=== PATIENT | male | born 1935 | race Caucasian/White ===

== ENCOUNTER 2021-10-24 15:19 | Inpatient (IN) | payer MEDICARE, BC ==
[2021-10-25] MEDS ORDERED: VANCOMYCIN IV PER PHARMACY 1 EACH MISC MISCELLANE PRN (00:27)
--- NOTE | 2021-10-25 00:27 | ED ---
Extremity Problem HPI - General Chief complaint: Extremity Problem,Nontraumatic Stated complaint: Infection in Right Foot Time Seen by Provider: 10/25/21 00:19 Source: patient Mode of arrival: ambulatory Limitations: no limitations - History of Present Illness Initial comments: Chief is a pleasant 85-year-old gentleman with a history of a wound to his right heel, he's been following with wound care, he reports that his foot has become filled with fluid and draining purulent fluid. Wound care advised him today that he needs to the hospital for IV antibiotics. - Related Data Home Medications Medication Instructions Recorded Confirmed Cyclobenzaprine [Flexeril] 5 mg PO DAILY PRN 09/19/14 01/30/15 Metoprolol Tartrate [Lopressor] 50 mg PO BID 09/19/14 01/30/15 Piroxicam [Feldene] 20 mg PO DAILY 09/19/14 01/30/15 Warfarin [Coumadin] 5 mg PO SUMOWETHFRSA 09/19/14 01/30/15 Acetaminophen-Codeine 300-30mg 1 tab PO Q4H PRN 01/30/15 01/30/15 [Tylenol #3] Nepafenac [Nevanac] 1 drop LEFT EYE BID 01/30/15 01/30/15 Warfarin Sodium [Coumadin] 7.5 mg PO TU 01/30/15 01/30/15 Allergies Allergy/AdvReac Type Severity Reaction Status Date / Time chocolate flavor AdvReac Diarrhea Verified 10/24/21 15:31 peanut [Peanut Butter] AdvReac Diarrhea Verified 10/24/21 15:31 Review of Systems ROS Statement: Those systems with pertinent positive or pertinent negative responses have been documented in the HPI. ROS Other: All systems not noted in ROS Statement are negative. Past Medical History Past Medical History: Atrial Fibrillation, CVA/TIA, Hypertension Additional Past Medical History / Comment(s): "RETINA ISSUES" History of Any Multi-Drug Resistant Organisms: None Reported Past Surgical History: Orthopedic Surgery Additional Past Surgical History / Comment(s): CATARACT SURGERY, RIGHT KNEE SURGERY, CARODID ARTERY SURGERY Past Psychological History: No Psychological Hx Reported Smoking Status: Never smoker Past Alcohol Use History: Abuse Past Drug Use History: None Reported General Exam - General Exam Comments Initial Comments: Physical Exam GENERAL: Elderly, obese male HENT: Normocephalic, Atraumatic. EYES: PERRL, EOMI PULMONARY: Unlabored respirations. CARDIOVASCULAR: RRR Chronic venous stasis ABDOMEN: Non-distended SKIN: Chronic venous stasis of lower extremities Abscess and maceration of tissue on heel, draining purulent fluid : Deferred NEUROLOGIC: Alert and oriented MUSCULOSKELETAL: No apparent injury PSYCHIATRIC: No SI/HI Limitations: no limitations Course Vital Signs 10/24/21 10/25/21 15:28 02:31 Temperature 98.4 F 97.7 F Pulse Rate 100 66 Respiratory 22 18 Rate Blood Pressure 120/67 111/94 O2 Sat by Pulse 95 Oximetry Medical Decision Making - Medical Decision Making The patient was seen and evaluated, history is obtained from patient and at bedside Physical exam reveals a large open draining wound on the heel patient appears to have chronic venous stasis and chronic cellulitis Labs are obtained patient has leukocytosis, x-rays show no sign of osteomyelitis, inflammatory markers are pending Broad spectrum antibiotics were ordered Patient care was discussed with Dr. Barbour who agrees with plan for admission with a consult to infectious disease - Lab Data Result diagrams: 10/25/21 01:29 10/25/21 01:29 Lab Results 10/25/21 10/25/21 10/25/21 Range/Units 01:29 01:29 01:29 WBC 16.7 H (3.8-10.6) k/uL RBC 5.35 (4.30-5.90) m/uL Hgb 14.8 (13.0-17.5) gm/dL Hct 46.3 (39.0-53.0) % MCV 86.5 (80.0-100.0) fL MCH 27.6 (25.0-35.0) pg MCHC 31.9 (31.0-37.0) g/dL RDW 16.0 H (11.5-15.5) % Plt Count 415 (150-450) k/uL MPV 7.6 Neutrophils % 84 % Lymphocytes % 10 % Monocytes % 4 % Eosinophils % 1 % Basophils % 0 % Neutrophils # 14.1 H (1.3-7.7) k/uL Lymphocytes # 1.6 (1.0-4.8) k/uL Monocytes # 0.6 (0-1.0) k/uL Eosinophils # 0.2 (0-0.7) k/uL Basophils # 0.1 (0-0.2) k/uL Hypochromasia Slight Anisocytosis Slight PT 31.3 H (9.0-12.0) sec INR 3.1 H (<1.2) APTT 35.6 H (22.0-30.0) sec Sodium 130 L (137-145) mmol/L Potassium 3.9 (3.5-5.1) mmol/L Chloride 92 L (98-107) mmol/L Carbon Dioxide 27 (22-30) mmol/L Anion Gap 11 mmol/L BUN 18 (9-20) mg/dL Creatinine 0.75 (0.66-1.25) mg/dL Est GFR (CKD-EPI)AfAm >90 (>60 ml/min/1.73 sqM) Est GFR (CKD-EPI)NonAf 84 (>60 ml/min/1.73 sqM) Glucose 124 H (74-99) mg/dL Plasma Lactic Acid Darinel (0.7-2.0) mmol/L Calcium 8.2 L (8.4-10.2) mg/dL Total Bilirubin 1.5 H (0.2-1.3) mg/dL AST 246 H (17-59) U/L ALT 205 H (4-49) U/L Alkaline Phosphatase 253 H (38-126) U/L C-Reactive Protein 19.9 H (<1.0) mg/dL Total Protein 7.3 (6.3-8.2) g/dL Albumin 3.1 L (3.5-5.0) g/dL 10/25/21 Range/Units 01:29 WBC (3.8-10.6) k/uL RBC (4.30-5.90) m/uL Hgb (13.0-17.5) gm/dL Hct (39.0-53.0) % MCV (80.0-100.0) fL MCH (25.0-35.0) pg MCHC (31.0-37.0) g/dL RDW (11.5-15.5) % Plt Count (150-450) k/uL MPV Neutrophils % % Lymphocytes % % Monocytes % % Eosinophils % % Basophils % % Neutrophils # (1.3-7.7) k/uL Lymphocytes # (1.0-4.8) k/uL Monocytes # (0-1.0) k/uL Eosinophils # (0-0.7) k/uL Basophils # (0-0.2) k/uL Hypochromasia Anisocytosis PT (9.0-12.0) sec INR (<1.2) APTT (22.0-30.0) sec Sodium (137-145) mmol/L Potassium (3.5-5.1) mmol/L Chloride (98-107) mmol/L Carbon Dioxide (22-30) mmol/L Anion Gap mmol/L BUN (9-20) mg/dL Creatinine (0.66-1.25) mg/dL Est GFR (CKD-EPI)AfAm (>60 ml/min/1.73 sqM) Est GFR (CKD-EPI)NonAf (>60 ml/min/1.73 sqM) Glucose (74-99) mg/dL Plasma Lactic Acid Darinel 2.5 H* (0.7-2.0) mmol/L Calcium (8.4-10.2) mg/dL Total Bilirubin (0.2-1.3) mg/dL AST (17-59) U/L ALT (4-49) U/L Alkaline Phosphatase (38-126) U/L C-Reactive Protein (<1.0) mg/dL Total Protein (6.3-8.2) g/dL Albumin (3.5-5.0) g/dL Disposition Clinical Impression: Abscess of foot excluding toes, Leukocytosis, Chronic venous stasis Disposition: ADMITTED IP TO THIS [facility] Condition: Stable Is patient prescribed a controlled substance at d/c from ED?: No Referrals: Sid Barbour DO [Primary Care Provider] - 1-2 days
[2021-10-25] MEDS ORDERED: PIPERACILLIN-TAZOBACTAM 3.375 GM in SODIUM CHLORIDE 0.9% 100 ML IVPB ONE (01:00)
--- NOTE | 2021-10-25 01:12 | XR ---
EXAMINATION TYPE: XR ankle limited RT DATE OF EXAM: 10/25/2021 COMPARISON: NONE HISTORY: Ankle infection TECHNIQUE: 2 views FINDINGS: There is soft tissue swelling around the lower leg. Ankle mortise is anatomic. No fracture nor dislocation. There is moderate spurring at the talonavicular joint and the navicular cuneiform luana int. There is plantar and Achilles calcaneal spurring. IMPRESSION: No fracture. Subcutaneous edema.
[2021-10-25] MEDS ORDERED: VANCOMYCIN 2,000 MG in SODIUM CHLORIDE 0.9% 500 ML 500 ML IVPB ONE (01:30)
[2021-10-25 02:14] LABS: Anisocytosis Slight; Basophils # (A) 0.1 k/uL (0-0.2); Basophils % (A) 0 %; Eosinophils # (A) 0.2 k/uL (0-0.7); Eosinophils % (A) 1 %; HCT 46.3 % (39.0-53.0); HGB 14.8 gm/dL (13.0-17.5); Hypochromasia Slight; Lymphocytes # (A) 1.6 k/uL (1.0-4.8); Lymphocytes % (A) 10 %; MCH 27.6 pg (25.0-35.0); MCHC 31.9 g/dL (31.0-37.0); MCV 86.5 fL (80.0-100.0); Mean Platelet Volume 7.6; Monocytes # (A) 0.6 k/uL (0-1.0); Monocytes % (A) 4 %; Neutrophils # (A) 14.1 k/uL (1.3-7.7); Neutrophils % (A) 84 %; Platelet Count 415 k/uL (150-450); RBC 5.35 m/uL (4.30-5.90); WBC 16.7 k/uL (3.8-10.6)
[2021-10-25 02:24] LABS: INR 3.1 (<1.2); Partial Thromboplastin Time 35.6 sec (22.0-30.0); Prothrombin Time 31.3 sec (9.0-12.0)
[2021-10-25 02:40] LABS: ALT 205 U/L (4-49); AST 246 U/L (17-59); African American GFR (CKD) >90 (>60 ml/min/1.73 sqM); Albumin 3.1 g/dL (3.5-5.0); Alkaline Phosphatase 253 U/L (38-126); Anion Gap 11 mmol/L; Blood Urea Nitrogen 18 mg/dL (9-20); Calcium 8.2 mg/dL (8.4-10.2); Carbon Dioxide 27 mmol/L (22-30); Chloride 92 mmol/L (98-107); Glucose 124 mg/dL (74-99); Non-African American GFR(CKD) 84 (>60 ml/min/1.73 sqM); Sodium 130 mmol/L (137-145); Total Bilirubin 1.5 mg/dL (0.2-1.3); Total Protein 7.3 g/dL (6.3-8.2)
[2021-10-25 02:51] LABS: Potassium 3.9 mmol/L (3.5-5.1)
[2021-10-25 02:56] LABS: C Reactive Protein 19.9 mg/dL (<1.0)
[2021-10-25] MEDS ORDERED: NALOXONE 0.4 MG/ML 1 ML VIAL IV PRN (03:39)
[2021-10-25] MEDS ORDERED: Acetaminophen-Codeine 300-30mg TAB PO STA (04:24)
[2021-10-25] MEDS ORDERED: LIDOCAINE 1% INJ 10MG/ML (5 ML VIAL-PF) SQ ONE (15:45)
--- NOTE | 2021-10-25 17:42 | CONS ---
CONSULTATION This is an 85-year-old gentleman, well known to me from the past. Patient has been coming for carotid artery evaluation in the office on a regular basis. He had a carotid endarterectomy in the past. The patient has been coming to the wound clinic for venostasis ulcers bilaterally. Patient came yesterday to the wound clinic and he was sent to the emergency room for evaluation. Right foot heel is draining fluid and there is an abscess and maceration of the skin of the right heel. Patient also has venous hypertension of both lower extremities. MEDICAL HISTORY: History of atrial fibrillation, hypertension. The patient is on Coumadin. He also has obesity. SURGICAL HISTORY: Patient had a carotid endarterectomy done in the past. PHYSICAL EXAMINATION: Patient was seen in his room. NECK: Supple. No bruit appreciated. CHEST: Clear. Good air entry in both lungs. ABDOMEN: Protuberant. VASCULAR: Femorals are 1+ bilaterally. Patient has induration of both lower extremities due to venous hypertension. Right heel has an abscess and some maceration is noted of the skin. PLAN: I and D of the abscess and deep culture. MMODL / IJN: [id number] /
[2021-10-25] MEDS: VANCOMYCIN 2,000 MG in SODIUM CHLORIDE 0.9% 500 ML 500 ML IVPB SCH (18:09)
--- NOTE | 2021-10-25 19:07 | OP ---
OPERATIVE REPORT PREOPERATIVE DIAGNOSIS: Abscess, right heel. POSTOPERATIVE DIAGNOSIS: Abscess, right heel. OPERATION: Incision and drainage of the abscess and deep culture. PROCEDURE DESCRIPTION: This patient was seen. Right foot was prepped and draped in usual sterile manner. Lidocaine 1% plain was infiltrated. Using a sharp knife, we made a cruciate incision at the right heel. There was drainage of the fluid and the pus, and some devitalized tissue was excised with a sharp knife. The tissue was sent for deep culture. Wound was irrigated with saline. Then we used Aquacel Silver rope which was placed inside the wound and dressing was applied. Patient tolerated the procedure well. Plan is to continue with IV antibiotic. We will change the dressing tomorrow using Aquacel Silver. MMODL / IJN: [id number] /
[2021-10-25] MEDS: Acetaminophen-Codeine 300-30mg TAB PO PRN (22:47)
[2021-10-25] MEDS: ASPIRIN 81 MG PO SCH (22:55)
[2021-10-25] MEDS: KETOROLAC 0.5% OPHTH DROPS 5 ML BTL LEFT EYE SCH (22:56)
[2021-10-25] MEDS: FUROSEMIDE 40 MG TAB PO SCH (22:56)
[2021-10-25] MEDS: MELOXICAM 7.5 MG TAB PO SCH (22:56)
[2021-10-25] MEDS: TIMOLOL 0.5% OPHTH DROPS 5 ML BTL BOTH EYES SCH (22:56)
[2021-10-25] MEDS: METOPROLOL TARTRATE 50 MG TAB PO SCH (22:56)
[2021-10-25] MEDS: ESCITALOPRAM 20 MG TAB PO SCH (22:56)
[2021-10-25] MEDS: WARFARIN 5 MG TAB PO SCH (22:57)
--- NOTE | 2021-10-26 00:48 | P.CONS ---
History of Present Illness - Reason for Consult Consult date: 10/25/21 - History of Present Illness Patient is a 85-year-old male who apparently do follow at [facility] care [place] patient presented to the [facility] ER for evaluation of increasing swelling redness to the right leg also with some drainage from the right heel area, patient denies having history of any trauma patient did have a pain especially when the right heel is touched is having to more of a dull ach ing 3-4 out of 10 no radiation the patient did have some drainage patient denies high-grade fever or any chills and no fever was recorded on presentation to the hospital patient did have white count of 16.7 with a left shift creatinine was normal he did have elevated liver enzymes patient did have local cultures obtained was started on vancomycin infectious disease was consulted for further management of antibiotic therapy patient did have x-ray of the ankle which shows no fracture subcutaneous edema Past Medical History Past Medical History: Atrial Fibrillation, CVA/TIA, Hypertension Additional Past Medical History / Comment(s): "RETINA ISSUES" History of Any Multi-Drug Resistant Organisms: None Reported Past Surgical History: Orthopedic Surgery Additional Past Surgical History / Comment(s): CATARACT SURGERY, RIGHT KNEE SURGERY, CARODID ARTERY SURGERY Past Anesthesia/Blood Transfusion Reactions: No Reported Reaction Past Psychological History: No Psychological Hx Reported Smoking Status: Never smoker Past Alcohol Use History: Abuse Past Drug Use History: None Reported Medications and Allergies Home Medications Medication Instructions Recorded Confirmed Type Metoprolol Tartrate [Lopressor] 50 mg PO BID 09/19/14 10/25/21 History Piroxicam [Feldene] 20 mg PO DAILY 09/19/14 10/25/21 History Warfarin [Coumadin] 5 mg PO DIRECTED 09/19/14 10/25/21 History Acetaminophen-Codeine 300-30mg 1 tab PO Q8H PRN 01/30/15 10/25/21 History [Tylenol #3] Warfarin Sodium [Coumadin] 7.5 mg PO DIRECTED 01/30/15 10/25/21 History Aspirin EC [Ecotrin Low Dose] 81 mg PO DAILY 10/25/21 10/25/21 History Escitalopram [Lexapro] 20 mg PO DAILY 10/25/21 10/25/21 History Furosemide [Lasix] 40 mg PO BID 10/25/21 10/25/21 History Ketorolac 0.5% Ophth Soln [Acular 1 drops LEFT EYE BID 10/25/21 10/25/21 History 0.5%] Timolol 0.5% Ophth Soln [Timoptic 1 drop BOTH EYES BID 10/25/21 10/25/21 History 0.5% Ophth Soln] Allergies Allergy/AdvReac Type Severity Reaction Status Date / Time chocolate flavor AdvReac Diarrhea Verified 10/25/21 07:21 peanut [Peanut Butter] AdvReac Diarrhea Verified 10/25/21 07:21 Physical Exam Vitals: Vital Signs Temp Pulse Pulse Resp BP BP BP 10/25/21 07:00 97.6 F 116 H 12 120/74 10/25/21 05:51 98.5 F 59 L 20 112/74 10/25/21 05:11 97.4 F L 94 18 125/78 10/25/21 02:31 97.7 F 66 18 111/94 10/24/21 15:28 98.4 F 100 22 120/67 Pulse Ox 10/25/21 07:00 96 10/25/21 05:51 96 10/25/21 05:11 10/25/21 02:31 10/24/21 15:28 95 Intake and Output 10/24/21 10/25/21 10/25/21 22:59 06:59 14:59 Intake Total 118 Output Total 325 Balance -207 Intake: Oral 118 Output: Urine 325 Other: Weight 136.078 kg 136.078 kg Results CBC & Chem 7: 10/25/21 01:29 10/25/21 01:29 Labs: Abnormal Lab Results - Last 24 Hours (Table) 10/25/21 10/25/21 10/25/21 Range/Units 01:29 01:29 01:29 WBC 16.7 H (3.8-10.6) k/uL RDW 16.0 H (11.5-15.5) % Neutrophils # 14.1 H (1.3-7.7) k/uL ESR (0-15) mm/hr PT 31.3 H (9.0-12.0) sec INR 3.1 H (<1.2) APTT 35.6 H (22.0-30.0) sec Sodium 130 L (137-145) mmol/L Chloride 92 L (98-107) mmol/L Glucose 124 H (74-99) mg/dL Plasma Lactic Acid Darinel (0.7-2.0) mmol/L Calcium 8.2 L (8.4-10.2) mg/dL Total Bilirubin 1.5 H (0.2-1.3) mg/dL AST 246 H (17-59) U/L ALT 205 H (4-49) U/L Alkaline Phosphatase 253 H (38-126) U/L C-Reactive Protein 19.9 H (<1.0) mg/dL Albumin 3.1 L (3.5-5.0) g/dL 10/25/21 10/25/21 Range/Units 01:29 03:24 WBC (3.8-10.6) k/uL RDW (11.5-15.5) % Neutrophils # (1.3-7.7) k/uL ESR 86 H (0-15) mm/hr PT (9.0-12.0) sec INR (<1.2) APTT (22.0-30.0) sec Sodium (137-145) mmol/L Chloride (98-107) mmol/L Glucose (74-99) mg/dL Plasma Lactic Acid Darinel 2.5 H* (0.7-2.0) mmol/L Calcium (8.4-10.2) mg/dL Total Bilirubin (0.2-1.3) mg/dL AST (17-59) U/L ALT (4-49) U/L Alkaline Phosphatase (38-126) U/L C-Reactive Protein (<1.0) mg/dL Albumin (3.5-5.0) g/dL Assessment and Plan Plan: 1patient [facility] with right lower extremity cellulitis in this patient who did have a wound to the right heel area with underlying diabetes and concern for possible infected blister/callus, will need to call for the gram- positive skin alfonso to be the likely pathogen. 2elevated liver enzymes but no significant abdominal pain no tenderness right upper quadrant area. 3we will wait for the surgical evaluation drainage and deep culture. 4vancomycin pharmacy to dose target trough of 15 while watching kidney f unction and vancomycin trough closely 5check ultrasound of the liver and gallbladder area. We will follow on clinical condition and cultures to further adjust medication if needed Thank you for this consultation will follow this patient along with you Time with Patient: Greater than 30
[2021-10-26] MEDS: VANCOMYCIN 2,000 MG in SODIUM CHLORIDE 0.9% 500 ML 500 ML IVPB SCH ×2 (05:51→17:08)
--- NOTE | 2021-10-26 08:22 | US ---
EXAMINATION TYPE: US abdomen complete DATE OF EXAM: 10/26/2021 COMPARISON: NONE CLINICAL HISTORY: elevated LFT. Large body habitus at 300lb,Ht 5'8; colitis per patient. EXAM MEASUREMENTS: Liver Length: 16.9 cm Gallbladder Wall: 0.3 cm CBD: 0.4 cm Spleen: 11.4 cm Right Kidney: 10.8 x 6.7 x 5.5 cm Left Kidney: 10.6 x 5.6 x 5.2 cm Pancreas: hyperechoic and partially heterogeneous Liver: small left lobe; hyperechoic and heterogeneous; periportal wall brightness Gallbladder: large shadowing stone = 2.1 x 1.0 x 1.6cm and noted mid lumen; irregular echoes (small amount) seen in neck suggests sludge; elongated gallbladder greater than 10.0cm, but height is wnl. Evidence for sonographic Gore's sign: no CBD: wnl Spleen: wnl Right Kidney: mid lateral cortical cyst imaged = 0.9 x 1.1 x 1.0cm Left Kidney: No hydronephrosis or masses seen Upper IVC: wnl Abd Aorta: size is wnl, wall calcifications are seen distally. Suboptimal study due to large body habitus. Heterogeneous pancreas difficult to distinctly visualize margins. No ductal dilatation. Visualized liver is heterogeneously hyperechoic. No abnormal dilatatio n. Gallbladder has large intraluminal gallstone without surrounding fluid or wall thickening. No hydr onephrosis bilaterally. Incidental near 1.0 cm round lesion upper to midpole level right kidney favor ing benign thin-walled cyst. No greater than 3.0 cm AAA. Spleen is normal in size. IMPRESSION: Suboptimal study. Heterogeneous hyperechoic appearance of liver suggestive of diffuse fa tty infiltration and/or underlying hepatocellular disease.
[2021-10-26 08:47] LABS: INR 1.9 (<1.2); Prothrombin Time 19.1 sec (9.0-12.0)
[2021-10-26] MEDS: ASPIRIN 81 MG PO SCH (08:48)
[2021-10-26] MEDS: FUROSEMIDE 40 MG TAB PO SCH ×2 (08:49→21:06)
[2021-10-26] MEDS: METOPROLOL TARTRATE 50 MG TAB PO SCH ×2 (08:49→21:07)
[2021-10-26] MEDS: ESCITALOPRAM 20 MG TAB PO SCH (08:50)
[2021-10-26] MEDS: MELOXICAM 7.5 MG TAB PO SCH (08:50)
[2021-10-26] MEDS: KETOROLAC 0.5% OPHTH DROPS 5 ML BTL LEFT EYE SCH ×2 (08:51→21:07)
[2021-10-26] MEDS: TIMOLOL 0.5% OPHTH DROPS 5 ML BTL BOTH EYES SCH ×2 (08:51→21:08)
[2021-10-26] MEDS: Acetaminophen-Codeine 300-30mg TAB PO PRN ×2 (13:30→21:09)
--- NOTE | 2021-10-26 15:36 | P.PN ---
Subjective Progress Note Date: 10/26/21 This is an 85-year-old gentleman referred to the ER by Dr. Purdy from the wound care clinic related to chronic right heel abscess/maceration with purulent drainage. Ankle x-ray reported no fracture, soft tissue swelling around the lower leg, moderate spurring. Underwent I&D yesterday with deep cultures obtained, tolerated procedure well. Denies any leg or foot pain-patient has neuropathy. Currently NPO for abdominal ultrasound in regards to elevated LFTs. Denies chest pain, palpitations or shortness of breath. Denies lightheadedness or dizziness or focal deficits. Maintained on IV antibiotics of Zosyn and vancomycin as per ID. Labs pending. Objective - Vital Signs Vital signs: Vital Signs Temp 98.4 F 10/26/21 13:29 Pulse 103 H 10/26/21 13:29 Resp 20 10/26/21 13:29 BP 110/74 10/26/21 13:29 Pulse Ox 97 10/26/21 13:29 Intake & Output 10/25/21 10/26/21 10/26/21 18:59 06:59 18:59 Intake Total 476 240 Output Total 1000 625 300 Balance -524 -625 -60 Intake: Oral 476 240 Output: Urine 1000 625 300 Other: Voiding Method Urinal # Voids 1 3 # Bowel Movements 0 - Exam PHYSICAL EXAM: VITAL SIGNS: [As above] GENERAL: Sitting up in bed, no acute distress HEENT: Conjunctivae normal. eyes normal. MMM. NECK: No JVD. No thyroid enlargement. No LNs CARDIOVASCULAR: S1, S2 regular. No murmur RESPIRATION: Breath sounds diminished in the bases. No rhonchi or crackles. No bronchial breathing. ABDOMEN: Soft, nontender . No guarding. no masses palpable. No ascites, No hepatosplenomegaly.Bowel sounds heard. LEGS: Bilateral lower extremity chronic venous stasis with right heel dressing with serosanguineous drainage PSYCHIATRY: Alert and oriented X3, mood and affect normal. NERVOUS SYSTEM: Cranial N 2-12 grossly normal. Moves all 4 limbs. Diffuse weakness No focal deficits. Strength and sensation grossly intact. Skin: no rash - Labs CBC & Chem 7: 10/25/21 01:29 10/25/21 01:29 Labs: Abnormal Lab Results - Last 24 Hours (Table) 10/25/21 10/26/21 Range/Units 01:29 08:04 PT 19.1 H (9.0-12.0) sec INR 1.9 H (<1.2) Procalcitonin 0.45 H (0.02-0.09) ng/mL Microbiology - Last 24 Hours (Table) 10/25/21 01:29 Gram Stain - Preliminary Ankle - Right Wound Culture - Preliminary Presumptive MRSA 10/25/21 16:10 Gram Stain - Preliminary Foot - Right Wound Culture - Preliminary 10/25/21 01:30 Blood Culture - Preliminary Blood No Growth after 24 hours 10/25/21 01:45 Blood Culture - Preliminary Blood No Growth after 24 hours 10/25/21 16:10 Anaerobic Culture - Preliminary Foot - Right Assessment and Plan Assessment: Right lower extremity cellulitis, chronic right heel abscess in a patient with diabetes, status post I&D with deep cultures obtained. 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 Labs pending. Maintain NPO status, abdominal ultrasound pending. Coumadin dosing per pharmacy with daily PT/INR. Antibiotics/Wound Care as per infectious disease and vascular surgery Dr. Purdy,whom patient follows with in outpatient wound care center. NovoLog insulin sliding scale added to med regimen, hemoglobin A1c ordered. Close monitoring of Accu-Cheks. Close monitoring of renal function, electrolytes with repeat labs ordered for a.m. Prognosis guarded given multiple complex medical issues. The impression and plan of care has been dictated as directed. DrJarrett: I performed a history and examination of this patient, discussed the same with the dictator. I agree with the dictator's note ,documented as a scribe. Any additional findings or plans will be noted.
[2021-10-26] MEDS ORDERED: PANTOPRAZOLE 40 MG/10 ML VIAL IVP SCH (15:45)
[2021-10-26 16:14] LABS: Anisocytosis Slight; Carbon Dioxide 28 mmol/L (22-30); Chloride 98 mmol/L (98-107); Glucose 120 mg/dL (74-99); HCT 39.4 % (39.0-53.0); HGB 12.1 gm/dL (13.0-17.5); Hypochromasia Moderate; MCH 27.2 pg (25.0-35.0); MCHC 30.8 g/dL (31.0-37.0); MCV 88.3 fL (80.0-100.0); Mean Platelet Volume 7.2; Platelet Count 381 k/uL (150-450); Potassium 4.3 mmol/L (3.5-5.1); RBC 4.46 m/uL (4.30-5.90); RDW 16.3 % (11.5-15.5); Sodium 130 mmol/L (137-145); WBC 6.7 k/uL (3.8-10.6)
[2021-10-26 16:15] LABS: ALT 120 U/L (4-49); AST 94 U/L (17-59); African American GFR (CKD) >90 (>60 ml/min/1.73 sqM); Albumin 2.4 g/dL (3.5-5.0); Albumin/Globulin Ratio 0.7; Alkaline Phosphatase 120 U/L (38-126); Anion Gap 4 mmol/L; Blood Urea Nitrogen 16 mg/dL (9-20); Calcium 7.4 mg/dL (8.4-10.2); Globulin 3.5 g/dL; Non-African American GFR(CKD) 80 (>60 ml/min/1.73 sqM); Total Bilirubin 0.9 mg/dL (0.2-1.3); Total Protein 5.9 g/dL (6.3-8.2)
[2021-10-26 16:55] LABS: Glucose,Whole Blood 142 mg/dL (75-99)
--- NOTE | 2021-10-26 17:16 | PN ---
PROGRESS NOTE This is an 85-year-old gentleman with history of diabetes, chronic venous hypertension with abscess formation noted on right heel. We did I and D yesterday with debridement and deep culture. The patient is on IV antibiotic. We will change the dressing tomorrow with Aquacel Silver rope. Culture is pending. MMODL / IJN: [id number] /
[2021-10-26] MEDS: INSULIN ASPART (NovoLOG) 100 UNIT/ML VIAL SQ SCH ×2 (17:31→21:08)
[2021-10-26 20:02] LABS: Glucose,Whole Blood 132 mg/dL (75-99)
[2021-10-26] MEDS: WARFARIN 5 MG TAB PO SCH (21:06)
--- NOTE | 2021-10-26 22:33 | P.PN ---
Subjective Progress Note Date: 10/26/21 Principal diagnosis: Right heel diabetic foot infection with right leg cellulitis Patient is 85-year-old male presenting to the hospital with worsening of the right heel and did have right lower extremity cellulitis in this patient who is status post surgical debridement of the right heel completed on 10/25/2021 with a culture showing presumptive MRSA. On today's evaluation that is 10/26/2021, the patient denies having any fever or any chills, the patient is feeling comfortably, denies any chest pain shortness of cough no common pain and pain to the right heel is currently controlled Objective - Vital Signs Vital signs: Vital Signs Temp 98.4 F 10/26/21 13:29 Pulse 103 H 10/26/21 13:29 Resp 20 10/26/21 13:29 BP 110/74 10/26/21 13:29 Pulse Ox 97 10/26/21 13:29 Intake & Output 10/25/21 10/26/21 10/26/21 18:59 06:59 18:59 Intake Total 476 240 Output Total 1000 625 300 Balance -524 -625 -60 Intake: Oral 476 240 Output: Urine 1000 625 300 Other: Voiding Method Urinal # Voids 1 3 # Bowel Movements 0 - Exam GENERAL DESCRIPTION: An elderly male lying in bed in no distress RESPIRATORY SYSTEM: Unlabored breathing , decreased breath sounds at bases HEART: S1 S2 regular rate and rhythm , ABDOMEN: Soft , no tenderness EXTREMITIES: Right lower extremity swelling redness right heel wound is currently dressed - Labs CBC & Chem 7: 10/26/21 15:51 10/26/21 15:51 Labs: Abnormal Lab Results - Last 24 Hours (Table) 10/25/21 10/26/21 Range/Units 01:29 08:04 PT 19.1 H (9.0-12.0) sec INR 1.9 H (<1.2) Procalcitonin 0.45 H (0.02-0.09) ng/mL Microbiology - Last 24 Hours (Table) 10/25/21 01:29 Gram Stain - Preliminary Ankle - Right Wound Culture - Preliminary Presumptive MRSA 10/25/21 16:10 Gram Stain - Preliminary Foot - Right Wound Culture - Preliminary 10/25/21 01:30 Blood Culture - Preliminary Blood No Growth after 24 hours 10/25/21 01:45 Blood Culture - Preliminary Blood No Growth after 24 hours 10/25/21 16:10 Anaerobic Culture - Preliminary Foot - Right Assessment and Plan (1) Abscess of foot excluding toes Current Visit: Yes Status: Acute Code(s): L02.619 - CUTANEOUS ABSCESS OF UNSPECIFIED FOOT SNOMED Code(s): 34195591 Plan: 1patient presented hospital with right lower extremity cellulitis in this patient who did have a wound to the right heel area with underlying diabetes and concern for possible infected blister/callus, will need to call for the gram- positive skin alfonso to be the likely pathogen. 2elevated liver enzymes but no significant abdominal pain no tenderness right upper quadrant area. 3patient is status post surgical evaluation drainage and deep culture. Which are currently growing presumptive MRSA 4vancomycin pharmacy to dose target trough of 15 while watching kidney function and vancomycin trough closely 5patient with a PICC line and outpatient IV antibiotic therapy Time with Patient: Less than 30
--- NOTE | 2021-10-26 23:42 | P.HPIM ---
History of Present Illness H&P Date: 10/25/21 Patient is a 85-year-old male who apparently do follow at [facility] wound care center patient presented to the [facility] ER for evaluation of increasing swelling redness to the right leg also with some drainage from the right heel area, patient denies having history of any trauma patient did have a pain especially when the right heel is touched is having to more of a dull aching 3-4 out of 10 no radiation the patient did have some drainage patient denies high-grade fever or any chills and no fever was recorded on presentation to the hospital patient did have white count of 16.7 with a left shift creatinine was normal he did have elevated liver enzymes patient did have local cultures obtained was started on vancomycin infectious disease was consulted for further management of antibiotic therapy patient did have x-ray of the ankle which shows no fracture subcutaneous edema Review of Systems Eyes: denies blurred vision, denies pain Ears, nose, mouth and throat: Denies headache, Denies sore throat Cardiovascular: Denies chest pain, Denies shortness of breath Respiratory: Denies cough Gastrointestinal: Denies abdominal pain, Denies diarrhea, Denies nausea, Denies vomiting Musculoskeletal: Reports hot joints, Reports leg numbness/tingling, Reports redness of joints Musculoskeletal: right: ankle pain, ankle swelling Integumentary: Reports wounds Neurological: Reports numbness, Denies weakness Psychiatric: Denies anxiety, Denies depression Endocrine: Denies fatigue, Denies weight change Past Medical History Past Medical History: Atrial Fibrillation, CVA/TIA, Hypertension Additional Past Medical History / Comment(s): "RETINA ISSUES" History of Any Multi-Drug Resistant Organisms: MRSA Date of last positivie culture/infection: 10/24/21 MDRO Source:: MRSA FOOT Past Surgical History: Orthopedic Surgery Additional Past Surgical History / Comment(s): CATARACT SURGERY, RIGHT KNEE SURGERY, CARODID ARTERY SURGERY Past Anesthesia/Blood Transfusion Reactions: No Reported Reaction Past Psychological History: No Psychological Hx Reported Smoking Status: Never smoker Past Alcohol Use History: Abuse Past Drug Use History: None Reported Medications and Allergies Home Medications Medication Instructions Recorded Confirmed Type Metoprolol Tartrate [Lopressor] 50 mg PO BID 09/19/14 10/25/21 History Piroxicam [Feldene] 20 mg PO DAILY 09/19/14 10/25/21 History Warfarin [Coumadin] 5 mg PO DIRECTED 09/19/14 10/25/21 History Acetaminophen-Codeine 300-30mg 1 tab PO Q8H PRN 01/30/15 10/25/21 History [Tylenol #3] Warfarin Sodium [Coumadin] 7.5 mg PO DIRECTED 01/30/15 10/25/21 History Aspirin EC [Ecotrin Low Dose] 81 mg PO DAILY 10/25/21 10/25/21 History Escitalopram [Lexapro] 20 mg PO DAILY 10/25/21 10/25/21 History Furosemide [Lasix] 40 mg PO BID 10/25/21 10/25/21 History Ketorolac 0.5% Ophth Soln [Acular 1 drops LEFT EYE BID 10/25/21 10/25/21 History 0.5%] Timolol 0.5% Ophth Soln [Timoptic 1 drop BOTH EYES BID 10/25/21 10/25/21 History 0.5% Ophth Soln] Allergies Allergy/AdvReac Type Severity Reaction Status Date / Time chocolate flavor AdvReac Diarrhea Verified 10/25/21 07:21 peanut [Peanut Butter] AdvReac Diarrhea Verified 10/25/21 07:21 Physical Exam Osteopathic Statement: *. No significant issues noted on an osteopathic structural exam other than those noted in the History and Physical/Consult. Vitals: Vital Signs Temp Pulse Resp BP BP Pulse Ox 10/26/21 19:35 97.2 F L 87 19 121/79 98 10/26/21 13:29 98.4 F 103 H 20 110/74 97 10/26/21 07:00 98.2 F 106 H 16 121/68 93 L 10/26/21 00:59 98.1 F 101 H 20 108/73 97 Intake and Output 10/26/21 10/26/21 10/27/21 14:59 22:59 06:59 Intake Total 240 180 Output Total 300 Balance -60 180 Intake: Oral 240 180 Output: Urine 300 Other: # Voids 3 # Bowel Movements 0 PHYSICAL EXAM: VITAL SIGNS: [As above] GENERAL: Sitting up in bed, no acute distress HEENT: Conjunctivae normal. eyes normal. MMM. NECK: No JVD. No thyroid enlargement. No LNs CARDIOVASCULAR: S1, S2 regular. No murmur RESPIRATION: Breath sounds diminished in the bases. No rhonchi or crackles. No bronchial breathing. ABDOMEN: Soft, nontender . No guarding. no masses palpable. No ascites, No hepatosplenomegaly.Bowel sounds heard. LEGS: Bilateral lower extremity chronic venous stasis with right heel dressing with serosanguineous drainage PSYCHIATRY: Alert and oriented X3, mood and affect normal. NERVOUS SYSTEM: Cranial N 2-12 grossly normal. Moves all 4 limbs. Diffuse weakness No focal deficits. Strength and sensation grossly intact. Skin: no rash Results CBC & Chem 7: 10/26/21 15:51 10/26/21 15:51 Labs: Abnormal Lab Results - Last 24 Hours (Table) 10/26/21 10/26/21 10/26/21 Range/Units 08:04 15:51 15:51 Hgb 12.1 L (13.0-17.5) gm/dL MCHC 30.8 L (31.0-37.0) g/dL RDW 16.3 H (11.5-15.5) % PT 19.1 H (9.0-12.0) sec INR 1.9 H (<1.2) Sodium 130 L (137-145) mmol/L Glucose 120 H (74-99) mg/dL POC Glucose (mg/dL) (75-99) mg/dL Hemoglobin A1c (0.0-6.0) % Calcium 7.4 L (8.4-10.2) mg/dL AST 94 H (17-59) U/L ALT 120 H (4-49) U/L Total Protein 5.9 L (6.3-8.2) g/dL Albumin 2.4 L (3.5-5.0) g/dL 10/26/21 10/26/21 10/26/21 Range/Units 15:51 16:54 20:00 Hgb (13.0-17.5) gm/dL MCHC (31.0-37.0) g/dL RDW (11.5-15.5) % PT (9.0-12.0) sec INR (<1.2) Sodium (137-145) mmol/L Glucose (74-99) mg/dL POC Glucose (mg/dL) 142 H 132 H (75-99) mg/dL Hemoglobin A1c 6.8 H (0.0-6.0) % Calcium (8.4-10.2) mg/dL AST (17-59) U/L ALT (4-49) U/L Total Protein (6.3-8.2) g/dL Albumin (3.5-5.0) g/dL Microbiology - Last 24 Hours (Table) 10/25/21 01:29 Gram Stain - Preliminary Ankle - Right Wound Culture - Preliminary Presumptive MRSA 10/25/21 16:10 Gram Stain - Preliminary Foot - Right Wound Culture - Preliminary 10/25/21 01:30 Blood Culture - Preliminary Blood No Growth after 24 hours 10/25/21 01:45 Blood Culture - Preliminary Blood No Growth after 24 hours 10/25/21 16:10 Anaerobic Culture - Preliminary Foot - Right Thrombosis Risk Factor Assmnt - Choose All That Apply Any of the Below Risk Factors Present?: Yes Each Factor Represents 1 point: Obesity (BMI >25), Swollen legs (current) Other Risk Factors: Yes Each Risk Factor Represents 3 Points: Age 75 years or older Other congenital or acquired thrombophilia - If yes, enter type in comment: No Thrombosis Risk Factor Assessment Total Risk Factor Score: 5 Thrombosis Risk Factor Assessment Level: High Risk Assessment and Plan (1) Abscess of foot excluding toes Current Visit: Yes Status: Acute Code(s): L02.619 - CUTANEOUS ABSCESS OF UNSPECIFIED FOOT SNOMED Code(s): 05410881 (2) Chronic venous stasis Current Visit: Yes Status: Acute Code(s): I87.8 - OTHER SPECIFIED DISORDERS OF VEINS SNOMED Code(s): 89600184 (3) Leukocytosis Current Visit: Yes Status: Acute Code(s): D72.829 - ELEVATED WHITE BLOOD CELL COUNT, UNSPECIFIED SNOMED Code(s): 031899402 Plan: Start IV antibiotics, ID consult and wound care services ordered.
[2021-10-27] MEDS: Acetaminophen-Codeine 300-30mg TAB PO PRN ×2 (05:14→17:38)
[2021-10-27] MEDS: VANCOMYCIN 2,000 MG in SODIUM CHLORIDE 0.9% 500 ML 500 ML IVPB SCH (05:15)
[2021-10-27 05:17] LABS: Anisocytosis Slight; Basophils % (A) 1 %; Eosinophils # (A) 0.2 k/uL (0-0.7); Eosinophils % (A) 3 %; HCT 40.4 % (39.0-53.0); HGB 12.1 gm/dL (13.0-17.5); Hypochromasia Moderate; Lymphocytes # (A) 1.4 k/uL (1.0-4.8); Lymphocytes % (A) 19 %; MCH 26.7 pg (25.0-35.0); MCHC 29.9 g/dL (31.0-37.0); MCV 89.4 fL (80.0-100.0); Mean Platelet Volume 7.3; Monocytes # (A) 0.3 k/uL (0-1.0); Monocytes % (A) 4 %; Neutrophils # (A) 5.1 k/uL (1.3-7.7); Neutrophils % (A) 72 %; Platelet Count 383 k/uL (150-450); RBC 4.52 m/uL (4.30-5.90); RDW 16.1 % (11.5-15.5); WBC 7.1 k/uL (3.8-10.6)
[2021-10-27 05:26] LABS: African American GFR (CKD) 84 (>60 ml/min/1.73 sqM); Anion Gap 3 mmol/L; Blood Urea Nitrogen 19 mg/dL (9-20); Calcium 7.6 mg/dL (8.4-10.2); Carbon Dioxide 33 mmol/L (22-30); Chloride 95 mmol/L (98-107); Glucose 147 mg/dL (74-99); Non-African American GFR(CKD) 72 (>60 ml/min/1.73 sqM); Potassium 4.4 mmol/L (3.5-5.1); Sodium 131 mmol/L (137-145)
[2021-10-27 05:33] LABS: INR 1.8 (<1.2); Prothrombin Time 18.6 sec (9.0-12.0)
[2021-10-27 07:21] LABS: Glucose,Whole Blood 100 mg/dL (75-99)
[2021-10-27] MEDS: INSULIN ASPART (NovoLOG) 100 UNIT/ML VIAL SQ SCH ×4 (07:28→21:09)
[2021-10-27] MEDS: FUROSEMIDE 40 MG TAB PO SCH ×2 (08:43→20:18)
[2021-10-27] MEDS: TIMOLOL 0.5% OPHTH DROPS 5 ML BTL BOTH EYES SCH ×2 (08:43→20:18)
[2021-10-27] MEDS: METOPROLOL TARTRATE 50 MG TAB PO SCH ×2 (08:43→20:18)
[2021-10-27] MEDS: PANTOPRAZOLE 40 MG TABLET PO SCH (08:43)
[2021-10-27] MEDS: MELOXICAM 7.5 MG TAB PO SCH (08:44)
[2021-10-27] MEDS: ESCITALOPRAM 20 MG TAB PO SCH (08:44)
[2021-10-27] MEDS: KETOROLAC 0.5% OPHTH DROPS 5 ML BTL LEFT EYE SCH ×2 (08:44→20:18)
[2021-10-27] MEDS: ASPIRIN 81 MG PO SCH (08:47)
--- NOTE | 2021-10-27 12:03 | P.DS ---
Providers Date of admission: 10/27/21 07:53 Expected date of discharge: 10/27/21 Attending physician: Sid Barbour Consults: 10/25/21 03:39 Consult Physician Urgent Consulting Provider: Marietta Cohn Consult Reason/Comments: foot wound Do you want consulting provider notified?: Yes, Notify in am 10/25/21 12:01 Consult Physician Routine Consulting Provider: Sanjay Purdy Consult Reason/Comments: wound care Do you want consulting provider notified?: Yes 10/25/21 12:03 Consult Physician Routine Consulting Provider: Marietta Cohn Consult Reason/Comments: antibx, poss. osteo. calcaneous Do you want consulting provider notified?: Yes Primary care physician: Sid Barbour Hospital Course: Final Diagnoses: Right lower extremity cellulitis, chronic right heel abscess in a patient with diabetes, status post I&D with deep cultures . Wound care culture 10/24/21 reporting MRSA, preliminary wound cultures/Gram stains reporting presumptive MRSA. Lactic acidosis secondary to the above Leukocytosis with elevated CRP and pro calcitonin Elevated LFTs, in a patient with history of alcohol use, abdominal ultrasound reported suboptimal study, fatty liver, possible underlying hepatocellular disease Hypercoagulopathy in a patient on Coumadin Chronic venous stasis Diabetes mellitus, hemoglobin A1c 6.8 Chronic atrial fibrillation, on Coumadin History of CVA, TIA Hypertension History of MRSA in foot wound History of nicotine dependence Hospital course:This is an 85-year-old gentleman referred to the ER by Dr. Purdy from the wound care clinic related to chronic right heel abscess/maceration with purulent drainage. Ankle x-ray reported no fracture, soft tissue swelling around the lower leg, moderate spurring. Underwent I&D yesterday with deep cultures obtained, tolerated procedure well. Denies any leg or foot pain-patient has neuropathy. Currently NPO for abdominal ultrasound in regards to elevated LFTs. Denies chest pain, palpitations or shortness of breath. Denies lightheadedness or dizziness or focal deficits. Maintained on IV antibiotics of Zosyn and vancomycin as per ID. Labs pending. Maintained on vancomycin as per ID, renal function stable. INR 1.8. Blood sugars controlled. Hemoglobin A1c 6.8 . Significant clinical improvement. Patient will be discharged home today in a stable condition with guarded prognosis pending PICC line placement, final DC recommendations/antibiotics/Wound Care as per both ID and vascular surgery. Microbiology 10/25/21 01:29 Ankle - Right Gram Stain - Preliminary 10/25/21 01:29 Ankle - Right Wound Culture - Preliminary Methicillin resist S. aureus 10/25/21 01:30 Blood Blood Culture - Preliminary No Growth after 48 hours 10/25/21 01:45 Blood Blood Culture - Preliminary No Growth after 48 hours 10/25/21 16:10 Foot - Right Gram Stain - Preliminary 10/25/21 16:10 Foot - Right Wound Culture - Preliminary Presumptive MRSA 10/25/21 16:10 Foot - Right Anaerobic Culture - Preliminary Microbiology 10/25/21 01:29 Ankle - Right Gram Stain - Preliminary 10/25/21 01:29 Ankle - Right Wound Culture - Preliminary Methicillin resist S. aureus 10/25/21 01:30 Blood Blood Culture - Preliminary No Growth after 48 hours 10/25/21 01:45 Blood Blood Culture - Preliminary No Growth after 48 hours 10/25/21 16:10 Foot - Right Gram Stain - Preliminary 10/25/21 16:10 Foot - Right Wound Culture - Preliminary Presumptive MRSA 10/25/21 16:10 Foot - Right Anaerobic Culture - Preliminary The impression and plan of care has been dictated as directed. : I performed a history and examination of this patient, discussed the same with the dictator. I agree with the dictator's note ,documented as a scribe. Any additional findings or plans will be noted. Patient Condition at Discharge: Stable Plan - Discharge Summary Discharge Rx Participant: No New Discharge Prescriptions: New Pantoprazole [Protonix] 40 mg PO DAILY #30 tab Continue Piroxicam [Feldene] 20 mg PO DAILY Metoprolol Tartrate [Lopressor] 50 mg PO BID Acetaminophen-Codeine 300-30mg [Tylenol w/codeine #3] 1 tab PO Q8H PRN PRN Reason: Pain Aspirin EC [Ecotrin Low Dose] 81 mg PO DAILY Furosemide [Lasix] 40 mg PO BID Escitalopram [Lexapro] 20 mg PO DAILY Timolol 0.5% Ophth Soln [Timoptic 0.5% Ophth Soln] 1 drop BOTH EYES BID Ketorolac 0.5% Ophth Soln [Acular 0.5%] 1 drops LEFT EYE BID Changed Warfarin [Coumadin] 5 mg PO DAILY #0 Discontinued Warfarin Sodium [Coumadin] 7.5 mg PO DIRECTED Discharge Medication List Metoprolol Tartrate [Lopressor] 50 mg PO BID 09/19/14 [History] Piroxicam [Feldene] 20 mg PO DAILY 09/19/14 [History] Acetaminophen-Codeine 300-30mg [Tylenol w/codeine #3] 1 tab PO Q8H PRN 01/30/15 [History] Aspirin EC [Ecotrin Low Dose] 81 mg PO DAILY 10/25/21 [History] Escitalopram [Lexapro] 20 mg PO DAILY 10/25/21 [History] Furosemide [Lasix] 40 mg PO BID 10/25/21 [History] Ketorolac 0.5% Ophth Soln [Acular 0.5%] 1 drops LEFT EYE BID 10/25/21 [History] Timolol 0.5% Ophth Soln [Timoptic 0.5% Ophth Soln] 1 drop BOTH EYES BID 10/25/21 [History] Pantoprazole [Protonix] 40 mg PO DAILY #30 tab 10/27/21 [Rx] Warfarin [Coumadin] 5 mg PO DAILY #0 10/27/21 [Rx] Follow up Appointment(s)/Referral(s): [facility], [NON-STAFF] - 10/28/21 Sid Barbour DO [Primary Care Provider] - 1-2 days MID,Infusion [NON-STAFF] - 10/28/21 Ambulatory/Diagnostic Orders: Prothrombin Time INR [LAB.AMB] Time Frame: 10/30/21, Location: None Selected Activity/Diet/Wound Care/Special Instructions: Hemoglobin A1c 6.8, further diabetic education/recommendations in clinic with PCP.
[2021-10-27 12:18] LABS: Glucose,Whole Blood 135 mg/dL (75-99)
[2021-10-27] MEDS ORDERED: LIDOCAINE 1% INJ 10MG/ML (5 ML VIAL-PF) SQ ONE (12:56)
--- NOTE | 2021-10-27 13:47 | IR ---
EXAMINATION TYPE: IR cvc insert >=5 years DATE OF EXAM: 10/27/2021 COMPARISON: NONE CLINICAL HISTORY: Infection Needs long-term intravenous access for antibiotics. PROCEDURE: Hand hygiene obtained with soap and water and alcohol-based hand rub. After informed consent, the skin overlying the left basilic vein was localized with ultrasound and no yarelis to be compressible and patent. An ultrasound image was obtained and submitted on the patient's c medina. The overlying skin was prepped and draped and Lidocaine was used for local anesthesia. A skin john was made with a scalpel. Access was gained to the vein under ultrasound guidance with a 21 gau ge needle and a 0.018 inch wire was advanced. Access site was dilated with Peel-Away sheath and cath eter tailored to the appropriate length and advanced such that the distal tip is at the cavoatrial ju nction. Spot image was obtained verifying placement. Catheter was fixed to the skin and a sterile d ressing was placed following hemostasis. Catheter was aspirated and flushed with saline. Patient wa s discharged in stable condition without complication. Maximal barrier technique is utilized. Ultras ound image is documented on the chart. Ultrasound used with sterile technique. Fluoro time and fluoroscopic images submitted to document procedure: 159 intraoperative C-arm images, 0.4 minutes fluoroscopy time IMPRESSION: STATUS POST ULTRASOUND AND FLUOROSCOPIC GUIDED PICC LINE PLACEMENT, READY FOR USE. THIS PROCEDURE WAS PERFORMED BY THE UNDERSIGNED.
--- NOTE | 2021-10-27 14:43 | PN ---
PROGRESS NOTE This 85-year-old gentleman has bilateral venous hypertension with lower extremity. Patient developed drainage and abscess formation in the right heel. We did debridement and drained the abscess. Culture came back as MRSA. Today I have checked the wound. Patient still has drainage and some skin was devitalized, which was excised. We placed Aquacel Silver to the wound. We will change the dressing on Saturday. Continue with IV antibiotic. MMODL / IJN: [id number] /
[2021-10-27 17:04] LABS: Glucose,Whole Blood 112 mg/dL (75-99)
--- NOTE | 2021-10-27 17:14 | CDI ---
Documentation Clarification Form Date: 10/27/2021 04:50:31 PM From: Elena Smiley RN CCDS Admit Date: 10/27/2021 07:53:00 AM Patient Name: Winston Dunham Visit Number: [id number] Discharge Date: ATTENTION: The Clinical Documentation Specialists (CDI) and [facility] Coding Staff appreciate your assistance in clarifying documentation. Please respond to the clarification below the line at the bottom and electronically sign. The CDI & [facility] Coding staff will review the response and follow-up if needed. Please note: Queries are made part of the Legal Health Record. If you have any questions, please contact the author of this message via ITS. Dr. Sanjay Vasquez debridement is documented 10/26, Vascular Surgery/wound care progress note. Additional clarification regarding the procedure is requested. History/Risk Factors: 85-year-old male presented to the ED for evaluation of increasing redness to the right leg and drainage from the heel area. Medical History: follows at [facility] wound care for right leg wound, DM2 and HTN. 10/25, H&P. Clinical Indicators: Op Note 10/25: Using a sharp knife we made a cruciate incision of the right heel. There was drainage of fluid and the pus, and some devitalized tissue was excised with a sharp knife. The tissue was sent for deep culture. Vascular Surgery/wound care progress note 10/26: We did I and D yesterday with debridement and deep culture. Treatment: 10/25 Aquacel Silver rope; 10/25 Zoysn 3.375gm IVPB x 1; 10/25 Vancomycin 2,000mg IVPB x 1; 10/25 - 10/27 Vancomycin 1,750mg Q12HR. Please clarify the type of procedure performed: [ ] Excisional debridement please document depth of tissue (the removal of necrotic, devitalized tissue or slough by means of cutting away of tissue) [ ] Other; please specify [ ] Unable to determine Five elements required for accurate and compliant documentation of a debridement: Excisional debridement ( removal of necrotic, devitalized tissue or slough by means of cutting away of tissue) Non-excisional debridement (the removal of necrotic, devitalized tissue or slough by means of flushing, brushing, or washing. (Irrigation) Technique used (e.g., excisional, excised, cutting, brushing, jet lavage etc.) Instrument(s) used (e.g., scalpel, curette, etc.) Nature of the tissue removed (e.g., necrotic, devitalized tissues, non-viable tissue, etc.) Appearance and size of the wound (e.g., down to fresh bleeding tissue, 7cm x 10cm, etc.) Depth of the debridement* (e.g., skin, subcutaneous tissue, fascia, muscle, bone, etc.) (Template Last Revised: August 2020) WINTER
--- NOTE | 2021-10-27 17:15 | P.PN ---
Subjective Progress Note Date: 10/27/21 Principal diagnosis: Right heel diabetic foot infection with right leg cellulitis Patient is 85-year-old male presenting to the hospital with worsening of the right heel and did have right lower extremity cellulitis in this patient who is status post surgical debridement of the right heel completed on 10/25/2021 with a culture showing presumptive MRSA. On today's evaluation that is 10/27/2021, the patient remains to be afebrile, the patient is breathing comfortably, the patient denies any chest pain or cough, no abdominal pain and pain to the right heel is currently controlled Objective - Vital Signs Vital signs: Vital Signs Temp 97.4 F L 10/27/21 07:00 Pulse 99 10/27/21 07:00 Resp 16 10/27/21 07:00 BP 107/66 10/27/21 07:00 Pulse Ox 93 L 10/27/21 07:00 Intake & Output 10/26/21 10/27/21 10/27/21 18:59 06:59 18:59 Intake Total 420 180 Output Total 300 1500 Balance 120 -1500 180 Intake: Oral 420 180 Output: Urine 300 1500 Other: # Voids 3 # Bowel Movements 0 - Exam GENERAL DESCRIPTION: An elderly male lying in bed in no distress RESPIRATORY SYSTEM: Unlabored breathing , decreased breath sounds at bases HEART: S1 S2 regular rate and rhythm , ABDOMEN: Soft , no tenderness EXTREMITIES: Right lower extremity swelling redness right heel wound is currently dressed - Labs CBC & Chem 7: 10/27/21 04:31 10/27/21 04:31 Labs: Abnormal Lab Results - Last 24 Hours (Table) 10/26/21 10/26/21 10/26/21 Range/Units 15:51 15:51 15:51 Hgb 12.1 L (13.0-17.5) gm/dL MCHC 30.8 L (31.0-37.0) g/dL RDW 16.3 H (11.5-15.5) % PT (9.0-12.0) sec INR (<1.2) Sodium 130 L (137-145) mmol/L Chloride (98-107) mmol/L Carbon Dioxide (22-30) mmol/L Glucose 120 H (74-99) mg/dL POC Glucose (mg/dL) (75-99) mg/dL Hemoglobin A1c 6.8 H (0.0-6.0) % Calcium 7.4 L (8.4-10.2) mg/dL AST 94 H (17-59) U/L ALT 120 H (4-49) U/L Total Protein 5.9 L (6.3-8.2) g/dL Albumin 2.4 L (3.5-5.0) g/dL 10/26/21 10/26/21 10/27/21 Range/Units 16:54 20:00 04:31 Hgb 12.1 L (13.0-17.5) gm/dL MCHC 29.9 L (31.0-37.0) g/dL RDW 16.1 H (11.5-15.5) % PT (9.0-12.0) sec INR (<1.2) Sodium (137-145) mmol/L Chloride (98-107) mmol/L Carbon Dioxide (22-30) mmol/L Glucose (74-99) mg/dL POC Glucose (mg/dL) 142 H 132 H (75-99) mg/dL Hemoglobin A1c (0.0-6.0) % Calcium (8.4-10.2) mg/dL AST (17-59) U/L ALT (4-49) U/L Total Protein (6.3-8.2) g/dL Albumin (3.5-5.0) g/dL 10/27/21 10/27/21 10/27/21 Range/Units 04:31 04:31 07:19 Hgb (13.0-17.5) gm/dL MCHC (31.0-37.0) g/dL RDW (11.5-15.5) % PT 18.6 H (9.0-12.0) sec INR 1.8 H (<1.2) Sodium 131 L (137-145) mmol/L Chloride 95 L (98-107) mmol/L Carbon Dioxide 33 H (22-30) mmol/L Glucose 147 H (74-99) mg/dL POC Glucose (mg/dL) 100 H (75-99) mg/dL Hemoglobin A1c (0.0-6.0) % Calcium 7.6 L (8.4-10.2) mg/dL AST (17-59) U/L ALT (4-49) U/L Total Protein (6.3-8.2) g/dL Albumin (3.5-5.0) g/dL 10/27/21 Range/Units 12:16 Hgb (13.0-17.5) gm/dL MCHC (31.0-37.0) g/dL RDW (11.5-15.5) % PT (9.0-12.0) sec INR (<1.2) Sodium (137-145) mmol/L Chloride (98-107) mmol/L Carbon Dioxide (22-30) mmol/L Glucose (74-99) mg/dL POC Glucose (mg/dL) 135 H (75-99) mg/dL Hemoglobin A1c (0.0-6.0) % Calcium (8.4-10.2) mg/dL AST (17-59) U/L ALT (4-49) U/L Total Protein (6.3-8.2) g/dL Albumin (3.5-5.0) g/dL Microbiology - Last 24 Hours (Table) 10/25/21 01:29 Gram Stain - Preliminary Ankle - Right Wound Culture - Preliminary Methicillin resist S. aureus 10/25/21 01:30 Blood Culture - Preliminary Blood No Growth after 48 hours 10/25/21 01:45 Blood Culture - Preliminary Blood No Growth after 48 hours 10/25/21 16:10 Gram Stain - Preliminary Foot - Right Wound Culture - Preliminary Presumptive MRSA Assessment and Plan (1) Abscess of foot excluding toes Current Visit: Yes Status: Acute Code(s): L02.619 - CUTANEOUS ABSCESS OF UNSPECIFIED FOOT SNOMED Code(s): 64822737 Plan: 1patient presented hospital with right lower extremity cellulitis in this patient who did have a wound to the right heel area with underlying diabetes and concern for possible infected blister/callus, will need to call for the gram- positive skin alfonso to be the likely pathogen. 2elevated liver enzymes but no significant abdominal pain no tenderness right upper quadrant area. 3patient is status post surgical evaluation drainage and deep culture. Which are currently growing presumptive MRSA, patient did have a concern for some devitalize tissue by vascular surgery and may need further debridement 4vancomycin pharmacy to dose target trough of 15 while watching kidney funct ion and vancomycin trough closely Time with Patient: Less than 30
[2021-10-27] MEDS: VANCOMYCIN 1,750 MG in SODIUM CHLORIDE 0.9% 500 ML 500 ML IVPB SCH (17:19)
[2021-10-27] MEDS ORDERED: WARFARIN 3 MG TAB PO ONE (18:00)
[2021-10-27 20:54] LABS: Glucose,Whole Blood 143 mg/dL (75-99)
[2021-10-28] MEDS: VANCOMYCIN 1,750 MG in SODIUM CHLORIDE 0.9% 500 ML 500 ML IVPB SCH ×2 (06:02→17:40)
[2021-10-28] MEDS: Acetaminophen-Codeine 300-30mg TAB PO PRN ×2 (06:04→17:43)
[2021-10-28 06:22] LABS: INR 1.9 (<1.2); Prothrombin Time 18.7 sec (9.0-12.0)
[2021-10-28 06:35] LABS: African American GFR (CKD) >90 (>60 ml/min/1.73 sqM); Non-African American GFR(CKD) 80 (>60 ml/min/1.73 sqM)
[2021-10-28 07:10] LABS: Glucose,Whole Blood 125 mg/dL (75-99)
[2021-10-28] MEDS: INSULIN ASPART (NovoLOG) 100 UNIT/ML VIAL SQ SCH ×4 (08:47→21:44)
[2021-10-28] MEDS: MELOXICAM 7.5 MG TAB PO SCH (08:48)
[2021-10-28] MEDS: FUROSEMIDE 40 MG TAB PO SCH ×2 (08:49→21:22)
[2021-10-28] MEDS: ESCITALOPRAM 20 MG TAB PO SCH (08:49)
[2021-10-28] MEDS: ASPIRIN 81 MG PO SCH (08:49)
[2021-10-28] MEDS: PANTOPRAZOLE 40 MG TABLET PO SCH (08:49)
[2021-10-28] MEDS: METOPROLOL TARTRATE 50 MG TAB PO SCH ×2 (08:49→21:22)
[2021-10-28] MEDS: TIMOLOL 0.5% OPHTH DROPS 5 ML BTL BOTH EYES SCH ×2 (08:50→21:21)
[2021-10-28] MEDS: KETOROLAC 0.5% OPHTH DROPS 5 ML BTL LEFT EYE SCH ×2 (08:50→21:21)
[2021-10-28 12:23] LABS: Glucose,Whole Blood 111 mg/dL (75-99)
[2021-10-28 17:07] LABS: Glucose,Whole Blood 88 mg/dL (75-99)
[2021-10-28] MEDS ORDERED: WARFARIN 3 MG TAB PO ONE (18:00)
--- NOTE | 2021-10-28 19:16 | P.PN ---
Subjective This is a pleasant 85 years old male with multiple medical problems presents with right ankle infection and cellulitis and wound culture is growing MRSA and currently covered with IV vancomycin. PICC line is placed on the left side. He denies chest pain or dyspnea or abdominal pain today. Hemodynamically stable and afebrile. Also he is on Coumadin and INR today is 1.9 and has not received 6 mg tonight. Continue with IV vancomycin, warfarin, Lasix by mouth twice daily, and aspirin 81 mg Monitor liver enzymes tomorrow as his mildly elevated although trending down. Also patient has evidence of elevated ESR and procalcitonin Patient will benefit from ECF upon discharge for subacute rehab, manager social consulted Objective - Vital Signs Vital signs: Vital Signs Temp 97.6 F 10/28/21 07:00 Pulse 109 H 10/28/21 07:00 Resp 18 10/28/21 07:00 BP 157/100 10/28/21 07:00 Pulse Ox 96 10/28/21 07:00 Intake & Output 10/27/21 10/28/21 10/28/21 18:59 06:59 18:59 Intake Total 420 660 Output Total 150 100 Balance 420 -150 560 Intake: Oral 420 660 Output: Urine 150 100 Other: Voiding Method Urinal Urinal # Voids 1 8 - Exam -GENERAL: The patient is alert and oriented x3, not in any acute distress. Obese HEENT: Pupils are round and equally reacting to light. EOMI. No scleral icterus. No conjunctival pallor. Normocephalic, atraumatic. No pharyngeal erythema. No thyromegaly. CARDIOVASCULAR: S1 and S2 present. No murmurs, rubs, or gallops. PULMONARY: Chest is clear to auscultation, no wheezing or crackles. ABDOMEN: Soft, nontender, nondistended, normoactive bowel sounds. No palpable organomegaly. MUSCULOSKELETAL: No joint swelling or deformity. -EXTREMITIES: No cyanosis, clubbing, or pedal edema. Right ankle wound with burn discharge, dressing in place NEUROLOGICAL: Gross neurological examination did not reveal any focal deficits. SKIN: No rashes. no petechiae. - Labs CBC & Chem 7: 10/27/21 04:31 10/28/21 05:58 Labs: Abnormal Lab Results - Last 24 Hours (Table) 10/27/21 10/27/21 10/28/21 Range/Units 16:49 20:52 05:58 PT 18.7 H (9.0-12.0) sec INR 1.9 H (<1.2) POC Glucose (mg/dL) 112 H 143 H (75-99) mg/dL 10/28/21 10/28/21 Range/Units 07:04 12:21 PT (9.0-12.0) sec INR (<1.2) POC Glucose (mg/dL) 125 H 111 H (75-99) mg/dL Microbiology - Last 24 Hours (Table) 10/25/21 01:29 Gram Stain - Preliminary Ankle - Right Wound Culture - Preliminary Methicillin resist S. aureus Group D Enterococcus 10/25/21 01:30 Blood Culture - Preliminary Blood No Growth after 72 hours 10/25/21 01:45 Blood Culture - Preliminary Blood No Growth after 72 hours 10/25/21 16:10 Anaerobic Culture - Preliminary Foot - Right 10/25/21 16:10 Gram Stain - Final Foot - Right Wound Culture - Final Methicillin resist S. 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 Continue same treatment. Continue with symptomatic treatment. Resume home medication. Monitor lytes and vitals. DVT and GI prophylaxis. Further recommendationsas per clinical course of the patient DVT prophylaxis: Warfarin GI Prophylaxis: Ppi PT/OT: Recommended subacute rehab, manager social consulted Prognosis is guarded
[2021-10-28 21:09] LABS: Glucose,Whole Blood 105 mg/dL (75-99)
[2021-10-29] MEDS: Acetaminophen-Codeine 300-30mg TAB PO PRN ×2 (02:19→17:22)
[2021-10-29] MEDS ORDERED: VANCOMYCIN TROUGH DUE 1 EACH MISC MISCELLANE ONE (05:00)
[2021-10-29] MEDS: VANCOMYCIN 1,750 MG in SODIUM CHLORIDE 0.9% 500 ML 500 ML IVPB SCH (06:04)
[2021-10-29 06:47] LABS: INR 1.8 (<1.2); Prothrombin Time 18.4 sec (9.0-12.0)
[2021-10-29 07:23] LABS: Glucose,Whole Blood 105 mg/dL (75-99)
[2021-10-29] MEDS: INSULIN ASPART (NovoLOG) 100 UNIT/ML VIAL SQ SCH ×4 (07:36→20:35)
[2021-10-29] MEDS: PANTOPRAZOLE 40 MG TABLET PO SCH (08:51)
[2021-10-29] MEDS: METOPROLOL TARTRATE 50 MG TAB PO SCH ×2 (08:51→20:21)
[2021-10-29] MEDS: ESCITALOPRAM 20 MG TAB PO SCH (08:51)
[2021-10-29] MEDS: MELOXICAM 7.5 MG TAB PO SCH (08:51)
[2021-10-29] MEDS: ASPIRIN 81 MG PO SCH (08:51)
[2021-10-29] MEDS: FUROSEMIDE 40 MG TAB PO SCH ×2 (08:51→20:21)
[2021-10-29] MEDS: KETOROLAC 0.5% OPHTH DROPS 5 ML BTL LEFT EYE SCH ×2 (08:52→20:20)
[2021-10-29] MEDS: TIMOLOL 0.5% OPHTH DROPS 5 ML BTL BOTH EYES SCH ×2 (08:52→20:21)
--- NOTE | 2021-10-29 09:25 | P.PN ---
Progress Note - Text 85-year-old gentleman patient has a wound on right heel we did the I&D and debridement patient is under care of infectious disease for IV antibiotic we will changing the dressing with Aquacel silver rope today have examined the wound the base of the wound is less redness and minimal discharge noted we'll continue with Aquacel silver patient can go home tomorrow and follow up in the wound clinic. Change her dressing every 48 hours with excess silver patient is under care of infectious disease
[2021-10-29 12:02] LABS: Glucose,Whole Blood 117 mg/dL (75-99)
--- NOTE | 2021-10-29 13:19 | P.PN ---
Subjective This is a pleasant 85 years old male with multiple medical problems presents with right ankle infection and cellulitis and wound culture is growing MRSA and currently covered with IV vancomycin. PICC line is placed on the left side. He denies chest pain or dyspnea or abdominal pain today. Hemodynamically stable and afebrile. Also he is on Coumadin and INR today is 1.9 and has not received 6 mg tonight. Continue with IV vancomycin, warfarin, Lasix by mouth twice daily, and aspirin 81 mg Monitor liver enzymes tomorrow as his mildly elevated although trending down. Also patient has evidence of elevated ESR and procalcitonin Patient will benefit from ECF upon discharge for subacute rehab, criminal justice social worker consulted 10/29/2021 Patient with known new complaints, no distress. He is still being treated for his right heel wound infection secondary to MRSA with IV vancomycin. Dressing in place. Vascular surgery team on the case. Currently patient wants To heal by secondary intention Creatinine 1.0. His INR today is 1.8, pharmacy increase his dose of warfarin 7.5 mg today Check liver enzymes and creatinine tomorrow. Also check CBC Objective - Vital Signs Vital signs: Vital Signs Temp 97.4 F L 10/29/21 07:30 Pulse 81 10/29/21 07:30 Resp 20 10/29/21 07:30 BP 144/90 10/29/21 07:30 Pulse Ox 98 10/29/21 07:30 Intake & Output 10/28/21 10/29/21 10/29/21 18:59 06:59 18:59 Intake Total 840 240 Output Total 100 150 Balance 740 -150 240 Intake: Oral 840 240 Output: Urine 100 150 Other: Voiding Method Urinal Urinal # Voids 5 - Exam -GENERAL: The patient is alert and oriented x3, not in any acute distress. Obese HEENT: Pupils are round and equally reacting to light. EOMI. No scleral icterus. No conjunctival pallor. Normocephalic, atraumatic. No pharyngeal erythema. No thyromegaly. CARDIOVASCULAR: S1 and S2 present. No murmurs, rubs, or gallops. PULMONARY: Chest is clear to auscultation, no wheezing or crackles. ABDOMEN: Soft, nontender, nondistended, normoactive bowel sounds. No palpable organomegaly. MUSCULOSKELETAL: No joint swelling or deformity. -EXTREMITIES: No cyanosis, clubbing, or pedal edema. Right ankle wound with burn discharge, dressing in place NEUROLOGICAL: Gross neurological examination did not reveal any focal deficits. SKIN: No rashes. no petechiae. - Labs CBC & Chem 7: 10/27/21 04:31 10/29/21 05:35 Labs: Abnormal Lab Results - Last 24 Hours (Table) 10/28/21 10/28/21 10/29/21 Range/Units 12:21 21:06 05:35 PT 18.4 H (9.0-12.0) sec INR 1.8 H (<1.2) POC Glucose (mg/dL) 111 H 105 H (75-99) mg/dL 10/29/21 Range/Units 07:12 PT (9.0-12.0) sec INR (<1.2) POC Glucose (mg/dL) 105 H (75-99) mg/dL Microbiology - Last 24 Hours (Table) 10/25/21 01:30 Blood Culture - Preliminary Blood No Growth after 96 hours 10/25/21 01:45 Blood Culture - Preliminary Blood No Growth after 96 hours 10/25/21 01:29 Gram Stain - Preliminary Ankle - Right Wound Culture - Preliminary Methicillin resist S. 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 Continue same treatment. Continue with symptomatic treatment. Resume home medication. Monitor lytes and vitals. DVT and GI prophylaxis. Further recommendationsas per clinical course of the patient DVT prophylaxis: Warfarin GI Prophylaxis: Ppi PT/OT: Recommended subacute rehab, criminal justice social worker consulted Prognosis is guarded Dr. Barbour team will resume the care of the patient tomorrow
[2021-10-29 16:49] LABS: Glucose,Whole Blood 104 mg/dL (75-99)
[2021-10-29] MEDS ORDERED: WARFARIN 7.5 MG TAB PO ONE (18:00)
[2021-10-29 20:37] LABS: Glucose,Whole Blood 160 mg/dL (75-99)
--- NOTE | 2021-10-30 00:22 | P.PN ---
Subjective Progress Note Date: 10/28/21 Principal diagnosis: Right heel diabetic foot infection with right leg cellulitis Patient is 85-year-old male presenting to the hospital with worsening of the right heel and did have right lower extremity cellulitis in this patient who is status post surgical debridement of the right heel completed on 10/25/2021 with a culture showing presumptive MRSA. On today's evaluation that is 10/28/2021, the patient continues to be afebrile, the patient is breathing comfortably, the patient denies any chest pain or cough, the patient denies abdominal pain and pain to the right heel is currently controlled Objective - Vital Signs Vital signs: Vital Signs Temp 97.8 F 10/28/21 14:00 Pulse 86 10/28/21 14:00 Resp 16 10/28/21 14:00 BP 131/80 10/28/21 14:00 Pulse Ox 93 L 10/28/21 14:00 Intake & Output 10/27/21 10/28/21 10/28/21 18:59 06:59 18:59 Intake Total 420 840 Output Total 150 100 Balance 420 -150 740 Intake: Oral 420 840 Output: Urine 150 100 Other: Voiding Method Urinal Urinal # Voids 1 8 - Exam GENERAL DESCRIPTION: An elderly male lying in bed in no distress RESPIRATORY SYSTEM: Unlabored breathing , decreased breath sounds at bases HEART: S1 S2 regular rate and rhythm , ABDOMEN: Soft , no tenderness EXTREMITIES: Right lower extremity swelling redness right heel wound is currently dressed - Labs CBC & Chem 7: 10/27/21 04:31 10/29/21 05:35 Labs: Abnormal Lab Results - Last 24 Hours (Table) 10/27/21 10/27/21 10/28/21 Range/Units 16:49 20:52 05:58 PT 18.7 H (9.0-12.0) sec INR 1.9 H (<1.2) POC Glucose (mg/dL) 112 H 143 H (75-99) mg/dL 10/28/21 10/28/21 Range/Units 07:04 12:21 PT (9.0-12.0) sec INR (<1.2) POC Glucose (mg/dL) 125 H 111 H (75-99) mg/dL Microbiology - Last 24 Hours (Table) 10/25/21 01:29 Gram Stain - Preliminary Ankle - Right Wound Culture - Preliminary Methicillin resist S. aureus Group D Enterococcus 10/25/21 01:30 Blood Culture - Preliminary Blood No Growth after 72 hours 10/25/21 01:45 Blood Culture - Preliminary Blood No Growth after 72 hours 10/25/21 16:10 Anaerobic Culture - Preliminary Foot - Right 10/25/21 16:10 Gram Stain - Final Foot - Right Wound Culture - Final Methicillin resist S. aureus Assessment and Plan (1) Abscess of foot excluding toes Current Visit: Yes Status: Acute Code(s): L02.619 - CUTANEOUS ABSCESS OF UNSPECIFIED FOOT SNOMED Code(s): 64748276 Plan: 1patient presented hospital with right lower extremity cellulitis in this patient who did have a wound to the right heel area with underlying diabetes and concern for possible infected blister/callus, will need to call for the gram- positive skin alfonso to be the likely pathogen. 2elevated liver enzymes but no significant abdominal pain no tenderness right upper quadrant area. 3patient is status post surgical evaluation drainage and deep culture. Which has been finalized with MRSA infection culture positive for enterococcus, waiting for possible further debridement per vascular surgery 4vancomycin pharmacy to dose target trough of 15 while watching kidney function and vancomycin trough closely Time with Patient: Less than 30
--- NOTE | 2021-10-30 00:24 | P.PN ---
Subjective Progress Note Date: 10/29/21 Principal diagnosis: Right heel diabetic foot infection with right leg cellulitis Patient is 85-year-old male presenting to the hospital with worsening of the right heel and did have right lower extremity cellulitis in this patient who is status post surgical debridement of the right heel completed on 10/25/2021 with a culture showing presumptive MRSA. On today's evaluation that is 10/29/2021, the patient denies any fever or chills, the patient is breathing comfortably, the patient denies any chest pain or cough, the patient denies abdominal pain and the patient denies pain to the right heel Objective - Vital Signs Vital signs: Vital Signs Temp 97.8 F 10/29/21 14:00 Pulse 94 10/29/21 14:00 Resp 18 10/29/21 14:00 BP 143/82 10/29/21 14:00 Pulse Ox 97 10/29/21 14:00 Intake & Output 10/28/21 10/29/21 10/29/21 18:59 06:59 18:59 Intake Total 840 240 Output Total 100 150 Balance 740 -150 240 Intake: Oral 840 240 Output: Urine 100 150 Other: Voiding Method Urinal Urinal # Voids 5 - Exam GENERAL DESCRIPTION: An elderly male lying in bed in no distress RESPIRATORY SYSTEM: Unlabored breathing , decreased breath sounds at bases HEART: S1 S2 regular rate and rhythm , ABDOMEN: Soft , no tenderness EXTREMITIES: Right lower extremity swelling redness right heel wound is currently dressed - Labs CBC & Chem 7: 10/27/21 04:31 10/29/21 05:35 Labs: Abnormal Lab Results - Last 24 Hours (Table) 10/28/21 10/29/21 10/29/21 Range/Units 21:06 05:35 07:12 PT 18.4 H (9.0-12.0) sec INR 1.8 H (<1.2) POC Glucose (mg/dL) 105 H 105 H (75-99) mg/dL 10/29/21 Range/Units 12:00 PT (9.0-12.0) sec INR (<1.2) POC Glucose (mg/dL) 117 H (75-99) mg/dL Microbiology - Last 24 Hours (Table) 10/25/21 01:30 Blood Culture - Preliminary Blood No Growth after 96 hours 10/25/21 01:45 Blood Culture - Preliminary Blood No Growth after 96 hours 10/25/21 01:29 Gram Stain - Preliminary Ankle - Right Wound Culture - Preliminary Methicillin resist S. aureus Group D Enterococcus Assessment and Plan (1) Abscess of foot excluding toes Current Visit: Yes Status: Acute Code(s): L02.619 - CUTANEOUS ABSCESS OF UNSPECIFIED FOOT SNOMED Code(s): 63206986 Plan: 1patient presented hospital with right lower extremity cellulitis in this patient who did have a wound to the right heel area with underlying diabetes and concern for possible infected blister/callus, will need to call for the gram- positive skin alfonso to be the likely pathogen. 2elevated liver enzymes but no significant abdominal pain no tenderness right upper quadrant area. 3patient is status post surgical evaluation drainage and deep culture. Which has been finalized with MRSA infection culture positive for enterococcus, vascular surgery has evaluated the patient today and has cleared him for discharge 4patient continue with vancomycin pharmacy to dose target trough of 15 4 week with concern for possible deep infection with weekly monitoring of CBC BMP a sed rate and CRP and close outpatient follow-up Time with Patient: Less than 30
[2021-10-30] MEDS: Acetaminophen-Codeine 300-30mg TAB PO PRN ×2 (01:30→09:35)
[2021-10-30 04:37] LABS: INR 2.1 (<1.2); Prothrombin Time 20.7 sec (9.0-12.0)
[2021-10-30 04:55] LABS: African American GFR (CKD) 83 (>60 ml/min/1.73 sqM); Anion Gap 3 mmol/L; Blood Urea Nitrogen 20 mg/dL (9-20); Calcium 7.8 mg/dL (8.4-10.2); Carbon Dioxide 28 mmol/L (22-30); Chloride 101 mmol/L (98-107); Glucose 115 mg/dL (74-99); Non-African American GFR(CKD) 72 (>60 ml/min/1.73 sqM); Sodium 132 mmol/L (137-145)
[2021-10-30] MEDS ORDERED: VANCOMYCIN 1,750 MG in SODIUM CHLORIDE 0.9% 500 ML 500 ML IVPB SCH (07:00)
[2021-10-30 07:19] LABS: Glucose,Whole Blood 124 mg/dL (75-99)
[2021-10-30] MEDS: INSULIN ASPART (NovoLOG) 100 UNIT/ML VIAL SQ SCH ×2 (07:38→12:09)
[2021-10-30] MEDS: ESCITALOPRAM 20 MG TAB PO SCH (07:56)
[2021-10-30] MEDS: FUROSEMIDE 40 MG TAB PO SCH (07:56)
[2021-10-30] MEDS: ASPIRIN 81 MG PO SCH ×2 (07:56→07:57)
[2021-10-30] MEDS: METOPROLOL TARTRATE 50 MG TAB PO SCH (07:57)
[2021-10-30] MEDS: MELOXICAM 7.5 MG TAB PO SCH (07:57)
[2021-10-30] MEDS: PANTOPRAZOLE 40 MG TABLET PO SCH (07:58)
[2021-10-30] MEDS: KETOROLAC 0.5% OPHTH DROPS 5 ML BTL LEFT EYE SCH (07:58)
[2021-10-30] MEDS: TIMOLOL 0.5% OPHTH DROPS 5 ML BTL BOTH EYES SCH (07:58)
--- NOTE | 2021-10-30 09:07 | CDI ---
Documentation Clarification Form Date: 10/27/2021 04:50:31 PM From: Elena Smiley RN CCDS Admit Date: 10/27/2021 07:53:00 AM Patient Name: Winston Dunham Visit Number: [id number] Discharge Date: ATTENTION: The Clinical Documentation Specialists (CDI) and [facility] Coding Staff appreciate your assistance in clarifying documentation. Please respond to the clarification below the line at the bottom and electronically sign. The CDI & [facility] Coding staff will review the response and follow-up if needed. Please note: Queries are made part of the Legal Health Record. If you have any questions, please contact the author of this message via ITS. Dr. Sanjay Vasquez debridement is documented 10/26, Vascular Surgery/wound care progress note. Additional clarification regarding the procedure is requested. History/Risk Factors: 85-year-old male presented to the ED for evaluation of increasing redness to the right leg and drainage from the heel area. Medical History: follows at [facility] wound care for right leg wound, DM2 and HTN. 10/25, H&P. Clinical Indicators: Op Note 10/25: Using a sharp knife we made a cruciate incision of the right heel. There was drainage of fluid and the pus, and some devitalized tissue was excised with a sharp knife. The tissue was sent for deep culture. Vascular Surgery/wound care progress note 10/26: We did I and D yesterday with debridement and deep culture. Treatment: 10/25 Aquacel Silver rope; 10/25 Zoysn 3.375gm IVPB x 1; 10/25 Vancomycin 2,000mg IVPB x 1; 10/25 - 10/27 Vancomycin 1,750mg Q12HR. Please clarify the type of procedure performed: [ ] Excisional debridement please document depth of tissue (the removal of necrotic, devitalized tissue or slough by means of cutting away of tissue) [ ] Other; please specify [ ] Unable to determine Five elements required for accurate and compliant documentation of a debridement: Excisional debridement ( removal of necrotic, devitalized tissue or slough by means of cutting away of tissue) Non-excisional debridement (the removal of necrotic, devitalized tissue or slough by means of flushing, brushing, or washing. (Irrigation) Technique used (e.g., excisional, excised, cutting, brushing, jet lavage etc.) Instrument(s) used (e.g., scalpel, curette, etc.) Nature of the tissue removed (e.g., necrotic, devitalized tissues, non-viable tissue, etc.) Appearance and size of the wound (e.g., down to fresh bleeding tissue, 7cm x 10cm, etc.) Depth of the debridement* (e.g., skin, subcutaneous tissue, fascia, muscle, bone, etc.) (Template Last Revised: August 2020) WINTER
[2021-10-30 09:14] LABS: Basophils # (A) 0.03 X 10*3/uL (0.00-0.10); Basophils % (A) 0.4 %; Eosinophils # (A) 0.17 X 10*3/uL (0.04-0.35); Eosinophils % (A) 2.4 %; HCT 37.5 % (39.6-50.0); HGB 11.1 g/dL (13.0-17.0); Immature Grans, Automated 0.8 %; Lymphocytes # (A) 1.62 X 10*3/uL (0.90-5.00); Lymphocytes % (A) 22.9 %; MCH 26.2 pg (27.0-32.0); MCHC 29.6 g/dL (32.0-37.0); MCV 88.4 fL (80.0-97.0); Mean Platelet Volume 9.9 fL (9.5-12.2); Monocytes # (A) 0.55 X 10*3/uL (0.20-1.00); Monocytes % (A) 7.8 %; NRBC Per 100 WBC 0 /100 WBCS (0.0-0.0); Neutrophils # (A) 4.64 X 10*3/uL (1.80-7.70); Neutrophils % (A) 65.7 %; Platelet Count 336 X 10*3/uL (140-440); RBC 4.24 X 10*6/uL (4.40-5.60); RDW 17.6 % (11.5-14.5); WBC 7.07 X 10*3/uL (4.50-10.00)
[2021-10-30 09:28] LABS: Magnesium 2.4 mg/dL (1.5-2.4)
[2021-10-30 11:54] LABS: Glucose,Whole Blood 92 mg/dL (75-99)
--- NOTE | 2021-10-30 12:07 | P.DS ---
Providers Date of admission: 10/27/21 07:53 Expected date of discharge: 10/30/21 Attending physician: Sid Barbour Consults: 10/25/21 03:39 Consult Physician Urgent Consulting Provider: Marietta Cohn Consult Reason/Comments: foot wound Do you want consulting provider notified?: Yes, Notify in am 10/25/21 12:01 Consult Physician Routine Consulting Provider: Sanjay Purdy Consult Reason/Comments: wound care Do you want consulting provider notified?: Yes 10/25/21 12:03 Consult Physician Routine Consulting Provider: Marietta Cohn Consult Reason/Comments: antibx, poss. osteo. calcaneous Do you want consulting provider notified?: Yes Primary care physician: Sid Barbour Hospital Course: Final diagnoses Right lower extremity cellulitis, chronic right heel abscess in a patient with diabetes, status post I&D with deep cultures . Wound culture 10/24 reporting MRSA as well as current wound care cultures reporting MRSA positive for enterococcus Lactic acidosis secondary to the above Leukocytosis with elevated CRP and pro calcitonin Elevated LFTs, in a patient with history of alcohol use, abdominal ultrasound reported suboptimal study, fatty liver, possible underlying hepatocellular disease Hypercoagulopathy in a patient on Coumadin Chronic venous stasis Diabetes mellitus, hemoglobin A1c 6.8 Chronic atrial fibrillation, on Coumadin History of CVA, TIA Hypertension History of MRSA in foot wound History of nicotine dependence Hospital course:Hospital course:This is an 85-year-old gentleman referred to the ER by Dr. Purdy from the wound care clinic related to chronic right heel abscess/maceration with purulent drainage. Ankle x-ray reported no fracture, soft tissue swelling around the lower leg, moderate spurring. Underwent I&D yesterday with deep cultures obtained, tolerated procedure well. Denies any leg or foot pain-patient has neuropathy. Currently NPO for abdominal ultrasound in regards to elevated LFTs. Denies chest pain, palpitations or shortness of breath. Denies lightheadedness or dizziness or focal deficits. Maintained on IV antibiotics of Zosyn and vancomycin as per ID. Labs pending. Status post I&D with deep cultures obtained, tolerated procedure well.ESR and pro calcitonin elevated ,wound culture growing MRSA, covered with IV vancomycin. PICC line placed. Renal function continues to improve with creatinine down to 0.97. INR 2.1. Significant clinical improvement. Denies chest pain, palpitations or shortness of breath. Cleared by vascular surgery and infectious disease. Infectious disease recommending vancomycin pharmacy to dose target trough of 15 4 week with concern for possible deep infection with weekly monitoring of CBC BMP a sed rate and CRP and close outpatient follow-up. Patient will be discharged to [facility] subacute rehab today in a stable condition with guarded prognosis. Microbiology 10/25/21 01:30 Blood Blood Culture - Preliminary No Growth after 120 hours 10/25/21 01:45 Blood Blood Culture - Preliminary No Growth after 120 hours 10/25/21 16:10 Foot - Right Anaerobic Culture - Final 10/25/21 01:29 Ankle - Right Gram Stain - Final 10/25/21 01:29 Ankle - Right Wound Culture - Final Methicillin resist S. aureus Enterococcus faecalis 10/25/21 16:10 Foot - Right Gram Stain - Final 10/25/21 16:10 Foot - Right Wound Culture - Final Methicillin resist S. aureus The impression and plan of care has been dictated as directed. : I performed a history and examination of this patient, discussed the same with the dictator. I agree with the dictator's note ,documented as a scribe. Any ad ditional findings or plans will be noted. Patient Condition at Discharge: Stable Plan - Discharge Summary Discharge Rx Participant: No New Discharge Prescriptions: New Pantoprazole [Protonix] 40 mg PO DAILY #30 tab Continue Piroxicam [Feldene] 20 mg PO DAILY Metoprolol Tartrate [Lopressor] 50 mg PO BID Aspirin EC [Ecotrin Low Dose] 81 mg PO DAILY Furosemide [Lasix] 40 mg PO BID Escitalopram [Lexapro] 20 mg PO DAILY Acetaminophen-Codeine 300-30mg [Tylenol w/codeine #3] 1 tab PO Q8H PRN #9 tab PRN Reason: Pain Timolol 0.5% Ophth Soln [Timoptic 0.5% Ophth Soln] 1 drop BOTH EYES BID Ketorolac 0.5% Ophth Soln [Acular 0.5%] 1 drops LEFT EYE BID Changed Warfarin [Coumadin] 5 mg PO DAILY #0 Discontinued Warfarin Sodium [Coumadin] 7.5 mg PO DIRECTED Discharge Medication List Metoprolol Tartrate [Lopressor] 50 mg PO BID 09/19/14 [History] Piroxicam [Feldene] 20 mg PO DAILY 09/19/14 [History] Aspirin EC [Ecotrin Low Dose] 81 mg PO DAILY 10/25/21 [History] Escitalopram [Lexapro] 20 mg PO DAILY 10/25/21 [History] Furosemide [Lasix] 40 mg PO BID 10/25/21 [History] Ketorolac 0.5% Ophth Soln [Acular 0.5%] 1 drops LEFT EYE BID 10/25/21 [History] Timolol 0.5% Ophth Soln [Timoptic 0.5% Ophth Soln] 1 drop BOTH EYES BID 10/25/21 [History] Pantoprazole [Protonix] 40 mg PO DAILY #30 tab 10/27/21 [Rx] Warfarin [Coumadin] 5 mg PO DAILY #0 10/27/21 [Rx] Acetaminophen-Codeine 300-30mg [Tylenol w/codeine #3] 1 tab PO Q8H PRN #9 tab 10/30/21 [Rx] Follow up Appointment(s)/Referral(s): [facility], [NON-STAFF] - Sid Barbour DO [Primary Care Provider] - 3 Days [facility] [NON-STAFF] - [facility] [NON-STAFF] - 1-2 Days Marietta Cohn MD [STAFF PHYSICIAN] - 1 Week Ambulatory/Diagnostic Orders: Prothrombin Time INR [LAB.AMB] Time Frame: 10/30/21, Location: None Selected Activity/Diet/Wound Care/Special Instructions: [facility] Hemoglobin A1c 6.8, further diabetic education/recommendations in clinic with PCP. Wound care as per vascular surgery:Right Lateral Heel- aquacel isabel liu kerlix. change q 48hours left upper arm PICC line- inserted 10/27/2021 PT/INR on Saturday. Per ID:vancomycin pharmacy to dose target trough of 15 4 week with concern for possible deep infection with weekly monitoring of CBC BMP a sed rate and CRP and close outpatient follow-up. Discharge Disposition: TRANSFER TO SNF/ECF
[2021-10-30 14:05] VITALS: BP 139/57; PULSE 85; RESP 18; TEMP 97.7
[2021-10-30] MEDS ORDERED: WARFARIN 3 MG TAB PO ONE (18:00)
--- NOTE | 2021-10-31 08:07 | CDI ---
Documentation Clarification Form Date: 10/27/2021 04:50:31 PM From: Elena Smiley RN CCDS Admit Date: 10/27/2021 07:53:00 AM Patient Name: Winston Dunham Visit Number: [id number] Discharge Date: ATTENTION: The Clinical Documentation Specialists (CDI) and [facility] Coding Staff appreciate your assistance in clarifying documentation. Please respond to the clarification below the line at the bottom and electronically sign. The CDI & [facility] Coding staff will review the response and follow-up if needed. Please note: Queries are made part of the Legal Health Record. If you have any questions, please contact the author of this message via ITS. Dr. Sanjay Vasquez debridement is documented 10/26, Vascular Surgery/wound care progress note. Additional clarification regarding the procedure is requested. History/Risk Factors: 85-year-old male presented to the ED for evaluation of increasing redness to the right leg and drainage from the heel area. Medical History: follows at [facility] wound care for right leg wound, DM2 and HTN. 10/25, H&P. Clinical Indicators: Op Note 10/25: Using a sharp knife we made a cruciate incision of the right heel. There was drainage of fluid and the pus, and some devitalized tissue was excised with a sharp knife. The tissue was sent for deep culture. Vascular Surgery/wound care progress note 10/26: We did I and D yesterday with debridement and deep culture. Treatment: 10/25 Aquacel Silver rope; 10/25 Zoysn 3.375gm IVPB x 1; 10/25 Vancomycin 2,000mg IVPB x 1; 10/25 - 10/27 Vancomycin 1,750mg Q12HR. Please clarify the type of procedure performed: [ ] Excisional debridement please document depth of tissue (the removal of necrotic, devitalized tissue or slough by means of cutting away of tissue) [ ] Other; please specify [ ] Unable to determine Five elements required for accurate and compliant documentation of a debridement: Excisional debridement ( removal of necrotic, devitalized tissue or slough by means of cutting away of tissue) Non-excisional debridement (the removal of necrotic, devitalized tissue or slough by means of flushing, brushing, or washing. (Irrigation) Technique used (e.g., excisional, excised, cutting, brushing, jet lavage etc.) Instrument(s) used (e.g., scalpel, curette, etc.) Nature of the tissue removed (e.g., necrotic, devitalized tissues, non-viable tissue, etc.) Appearance and size of the wound (e.g., down to fresh bleeding tissue, 7cm x 10cm, etc.) Depth of the debridement* (e.g., skin, subcutaneous tissue, fascia, muscle, bone, etc.) (Template Last Revised: August 2020) WINTER
--- NOTE | 2021-11-06 21:18 | P.PN ---
Subjective Progress Note Date: 10/30/21 Principal diagnosis: Right heel diabetic foot infection with right leg cellulitis Patient is 85-year-old male presenting to the hospital with worsening of the right heel and did have right lower extremity cellulitis in this patient who is status post surgical debridement of the right heel completed on 10/25/2021 with a culture has been finalized as MRSA. On today's evaluation that is 10/30/2021 , the patient denies having any fever or any chills, the patient is feeling comfortably, the patient denies any chest pain shortness of cough no common pain and pain to the right heel is currently controlled Objective - Vital Signs Vital signs: Vital Signs Temp 98 F 10/30/21 07:10 Pulse 81 10/30/21 08:00 Resp 20 10/30/21 08:00 BP 153/90 10/30/21 07:10 Pulse Ox 90 L 10/30/21 07:10 Intake & Output 10/29/21 10/30/21 10/30/21 18:59 06:59 18:59 Intake Total 600 120 Output Total 400 Balance 600 -280 Intake: Oral 600 120 Output: Urine 400 Other: Voiding Method Urinal Urinal # Voids 7 6 # Bowel Movements 1 0 - Exam GENERAL DESCRIPTION: An elderly male lying in bed in no distress RESPIRATORY SYSTEM: Unlabored breathing , decreased breath sounds at bases HEART: S1 S2 regular rate and rhythm , ABDOMEN: Soft , no tenderness EXTREMITIES: Right lower extremity swelling redness right heel wound is currently dressed - Labs CBC & Chem 7: 10/30/21 04:10 10/30/21 04:10 Labs: Abnormal Lab Results - Last 24 Hours (Table) 10/29/21 10/29/21 10/30/21 Range/Units 16:48 20:35 04:10 RBC (4.40-5.60) X 10*6/uL Hgb (13.0-17.0) g/dL Hct (39.6-50.0) % MCH (27.0-32.0) pg MCHC (32.0-37.0) g/dL RDW (11.5-14.5) % Immature Gran # (0.00-0.04) X 10*3/uL PT (9.0-12.0) sec INR (<1.2) Sodium 132 L (137-145) mmol/L Glucose 115 H (74-99) mg/dL POC Glucose (mg/dL) 104 H 160 H (75-99) mg/dL Calcium 7.8 L (8.4-10.2) mg/dL 10/30/21 10/30/21 10/30/21 Range/Units 04:10 04:10 07:08 RBC 4.24 L (4.40-5.60) X 10*6/uL Hgb 11.1 L (13.0-17.0) g/dL Hct 37.5 L (39.6-50.0) % MCH 26.2 L (27.0-32.0) pg MCHC 29.6 L (32.0-37.0) g/dL RDW 17.6 H (11.5-14.5) % Immature Gran # 0.06 H (0.00-0.04) X 10*3/uL PT 20.7 H (9.0-12.0) sec INR 2.1 H (<1.2) Sodium (137-145) mmol/L Glucose (74-99) mg/dL POC Glucose (mg/dL) 124 H (75-99) mg/dL Calcium (8.4-10.2) mg/dL Microbiology - Last 24 Hours (Table) 10/25/21 01:30 Blood Culture - Preliminary Blood No Growth after 120 hours 10/25/21 01:45 Blood Culture - Preliminary Blood No Growth after 120 hours 10/25/21 16:10 Anaerobic Culture - Final Foot - Right 10/25/21 01:29 Gram Stain - Final Ankle - Right Wound Culture - Final Methicillin resist S. aureus Enterococcus faecalis Assessment and Plan (1) Abscess of foot excluding toes Status: Acute Code(s): L02.619 - CUTANEOUS ABSCESS OF UNSPECIFIED FOOT SNOMED Code(s): 25147806 Plan: 1patient presented hospital with right lower extremity cellulitis in this patient who did have a wound to the right heel area with underlying diabetes and concern for possible infected blister/callus, will need to cover for the gram- positive skin alfonso to be the likely pathogen. 2 patient is status post surgical evaluation drainage and deep culture. Which has been finalized as enterococcus and MRSA 4patient to continue with vancomycin pharmacy to dose target trough of 15 while watching kidney function at least 4-6 weeks with clinical concern high for un derlying osteomyelitis Time with Patient: Less than 30
== END 2021-10-30 15:57 | DRG 623 ==
LOC: EC 15:19 → 6NMEDSUR 10-25 03:39 → OBSVTOIN 10-27 07:53
PROVIDERS: ADMIT Family Medicine; ATTEND Family Medicine
PROC: 0JBQ0ZZ Excision of Right Foot Subcutaneous Tissue and Fascia, Open Approach (ICD-10-PCS; principal; 2021-10-25)
PROC: 0Y9M0ZZ Drainage of Right Foot, Open Approach (ICD-10-PCS; 2021-10-25)
PROC: 02HV33Z Insertion of Infusion Device into Superior Vena Cava, Percutaneous Approach (ICD-10-PCS; 2021-10-27)
PROC: B5181ZA Fluoroscopy of Superior Vena Cava using Low Osmolar Contrast, Guidance (ICD-10-PCS; 2021-10-27)
PROC: B548ZZA Ultrasonography of Superior Vena Cava, Guidance (ICD-10-PCS; 2021-10-27)
DX: E11.628 Type 2 diabetes mellitus with other skin complications (principal); L03.115 Cellulitis of right lower limb; L02.611 Cutaneous abscess of right foot; E87.2 Acidosis; I48.20 Chronic atrial fibrillation, unspecified; Z68.42 Body mass index [BMI] 45.0-49.9, adult; R52 Pain, unspecified; R79.82 Elevated C-reactive protein (CRP); I87.8 Other specified disorders of veins; I10 Essential (primary) hypertension; I87.309 Chronic venous hypertension (idiopathic) without complications of unspecified lower extremity; K76.9 Liver disease, unspecified; E66.01 Morbid (severe) obesity due to excess calories; B95.62 Methicillin resistant Staphylococcus aureus infection as the cause of diseases classified elsewhere; B95.2 Enterococcus as the cause of diseases classified elsewhere; I83.018 Varicose veins of right lower extremity with ulcer other part of lower leg; I83.028 Varicose veins of left lower extremity with ulcer other part of lower leg; K76.0 Fatty (change of) liver, not elsewhere classified; Z86.73 Personal history of transient ischemic attack (TIA), and cerebral infarction without residual deficits; Z87.891 Personal history of nicotine dependence; Z79.01 Long term (current) use of anticoagulants; Z79.82 Long term (current) use of aspirin; Z79.899 Other long term (current) drug therapy; Z86.14 Personal history of Methicillin resistant Staphylococcus aureus infection; Z98.49 Cataract extraction status, unspecified eye; Z91.018 Allergy to other foods
CPT/HCPCS: 36415; 36573; 76700; 80048; 80053; 80202; 82565; 83036; 83605; 83735; 84145; 85025; 85027; 85610; 85652; 85730; 86140; 87040; 87070; 87075; 87077; 87186; 87205; 96365; 96366; 96367; 99212; 99284

== ENCOUNTER 2021-11-17 13:04 | Inpatient (IN) | payer MEDICARE, BC ==
--- NOTE | 2021-11-17 13:45 | XR ---
EXAMINATION TYPE: XR chest 2V DATE OF EXAM: 11/17/2021 HISTORY: Shortness of breath. COMPARISON: None. TECHNIQUE: Single view of the chest is submitted. FINDINGS: Demonstrated are scattered senescent parenchymal change. Coarse infiltrates throughout both lung cevallos much greater on the right. Correlate for underlying pn eumonia. The heart is stable. Hilar and mediastinal structures are within normal limits. Degenerative changes are seen of the dorsal spine. IMPRESSION: 1. Coarse infiltrates throughout both lung cevallos much greater on the right. Correlate for underlyin g pneumonia.
[2021-11-17 13:46] LABS: Anisocytosis Slight; Basophils # (A) 0.1 k/uL (0-0.2); Basophils % (A) 1 %; Eosinophils # (A) 0.2 k/uL (0-0.7); Eosinophils % (A) 2 %; HCT 37.5 % (39.0-53.0); HGB 11.4 gm/dL (13.0-17.5); Hypochromasia Slight; Lymphocytes # (A) 1.2 k/uL (1.0-4.8); Lymphocytes % (A) 11 %; MCH 25.8 pg (25.0-35.0); MCHC 30.5 g/dL (31.0-37.0); MCV 84.8 fL (80.0-100.0); Mean Platelet Volume 7.5; Monocytes # (A) 0.4 k/uL (0-1.0); Monocytes % (A) 4 %; Neutrophils # (A) 8.3 k/uL (1.3-7.7); Neutrophils % (A) 81 %; Platelet Count 405 k/uL (150-450); RBC 4.42 m/uL (4.30-5.90); RDW 17.8 % (11.5-15.5); WBC 10.3 k/uL (3.8-10.6)
[2021-11-17 14:00] LABS: INR 1.5 (<1.2); Partial Thromboplastin Time 28.3 sec (22.0-30.0); Prothrombin Time 15.1 sec (9.0-12.0)
[2021-11-17 14:02] LABS: Albumin 3.1 g/dL (3.5-5.0); Calcium 8.2 mg/dL (8.4-10.2); Magnesium 2.5 mg/dL (1.6-2.3); Potassium 4.9 mmol/L (3.5-5.1); Total Bilirubin 1.7 mg/dL (0.2-1.3); Total Protein 6.8 g/dL (6.3-8.2)
[2021-11-17 14:07] LABS: Vancomycin,Random 29.6 ug/mL
[2021-11-17] MEDS ORDERED: AZITHROMYCIN 500 MG in SODIUM CHLORIDE 0.9% 250 ML IVPB STA (15:15)
[2021-11-17] MEDS ORDERED: PNEUMONIA PROTOCOL UTILIZED 1 EACH MISC PO PRN (15:15)
[2021-11-17] MEDS ORDERED: NALOXONE 0.4 MG/ML 1 ML VIAL IV PRN (15:28)
[2021-11-17] MEDS ORDERED: ACETAMINOPHEN TAB 325 MG TAB PO PRN (15:28)
--- NOTE | 2021-11-17 15:28 | ED ---
General Adult HPI - General Chief complaint: Syncope Stated complaint: Fall-Weakness Source: patient, EMS Mode of arrival: EMS Limitations: no limitations - History of Present Illness Initial comments: 86-year-old male with past medical history of A. fib on Coumadin, CVA, lower e xtremity cellulitis with abscess who presents to the emergency department from [facility] facility. He is currently therefore antibiotic treatment which he receives through a left upper extremity PICC line. He is on Vanco for MRSA abscess of his right lower extremity. He was noted to have a Coumadin level of 6 and a high Vanco level therefore Coumadin and Vanco have been held. This morning the patient awoke and had a syncopal episode in bed. Denies hitting his head or suffering any trauma. The facility noted over the course of the day that the patient was having increased oxygen needs and weakness and he agreed to come to the hospital for evaluation. He admits to a nonproductive cough. No fevers. Other alleviating, precipitating or modifying factors - Related Data Home Medications Medication Instructions Recorded Confirmed Metoprolol Tartrate [Lopressor] 50 mg PO Q12H 09/19/14 11/17/21 Piroxicam [Feldene] 20 mg PO DAILY 09/19/14 11/17/21 Aspirin EC [Ecotrin Low Dose] 81 mg PO DAILY 10/25/21 11/17/21 Escitalopram [Lexapro] 20 mg PO HS 10/25/21 11/17/21 Furosemide [Lasix] 40 mg PO BID@0600,1400 10/25/21 11/17/21 Ketorolac 0.5% Ophth Soln [Acular 1 drop LEFT EYE Q12H 10/25/21 11/17/21 0.5%] Timolol 0.5% Ophth Soln [Timoptic 1 drop BOTH EYES Q12H 10/25/21 11/17/21 0.5% Ophth Soln] Acetaminophen-Codeine 300-30mg 1 tab PO Q4H PRN 11/17/21 11/17/21 [Tylenol w/codeine #3] Collagenase [Santyl Ointment] 1 applic TOPICAL HS 11/17/21 11/17/21 Pantoprazole [Protonix] 40 mg PO DAILY@0600 11/17/21 11/17/21 Phytonadione [Vitamin K] 2.5 mg PO ONCE 11/17/21 11/17/21 SILVER sulfADIAZINE CREAM 1 applic TOPICAL HS 11/17/21 11/17/21 [Silvadene Cream] Vancomycin HCl 1,250 mg IV HS@2100 11/17/21 11/17/21 Warfarin [Coumadin] 5 mg PO HS 11/17/21 11/17/21 busPIRone HCl [Buspar] 5 mg PO BID 11/17/21 11/17/21 Allergies Allergy/AdvReac Type Severity Reaction Status Date / Time chocolate flavor Allergy Per [facility] Verified 11/17/21 14:38 peanut Allergy Per [facility] Verified 11/17/21 14:38 Review of Systems ROS Statement: Those systems with pertinent positive or pertinent negative responses have been documented in the HPI. ROS Other: All systems not noted in ROS Statement are negative. Past Medical History Past Medical History: Atrial Fibrillation, CVA/TIA, Hypertension Additional Past Medical History / Comment(s): "RETINA ISSUES" History of Any Multi-Drug Resistant Organisms: MRSA Date of last positivie culture/infection: 10/25/21 MDRO Source:: MRSA FOOT AND ANKLE Past Surgical History: Orthopedic Surgery Additional Past Surgical History / Comment(s): CATARACT SURGERY, RIGHT KNEE SURGERY, CARODID ARTERY SURGERY Past Anesthesia/Blood Transfusion Reactions: No Reported Reaction Past Psychological History: No Psychological Hx Reported Smoking Status: Never smoker Past Alcohol Use History: None Reported Past Drug Use History: None Reported General Exam Limitations: no limitations General appearance: alert, in no apparent distress Head exam: Present: atraumatic, normocephalic, normal inspection Eye exam: Present: normal appearance, PERRL, EOMI. Absent: scleral icterus, conjunctival injection, periorbital swelling ENT exam: Present: normal exam, mucous membranes moist Neck exam: Present: normal inspection. Absent: tenderness, meningismus, lymphadenopathy Respiratory exam: Present: wheezes, rales. Absent: respiratory distress, rhonchi, stridor Cardiovascular Exam: Present: regular rate, normal rhythm, normal heart sounds. Absent: systolic murmur, diastolic murmur, rubs, gallop, clicks GI/Abdominal exam: Present: soft, normal bowel sounds. Absent: distended, tenderness, guarding, rebound, rigid Extremities exam: Present: normal inspection, full ROM, normal capillary refill, pedal edema. Absent: tenderness, joint swelling, calf tenderness Back exam: Present: normal inspection Neurological exam: Present: alert, oriented X3, CN II-XII intact Psychiatric exam: Present: normal affect, normal mood Skin exam: Present: warm, dry, intact, normal color. Absent: rash Course Vital Signs 11/17/21 11/17/21 11/17/21 13:17 16:00 18:00 Temperature 97.5 F L 97.4 F L Pulse Rate 79 93 96 Respiratory 18 20 20 Rate Blood Pressure 133/87 138/88 121/88 O2 Sat by Pulse 92 L 94 L 94 L Oximetry 11/17/21 20:50 Temperature 97.6 F Pulse Rate 89 Respiratory 18 Rate Blood Pressure 120/87 O2 Sat by Pulse 93 L Oximetry EKG Findings - EKG Comments: EKG Findings:: EKG demonstrates A. fib with rate of 87. QRS 93. QTC of 406. No acute ST segment elevations or depressions Medical Decision Making - Medical Decision Making Upon arrival patient is placed in room 11. A thorough history and physical exam was performed. Laboratory studies are conducted. Chest x-rays performed. Laboratory studies reveal a sub-therapeutic INR 1.5. Creatinine is 2.2 patient has normal baseline kidney function. Sodium of 126. BNP 13,400. Chest x-ray demonstrates diffuse pneumonia. Rocephin and azithromycin ordered. Recommend admission and spoke Dr. Young who agreed to admit the patient. - Lab Data Result diagrams: 11/25/21 08:31 11/25/21 08:31 Lab Results 11/17/21 11/17/21 11/17/21 Range/Units 13:37 13:37 13:37 WBC 10.3 (3.8-10.6) k/uL RBC 4.42 (4.30-5.90) m/uL Hgb 11.4 L (13.0-17.5) gm/dL Hct 37.5 L (39.0-53.0) % MCV 84.8 (80.0-100.0) fL MCH 25.8 (25.0-35.0) pg MCHC 30.5 L (31.0-37.0) g/dL RDW 17.8 H (11.5-15.5) % Plt Count 405 (150-450) k/uL MPV 7.5 Neutrophils % 81 % Lymphocytes % 11 % Monocytes % 4 % Eosinophils % 2 % Basophils % 1 % Neutrophils # 8.3 H (1.3-7.7) k/uL Lymphocytes # 1.2 (1.0-4.8) k/uL Monocytes # 0.4 (0-1.0) k/uL Eosinophils # 0.2 (0-0.7) k/uL Basophils # 0.1 (0-0.2) k/uL Hypochromasia Slight Anisocytosis Slight PT 15.1 H (9.0-12.0) sec INR 1.5 H (<1.2) APTT 28.3 (22.0-30.0) sec Sodium 126 L (137-145) mmol/L Potassium 4.9 (3.5-5.1) mmol/L Chloride 97 L (98-107) mmol/L Carbon Dioxide 19 L (22-30) mmol/L Anion Gap 10 mmol/L BUN 59 H (9-20) mg/dL Creatinine 2.24 H (0.66-1.25) mg/dL Est GFR (CKD-EPI)AfAm 30 (>60 ml/min/1.73 sqM) Est GFR (CKD-EPI)NonAf 26 (>60 ml/min/1.73 sqM) Glucose 128 H (74-99) mg/dL Plasma Lactic Acid Darinel (0.7-2.0) mmol/L Calcium 8.2 L (8.4-10.2) mg/dL Magnesium 2.5 H (1.6-2.3) mg/dL Total Bilirubin 1.7 H (0.2-1.3) mg/dL AST 121 H (17-59) U/L ALT 100 H (4-49) U/L Alkaline Phosphatase 201 H (38-126) U/L Troponin I (0.000-0.034) ng/mL NT-Pro-B Natriuret Pep pg/mL Total Protein 6.8 (6.3-8.2) g/dL Albumin 3.1 L (3.5-5.0) g/dL Urine Color Urine Appearance (Clear) Urine pH (5.0-8.0) Ur Specific [place] (1.001-1.035) Urine Protein (Negative) Urine Glucose (UA) (Negative) Urine Ketones (Negative) Urine Blood (Negative) Urine Nitrite (Negative) Urine Bilirubin (Negative) Urine Urobilinogen (<2.0) mg/dL Ur Leukocyte Esterase (Negative) Urine RBC (0-5) /hpf Urine WBC (0-5) /hpf Hyaline Casts (0-2) /lpf Granular Casts (0) /lpf Urine Mucus (None) /hpf Random Vancomycin 29.6 ug/mL Coronavirus (PCR) (Not Detectd) 11/17/21 11/17/21 11/17/21 Range/Units 13:37 13:37 13:37 WBC (3.8-10.6) k/uL RBC (4.30-5.90) m/uL Hgb (13.0-17.5) gm/dL Hct (39.0-53.0) % MCV (80.0-100.0) fL MCH (25.0-35.0) pg MCHC (31.0-37.0) g/dL RDW (11.5-15.5) % Plt Count (150-450) k/uL MPV Neutrophils % % Lymphocytes % % Monocytes % % Eosinophils % % Basophils % % Neutrophils # (1.3-7.7) k/uL Lymphocytes # (1.0-4.8) k/uL Monocytes # (0-1.0) k/uL Eosinophils # (0-0.7) k/uL Basophils # (0-0.2) k/uL Hypochromasia Anisocytosis PT (9.0-12.0) sec INR (<1.2) APTT (22.0-30.0) sec Sodium (137-145) mmol/L Potassium (3.5-5.1) mmol/L Chloride (98-107) mmol/L Carbon Dioxide (22-30) mmol/L Anion Gap mmol/L BUN (9-20) mg/dL Creatinine (0.66-1.25) mg/dL Est GFR (CKD-EPI)AfAm (>60 ml/min/1.73 sqM) Est GFR (CKD-EPI)NonAf (>60 ml/min/1.73 sqM) Glucose (74-99) mg/dL Plasma Lactic Acid Darinel 1.7 (0.7-2.0) mmol/L Calcium (8.4-10.2) mg/dL Magnesium (1.6-2.3) mg/dL Total Bilirubin (0.2-1.3) mg/dL AST (17-59) U/L ALT (4-49) U/L Alkaline Phosphatase (38-126) U/L Troponin I 0.034 (0.000-0.034) ng/mL NT-Pro-B Natriuret Pep 14742 pg/mL Total Protein (6.3-8.2) g/dL Albumin (3.5-5.0) g/dL Urine Color Urine Appearance (Clear) Urine pH (5.0-8.0) Ur Specific [place] (1.001-1.035) Urine Protein (Negative) Urine Glucose (UA) (Negative) Urine Ketones (Negative) Urine Blood (Negative) Urine Nitrite (Negative) Urine Bilirubin (Negative) Urine Urobilinogen (<2.0) mg/dL Ur Leukocyte Esterase (Negative) Urine RBC (0-5) /hpf Urine WBC (0-5) /hpf Hyaline Casts (0-2) /lpf Granular Casts (0) /lpf Urine Mucus (None) /hpf Random Vancomycin ug/mL Coronavirus (PCR) (Not Detectd) 11/17/21 11/17/21 Range/Units 14:57 14:57 WBC (3.8-10.6) k/uL RBC (4.30-5.90) m/uL Hgb (13.0-17.5) gm/dL Hct (39.0-53.0) % MCV (80.0-100.0) fL MCH (25.0-35.0) pg MCHC (31.0-37.0) g/dL RDW (11.5-15.5) % Plt Count (150-450) k/uL MPV Neutrophils % % Lymphocytes % % Monocytes % % Eosinophils % % Basophils % % Neutrophils # (1.3-7.7) k/uL Lymphocytes # (1.0-4.8) k/uL Monocytes # (0-1.0) k/uL Eosinophils # (0-0.7) k/uL Basophils # (0-0.2) k/uL Hypochromasia Anisocytosis PT (9.0-12.0) sec INR (<1.2) APTT (22.0-30.0) sec Sodium (137-145) mmol/L Potassium (3.5-5.1) mmol/L Chloride (98-107) mmol/L Carbon Dioxide (22-30) mmol/L Anion Gap mmol/L BUN (9-20) mg/dL Creatinine (0.66-1.25) mg/dL Est GFR (CKD-EPI)AfAm (>60 ml/min/1.73 sqM) Est GFR (CKD-EPI)NonAf (>60 ml/min/1.73 sqM) Glucose (74-99) mg/dL Plasma Lactic Acid Darinel (0.7-2.0) mmol/L Calcium (8.4-10.2) mg/dL Magnesium (1.6-2.3) mg/dL Total Bilirubin (0.2-1.3) mg/dL AST (17-59) U/L ALT (4-49) U/L Alkaline Phosphatase (38-126) U/L Troponin I (0.000-0.034) ng/mL NT-Pro-B Natriuret Pep pg/mL Total Protein (6.3-8.2) g/dL Albumin (3.5-5.0) g/dL Urine Color Yellow Urine Appearance Cloudy (Clear) Urine pH 5.0 (5.0-8.0) Ur Specific [place] 1.014 (1.001-1.035) Urine Protein 1+ H (Negative) Urine Glucose (UA) Negative (Negative) Urine Ketones Negative (Negative) Urine Blood Large H (Negative) Urine Nitrite Negative (Negative) Urine Bilirubin Negative (Negative) Urine Urobilinogen <2.0 (<2.0) mg/dL Ur Leukocyte Esterase Negative (Negative) Urine RBC >182 H (0-5) /hpf Urine WBC 4 (0-5) /hpf Hyaline Casts 29 H (0-2) /lpf Granular Casts 6 (0) /lpf Urine Mucus Rare H (None) /hpf Random Vancomycin ug/mL Coronavirus (PCR) Not Detected (Not Detectd) Disposition Clinical Impression: Syncope, Hypoxia, HCAP (healthcare-associated pneumonia), ELEANOR (acute kidney injury), Chronic venous stasis, Abscess of foot excluding toes Disposition: ADMITTED IP TO THIS HOSP Condition: Serious Is patient prescribed a controlled substance at d/c from ED?: No Time of Disposition: 15:28 Decision to Admit Reason: Admit from EC Decision Date: 11/17/21 Decision Time: 15:28
[2021-11-17 17:09] LABS: Appearance,Urine Cloudy (Clear); Bilirubin,Urine Negative (Negative); Blood,Urine Large (Negative); Color,Urine Yellow; Glucose,Urine (UA) Negative (Negative); Granular Casts,Urine 6 /lpf (0); Hyaline Casts,Urine 29 /lpf (0-2); Ketones,Urine Negative (Negative); Leukocyte Esterase,Urine Negative (Negative); Mucus,Urine Rare /hpf; Nitrite,Urine Negative (Negative); Protein,Urine 1+ (Negative); RBC,Urine >182 /hpf (0-5); Specific Gravity,Urine 1.014 (1.001-1.035); Urobilinogen,Urine <2.0 mg/dL (<2.0); WBC,Urine 4 /hpf (0-5)
[2021-11-17] MEDS ORDERED: SODIUM CHLORIDE 0.9% 1,000 ML IV SCH (17:45)
--- NOTE | 2021-11-17 17:49 | P.CNPUL ---
History of Present Illness Consult date: 11/17/21 Requesting physician: Bailey Arnold Reason for consult: dyspnea, cough, hypoxemia Chief complaint: Syncopal episode, shortness of breath and cough History of present illness: 86-year-old white male patient with recent medical history of lower extremity cellulitis with abscess related to MRSA infection for which the patient was hospitalized recently and discharged to [facility] with the left upper extremity PICC line in place and vancomycin for evidence of MRSA in his right lower extremity. His past medical history is significant for chronic A. fib on Coumadin, previous history of CVA, hypertension, morbid obesity. Patient was discharged to the [facility] on 10/30/2021. On 11/17/2021 patient had a syncopal episode at the [facility] while getting up out of bed, patient denied hitting his head or suffering any trauma. The facility noted that over the course of the day patient was having increased shortness of breath, weakness, increased oxygen needs. Patient reports a dry cough, no fevers, he has chronic swelling in his lower extremities not any worse. He states he is more comfortable sleeping sitting upright than lying down he is not normally oxygen dependent. He is on 2 L of oxygen with a pulse ox of 92-94%, he is afebrile. Chest x-ray in emergency department showing coarse infiltrates throughout both lungs much greater on the right the possibility of underlying pneumonia. Lab evaluation showed a white count of 10.3, hemoglobin of 11.4, INR 1.5, sodium is 126, potassium is 4.9, chloride is 97, CO2 is 19, BUN is 59, creatinine is 2.24, bilirubin is 1.7, AST was 121, ALT was 100, alk phos was 201, troponin was 0.034, proBNP was 13,004 100, urinalysis showed large amount of blood, normal white blood cells, no clear evidence of urinary tract infection, Vanco trough from 11/15/2021 was 26, random vancomycin level is 29.6. COVID-19 PCR was negative. Patient was started on antibiotics with azithromycin and Rocephin, breathing treatments, patient was on Lasix 40 mg twice daily at the [facility], clinically he appears to be dehydrated with dry oral mucous membranes. Denies any nausea vomiting or diarrhea. Cultures have been sent, ID service, nephrology, and pulmonary consultations have been requested. Review of Systems All systems: negative Constitutional: Denies chills, Denies fever Eyes: denies blurred vision, denies pain Ears, nose, mouth and throat: Denies headache, Denies sore throat Cardiovascular: Reports decreased exercise tolerance, Reports dyspnea on exertion, Reports edema, Reports syncope, Denies chest pain, Denies shortness of breath Respiratory: Reports dyspnea, Denies cough Gastrointestinal: Denies abdominal pain, Denies diarrhea, Denies nausea, Denies vomiting Musculoskeletal: Denies myalgias Integumentary: Reports wounds, Denies pruritus, Denies rash Neurological: Denies numbness, Denies weakness Psychiatric: Denies anxiety, Denies depression Endocrine: Denies fatigue, Denies weight change Past Medical History Past Medical History: Atrial Fibrillation, CVA/TIA, Hypertension Additional Past Medical History / Comment(s): "RETINA ISSUES" History of Any Multi-Drug Resistant Organisms: MRSA Date of last positivie culture/infection: 10/25/21 MDRO Source:: MRSA FOOT AND ANKLE Past Surgical History: Orthopedic Surgery Additional Past Surgical History / Comment(s): CATARACT SURGERY, RIGHT KNEE SURGERY, CARODID ARTERY SURGERY Past Anesthesia/Blood Transfusion Reactions: No Reported Reaction Past Psychological History: No Psychological Hx Reported Smoking Status: Never smoker Past Alcohol Use History: None Reported Past Drug Use History: None Reported Medications and Allergies Home Medications Medication Instructions Recorded Confirmed Type Metoprolol Tartrate [Lopressor] 50 mg PO Q12H 09/19/14 11/17/21 History Piroxicam [Feldene] 20 mg PO DAILY 09/19/14 11/17/21 History Aspirin EC [Ecotrin Low Dose] 81 mg PO DAILY 10/25/21 11/17/21 History Escitalopram [Lexapro] 20 mg PO HS 10/25/21 11/17/21 History Furosemide [Lasix] 40 mg PO BID@0600,1400 10/25/21 11/17/21 History Ketorolac 0.5% Ophth Soln [Acular 1 drop LEFT EYE Q12H 10/25/21 11/17/21 History 0.5%] Timolol 0.5% Ophth Soln [Timoptic 1 drop BOTH EYES Q12H 10/25/21 11/17/21 History 0.5% Ophth Soln] Acetaminophen-Codeine 300-30mg 1 tab PO Q4H PRN 11/17/21 11/17/21 History [Tylenol w/codeine #3] Collagenase [Santyl Ointment] 1 applic TOPICAL HS 11/17/21 11/17/21 History Pantoprazole [Protonix] 40 mg PO DAILY@0600 11/17/21 11/17/21 History Phytonadione [Vitamin K] 2.5 mg PO ONCE 11/17/21 11/17/21 History SILVER sulfADIAZINE CREAM 1 applic TOPICAL HS 11/17/21 11/17/21 History [Silvadene Cream] Vancomycin HCl 1,250 mg IV HS@2100 11/17/21 11/17/21 History Warfarin [Coumadin] 5 mg PO HS 11/17/21 11/17/21 History busPIRone HCl [Buspar] 5 mg PO BID 11/17/21 11/17/21 History Allergies Allergy/AdvReac Type Severity Reaction Status Date / Time chocolate flavor Allergy Per [facility] Verified 11/17/21 14:38 peanut Allergy Per [facility] Verified 11/17/21 14:38 Physical Exam Vitals: Vital Signs Temp Pulse Resp BP Pulse Ox 11/17/21 16:00 93 20 138/88 94 L 11/17/21 13:17 97.5 F L 79 18 133/87 92 L Intake and Output 11/17/21 11/17/21 11/17/21 06:59 14:59 22:59 Other: Weight 136.078 kg GENERAL EXAM: Alert, very pleasant, 86-year-old white male, resting on the gurney in the emergency department, on 2 L of oxygen pulse ox of 94% comfortable in no apparent distress. HEAD: Normocephalic/atraumatic. EYES: Normal reaction of pupils, equal size. Conjunctiva pink, sclera white. NOSE: Clear with pink turbinates. MOUTH: Dry oral membranes THROAT: No erythema or exudates. NECK: No masses, no JVD, no thyroid enlargement, no adenopathy. CHEST: No chest wall deformity. Symmetrical expansion. LUNGS: Equal air entry with no crackles, wheeze, rhonchi or dullness. CVS: Irregular rate and rhythm, normal S1 and S2, no gallops, no murmurs, no rubs ABDOMEN: Soft, nontender. No hepatosplenomegaly, normal bowel sounds, no guarding or rigidity. EXTREMITIES: No clubbing, chronic swelling in bilateral lower extremities, no cyanosis, 2+ pulses and upper and lower extremities. MUSCULOSKELETAL: Muscle strength and tone normal. SPINE: No scoliosis or deformity SKIN: No rashes, right lower extremity cellulitis, right heel wound covered with a dressing, not examined CENTRAL NERVOUS SYSTEM: Alert and oriented -3. No focal deficits, tone is normal in all 4 extremities. PSYCHIATRIC: Alert and oriented -3. Appropriate affect. Intact judgment and insight. Results - Laboratory Findings CBC and BMP: 11/17/21 13:37 11/17/21 13:37 PT/INR, D-dimer PT 15.1 sec (9.0-12.0) H 11/17/21 13:37 INR 1.5 (<1.2) H 11/17/21 13:37 Abnormal lab findings: Abnormal Labs 11/17/21 11/17/21 11/17/21 13:37 13:37 13:37 Hgb 11.4 L Hct 37.5 L MCHC 30.5 L RDW 17.8 H Neutrophils # 8.3 H PT 15.1 H INR 1.5 H Sodium 126 L Chloride 97 L Carbon Dioxide 19 L BUN 59 H Creatinine 2.24 H Glucose 128 H Calcium 8.2 L Magnesium 2.5 H Total Bilirubin 1.7 H AST 121 H ALT 100 H Alkaline Phosphatase 201 H Albumin 3.1 L Urine Protein Urine Blood Urine RBC Hyaline Casts Urine Mucus 11/17/21 14:57 Hgb Hct MCHC RDW Neutrophils # PT INR Sodium Chloride Carbon Dioxide BUN Creatinine Glucose Calcium Magnesium Total Bilirubin AST ALT Alkaline Phosphatase Albumin Urine Protein 1+ H Urine Blood Large H Urine RBC >182 H Hyaline Casts 29 H Urine Mucus Rare H - Diagnostic Findings Chest x-ray: report reviewed, image reviewed Assessment and Plan Plan: Assessment: #1. Acute hypoxic respiratory failure related to acute bilateral pneumonia, rule out possibility of aspiration versus healthcare related pneumonia. COVID- 19 PCR was negative, chest x-ray showing coarse infiltrates throughout both lung cevallos much greater on the right #2. Syncopal episode #3. Acute kidney injury related to ATN, diuretic therapy and vancomycin #4. Probable dehydration #5. Recent hospitalization for cellulitis in right heel secondary to MRSA. Patient was discharged to [facility] on vancomycin infusions #6. Chronic A. fib on Coumadin #7. Previous history of CVA #8. Hypertension #9. Nonsmoker #10. Morbid obesity #11. Elevated LFTs, related to chronic liver disease possibly due to past history of EtOH #12. Diabetes mellitus type 2 Plan: Continue current antibiotics Diuretics are on hold We'll give gentle IV hydration Blood and sputum cultures have been sent ID service and nephrology recommendations Follow-up chest x-ray and labs tomorrow We'll follow patient's clinical course I have personally seen and examined the patient, performed the documentation and the assessment and plan as written. Number of minutes spent on the visit: [15] Time with Patient: Greater than 30
[2021-11-17 21:37] LABS: Calcium 8.4 mg/dL (8.4-10.2); Potassium 4.8 mmol/L (3.5-5.1)
[2021-11-17] MEDS: COLLAGENASE 250 UNIT/GM OINTMENT 30 GM TUBE TOPICAL SCH (22:07)
[2021-11-17] MEDS ORDERED: WARFARIN 5 MG TAB PO SCH (22:15)
[2021-11-17 22:23] LABS: Glucose,Whole Blood 108 mg/dL (75-99)
[2021-11-17] MEDS ORDERED: WARFARIN 5 MG TAB PO ONE (22:30)
[2021-11-17] MEDS ORDERED: FUROSEMIDE 10 MG/ML 10 ML VIAL IV STA (22:30)
[2021-11-17] MEDS ORDERED: FUROSEMIDE 10 MG/ML 4 ML VIAL ONE (22:31)
[2021-11-17] MEDS: busPIRone HCl 5 MG TAB PO SCH (22:46)
[2021-11-17] MEDS: KETOROLAC 0.5% OPHTH DROPS 5 ML BTL LEFT EYE SCH (22:46)
[2021-11-17] MEDS: TIMOLOL 0.5% OPHTH DROPS 5 ML BTL BOTH EYES SCH (22:46)
[2021-11-17] MEDS: ESCITALOPRAM 20 MG TAB PO SCH (22:46)
--- NOTE | 2021-11-17 23:10 | XR ---
EXAMINATION TYPE: XR chest 1V portable DATE OF EXAM: 11/17/2021 COMPARISON: Yesterday HISTORY: Fall. Short of breath. TECHNIQUE: Single view FINDINGS: The heart is enlarged. There is some pulmonary interstitial and airspace edema. There is so me blunting of the right costophrenic angle. IMPRESSION: Pulmonary edema which is consistent with heart failure. Acute pneumonia not excluded. No significant change compared to yesterday.
--- NOTE | 2021-11-17 23:19 | CT ---
EXAMINATION TYPE: CT brain tejinder wo con DATE OF EXAM: 11/17/2021 COMPARISON: CT brain 01/30/2015 HISTORY: fall CT DLP: 1880.9 mGycm Automated exposure control for dose reduction was used. Images of the brain and cervical spine obtained without contrast. There is diffuse cerebral cortical atrophy. There is hypodensity in the periventricular white matter. There is no mass effect or midline shift. No sign of intracranial hemorrhage. Skull base is intact. There is normal aeration of the mastoid sinuses. There is cervical kyphotic deformity. There is degenerative moderate disc space narrowing at C5-6 and C6-7 with sclerosis and spurring. No compression fracture. There is a mild C3-4 subluxation of 4 mm. No acute fracture seen. IMPRESSION: Cerebral atrophy and chronic small vessel ischemia. No acute intracranial abnormality. There is progr ession of white matter disease compared to one exam. Moderate multilevel spondylotic changes in the cervical spine. No fracture.
--- NOTE | 2021-11-17 23:51 | P.CONS ---
History of Present Illness - Reason for Consult Consult date: 11/17/21 - History of Present Illness Patient is 86-year-old male who was recently admitted at this facility in this patient did have a right heel wound with secondary cellulitis of the right lower extremity patient did have debridement of the wound done and culture positive for MRSA, with high clinical suspicious for deep infection and patient did get a PICC line and was getting vancomycin at the local care home, patient been brought to the hospital today with concern for elevated Coumadin level and apparently the patient have a syncopal episode in the bed no history of any head trauma patient also complaining of increasing shortness of breath and need for increasing oxygen eval however the patient denies having any chest pain denies any cough or sputum production no nausea no vomiting no abdominal pain no diarrhea patient on presentation to the hospital was afebrile and no fever had been recorded subsequently patient did have a normal white count did have elevated liver enzymes elevated BUN and creatinine urine was mostly hematuria random vancomycin level was 49.6 chronic PCR was negative patient did have a chest x-ray coarse infiltrate throughout both lungs much greater on the right side concern for underlying pneumonia patient has been started on Rocephin and Zithromax concerning for possible pneumonia infectious disease was consulted for further management of antibiotic and also concerning f or his right heel wound, patient currently do not have any pain to the right heel wound area no vomiting or any diarrhea Past Medical History Past Medical History: Atrial Fibrillation, CVA/TIA, Hypertension Additional Past Medical History / Comment(s): "RETINA ISSUES" History of Any Multi-Drug Resistant Organisms: MRSA Year Discovered:: 10/25/21 MDRO Source:: MRSA FOOT AND ANKLE Past Surgical History: Orthopedic Surgery Additional Past Surgical History / Comment(s): CATARACT SURGERY, RIGHT KNEE SURGERY, CARODID ARTERY SURGERY Past Anesthesia/Blood Transfusion Reactions: No Reported Reaction Past Psychological History: No Psychological Hx Reported Smoking Status: Never smoker Past Alcohol Use History: None Reported Past Drug Use History: None Reported Medications and Allergies Home Medications Medication Instructions Recorded Confirmed Type Metoprolol Tartrate [Lopressor] 50 mg PO Q12H 09/19/14 11/17/21 History Piroxicam [Feldene] 20 mg PO DAILY 09/19/14 11/17/21 History Aspirin EC [Ecotrin Low Dose] 81 mg PO DAILY 10/25/21 11/17/21 History Escitalopram [Lexapro] 20 mg PO HS 10/25/21 11/17/21 History Furosemide [Lasix] 40 mg PO BID@0600,1400 10/25/21 11/17/21 History Ketorolac 0.5% Ophth Soln [Acular 1 drop LEFT EYE Q12H 10/25/21 11/17/21 History 0.5%] Timolol 0.5% Ophth Soln [Timoptic 1 drop BOTH EYES Q12H 10/25/21 11/17/21 History 0.5% Ophth Soln] Acetaminophen-Codeine 300-30mg 1 tab PO Q4H PRN 11/17/21 11/17/21 History [Tylenol w/codeine #3] Collagenase [Santyl Ointment] 1 applic TOPICAL HS 11/17/21 11/17/21 History Pantoprazole [Protonix] 40 mg PO DAILY@0600 11/17/21 11/17/21 History Phytonadione [Vitamin K] 2.5 mg PO ONCE 11/17/21 11/17/21 History SILVER sulfADIAZINE CREAM 1 applic TOPICAL HS 11/17/21 11/17/21 History [Silvadene Cream] Vancomycin HCl 1,250 mg IV HS@2100 11/17/21 11/17/21 History Warfarin [Coumadin] 5 mg PO HS 11/17/21 11/17/21 History busPIRone HCl [Buspar] 5 mg PO BID 11/17/21 11/17/21 History Allergies Allergy/AdvReac Type Severity Reaction Status Date / Time chocolate flavor Allergy Per [facility] Verified 11/17/21 14:38 peanut Allergy Per [facility] Verified 11/17/21 14:38 Physical Exam Vitals: Vital Signs Temp Pulse Resp BP Pulse Ox 11/17/21 13:17 97.5 F L 79 18 133/87 92 L Intake and Output 11/17/21 11/17/21 11/17/21 06:59 14:59 22:59 Other: Weight 136.078 kg Results CBC & Chem 7: 11/17/21 13:37 11/17/21 21:08 Labs: Abnormal Lab Results - Last 24 Hours (Table) 11/17/21 11/17/21 11/17/21 Range/Units 13:37 13:37 13:37 Hgb 11.4 L (13.0-17.5) gm/dL Hct 37.5 L (39.0-53.0) % MCHC 30.5 L (31.0-37.0) g/dL RDW 17.8 H (11.5-15.5) % Neutrophils # 8.3 H (1.3-7.7) k/uL PT 15.1 H (9.0-12.0) sec INR 1.5 H (<1.2) Sodium 126 L (137-145) mmol/L Chloride 97 L (98-107) mmol/L Carbon Dioxide 19 L (22-30) mmol/L BUN 59 H (9-20) mg/dL Creatinine 2.24 H (0.66-1.25) mg/dL Glucose 128 H (74-99) mg/dL Calcium 8.2 L (8.4-10.2) mg/dL Magnesium 2.5 H (1.6-2.3) mg/dL Total Bilirubin 1.7 H (0.2-1.3) mg/dL AST 121 H (17-59) U/L ALT 100 H (4-49) U/L Alkaline Phosphatase 201 H (38-126) U/L Albumin 3.1 L (3.5-5.0) g/dL Assessment and Plan Plan: 1patient presented to hospital with increasing shortness of breath which is likely multifactorial and more likely from the fluid overload from his kidney failure clinically not behaving as pneumonia as patient did not have any fever or elevated white count or any cough. 2we will obtain a CRP and a procalcitonin level. 3with elevated liver enzymes check an ultrasound of his liver and gallbladder area and continue with empiric Rocephin at this point. 4local wound care to the right heel wound with the Santyl followed by moist dressing underlying cellulitis to the right heel and leg adequately treated no need for further vancomycin at this point. We will follow on clinical condition and cultures to further adjust medication if needed Thank you for this consultation will follow this patient along with you Time with Patient: Greater than 30
[2021-11-18] MEDS ORDERED: FUROSEMIDE 10 MG/ML 2 ML VIAL IV STA (00:17)
--- NOTE | 2021-11-18 00:27 | P.HPIM ---
History of Present Illness H&P Date: 11/17/21 Chief Complaint: Syncope Patient is a 86-year-old male with a known history of atrial fibrillation on anticoagulation with Coumadin, history of CVA/TIA, hypertension, morbid obesity with recent history of right heel MRSA wound infection and is currently on ceftriaxone at Care facility was brought to the hospital due to worsening shortness of breath and syncopal episode. Patient was at the extended care facility and was being transferred to the [facility]. Patient briefly lost his consciousness for about 2 to 3 minutes. No history of fall or trauma. Patient is also having worsening shortness of breath and hypoxia and was sent to ER. No fever no chills. Cough without any sputum production. No complaints of chest pain. No nausea vomiting abdominal pain or diarrhea. Patient was supratherapeutic INR level at [facility] and Coumadin is on hold. On admission patient is requiring oxygen at 2 L via nasal cannula. Chest x-ray showed coarse infiltrates throughout both lung cevallos much greater on the right. Correlate for underlying pneumonia. EKG showed atrial fibrillation laboratory data showed WBC 10.3 hemoglobin 11.4 and platelets 405 INR 1.5 Sodium 126 potassium 4.9 chloride 97 bicarb is 19 BUN 59 and creatinine 2.24 Calcium 8.2 magnesium 2.5 total bilirubin level is 1.7 AST 121 ALT 100 alk phos 206 and proBNP [id number] Patient was recently discharged to [facility] on 10/30/2021. Review of Systems Constitutional: Patient denies any fever or chills . No generalized weakness or weight loss. Abdomen: Patient denied nausea vomiting and diarrhea and abdominal pain. Cardiovascular: Patient denies any chest pain or short of breath no palpitations. Respiratory: Patient does have cough and congestion. No sputum production.. Shortness of breath Neurologic: Patient denied any numbness or tingling headache. Musculoskeletal: Patient denies any complaints of joint swelling or deformity. Skin: Negative Psychiatric: Negative Endocrine: No heat or cold intolerance. No recent weight gain. Genitourinary: No dysuria or hematuria. All other 14 point ROS negative except the above Past Medical History Past Medical History: Atrial Fibrillation, CVA/TIA, Hypertension Additional Past Medical History / Comment(s): "RETINA ISSUES" History of Any Multi-Drug Resistant Organisms: MRSA Date of last positivie culture/infection: 10/25/21 MDRO Source:: MRSA FOOT AND ANKLE Past Surgical History: Orthopedic Surgery Additional Past Surgical History / Comment(s): CATARACT SURGERY, RIGHT KNEE SURGERY, CARODID ARTERY SURGERY Past Anesthesia/Blood Transfusion Reactions: No Reported Reaction Past Psychological History: No Psychological Hx Reported Smoking Status: Never smoker Past Alcohol Use History: None Reported Past Drug Use History: None Reported Medications and Allergies Home Medications Medication Instructions Recorded Confirmed Type RX: Metoprolol Tartrate [Lopressor] 50 mg PO Q12H 09/19/14 11/17/21 History RX: Piroxicam [Feldene] 20 mg PO DAILY 09/19/14 11/17/21 History RX: Aspirin EC [Ecotrin Low Dose] 81 mg PO DAILY 10/25/21 11/17/21 History RX: Escitalopram [Lexapro] 20 mg PO HS 10/25/21 11/17/21 History RX: Furosemide [Lasix] 40 mg PO BID@0600,1400 10/25/21 11/17/21 History RX: Ketorolac 0.5% Ophth Soln 1 drop LEFT EYE Q12H 10/25/21 11/17/21 History [Acular 0.5%] RX: Timolol 0.5% Ophth Soln 1 drop BOTH EYES Q12H 10/25/21 11/17/21 History [Timoptic 0.5% Ophth Soln] Collagenase [Santyl Ointment] 1 applic TOPICAL HS 11/17/21 11/17/21 History Phytonadione [Vitamin K] 2.5 mg PO ONCE 11/17/21 11/17/21 History RX: Acetaminophen-Codeine 300-30mg 1 tab PO Q4H PRN 11/17/21 11/17/21 History [Tylenol w/codeine #3] RX: Pantoprazole [Protonix] 40 mg PO DAILY@0600 11/17/21 11/17/21 History RX: Vancomycin HCl 1,250 mg IV HS@2100 11/17/21 11/17/21 History RX: Warfarin [Coumadin] 5 mg PO HS 11/17/21 11/17/21 History SILVER sulfADIAZINE CREAM 1 applic TOPICAL HS 11/17/21 11/17/21 History [Silvadene Cream] busPIRone HCl [Buspar] 5 mg PO BID 11/17/21 11/17/21 History Allergies Allergy/AdvReac Type Severity Reaction Status Date / Time chocolate flavor Allergy Per [facility] Verified 11/17/21 14:38 peanut Allergy Per [facility] Verified 11/17/21 14:38 Physical Exam Vitals: Vital Signs Temp Pulse Resp BP Pulse Ox 11/17/21 20:50 97.6 F 89 18 120/87 93 L 11/17/21 18:00 97.4 F L 96 20 121/88 94 L 11/17/21 16:00 93 20 138/88 94 L 11/17/21 13:17 97.5 F L 79 18 133/87 92 L Intake and Output 11/17/21 11/17/21 11/18/21 14:59 22:59 06:59 Other: Weight 136.078 kg PHYSICAL EXAMINATION: Patient is lying in the bed comfortably, no acute distress, awake alert and oriented.. Morbidly obese. HEENT: Normocephalic. Neck is supple. Pupils reactive. Nostrils clear. Oral cavity is moist. Neck reveals no JVD, carotid bruits, or thyromegaly. CHEST EXAMINATION: Trachea is central. Symmetrical expansion. Bilateral coarse breath sounds. No wheezing.. CARDIAC: Normal S1, S2 with no gallops. No murmurs ABDOMEN: Soft. Bowel sounds normal. No organomegaly. No abdominal bruits. Extremities: Bilateral 2+ edema. No clubbing or cyanosis Right heel ulcer is bandaged. Neurologically awake, alert, oriented x3 with well-coordinated movements. No fo simon deficits noted Skin: No rash or skin lesions. Psychiatric: Cooperative. Nonsuicidal Musculoskeletal: No joint swelling or deformity. Normal range of motion Results CBC & Chem 7: 11/17/21 13:37 11/17/21 21:08 Labs: Abnormal Lab Results - Last 24 Hours (Table) 11/17/21 11/17/21 11/17/21 Range/Units 13:37 13:37 13:37 Hgb 11.4 L (13.0-17.5) gm/dL Hct 37.5 L (39.0-53.0) % MCHC 30.5 L (31.0-37.0) g/dL RDW 17.8 H (11.5-15.5) % Neutrophils # 8.3 H (1.3-7.7) k/uL PT 15.1 H (9.0-12.0) sec INR 1.5 H (<1.2) Sodium 126 L (137-145) mmol/L Chloride 97 L (98-107) mmol/L Carbon Dioxide 19 L (22-30) mmol/L BUN 59 H (9-20) mg/dL Creatinine 2.24 H (0.66-1.25) mg/dL Glucose 128 H (74-99) mg/dL POC Glucose (mg/dL) (75-99) mg/dL Calcium 8.2 L (8.4-10.2) mg/dL Magnesium 2.5 H (1.6-2.3) mg/dL Total Bilirubin 1.7 H (0.2-1.3) mg/dL AST 121 H (17-59) U/L ALT 100 H (4-49) U/L Alkaline Phosphatase 201 H (38-126) U/L Albumin 3.1 L (3.5-5.0) g/dL Urine Protein (Negative) Urine Blood (Negative) Urine RBC (0-5) /hpf Hyaline Casts (0-2) /lpf Urine Mucus (None) /hpf 11/17/21 11/17/21 11/17/21 Range/Units 14:57 21:08 22:22 Hgb (13.0-17.5) gm/dL Hct (39.0-53.0) % MCHC (31.0-37.0) g/dL RDW (11.5-15.5) % Neutrophils # (1.3-7.7) k/uL PT (9.0-12.0) sec INR (<1.2) Sodium 129 L (137-145) mmol/L Chloride 95 L (98-107) mmol/L Carbon Dioxide (22-30) mmol/L BUN 61 H (9-20) mg/dL Creatinine 2.19 H (0.66-1.25) mg/dL Glucose 121 H (74-99) mg/dL POC Glucose (mg/dL) 108 H (75-99) mg/dL Calcium (8.4-10.2) mg/dL Magnesium (1.6-2.3) mg/dL Total Bilirubin (0.2-1.3) mg/dL AST (17-59) U/L ALT (4-49) U/L Alkaline Phosphatase (38-126) U/L Albumin (3.5-5.0) g/dL Urine Protein 1+ H (Negative) Urine Blood Large H (Negative) Urine RBC >182 H (0-5) /hpf Hyaline Casts 29 H (0-2) /lpf Urine Mucus Rare H (None) /hpf Thrombosis Risk Factor Assmnt - DVT/VTE Prophylaxis DVT/VTE Prophylaxis: Pharmacologic Prophylaxis ordered Assessment and Plan Assessment: Acute hypoxic respiratory failure likely due to bilateral pneumonia versus fluid load. COVID-19 negative. Acute syncopal episode at ECF. Acute kidney injury possible ATN and AIN with patient being on vancomycin and diuretics. Hyponatremia possible hypervolemic Acute CHF EF not known Right heel wound infection/cellulitis with MRSA recently on vancomycin currently. Chronic atrial fibrillation on anticoagulation with Coumadin Subtherapeutic INR level Previous history of CVA Hypertension Morbid obesity BMI 45.6 Diabetes type 2 DVT prophylaxis patient is already on Coumadin Plan: Patient has been currently on antibiotics in the form of ceftriaxone and azithromycin. Diuretics on hold. Continue with gentle IV hydration and oral intake. Follow-up culture reports and renal function. Diuretics on hold and continue with home medications and Coumadin dosing. Pulmonary, ID and nephrology was consulted. Continue to follow closely. Prognosis is guarded with multi medical problems and comorbid conditions. Time with Patient: Greater than 30
[2021-11-18] MEDS: METOPROLOL TARTRATE 50 MG TAB PO SCH ×3 (00:49→20:04)
--- NOTE | 2021-11-18 02:33 | P.EN ---
A- team: Indication: Syncope, fall, head trauma Arrived on Scene to find: Patient laying on bathroom floor, mildly cyanotic and dyspneic. Vital signs reviewed: BP 132/74, and SpO2 81% on room air, pulse 104 Patient seen and examined at bedside. The patient was reportedly going on his own to use the restroom, when he was found laying face down on the floor by the nurse 5 minutes later. He was immediately placed in a cervical collar and subsequently moved on to a board and then moved up into his bed. The patient did not recall the episode but reported feeling short of breath. He denied any pain at the time. Denied palpitations, nausea, vomiting. General: Dyspneic male, [appears at stated age] Derm: [warm], [dry] Head: Left forehead laceration 4 cm, [normocephalic], [symmetric] Eyes: [EOMI], [no lid lag], [anicteric sclera] Mouth: [no lip lesion], [mucus membranes moist] Cardiovascular: [S1S2 reg], [no murmur], [positive posterior tibial pulse bilateral], Lungs: Bilateral diffuse rales, [no rhonchi] , [no accessory muscle use] Abdominal: [soft], [ nontender to palpation], [no guarding], [no appreciable organomegaly] Ext: [no gross muscle atrophy], bilateral lower extremity plus edema, [no contractures] Neuro: [ CN II-XI grossly intact], [no focal neuro deficits], strength 5 out of 5 in all 4 extremities Psych: [Alert], [oriented], [appropriate affect] Assessment: Syncope, with ongoing acute CHF exacerbation Plan: Lasix IV push [address] head and cervical spine ordered and reviewed Lasix switched to 40 mg every 12 hourly IV Fall precautions with bed alarm Cardiac monitoring Echocardiogram Notified: Primary team notified A Total of 45 minutes of critical care time was spent on the complex care of this patient.
[2021-11-18] MEDS: PANTOPRAZOLE 40 MG TABLET PO SCH (04:20)
--- NOTE | 2021-11-18 07:19 | XR ---
EXAMINATION TYPE: XR chest 1V portable DATE OF EXAM: 11/18/2021 CLINICAL HISTORY: Difficulty breathing progress study. TECHNIQUE: Single AP portable upright view of the chest is obtained. COMPARISON: Chest x-ray from one day earlier FINDINGS: Stable left-sided PICC line. Persistent low lung volumes with diffuse right lung and multifocal mid to lower lung opacities. Cardi ac silhouette size stable and enlarged with atherosclerotic and ectatic thoracic aorta. Multilevel sp urring in the spine is redemonstrated IMPRESSION: Cardiomegaly and low lung volumes with diffuse right lung edema and/or infiltrates and mu ltifocal left mid to lower lung edema and/or infiltrates all redemonstrated. No significant change fr om one day earlier.
[2021-11-18 08:18] LABS: Anisocytosis Slight; Basophils % (A) 0 %; Eosinophils # (A) 0.1 k/uL (0-0.7); Eosinophils % (A) 2 %; HCT 36.3 % (39.0-53.0); Hypochromasia Moderate; Lymphocytes % (A) 11 %; MCH 26.2 pg (25.0-35.0); MCHC 30.4 g/dL (31.0-37.0); MCV 86.2 fL (80.0-100.0); Mean Platelet Volume 7.4; Monocytes # (A) 0.6 k/uL (0-1.0); Monocytes % (A) 6 %; Neutrophils # (A) 6.9 k/uL (1.3-7.7); Neutrophils % (A) 79 %; Platelet Count 363 k/uL (150-450); RBC 4.21 m/uL (4.30-5.90); RDW 17.7 % (11.5-15.5); WBC 8.7 k/uL (3.8-10.6)
[2021-11-18 08:24] LABS: INR 1.4 (<1.2); Prothrombin Time 14.5 sec (9.0-12.0)
[2021-11-18 08:31] LABS: Albumin 2.7 g/dL (3.5-5.0); Potassium 4.4 mmol/L (3.5-5.1); Total Bilirubin 1.5 mg/dL (0.2-1.3); Total Protein 6.2 g/dL (6.3-8.2)
[2021-11-18] MEDS: AZITHROMYCIN 500 MG TAB PO SCH (08:32)
[2021-11-18] MEDS: busPIRone HCl 5 MG TAB PO SCH ×2 (08:32→20:04)
[2021-11-18] MEDS: ASPIRIN 81 MG PO SCH (08:32)
[2021-11-18] MEDS: FUROSEMIDE 10 MG/ML 4 ML VIAL IV SCH ×2 (08:33→20:02)
[2021-11-18] MEDS: KETOROLAC 0.5% OPHTH DROPS 5 ML BTL LEFT EYE SCH ×2 (08:38→20:02)
[2021-11-18] MEDS ORDERED: FUROSEMIDE 40 MG TAB PO SCH (09:00)
--- NOTE | 2021-11-18 11:05 | US ---
EXAMINATION TYPE: US abdomen limited DATE OF EXAM: 11/18/2021 COMPARISON: Ultrasound abdomen complete October 26, 2021 CLINICAL HISTORY: Elevated LFT. EXAM MEASUREMENTS: Liver Length: 20.4 cm Gallbladder Wall: 0.3 cm CBD: 0.4 cm Right Kidney: 8.9 x 4.3 x 5.0 cm Morbidly obese patient done portably, unable to hold his breath or move for examiner.Technically diff icult, severely limited study. Pancreas: Obscured by bowel gas Liver: Increased attenuation, enlarged, very limited visualization Gallbladder: large stone Evidence for sonographic Gore's sign: no CBD: very limited visualization Right Kidney: very limited visualization, measures small Exam suboptimal due to patient's large body habitus as well as inability to hold breath. Visualized l iver remains heterogeneously hyperechoic. Right kidney is slightly small in size without hydronephros is. There is shadowing large gallstone redemonstrated. No biliary dilatation. No surrounding fluid or wall thickening. IMPRESSION: Suboptimal study. No new biliary dilatation. Probable diffuse fatty infiltration and/or u nderlying hepatocellular disease redemonstrated.
--- NOTE | 2021-11-18 11:38 | P.PN ---
Subjective Progress Note Date: 11/18/21 Principal diagnosis: acute hypoxic respiratory failure secondary to healthcare acquired pneumonia, possible underlying acute diastolic congestive heart failure 86-year-old white male patient with recent medical history of lower extremity cellulitis with abscess related to MRSA infection for which the patient was hospitalized recently and discharged to [facility] with the left upper extremity PICC line in place and vancomycin for evidence of MRSA in his right lower extremity. His past medical history is significant for chronic A. fib on Coumadin, previous history of CVA, hypertension, morbid obesity. Patient was discharged to the [facility] on 10/30/2021. On 11/17/2021 patient had a syncopal episode at the [facility] while getting up out of bed, patient denied hitting his head or suffering any trauma. The facility noted that over the course of the day patient was having increased shortness of breath, weakness, increased oxygen needs. Patient reports a dry cough, no fevers, he has chronic swelling in his lower extremities not any worse. He states he is more comfortable sleeping sitting upright than lying down he is not normally oxygen dependent. He is on 2 L of oxygen with a pulse ox of 92-94%, he is afebrile. Chest x-ray in emergency department showing coarse infiltrates throughout both lungs much greater on the right the possibility of underlying pneumonia. Lab evaluation showed a white count of 10.3, hemoglobin of 11.4, INR 1.5, sodium is 126, potassium is 4.9, chloride is 97, CO2 is 19, BUN is 59, creatinine is 2.24, bilirubin is 1.7, AST was 121, ALT was 100, alk phos was 201, troponin was 0.034, proBNP was 13,004 100, urinalysis showed large amount of blood, normal white blood cells, no clear evidence of urinary tract infection, Vanco trough from 11/15/2021 was 26, random vancomycin level is 29.6. COVID-19 PCR was negative. Patient was started on antibiotics with azithromycin and Rocephin, breathing treatments, patient was on Lasix 40 mg twice daily at the [facility], clinically he appears to be dehydrated with dry oral mucous membranes. Denies any nausea vomiting or diarrhea. Cultures have been sent, ID service, nephrology, and pulmonary consultations have been requested. reevaluated today on 11/18/21,patient is resting in bed, he is on 4 L nasal can nula, and his O2 saturation is 96%, blood pressure is 125/72, patient is relatively asymptomatic, denies shortness of breath denies any cough denies any wheezing, he tells me that he feels fine. No fever overnight. Patient is on antibiotics empirically for his cellulitis, chest x-ray showed interstitial edema, underlying infiltrate is not entirely ruled out. Apparently the patient had previous history of MRSA infection was fully treated by infectious disease on the case, and now he is on Rocephin and Zithromax. Objective - Vital Signs Vital signs: Vital Signs Temp 97.6 F 11/18/21 08:28 Pulse 78 11/18/21 10:06 Resp 20 11/18/21 08:28 BP 125/72 11/18/21 08:28 Pulse Ox 96 11/18/21 08:28 Intake & Output 11/17/21 11/18/21 11/18/21 18:59 06:59 18:59 Output Total 1200 550 Balance -1200 -550 Weight 136.078 kg 114 kg Output: Urine 1200 550 Other: Voiding Method Indwelling Catheter Indwelling Catheter - Exam GENERAL EXAM: revealed 86-year-old white male, on 4 L nasal cannula, in no distress. HEAD: Normocephalic/atraumatic. HEENT: PERRLA, EOMI, anicteric, no neck masses, no JVD, no stridor. CHEST: No chest wall deformity. Symmetrical expansion. LUNGS: fine crackles at the bases. No rhonchi and no wheezes CVS: Irregular rate and rhythm, normal S1 and S2, no gallops, no murmurs, no rubs ABDOMEN: obese,Soft, nontender. No hepatosplenomegaly, no rebound, no guarding. EXTREMITIES: No clubbing, chronic swelling in bilateral lower extremities, no cyanosis, 2+ pulses and upper and lower extremities.both lower extremities are wrapped with sterile dressings. SKIN: No rashes, right lower extremity cellulitis, right heel wound covered with a dressing, CENTRAL NERVOUS SYSTEM: alert and oriented 3 no gross focal deficits. PSYCHIATRIC: nnormal mood, affect and normal mental status examination. - Labs CBC & Chem 7: 11/18/21 08:02 11/18/21 08:02 Labs: Abnormal Lab Results - Last 24 Hours (Table) 11/17/21 11/17/21 11/17/21 Range/Units 13:37 13:37 13:37 RBC (4.30-5.90) m/uL Hgb 11.4 L (13.0-17.5) gm/dL Hct 37.5 L (39.0-53.0) % MCHC 30.5 L (31.0-37.0) g/dL RDW 17.8 H (11.5-15.5) % Neutrophils # 8.3 H (1.3-7.7) k/uL PT 15.1 H (9.0-12.0) sec INR 1.5 H (<1.2) Sodium 126 L (137-145) mmol/L Chloride 97 L (98-107) mmol/L Carbon Dioxide 19 L (22-30) mmol/L BUN 59 H (9-20) mg/dL Creatinine 2.24 H (0.66-1.25) mg/dL Glucose 128 H (74-99) mg/dL POC Glucose (mg/dL) (75-99) mg/dL Calcium 8.2 L (8.4-10.2) mg/dL Magnesium 2.5 H (1.6-2.3) mg/dL Total Bilirubin 1.7 H (0.2-1.3) mg/dL AST 121 H (17-59) U/L ALT 100 H (4-49) U/L Alkaline Phosphatase 201 H (38-126) U/L Total Protein (6.3-8.2) g/dL Albumin 3.1 L (3.5-5.0) g/dL Procalcitonin (0.02-0.09) ng/mL Urine Protein (Negative) Urine Blood (Negative) Urine RBC (0-5) /hpf Hyaline Casts (0-2) /lpf Urine Mucus (None) /hpf 11/17/21 11/17/21 11/17/21 Range/Units 14:57 21:08 21:08 RBC (4.30-5.90) m/uL Hgb (13.0-17.5) gm/dL Hct (39.0-53.0) % MCHC (31.0-37.0) g/dL RDW (11.5-15.5) % Neutrophils # (1.3-7.7) k/uL PT (9.0-12.0) sec INR (<1.2) Sodium 129 L (137-145) mmol/L Chloride 95 L (98-107) mmol/L Carbon Dioxide (22-30) mmol/L BUN 61 H (9-20) mg/dL Creatinine 2.19 H (0.66-1.25) mg/dL Glucose 121 H (74-99) mg/dL POC Glucose (mg/dL) (75-99) mg/dL Calcium (8.4-10.2) mg/dL Magnesium (1.6-2.3) mg/dL Total Bilirubin (0.2-1.3) mg/dL AST (17-59) U/L ALT (4-49) U/L Alkaline Phosphatase (38-126) U/L Total Protein (6.3-8.2) g/dL Albumin (3.5-5.0) g/dL Procalcitonin 0.51 H (0.02-0.09) ng/mL Urine Protein 1+ H (Negative) Urine Blood Large H (Negative) Urine RBC >182 H (0-5) /hpf Hyaline Casts 29 H (0-2) /lpf Urine Mucus Rare H (None) /hpf 11/17/21 11/18/21 11/18/21 Range/Units 22:22 08:02 08:02 RBC 4.21 L (4.30-5.90) m/uL Hgb 11.0 L (13.0-17.5) gm/dL Hct 36.3 L (39.0-53.0) % MCHC 30.4 L (31.0-37.0) g/dL RDW 17.7 H (11.5-15.5) % Neutrophils # (1.3-7.7) k/uL PT (9.0-12.0) sec INR (<1.2) Sodium 131 L (137-145) mmol/L Chloride 97 L (98-107) mmol/L Carbon Dioxide (22-30) mmol/L BUN 58 H (9-20) mg/dL Creatinine 2.21 H (0.66-1.25) mg/dL Glucose 120 H (74-99) mg/dL POC Glucose (mg/dL) 108 H (75-99) mg/dL Calcium 8.0 L (8.4-10.2) mg/dL Magnesium (1.6-2.3) mg/dL Total Bilirubin 1.5 H (0.2-1.3) mg/dL AST 60 H (17-59) U/L ALT 77 H (4-49) U/L Alkaline Phosphatase 184 H (38-126) U/L Total Protein 6.2 L (6.3-8.2) g/dL Albumin 2.7 L (3.5-5.0) g/dL Procalcitonin (0.02-0.09) ng/mL Urine Protein (Negative) Urine Blood (Negative) Urine RBC (0-5) /hpf Hyaline Casts (0-2) /lpf Urine Mucus (None) /hpf 11/18/21 Range/Units 08:02 RBC (4.30-5.90) m/uL Hgb (13.0-17.5) gm/dL Hct (39.0-53.0) % MCHC (31.0-37.0) g/dL RDW (11.5-15.5) % Neutrophils # (1.3-7.7) k/uL PT 14.5 H (9.0-12.0) sec INR 1.4 H (<1.2) Sodium (137-145) mmol/L Chloride (98-107) mmol/L Carbon Dioxide (22-30) mmol/L BUN (9-20) mg/dL Creatinine (0.66-1.25) mg/dL Glucose (74-99) mg/dL POC Glucose (mg/dL) (75-99) mg/dL Calcium (8.4-10.2) mg/dL Magnesium (1.6-2.3) mg/dL Total Bilirubin (0.2-1.3) mg/dL AST (17-59) U/L ALT (4-49) U/L Alkaline Phosphatase (38-126) U/L Total Protein (6.3-8.2) g/dL Albumin (3.5-5.0) g/dL Procalcitonin (0.02-0.09) ng/mL Urine Protein (Negative) Urine Blood (Negative) Urine RBC (0-5) /hpf Hyaline Casts (0-2) /lpf Urine Mucus (None) /hpf Assessment and Plan Assessment: impression: Acute hypoxic respiratory failure secondary to bilateral pneumonia, I'm suspecting this could be healthcare related pneumonia, doubt aspiration since the patient is not getting a clear-cut history of aspiration. No clinical history to suggest aspiration. I also suspect some component of acute diastolic congestive heart failure based on the chest x-ray findings. Hence I'm recommending that he stays on diuretics at present not to mention his BNP level is significantly elevated. acute diastolic congestive heart failure. Syncopal episode, likely cardiac in nature unless for otherwise. Acute kidney injury. Chronic atrial fibrillation, on Coumadin. Chronic cellulitis of lower extremities. History of MRSA infection/cellulitis. Nonsmoker. Chronic liver disease possibly secondary to alcohol. Type 2 diabetes. recommendation: Continue oxygen and titrate accordingly. Continue antibiotics as per infectious disease on the case. Patient is now on Rocephin and Zithromax. Sputum cultures are pending. resume diuretics and monitor renal profile. we will continue to follow. All his medications were reviewed. Overall long-term prognosis is relatively guarded. Time with Patient: Less than 30
--- NOTE | 2021-11-18 14:33 | CA ---
Transthoracic Echo Report Name: Winston Dunham Age: 86 Gender: M : 1935 Exam Date: 11/18/2021 09:09 Exam Location: [facility] Ht (in): 68 Wt (lb): 300 Ordering Physician: Donis Young MD Attending/Referring Phys: Pelt Dropper Chantel Rider RDCS Procedure CPT: Indications: chf Cardiac Hx: Atrial Fibrillation. Diabetes. Hypertension. Technical Quality: Technically difficult study Contrast 1: Lumason Total Dose (mL): 3 Contrast 2: Total Dose (mL): MEASUREMENTS (Male / Female) Normal Values 2D ECHO LV Diastolic Diameter PLAX 3.8 cm 4.2 - 5.9 / 3.9 - 5.3 cm LV Systolic Diameter PLAX 2.4 cm IVS Diastolic Thickness 1.6 cm 0.6 - 1.0 / 0.6 - 0.9 cm LVPW Diastolic Thickness 1.5 cm 0.6 - 1.0 / 0.6 - 0.9 cm LV Relative Wall Thickness 0.8 RV Internal Dim ED PLAX 3.6 cm LA Systolic Diameter LX 4.5 cm 3.0 - 4.0 / 2.7 - 3.8 cm LA Volume 92.1 cm??? 18 - 58 / 22 - 52 cm??? M-MODE Aortic Root Diameter MM 3.1 cm MV E Point Septal Separation 0.5 cm AV Cusp Separation MM 2.1 cm DOPPLER AV Peak Velocity 168.0 cm/s AV Peak Gradient 11.3 mmHg AI Peak Velocity 361.3 cm/s AI Peak Gradient 52.2 mmHg AI Pressure Half Time 706.9 ms MV Area PHT 4.3 cm??? MV Deceleration Time 161.6 ms TR Peak Velocity 336.7 cm/s TR Peak Gradient 45.3 mmHg Right Ventricular Systolic Press 49.6 mmHg FINDINGS Left Ventricle Left ventricular ejection fraction is estimated at 50-55 %. Left ventricular cavity size normal. Moderate concentric left ventricular hypertrophy. Right Ventricle Mild right ventricular dilatation. Moderate pulmonary hypertension. Right Atrium Normal right atrial size. Left Atrium Mildly increased left atrial diameter. Severely increased left atrial volume. Mildly increased left atrial area. No evidence for an atrial septal defect. Mitral Valve Mild mitral annular calcification. Mild mitral regurgitation. Aortic Valve Focal thickening of the aortic valve cusps. Moderate aortic regurgitation. Tricuspid Valve Moderate tricuspid regurgitation. Pulmonic Valve Trace pulmonic regurgitation. Pericardium Normal pericardium. Aorta Normal size aortic root and proximal ascending aorta. CONCLUSIONS Normal LV size preserved systolic function moderate concentric LVH enlarged left atrium. Aortic valve sclerosis and mitral annular calcification and mild mitral and moderate tricuspid insufficiency pericardial effusion. Moderate pulmonary hypertension Previewed by: Dr. Ilan Robles MD (Electronically Signed) Final Date: 18 Nov 2021 14:32
--- NOTE | 2021-11-18 14:42 | P.NPCON ---
History of Present Illness - Reason for Consult Consult date: 11/18/21 acute renal failure - Chief Complaint Syncope - History of Present Illness 86-year-old gentleman coming to the hospital from the nursing facility with the above complaints. Recently in the hospital with a right heel MRSA infection was discharged on vancomycin. Baseline creatinine 0.9 MG per DL. Coming to the hospital with a creatinine of 2.4 MG per DL, improved to 2.1 MG per DL today. He has diastolic CHF, with volume overload. No nausea vomiting or diarrhea. No chest pain or shortness of breath. Blood pressures running low normal. No NSAID use or recent contrast studies. Home medications include Lasix 40 mg by mouth twice a day. Review of Systems Constitutional: Reports as per HPI Past Medical History Past Medical History: Atrial Fibrillation, CVA/TIA, Hypertension Additional Past Medical History / Comment(s): "RETINA ISSUES" History of Any Multi-Drug Resistant Organisms: MRSA Date of last positivie culture/infection: 10/25/21 MDRO Source:: MRSA FOOT AND ANKLE Past Surgical History: Orthopedic Surgery Additional Past Surgical History / Comment(s): CATARACT SURGERY, RIGHT KNEE SURGERY, CARODID ARTERY SURGERY Past Anesthesia/Blood Transfusion Reactions: No Reported Reaction Past Psychological History: No Psychological Hx Reported Smoking Status: Never smoker Past Alcohol Use History: None Reported Past Drug Use History: None Reported Medications and Allergies Home Medications Medication Instructions Recorded Confirmed Type Metoprolol Tartrate [Lopressor] 50 mg PO Q12H 09/19/14 11/17/21 History Piroxicam [Feldene] 20 mg PO DAILY 09/19/14 11/17/21 History Aspirin EC [Ecotrin Low Dose] 81 mg PO DAILY 10/25/21 11/17/21 History Escitalopram [Lexapro] 20 mg PO HS 10/25/21 11/17/21 History Furosemide [Lasix] 40 mg PO BID@0600,1400 10/25/21 11/17/21 History Ketorolac 0.5% Ophth Soln [Acular 1 drop LEFT EYE Q12H 10/25/21 11/17/21 History 0.5%] Timolol 0.5% Ophth Soln [Timoptic 1 drop BOTH EYES Q12H 10/25/21 11/17/21 History 0.5% Ophth Soln] Acetaminophen-Codeine 300-30mg 1 tab PO Q4H PRN 11/17/21 11/17/21 History [Tylenol w/codeine #3] Collagenase [Santyl Ointment] 1 applic TOPICAL HS 11/17/21 11/17/21 History Pantoprazole [Protonix] 40 mg PO DAILY@0600 11/17/21 11/17/21 History Phytonadione [Vitamin K] 2.5 mg PO ONCE 11/17/21 11/17/21 History SILVER sulfADIAZINE CREAM 1 applic TOPICAL HS 11/17/21 11/17/21 History [Silvadene Cream] Vancomycin HCl 1,250 mg IV HS@2100 11/17/21 11/17/21 History Warfarin [Coumadin] 5 mg PO HS 11/17/21 11/17/21 History busPIRone HCl [Buspar] 5 mg PO BID 11/17/21 11/17/21 History Allergies Allergy/AdvReac Type Severity Reaction Status Date / Time chocolate flavor Allergy Per [facility] Verified 11/17/21 14:38 peanut Allergy Per [facility] Verified 11/17/21 14:38 Physical Exam Vitals: Vital Signs Temp Pulse Pulse Resp BP BP Pulse Ox 11/18/21 13:11 97.6 F 93 118/73 93 L 11/18/21 10:06 78 11/18/21 08:28 97.6 F 115 H 20 125/72 96 11/18/21 04:00 101 H 24 124/82 97 11/18/21 02:57 24 96 11/18/21 02:00 99 24 11/18/21 00:00 91 26 H 139/94 97 11/17/21 22:58 100 28 H 107/73 98 11/17/21 22:55 102 H 30 H 113/80 99 11/17/21 22:50 122/73 11/17/21 22:14 120 H 40 H 11/17/21 21:50 97.9 F 91 24 134/48 93 L 11/17/21 20:50 97.6 F 89 18 120/87 93 L 11/17/21 18:00 97.4 F L 96 20 121/88 94 L 11/17/21 16:00 93 20 138/88 94 L Intake and Output 11/17/21 11/18/21 11/18/21 22:59 06:59 14:59 Output Total 1200 550 Balance -1200 -550 Output: Urine 1200 550 Other: Voiding Method Urinal Indwelling Catheter Indwelling Catheter Weight 136.078 kg 114 kg No acute distress S1-S2 heard Decreased breath sounds Abdomen distended Reyna Lower extremity 2+ edema Results - Lab Results Most recent lab results Calcium 8.0 mg/dL (8.4-10.2) L 11/18/21 08:02 Magnesium 2.5 mg/dL (1.6-2.3) H 11/17/21 13:37 11/18/21 08:02 11/18/21 08:02 Assessment and Plan Assessment: #1 nonoliguric acute kidney injury multifactorial. -Toxic ATN from elevated vancomycin levels. -CRS is a possibility with a diastolic CHF. -Baseline creatinine 0.9 MG per DL #2 diastolic CHF #3 volume overload #4 low normal blood pressures #5 hypervolemic hyponatremia Plan: #1 agree with holding vancomycin. Continue with Lasix 40 mg IV twice a day. #2 admitted to drain for hemodynamic support #3 avoid nephrotoxic agents. #4 cardiology workup for syncope
[2021-11-18] MEDS: TIMOLOL 0.5% OPHTH DROPS 5 ML BTL BOTH EYES SCH ×2 (16:26→20:14)
[2021-11-18] MEDS: MIDODRINE 5 MG TAB PO SCH (17:47)
[2021-11-18] MEDS ORDERED: WARFARIN 5 MG TAB PO ONE (18:00)
[2021-11-18] MEDS: ESCITALOPRAM 20 MG TAB PO SCH (20:04)
[2021-11-18] MEDS: COLLAGENASE 250 UNIT/GM OINTMENT 30 GM TUBE TOPICAL SCH (20:04)
[2021-11-19] MEDS: PANTOPRAZOLE 40 MG TABLET PO SCH (07:03)
[2021-11-19 09:10] LABS: Anisocytosis Slight; Basophils # (A) 0.1 k/uL (0-0.2); Basophils % (A) 1 %; Eosinophils # (A) 0.4 k/uL (0-0.7); Eosinophils % (A) 4 %; HCT 37.3 % (39.0-53.0); HGB 11.8 gm/dL (13.0-17.5); Hypochromasia Moderate; Lymphocytes # (A) 1.8 k/uL (1.0-4.8); Lymphocytes % (A) 18 %; MCH 26.7 pg (25.0-35.0); MCHC 31.5 g/dL (31.0-37.0); MCV 84.9 fL (80.0-100.0); Monocytes # (A) 0.4 k/uL (0-1.0); Monocytes % (A) 4 %; Neutrophils % (A) 72 %; Platelet Count 398 k/uL (150-450); RDW 18.3 % (11.5-15.5); WBC 9.7 k/uL (3.8-10.6)
[2021-11-19 09:15] LABS: INR 1.5 (<1.2); Prothrombin Time 15.2 sec (9.0-12.0)
[2021-11-19 09:18] LABS: Calcium 8.1 mg/dL (8.4-10.2); Potassium 4.3 mmol/L (3.5-5.1)
[2021-11-19] MEDS: MIDODRINE 5 MG TAB PO SCH ×3 (10:10→17:05)
[2021-11-19] MEDS: ASPIRIN 81 MG PO SCH (10:10)
[2021-11-19] MEDS: AZITHROMYCIN 500 MG TAB PO SCH (10:10)
[2021-11-19] MEDS: FUROSEMIDE 10 MG/ML 4 ML VIAL IV SCH ×2 (10:10→20:01)
[2021-11-19] MEDS: busPIRone HCl 5 MG TAB PO SCH ×2 (10:10→20:01)
[2021-11-19] MEDS: METOPROLOL TARTRATE 50 MG TAB PO SCH ×2 (10:10→20:01)
[2021-11-19] MEDS: TIMOLOL 0.5% OPHTH DROPS 5 ML BTL BOTH EYES SCH ×2 (10:11→20:02)
[2021-11-19] MEDS: KETOROLAC 0.5% OPHTH DROPS 5 ML BTL LEFT EYE SCH ×2 (10:11→20:02)
--- NOTE | 2021-11-19 10:16 | P.CRDCN ---
History of Present Illness History of present illness: HISTORY OF PRESENTING ILLNESS This is a pleasant 86-year-old male past medical history significant for chronic persistent atrial fibrillation on warfarin, history of CVA, hypertension and peripheral vascular disease status post carotid intervention. He also has chronic lower extremity wounds. He follows in the office with Dr. Mccarty. We have been asked to see in consultation for syncope. He presented to the hospital after suffering a syncopal episode at [facility] where he was receiving IV antibiotics. According to the patient he doesn't necessarily recall what happened he just woke up on the floor. Then again while he was in the hospital he got up from bed to use the restroom he remembers walking in the bathroom feeling lightheaded and woke up again on the floor. He does endorse positive loss of consciousness. He denies feeling palpitations and chest pain shortness of breath prior to this episode. There is nothing on telemetry to suggest a significant bradycardia arrhythmia. He is in persistent atrial fibrillation with controlled ventricular rates. EKGs reveal atrial fibrillation with controlled ventricular rate. Echocardiogram obtained reveals preserved LV systolic function with ejection fraction 50-55%, moderate aortic regurgitation and moderate tricuspid regurgitation with an RVSP of 49 mmHg. REVIEW OF SYSTEMS At the time of my exam: CONSTITUTIONAL: Denies fever or chills. CARDIOVASCULAR: Denies chest pain, shortness of breath, orthopnea, PND or palpitations. RESPIRATORY: Denies cough. GASTROINTESTINAL: Denies abdominal pain, diarrhea, constipation, nausea or vomiting. MUSCULOSKELETAL: Denies myalgias. NEUROLOGIC: Denies numbness, tingling, headache or weakness. ENDOCRINE: Denies fatigue, weight change, polydipsia or polyurina. GENITOURINARY: Denies burning, hematuria or urgency with micturation. HEMATOLOGIC: Denies history of anemia or bleeding. PHYSICAL EXAMINATION Blood pressure 114/73 heart rate 120 afebrile and maintaining oxygen saturation on nasal cannula. CONSTITUTIONAL: No apparent distress. HEENT: Head is normocephalic. Pupils are equal, round. Sclerae anicteric. Mucous membranes of the mouth are moist. No JVD. No carotid bruit. CHEST EXAMINATION: Lungs are clear to auscultation. No chest wall tenderness is noted on palpation or with deep breathing. HEART EXAMINATION: Irregular rate and rhythm. S1, S2 heard. No murmurs, gallops or rub. ABDOMEN: Soft, nontender. EXTREMITIES: 2+ peripheral pulses, trace bilateral lower extremity edema with multiple areas of oozing bilateral Marcus wraps in place and no calf tenderness. NEUROLOGIC EXAMINATION: Patient is awake, alert and oriented x3. ASSESSMENT Syncopal episode 2 Acute kidney injury Chronic persistent atrial fibrillation on long-term anticoagulation Hypertension Peripheral vascular disease PLAN No significant bradycardia arrhythmia noted during syncopal episode. Given his frequent falls would suggest discontinuation of warfarin. He is aware he poses a risk of CVA however falling poses a more significant risk. Recommend an event monitor on discharge. Thank you kindly for this consultation. Nurse Practitioner note has been reviewed, I agree with a documented findings and plan of care. Patient was seen and examined. Past Medical History Past Medical History: Atrial Fibrillation, CVA/TIA, Hypertension Additional Past Medical History / Comment(s): "RETINA ISSUES" History of Any Multi-Drug Resistant Organisms: MRSA Date of last positivie culture/infection: 10/25/21 MDRO Source:: MRSA FOOT AND ANKLE Past Surgical History: Orthopedic Surgery Additional Past Surgical History / Comment(s): CATARACT SURGERY, RIGHT KNEE SURGERY, CARODID ARTERY SURGERY Past Anesthesia/Blood Transfusion Reactions: No Reported Reaction Past Psychological History: No Psychological Hx Reported Smoking Status: Never smoker Past Alcohol Use History: None Reported Past Drug Use History: None Reported Medications and Allergies Home Medications Medication Instructions Recorded Confirmed Type Metoprolol Tartrate [Lopressor] 50 mg PO Q12H 09/19/14 11/17/21 History Piroxicam [Feldene] 20 mg PO DAILY 09/19/14 11/17/21 History Aspirin EC [Ecotrin Low Dose] 81 mg PO DAILY 10/25/21 11/17/21 History Escitalopram [Lexapro] 20 mg PO HS 10/25/21 11/17/21 History Furosemide [Lasix] 40 mg PO BID@0600,1400 10/25/21 11/17/21 History Ketorolac 0.5% Ophth Soln [Acular 1 drop LEFT EYE Q12H 10/25/21 11/17/21 History 0.5%] Timolol 0.5% Ophth Soln [Timoptic 1 drop BOTH EYES Q12H 10/25/21 11/17/21 History 0.5% Ophth Soln] Acetaminophen-Codeine 300-30mg 1 tab PO Q4H PRN 11/17/21 11/17/21 History [Tylenol w/codeine #3] Collagenase [Santyl Ointment] 1 applic TOPICAL HS 11/17/21 11/17/21 History Pantoprazole [Protonix] 40 mg PO DAILY@0600 11/17/21 11/17/21 History Phytonadione [Vitamin K] 2.5 mg PO ONCE 11/17/21 11/17/21 History SILVER sulfADIAZINE CREAM 1 applic TOPICAL HS 11/17/21 11/17/21 History [Silvadene Cream] Vancomycin HCl 1,250 mg IV HS@2100 11/17/21 11/17/21 History Warfarin [Coumadin] 5 mg PO HS 11/17/21 11/17/21 History busPIRone HCl [Buspar] 5 mg PO BID 11/17/21 11/17/21 History Allergies Allergy/AdvReac Type Severity Reaction Status Date / Time chocolate flavor Allergy Per [facility] Verified 11/17/21 14:38 peanut Allergy Per [facility] Verified 11/17/21 14:38 Physical Exam Vitals: Vital Signs Temp Pulse Resp BP Pulse Ox 11/19/21 04:00 108 H 24 127/83 92 L 11/19/21 02:00 24 11/19/21 00:00 92 24 112/79 93 L 11/18/21 20:00 104 H 22 121/77 92 L 11/18/21 16:00 97.8 F 96 21 115/72 92 L 11/18/21 13:11 97.6 F 93 118/73 93 L 11/18/21 10:06 78 Intake and Output 11/18/21 11/19/21 11/19/21 22:59 06:59 14:59 Output Total 800 140 Balance -800 -140 Output: Urine 800 140 Other: Voiding Method Indwelling Catheter Indwelling Catheter Weight 90.5 kg Results 11/19/21 08:35 11/19/21 08:35 Current Medications Generic Name Dose Route Start Last Admin Trade Name Freq PRN Reason Stop Dose Admin Acetaminophen 650 mg 11/17/21 15:28 Acetaminophen Tab 325 Mg Tab PO Q6HR PRN Mild Pain or Fever > 100.5 Acetaminophen/Codeine Phosphate 1 each 11/17/21 22:03 Acetaminophen-Codeine 300-30mg Tab PO Q4H PRN Pain Albuterol/Ipratropium 3 ml 05/20/22 15:15 Ipratropium-Albuterol 3 Ml Neb INHALATION RT-Q4H PRN shortness of breath Aspirin 81 mg 11/18/21 09:00 11/18/21 08:32 Aspirin 81 Mg PO 81 mg DAILY TUCKER Administration Azithromycin 500 mg 11/18/21 09:00 11/18/21 08:32 Azithromycin 500 Mg Tab PO 11/19/21 09:01 500 mg DAILY TUCKER Administration Protocol Buspirone HCl 5 mg 11/17/21 21:00 11/18/21 20:04 Buspirone Hcl 5 Mg Tab PO 5 mg BID TUCKER Administration Escitalopram Oxalate 20 mg 11/17/21 22:15 11/18/21 20:04 Escitalopram 20 Mg Tab PO 20 mg HS TUCKER Administration Furosemide 40 mg 11/18/21 09:00 11/18/21 20:02 Furosemide 10 Mg/Ml 4 Ml Vial IV 40 mg Q12HR TUCKER Administration Ceftriaxone Sodium 2 gm/ 50 mls @ 100 mls/hr 11/18/21 09:00 11/18/21 08:33 Sodium Chloride IVPB 11/21/21 09:29 100 mls/hr Q24HR TUCKER Administration Protocol Ketorolac Tromethamine 1 drops 11/17/21 22:15 11/18/21 20:02 Ketorolac 0.5% Ophth Drops 5 Ml Btl LEFT EYE 1 drops Q12H TUCKER Administration Metoprolol Tartrate 50 mg 11/17/21 22:04 11/18/21 20:04 Metoprolol Tartrate 50 Mg Tab PO 50 mg Q12H TUCKER Administration Midodrine 5 mg 11/18/21 17:30 11/18/21 17:47 Midodrine 5 Mg Tab PO 5 mg AC-TID TUCKER Administration Miscellaneous Information 1 each 11/17/21 15:15 Pneumonia Protocol Utilized 1 Each Misc PO ONCE PRN Per Protocol Miscellaneous Information 0 each 11/17/21 22:10 Warfarin Per Pharmacy MISCELLANE DIRECTED PRN PER PROTOCOL Naloxone HCl 0.2 mg 11/17/21 15:28 Naloxone 0.4 Mg/Ml 1 Ml Vial IV Q2M PRN Opioid Reversal Collagenase 250 Unit 1 each 11/17/21 21:00 11/18/21 20:04 /Gm Ointment 30 Gm TOPICAL Not Given Tube HS TUCKER Protocol Pantoprazole Sodium 40 mg 11/18/21 06:00 11/19/21 07:03 Pantoprazole 40 Mg Tablet PO Not Given DAILY@0600 [facility] Timolol Maleate 1 drops 11/17/21 21:00 11/18/21 20:14 Timolol 0.5% Ophth Drops 5 Ml Btl BOTH EYES Not Given Q12HR [facility] Intake and Output 11/18/21 11/19/21 11/19/21 22:59 06:59 14:59 Output Total 800 140 Balance -800 -140 Output: Urine 800 140 Other: Voiding Method Indwelling Catheter Indwelling Catheter Weight 90.5 kg 11/18/21 08:02 11/18/21 08:02
[2021-11-19] MEDS ORDERED: SODIUM CHLORIDE 0.65% NASAL SPRAY 44 ML BTL NASAL PRN (10:33)
--- NOTE | 2021-11-19 12:04 | XR ---
EXAMINATION TYPE: XR chest 1V portable DATE OF EXAM: 11/19/2021 CLINICAL HISTORY: Pneumonia and CHF. TECHNIQUE: Single AP portable upright view of the chest is obtained. COMPARISON: Chest x-ray from one day earlier and older studies. FINDINGS: Stable left-sided PICC line. Persistent low lung volumes with diffuse right lung and multifocal left mid to lower lung opacities. Cardiac silhouette size stable and enlarged with atherosclerotic and ectatic thoracic aorta. Degenera tive change bilateral glenohumeral joints redemonstrated. IMPRESSION: Cardiomegaly and low lung volumes with diffuse right lung and multifocal left mid to lowe r lung edema and/or infiltrates all redemonstrated. No significant change from one day earlier.
--- NOTE | 2021-11-19 13:45 | P.PN ---
Subjective Progress Note Date: 11/19/21 Principal diagnosis: acute hypoxic respiratory failure secondary to healthcare acquired pneumonia, possible aspiration considering the patient had syncopal episode. possible underlying acute diastolic congestive heart failure 86-year-old white male patient with recent medical history of lower extremity cellulitis with abscess related to MRSA infection for which the patient was hospitalized recently and [facility] with the left upper extremity PICC line in place and vancomycin for evidence of MRSA in his right lower extremity. His past medical history is significant for chronic A. fib on Coumadin, previous history of CVA, hypertension, morbid obesity. Patient was [facility] to the [facility] 10/[facility]21. On 11/17/2021 patient had a syncopal episode at the [facility] while getting up out of bed, patient denied hitting his head or suffering any trauma. The facility noted that over the course of the day patient was having increased shortness of breath, weakness, increased oxygen needs. Patient reports a dry cough, no fevers, he has chronic swelling in his lower extremities not any worse. He states he is more comfortable sleeping sitting upright than lying down he is not normally oxygen dependent. He is on 2 L of oxygen with a pulse ox of 92-94%, he is afebrile. Chest x-ray in emergency department showing coarse infiltrates throughout both lungs much greater on the right the possibility of underlying pneumonia. Lab evaluation showed a white count of 10.3, hemoglobin of 11.4, INR 1.5, sodium is 126, potassium is 4.9, chloride is 97, CO2 is 19, BUN is 59, creatinine is 2.24, bilirubin is 1.7, AST was 121, ALT was 100, alk phos was 201, troponin was 0.034, proBNP was 13,004 100, urinalysis showed large amount of blood, normal white blood cells, no clear evidence of urinary tract infection, Vanco trough from 11/15/2021 was 26, random vancomycin level is 29.6. COVID-19 PCR was negative. Patient was started on antibiotics with azithromycin and Rocephin, breathing treatments, patient was on Lasix 40 mg twice daily at the [facility], clinically he appears to be dehydrated with dry oral mucous membranes. Denies any nausea vomiting or diarrhea. Cultures have been sent, ID service, nephrology, and pulmonary consultations have been requested. reevaluated today on 11/18/21,patient is resting in bed, he is on 4 L nasal cannula, and his O2 saturation is 96%, blood pressure is 125/72, patient is relatively asymptomatic, denies shortness of breath denies any cough denies any wheezing, he tells me that he feels fine. No fever overnight. Patient is on an tibiotics empirically for his cellulitis, chest x-ray showed interstitial edema, underlying infiltrate is not entirely ruled out. Apparently the patient had previous history of MRSA infection was fully treated by infectious disease on the case, and now he is on Rocephin and Zithromax. Reevaluated today on 11/19/21, patient is basically about the same, remains on 3 L nasal cannula, O2 sats 91%, chest x-ray continues to show interstitial edema, possible infiltrates bilaterally right more so than left. Patient remains on diuretics, remains empirically on antibiotics, his pro-calcitonin level 0.5, and his BNP level is over 15,000. Echocardiogram yesterday showed preserved LV function with ejection fraction of 50-55% it also showed moderate pulmonary hypertension. WBC count today is 9.7 hemoglobin 11.8 INR is 1.5 electrolytes are relatively normal BUN is down to 56 creatinine is down to 1.96 in spite of diuretics Objective - Vital Signs Vital signs: Vital Signs Temp 97.8 F 11/19/21 10:08 Pulse 120 H 11/19/21 10:08 Resp 16 11/19/21 10:08 BP 114/73 11/19/21 10:08 Pulse Ox 91 L 11/19/21 10:08 Intake & Output 11/18/21 11/19/21 11/19/21 18:59 06:59 18:59 Output Total 1350 140 Balance -1350 -140 Weight 90.5 kg Output: Urine 1350 140 Other: Voiding Method Indwelling Catheter Indwelling Catheter # Bowel Movements 1 - Exam GENERAL EXAM: revealed 86-year-old white male, on 3 L nasal cannula, in no distress. HEAD: Normocephalic/atraumatic. HEENT: PERRLA, EOMI, anicteric, no neck masses, no JVD, no stridor. CHEST: No chest wall deformity. Symmetrical expansion. LUNGS: fine crackles at the bases. No rhonchi and no wheezes CVS: Irregular rate and rhythm, normal S1 and S2, no gallops, no murmurs, no rubs ABDOMEN: obese,Soft, nontender. No hepatosplenomegaly, no rebound, no guarding. EXTREMITIES: No clubbing, chronic swelling in bilateral lower extremities, no cyanosis, 2+ pulses and upper and lower extremities.both lower extremities are wrapped with sterile dressings. Chronic venous stasis changes noted bi laterally. SKIN: No rashes, however the patient does have chronic venous stasis changes in both lower extremities CENTRAL NERVOUS SYSTEM: alert and oriented 3 no gross focal deficits. PSYCHIATRIC: nnormal mood, affect and normal mental status examination. - Labs CBC & Chem 7: 11/19/21 08:35 11/19/21 08:35 Labs: Abnormal Lab Results - Last 24 Hours (Table) 11/19/21 11/19/21 11/19/21 Range/Units 08:35 08:35 08:35 Hgb 11.8 L (13.0-17.5) gm/dL Hct 37.3 L (39.0-53.0) % RDW 18.3 H (11.5-15.5) % PT 15.2 H (9.0-12.0) sec INR 1.5 H (<1.2) Sodium 131 L (137-145) mmol/L Chloride 95 L (98-107) mmol/L BUN 56 H (9-20) mg/dL Creatinine 1.96 H (0.66-1.25) mg/dL Glucose 113 H (74-99) mg/dL Calcium 8.1 L (8.4-10.2) mg/dL Microbiology - Last 24 Hours (Table) 11/17/21 15:53 Blood Culture - Preliminary Blood No Growth after 24 hours 11/17/21 15:53 Blood Culture - Preliminary Blood No Growth after 24 hours Assessment and Plan Assessment: impression: Acute hypoxic respiratory failure secondary to bilateral pneumonia, could be aspiration pneumonia since the patient had a syncopal episode. This could also be healthcare related pneumonia However I also suspect some component of acute diastolic congestive heart failure especially with his elevated BNP of over 13,000 acute diastolic congestive heart failure. Syncopal episode, likely cardiac in nature unless for otherwise. Acute kidney injury. Chronic atrial fibrillation, on Coumadin. Chronic cellulitis of lower extremities. History of MRSA infection/cellulitis. Nonsmoker. Chronic liver disease possibly secondary to alcohol. Type 2 diabetes. recommendation: Continue oxygen and titrate accordingly. Continue antibiotics as per infectious disease on the case. I would recommended Zosyn. Sputum cultures are pending. Blood cultures are pending. Continue diuretics and monitor renal profile. we will continue to follow. All his medications were reviewed. Overall long-term prognosis is relatively guarded. Discussed his condition with his son at bedside Time with Patient: Less than 30
--- NOTE | 2021-11-19 14:13 | P.PN ---
Subjective Progress Note Date: 11/19/21 Follow-up for acute kidney injury. Sleepy today. Objective - Vital Signs Vital signs: Vital Signs Temp 98.0 F 11/19/21 13:00 Pulse 82 11/19/21 13:00 Resp 22 11/19/21 13:00 BP 100/57 11/19/21 13:00 Pulse Ox 91 L 11/19/21 13:00 Intake & Output 11/18/21 11/19/21 11/19/21 18:59 06:59 18:59 Output Total 1350 140 Balance -1350 -140 Weight 90.5 kg Output: Urine 1350 140 Other: Voiding Method Indwelling Catheter Indwelling Catheter # Bowel Movements 1 - Exam No acute distress S1-S2 heard Decreased breath sounds Abdomen distended Edema - Labs CBC & Chem 7: 11/19/21 08:35 11/19/21 08:35 Labs: Abnormal Lab Results - Last 24 Hours (Table) 11/19/21 11/19/21 11/19/21 Range/Units 08:35 08:35 08:35 Hgb 11.8 L (13.0-17.5) gm/dL Hct 37.3 L (39.0-53.0) % RDW 18.3 H (11.5-15.5) % PT 15.2 H (9.0-12.0) sec INR 1.5 H (<1.2) Sodium 131 L (137-145) mmol/L Chloride 95 L (98-107) mmol/L BUN 56 H (9-20) mg/dL Creatinine 1.96 H (0.66-1.25) mg/dL Glucose 113 H (74-99) mg/dL Calcium 8.1 L (8.4-10.2) mg/dL Microbiology - Last 24 Hours (Table) 11/17/21 15:53 Blood Culture - Preliminary Blood No Growth after 24 hours 11/17/21 15:53 Blood Culture - Preliminary Blood No Growth after 24 hours Assessment and Plan Assessment: #1 nonoliguric acute kidney injury multifactorial. -Toxic ATN from elevated vancomycin levels. -CRS is a possibility with a diastolic CHF. -Baseline creatinine 0.9 MG per DL #2 diastolic CHF #3 volume overload #4 low normal blood pressures #5 hypervolemic hyponatremia Plan: #1 agree with holding vancomycin. Continue with Lasix 40 mg IV twice a day. #2 midodrine for hemodynamic support #3 avoid nephrotoxic agents. #4 cardiology workup for syncope
--- NOTE | 2021-11-19 17:54 | P.PN ---
Subjective Progress Note Date: 11/18/21 Principal diagnosis: Right lower extremity wound and cellulitis Patient is 86 year old male who was recently admitted at this facility and was treated for right heel wound with secondary selected as culture positive for MRSA patient subsequently was [facility] to the [facility] on IV vancomycin concern for deep infection now presenting back to the hospital with worsening respiratory status and worsening of his kidney function. On today's evaluation that is 11/18/2021, the patient denies having any fever or any chills, the patient is breathing more comfortably, denies having any chest pain did have occasional cough no sputum production no abdominal pain and denies pain to the right heel area Objective - Vital Signs Vital signs: Vital Signs Temp 97.6 F 11/18/21 13:11 Pulse 93 11/18/21 13:11 Resp 20 11/18/21 08:28 BP 118/73 11/18/21 13:11 Pulse Ox 93 L 11/18/21 13:11 Intake & Output 11/17/21 11/18/21 11/18/21 18:59 06:59 18:59 Output Total 1200 550 Balance -1200 -550 Weight 136.078 kg 114 kg Output: Urine 1200 550 Other: Voiding Method Indwelling Catheter Indwelling Catheter - Exam GENERAL DESCRIPTION: An elderly male lying in bed in no distress RESPIRATORY SYSTEM: Unlabored breathing , decreased breath sounds at bases HEART: S1 S2 regular rate and rhythm , ABDOMEN: Soft , no tenderness EXTREMITIES: Right heel wound is currently dressed no drainage on the dressing right leg redness has decreased - Labs CBC & Chem 7: 11/19/21 08:35 11/19/21 08:35 Labs: Abnormal Lab Results - Last 24 Hours (Table) 11/17/21 11/17/21 11/17/21 Range/Units 14:57 21:08 21:08 RBC (4.30-5.90) m/uL Hgb (13.0-17.5) gm/dL Hct (39.0-53.0) % MCHC (31.0-37.0) g/dL RDW (11.5-15.5) % PT (9.0-12.0) sec INR (<1.2) Sodium 129 L (137-145) mmol/L Chloride 95 L (98-107) mmol/L BUN 61 H (9-20) mg/dL Creatinine 2.19 H (0.66-1.25) mg/dL Glucose 121 H (74-99) mg/dL POC Glucose (mg/dL) (75-99) mg/dL Calcium (8.4-10.2) mg/dL Total Bilirubin (0.2-1.3) mg/dL AST (17-59) U/L ALT (4-49) U/L Alkaline Phosphatase (38-126) U/L Total Protein (6.3-8.2) g/dL Albumin (3.5-5.0) g/dL Procalcitonin 0.51 H (0.02-0.09) ng/mL Urine Protein 1+ H (Negative) Urine Blood Large H (Negative) Urine RBC >182 H (0-5) /hpf Hyaline Casts 29 H (0-2) /lpf Urine Mucus Rare H (None) /hpf 11/17/21 11/18/21 11/18/21 Range/Units 22:22 08:02 08:02 RBC 4.21 L (4.30-5.90) m/uL Hgb 11.0 L (13.0-17.5) gm/dL Hct 36.3 L (39.0-53.0) % MCHC 30.4 L (31.0-37.0) g/dL RDW 17.7 H (11.5-15.5) % PT (9.0-12.0) sec INR (<1.2) Sodium 131 L (137-145) mmol/L Chloride 97 L (98-107) mmol/L BUN 58 H (9-20) mg/dL Creatinine 2.21 H (0.66-1.25) mg/dL Glucose 120 H (74-99) mg/dL POC Glucose (mg/dL) 108 H (75-99) mg/dL Calcium 8.0 L (8.4-10.2) mg/dL Total Bilirubin 1.5 H (0.2-1.3) mg/dL AST 60 H (17-59) U/L ALT 77 H (4-49) U/L Alkaline Phosphatase 184 H (38-126) U/L Total Protein 6.2 L (6.3-8.2) g/dL Albumin 2.7 L (3.5-5.0) g/dL Procalcitonin (0.02-0.09) ng/mL Urine Protein (Negative) Urine Blood (Negative) Urine RBC (0-5) /hpf Hyaline Casts (0-2) /lpf Urine Mucus (None) /hpf 11/18/21 Range/Units 08:02 RBC (4.30-5.90) m/uL Hgb (13.0-17.5) gm/dL Hct (39.0-53.0) % MCHC (31.0-37.0) g/dL RDW (11.5-15.5) % PT 14.5 H (9.0-12.0) sec INR 1.4 H (<1.2) Sodium (137-145) mmol/L Chloride (98-107) mmol/L BUN (9-20) mg/dL Creatinine (0.66-1.25) mg/dL Glucose (74-99) mg/dL POC Glucose (mg/dL) (75-99) mg/dL Calcium (8.4-10.2) mg/dL Total Bilirubin (0.2-1.3) mg/dL AST (17-59) U/L ALT (4-49) U/L Alkaline Phosphatase (38-126) U/L Total Protein (6.3-8.2) g/dL Albumin (3.5-5.0) g/dL Procalcitonin (0.02-0.09) ng/mL Urine Protein (Negative) Urine Blood (Negative) Urine RBC (0-5) /hpf Hyaline Casts (0-2) /lpf Urine Mucus (None) /hpf Assessment and Plan (1) Leukocytosis Current Visit: No Status: Acute Code(s): D72.829 - ELEVATED WHITE BLOOD CELL COUNT, UNSPECIFIED SNOMED Code(s): 456656679 Plan: 1patient presented to hospital with increasing shortness of breath which is likely multifactorial and more likely from the fluid overload from his kidney failure clinically not behaving as pneumonia as patient did not have any fever or elevated white count or any cough. 2 patient with elevated liver enzymes ultrasound of his liver and gallbladder area no evidence of cholecystitis 3patient with right heel wound to continue local wound care to the right heel wound with the Santyl followed by moist dressing , no need for further vancomycin at this point. Time with Patient: Less than 30
--- NOTE | 2021-11-19 17:55 | P.PN ---
Subjective Progress Note Date: 11/19/21 Principal diagnosis: Right lower extremity wound and cellulitis Patient is 86 year old male who was recently admitted at this facility and was treated for right heel wound with secondary selected as culture positive for MRSA patient subsequently was discharged to the [facility] on IV vancomycin concern for deep infection now presenting back to the hospital with worsening respiratory status and worsening of his kidney function. On today's evaluation that is 11/19/2021, the patient remains to be afebrile , the patient is breathing comfortably on nasal cannula oxygen, the patient denies having any chest pain did have occasional cough no sputum production no abdominal pain and denies pain to the right heel area Objective - Vital Signs Vital signs: Vital Signs Temp 98.0 F 11/19/21 13:00 Pulse 82 11/19/21 13:00 Resp 22 11/19/21 13:00 BP 100/57 11/19/21 13:00 Pulse Ox 91 L 11/19/21 13:00 Intake & Output 11/18/21 11/19/21 11/19/21 18:59 06:59 18:59 Output Total 1350 140 Balance -1350 -140 Weight 90.5 kg Output: Urine 1350 140 Other: Voiding Method Indwelling Catheter Indwelling Catheter Indwelling Catheter # Bowel Movements 1 - Exam GENERAL DESCRIPTION: An elderly male lying in bed in no distress RESPIRATORY SYSTEM: Unlabored breathing , decreased breath sounds at bases HEART: S1 S2 regular rate and rhythm , ABDOMEN: Soft , no tenderness EXTREMITIES: Right heel wound is currently dressed no drainage on the dressing right leg redness has decreased - Labs CBC & Chem 7: 11/19/21 08:35 11/19/21 08:35 Labs: Abnormal Lab Results - Last 24 Hours (Table) 11/19/21 11/19/21 11/19/21 Range/Units 08:35 08:35 08:35 Hgb 11.8 L (13.0-17.5) gm/dL Hct 37.3 L (39.0-53.0) % RDW 18.3 H (11.5-15.5) % PT 15.2 H (9.0-12.0) sec INR 1.5 H (<1.2) Sodium 131 L (137-145) mmol/L Chloride 95 L (98-107) mmol/L BUN 56 H (9-20) mg/dL Creatinine 1.96 H (0.66-1.25) mg/dL Glucose 113 H (74-99) mg/dL Calcium 8.1 L (8.4-10.2) mg/dL Microbiology - Last 24 Hours (Table) 11/17/21 15:53 Blood Culture - Preliminary Blood No Growth after 24 hours 11/17/21 15:53 Blood Culture - Preliminary Blood No Growth after 24 hours Assessment and Plan (1) Leukocytosis Current Visit: No Status: Acute Code(s): D72.829 - ELEVATED WHITE BLOOD CELL COUNT, UNSPECIFIED SNOMED Code(s): 126664157 Plan: 1patient presented to hospital with increasing shortness of breath which is likely multifactorial and more likely from the fluid overload from his kidney f ailure clinically not behaving as pneumonia as patient did not have any fever or elevated white count or any cough. 2 patient with elevated liver enzymes ultrasound of his liver and gallbladder area no evidence of cholecystitis 3patient with right heel wound to continue local wound care to the right heel wound with the Santyl followed by moist dressing and keep the area off the pressure, continue with the Rocephin Time with Patient: Less than 30
[2021-11-19] MEDS: ESCITALOPRAM 20 MG TAB PO SCH (20:01)
[2021-11-19] MEDS: COLLAGENASE 250 UNIT/GM OINTMENT 30 GM TUBE TOPICAL SCH (20:02)
[2021-11-19] MEDS ORDERED: ALPRAZolam 0.25 MG TAB PO STA (21:43)
--- NOTE | 2021-11-20 00:51 | P.PN ---
Subjective Progress Note Date: 11/18/21 Patient is a 86-year-old male with a known history of atrial fibrillation on anticoagulation with Coumadin, history of CVA/TIA, hypertension, morbid obesity with recent history of right heel MRSA wound infection and is currently on ceftriaxone at Care facility was brought to the hospital due to worsening shortness of breath and syncopal episode. Patient was at the extended care facility and was being transferred to the [facility]. Patient briefly lost his consciousness for about 2 to 3 minutes. No history of fall or trauma. Patient is also having worsening shortness of breath and hypoxia and was sent to ER. No fever no chills. Cough without any sputum production. No complaints of chest pain. No nausea vomiting abdominal pain or diarrhea. Patient was supratherapeutic INR level at [facility] and Coumadin is on hold. On admission patient is requiring oxygen at 2 L via nasal cannula. Chest x-ray showed coarse infiltrates throughout both lung cevallos much greater on the right. Correlate for underlying pneumonia. EKG showed atrial fibrillation laboratory data showed WBC 10.3 hemoglobin 11.4 and platelets 405 INR 1.5 Sodium 126 potassium 4.9 chloride 97 bicarb is 19 BUN 59 and creatinine 2.24 Calcium 8.2 magnesium 2.5 total bilirubin level is 1.7 AST 121 ALT 100 alk phos 206 and proBNP [id number] Patient was recently discharged to [facility] on 10/30/2021. 11/18/2021. Patient is currently lying in the bed. Awake alert and oriented. No complaints of chest pain. Shortness of breath is slightly better today. Evidently patient had a fall where he he was walking to the bathroom and sustained a lacerated wound on the left side of the forehead. Denies any complaints of headache at dizziness now. Chest x-ray showed fluid overload/pulmonary edema and was started on IV Lasix. CT head and cervical spine showed no acute process. Laboratory data showed WBC 8.7 hemoglobin 11.0 and platelets 363 INR 1.4 Sodium 131 potassium 4.4 chloride 97 bicarb is 25 BUN 58 and creatinine 2.21 AST 60 ALT 77 alk phos 184 and albumin 2.7 and procalcitonin level was 0.51 Pulmonary is on board. Cardiology was consulted due to syncopal episode. Current medications reviewed. Objective - Vital Signs Vital signs: Vital Signs Temp 97.8 F 11/18/21 16:00 Pulse 104 H 11/18/21 20:00 Resp 22 11/18/21 20:00 BP 121/77 11/18/21 20:00 Pulse Ox 92 L 11/18/21 20:00 Intake & Output 11/18/21 11/18/21 11/19/21 06:59 18:59 06:59 Output Total 1200 1350 Balance -1200 -1350 Weight 114 kg Output: Urine 1200 1350 Other: Voiding Method Indwelling Catheter Indwelling Catheter Indwelling Catheter - Exam PHYSICAL EXAMINATION: Patient is lying in the bed comfortably, no acute distress, awake alert and oriented.. Morbidly obese. HEENT: Normocephalic. Neck is supple. Pupils reactive. Nostrils clear. Oral cavity is moist. Neck reveals no JVD, carotid bruits, or thyromegaly. CHEST EXAMINATION: Trachea is central. Symmetrical expansion. Bilateral coarse breath sounds. No wheezing.. CARDIAC: Normal S1, S2 with no gallops. No murmurs ABDOMEN: Soft. Bowel sounds normal. No organomegaly. No abdominal bruits. Extremities: Bilateral 2+ edema. No clubbing or cyanosis Right heel ulcer is bandaged. Neurologically awake, alert, oriented x3 with well-coordinated movements. No focal deficits noted Skin: No rash or skin lesions. Psychiatric: Cooperative. Nonsuicidal Musculoskeletal: No joint swelling or deformity. Normal range of motion - Labs CBC & Chem 7: 11/19/21 08:35 11/19/21 08:35 Labs: Abnormal Lab Results - Last 24 Hours (Table) 11/17/21 11/18/21 11/18/21 Range/Units 21:08 08:02 08:02 RBC 4.21 L (4.30-5.90) m/uL Hgb 11.0 L (13.0-17.5) gm/dL Hct 36.3 L (39.0-53.0) % MCHC 30.4 L (31.0-37.0) g/dL RDW 17.7 H (11.5-15.5) % PT (9.0-12.0) sec INR (<1.2) Sodium 131 L (137-145) mmol/L Chloride 97 L (98-107) mmol/L BUN 58 H (9-20) mg/dL Creatinine 2.21 H (0.66-1.25) mg/dL Glucose 120 H (74-99) mg/dL Calcium 8.0 L (8.4-10.2) mg/dL Total Bilirubin 1.5 H (0.2-1.3) mg/dL AST 60 H (17-59) U/L ALT 77 H (4-49) U/L Alkaline Phosphatase 184 H (38-126) U/L Total Protein 6.2 L (6.3-8.2) g/dL Albumin 2.7 L (3.5-5.0) g/dL Procalcitonin 0.51 H (0.02-0.09) ng/mL 11/18/21 Range/Units 08:02 RBC (4.30-5.90) m/uL Hgb (13.0-17.5) gm/dL Hct (39.0-53.0) % MCHC (31.0-37.0) g/dL RDW (11.5-15.5) % PT 14.5 H (9.0-12.0) sec INR 1.4 H (<1.2) Sodium (137-145) mmol/L Chloride (98-107) mmol/L BUN (9-20) mg/dL Creatinine (0.66-1.25) mg/dL Glucose (74-99) mg/dL Calcium (8.4-10.2) mg/dL Total Bilirubin (0.2-1.3) mg/dL AST (17-59) U/L ALT (4-49) U/L Alkaline Phosphatase (38-126) U/L Total Protein (6.3-8.2) g/dL Albumin (3.5-5.0) g/dL Procalcitonin (0.02-0.09) ng/mL Microbiology - Last 24 Hours (Table) 11/17/21 15:53 Blood Culture - Preliminary Blood No Growth after 24 hours 11/17/21 15:53 Blood Culture - Preliminary Blood No Growth after 24 hours Assessment and Plan Assessment: Acute hypoxic respiratory failure likely due to bilateral pneumonia versus fluid load. COVID-19 negative. Acute syncopal episode at [facility]CF. Acute kidney injury possible ATN and AIN with patient being on vancomycin and diuretics. Hyponatremia possible hypervolemic Acute CHF EF not known Right heel wound infection/cellulitis with MRSA recently on vancomycin currently. Chronic atrial fibrillation on anticoagulation with Coumadin Subtherapeutic INR level Previous history of CVA Hypertension Morbid obesity BMI 45.6 Diabetes type 2 DVT prophylaxis patient is already on Coumadin Plan: Patient has been currently on antibiotics in the form of ceftriaxone and azithromycin. Continue with diuresis with Lasix 40 mg every 12. Cardiology consult due to syncopal episode. Follow-up culture reports and renal function. Diuretics on hold and continue with home medications and Coumadin dosing. Pulmonary, ID and nephrology is on board Continue to follow closely. Prognosis is guarded with multi medical problems and comorbid conditions. Time with Patient: Greater than 30
--- NOTE | 2021-11-20 00:55 | P.PN ---
Subjective Progress Note Date: 11/19/21 Patient is a 86-year-old male with a known history of atrial fibrillation on anticoagulation with Coumadin, history of CVA/TIA, hypertension, morbid obesity with recent history of right heel MRSA wound infection and is currently on ceftriaxone at Care facility was brought to the hospital due to worsening shortness of breath and syncopal episode. Patient was at the extended care facility and was being transferred to the [facility]. Patient briefly lost his consciousness for about 2 to 3 minutes. No history of fall or trauma. Patient is also having worsening shortness of breath and hypoxia and was sent to ER. No fever no chills. Cough without any sputum production. No complaints of chest pain. No nausea vomiting abdominal pain or diarrhea. Patient was supratherapeutic INR level at [facility] and Coumadin is on hold. On admission patient is requiring oxygen at 2 L via nasal cannula. Chest x-ray showed coarse infiltrates throughout both lung cevallos much greater on the right. Correlate for underlying pneumonia. EKG showed atrial fibrillation laboratory data showed WBC 10.3 hemoglobin 11.4 and platelets 405 INR 1.5 Sodium 126 potassium 4.9 chloride 97 bicarb is 19 BUN 59 and creatinine 2.24 Calcium 8.2 magnesium 2.5 total bilirubin level is 1.7 AST 121 ALT 100 alk phos 206 and proBNP [id number] Patient was recently discharged to [facility] on 10/30/2021. 11/18/2021. Patient is currently lying in the bed. Awake alert and oriented. No complaints of chest pain. Shortness of breath is slightly better today. Evidently patient had a fall where he he was walking to the bathroom and sustained a lacerated wound on the left side of the forehead. Denies any complaints of headache at dizziness now. Chest x-ray showed fluid overload/pulmonary edema and was started on IV Lasix. CT head and cervical spine showed no acute process. Laboratory data showed WBC 8.7 hemoglobin 11.0 and platelets 363 INR 1.4 Sodium 131 potassium 4.4 chloride 97 bicarb is 25 BUN 58 and creatinine 2.21 AST 60 ALT 77 alk phos 184 and albumin 2.7 and procalcitonin level was 0.51 Pulmonary is on board. Cardiology was consulted due to syncopal episode. 11/19/2021. Patient is currently resting in bed comfortably. Awake alert and oriented x3. Breathing status is better compared to yesterday. Currently requiring oxygen 3 L via nasal cannula. No nausea vomiting abdominal pain. No complaints of chest pain. No headache or dizziness or lightheadedness. 2D echocardiogram showed preserved ejection fraction and moderate pulmonary hypertension. Patient is being continued IV diuresis with Lasix 40 mg every 12. Laboratory data showed sodium 131 potassium 4.3 chloride 95 BUN 56 and creatinine 1.96 and calcium 8.1. Current medications reviewed. Objective - Vital Signs Vital signs: Vital Signs Temp 97.5 F L 11/19/21 20:00 Pulse 92 11/19/21 20:00 Resp 20 11/19/21 20:00 BP 132/84 11/19/21 20:00 Pulse Ox 94 L 11/19/21 20:00 Intake & Output 11/19/21 11/19/21 11/20/21 06:59 18:59 06:59 Intake Total 180 240 Output Total 140 1200 Balance -140 180 -960 Weight 90.5 kg Intake: Oral 180 240 Output: Urine 140 1200 Other: Voiding Method Indwelling Catheter Indwelling Catheter Indwelling Catheter # Bowel Movements 1 - Exam PHYSICAL EXAMINATION: Patient is lying in the bed comfortably, no acute distress, awake alert and orie nted.. Morbidly obese. HEENT: Normocephalic. Neck is supple. Pupils reactive. Nostrils clear. Oral cavity is moist. Neck reveals no JVD, carotid bruits, or thyromegaly. CHEST EXAMINATION: Trachea is central. Symmetrical expansion. Bilateral coarse breath sounds. No wheezing.. CARDIAC: Normal S1, S2 with no gallops. No murmurs ABDOMEN: Soft. Bowel sounds normal. No organomegaly. No abdominal bruits. Extremities: Bilateral 2+ edema. No clubbing or cyanosis Right heel ulcer is bandaged. Neurologically awake, alert, oriented x3 with well-coordinated movements. No focal deficits noted Skin: No rash or skin lesions. Psychiatric: Cooperative. Nonsuicidal Musculoskeletal: No joint swelling or deformity. Normal range of motion - Labs CBC & Chem 7: 11/19/21 08:35 11/19/21 08:35 Labs: Abnormal Lab Results - Last 24 Hours (Table) 11/19/21 11/19/21 11/19/21 Range/Units 08:35 08:35 08:35 Hgb 11.8 L (13.0-17.5) gm/dL Hct 37.3 L (39.0-53.0) % RDW 18.3 H (11.5-15.5) % PT 15.2 H (9.0-12.0) sec INR 1.5 H (<1.2) Sodium 131 L (137-145) mmol/L Chloride 95 L (98-107) mmol/L BUN 56 H (9-20) mg/dL Creatinine 1.96 H (0.66-1.25) mg/dL Glucose 113 H (74-99) mg/dL Calcium 8.1 L (8.4-10.2) mg/dL Microbiology - Last 24 Hours (Table) 11/17/21 15:53 Blood Culture - Preliminary Blood No Growth after 48 hours 11/17/21 15:53 Blood Culture - Preliminary Blood No Growth after 48 hours Assessment and Plan Assessment: Acute hypoxic respiratory failure likely due to bilateral pneumonia versus fluid load. COVID-19 negative. Acute syncopal episode at ECF. Acute kidney injury possible ATN and AIN with patient being on vancomycin and diuretics. Hyponatremia possible hypervolemic Acute CHF EF not known Right heel wound infection/cellulitis with MRSA recently on vancomycin currently. Chronic atrial fibrillation on anticoagulation with Coumadin. DCed due to falls Subtherapeutic INR level Previous history of CVA Hypertension Morbid obesity BMI 45.6 Diabetes type 2 DVT prophylaxis patient is already on Coumadin Plan: Patient has been currently on antibiotics in the form of ceftriaxone and azithromycin. Continue with diuresis with Lasix 40 mg every 12. Cardiology consult due to syncopal episode. Follow-up culture reports and renal function. He was seen by cardiology to syncopal episode and no bradyarrhythmia noted. Due to recurrent falls anticoagulation, Coumadin has been discontinued. Pulmonary, ID and nephrology is on board Continue to follow closely. Prognosis is guarded with multi medical problems and comorbid conditions. Time with Patient: Greater than 30
[2021-11-20] MEDS ORDERED: Acetaminophen-Codeine 300-30mg TAB ONE (04:25)
[2021-11-20] MEDS: MIDODRINE 5 MG TAB PO SCH ×3 (06:43→17:40)
[2021-11-20] MEDS: PANTOPRAZOLE 40 MG TABLET PO SCH (06:44)
[2021-11-20 07:59] LABS: Anisocytosis Slight; Basophils # (A) 0.1 k/uL (0-0.2); Basophils % (A) 1 %; Eosinophils # (A) 0.4 k/uL (0-0.7); Eosinophils % (A) 4 %; HCT 38.6 % (39.0-53.0); HGB 11.4 gm/dL (13.0-17.5); Hypochromasia Moderate; Lymphocytes # (A) 1.4 k/uL (1.0-4.8); Lymphocytes % (A) 15 %; MCH 25.7 pg (25.0-35.0); MCHC 29.5 g/dL (31.0-37.0); MCV 87.2 fL (80.0-100.0); Mean Platelet Volume 7.1; Monocytes # (A) 0.5 k/uL (0-1.0); Monocytes % (A) 5 %; Neutrophils # (A) 7.1 k/uL (1.3-7.7); Neutrophils % (A) 75 %; Platelet Count 345 k/uL (150-450); RBC 4.43 m/uL (4.30-5.90); RDW 17.9 % (11.5-15.5); WBC 9.5 k/uL (3.8-10.6)
[2021-11-20 08:10] LABS: Calcium 7.9 mg/dL (8.4-10.2); Potassium 4.2 mmol/L (3.5-5.1)
[2021-11-20] MEDS: ASPIRIN 81 MG PO SCH (08:55)
[2021-11-20] MEDS: busPIRone HCl 5 MG TAB PO SCH ×2 (08:55→19:57)
[2021-11-20] MEDS: METOPROLOL TARTRATE 50 MG TAB PO SCH ×2 (08:56→19:57)
[2021-11-20] MEDS: TIMOLOL 0.5% OPHTH DROPS 5 ML BTL BOTH EYES SCH ×2 (08:59→19:55)
[2021-11-20] MEDS: FUROSEMIDE 10 MG/ML 4 ML VIAL IV SCH ×2 (08:59→19:56)
--- NOTE | 2021-11-20 09:03 | P.PN ---
Subjective Patient is seen in follow-up for acute kidney injury. Renal function improving. On IV Lasix. Nonoliguric. Denies chest pain or shortness breath. Oral intake. No vomiting or diarrhea. Son present at bedside. Vital signs are stable. General: Awake and alert. No acute distress. HEENT: Head exam is unremarkable. On nasal cannula. LUNGS: Breath sounds decreased. HEART: Rate and Rhythm are regular. ABDOMEN: Soft, no distention. EXTREMITITES: 1+ edema. Chronic changes noted. Right foot wrapped. Objective - Vital Signs Vital signs: Vital Signs Temp 97.9 F 11/20/21 04:00 Pulse 92 11/20/21 04:00 Resp 20 11/20/21 04:00 BP 122/70 11/20/21 04:00 Pulse Ox 91 L 11/20/21 04:00 FiO2 Intake & Output 11/19/21 11/20/21 11/20/21 18:59 06:59 18:59 Intake Total 180 480 Output Total 2650 Balance 180 -2170 Weight 97.5 kg Intake: Oral 180 480 Output: Urine 2650 Other: Voiding Method Indwelling Catheter Indwelling Catheter # Bowel Movements 1 - Labs CBC & Chem 7: 11/20/21 07:22 11/20/21 07:22 Labs: Abnormal Lab Results - Last 24 Hours (Table) 11/19/21 11/19/21 11/19/21 Range/Units 08:35 08:35 08:35 Hgb 11.8 L (13.0-17.5) gm/dL Hct 37.3 L (39.0-53.0) % MCHC (31.0-37.0) g/dL RDW 18.3 H (11.5-15.5) % PT 15.2 H (9.0-12.0) sec INR 1.5 H (<1.2) Sodium 131 L (137-145) mmol/L Chloride 95 L (98-107) mmol/L BUN 56 H (9-20) mg/dL Creatinine 1.96 H (0.66-1.25) mg/dL Glucose 113 H (74-99) mg/dL Calcium 8.1 L (8.4-10.2) mg/dL 11/20/21 11/20/21 Range/Units 07:22 07:22 Hgb 11.4 L (13.0-17.5) gm/dL Hct 38.6 L (39.0-53.0) % MCHC 29.5 L (31.0-37.0) g/dL RDW 17.9 H (11.5-15.5) % PT (9.0-12.0) sec INR (<1.2) Sodium 130 L (137-145) mmol/L Chloride 96 L (98-107) mmol/L BUN 51 H (9-20) mg/dL Creatinine 1.72 H (0.66-1.25) mg/dL Glucose 109 H (74-99) mg/dL Calcium 7.9 L (8.4-10.2) mg/dL Microbiology - Last 24 Hours (Table) 11/17/21 15:53 Blood Culture - Preliminary Blood No Growth after 48 hours 11/17/21 15:53 Blood Culture - Preliminary Blood No Growth after 48 hours Assessment and Plan Plan: Assessment: 1. Acute kidney injury secondary to ATN secondary to cardiorenal syndrome and vancomycin toxicity. Baseline creatinine near 1 from earlier this month. Creatinine was 2.24 on admission and is 1.72 today. 2. Volume overload. 3. Acute on chronic diastolic CHF with moderate aortic/tricuspid regurgitation and moderate pulmonary hypertension. 4. Right foot wound being followed by ID. 5. Hypervolemic hyponatremia. Plan: Maintain IV Lasix. 1500 mL fluid resection. Encourage oral intake. Plan to DC Reyna catheter tomorrow. Avoid nephrotoxins. Continue to monitor renal function and urine output.
[2021-11-20] MEDS: KETOROLAC 0.5% OPHTH DROPS 5 ML BTL LEFT EYE SCH ×2 (09:09→19:57)
--- NOTE | 2021-11-20 10:25 | P.PN ---
Subjective Progress Note Date: 11/20/21 acute hypoxic respiratory failure secondary to healthcare acquired pneumonia, possible aspiration considering the patient had syncopal episode. possible underlying acute diastolic congestive heart failure 86-year-old white male patient with recent medical history of lower extremity cellulitis with abscess related to MRSA infection for which the patient was hospitalized recently and discharged to [facility] with the left upper extremity PICC line in place and vancomycin for evidence of MRSA in his right lower extremity. His past medical history is significant for chronic A. fib on Coumadin, previous history of CVA, hypertension, morbid obesity. Patient was discharged to the [facility] on 10/30/2021. On 11/17/2021 patient had a syncopal episode at the [facility] while getting up out of bed, patient denied hitting his head or suffering any trauma. The facility noted that over the course of the day patient was having increased shortness of breath, weakness, increased oxygen needs. Patient reports a dry cough, no fevers, he has chronic swelling in his lower extremities not any worse. He states he is more comfortable sleeping sitting upright than lying down he is not normally oxygen dependent. He is on 2 L of oxygen with a pulse ox of 92-94%, he is afebrile. Chest x-ray in emergency department showing coarse infiltrates throughout both lungs much greater on the right the possibility of underlying pneumonia. Lab evaluation showed a white count of 10.3, hemoglobin of 11.4, INR 1.5, sodium is 126, potassium is 4.9, chloride is 97, CO2 is 19, BUN is 59, creatinine is 2.24, bilirubin is 1.7, AST was 121, ALT was 100, alk phos was 201, troponin was 0.034, proBNP was 13,004 100, urinalysis showed large amount of blood, normal white blood cells, no clear evidence of urinary tract infection, Vanco trough from 11/15/2021 was 26, random vancomycin level is 29.6. COVID-19 PCR was negative. Patient was started on antibiotics with azithromycin and Rocephin, breathing treatments, patient was on Lasix 40 mg twice daily at the [facility], clinically he appears to be dehydrated with dry oral mucous membranes. Denies any nausea vomiting or diarrhea. Cultures have been sent, ID service, nephrology, and pulmonary consultations have been requested. reevaluated today on 11/18/21,patient is resting in bed, he is on 4 L nasal cannula, and his O2 saturation is 96%, blood pressure is 125/72, patient is relatively asymptomatic, denies shortness of breath denies any cough denies any wheezing, he tells me that he feels fine. No fever overnight. Patient is on antibiotics empirically for his cellulitis, chest x-ray showed interstitial edema, underlying infiltrate is not entirely ruled out. Apparently the patient had previous history of MRSA infection was fully treated by infectious disease on the case, and now he is on Rocephin and Zithromax. Reevaluated today on 11/19/21, patient is basically about the same, remains on 3 L nasal cannula, O2 sats 91%, chest x-ray continues to show interstitial edema, possible infiltrates bilaterally right more so than left. Patient remains on diuretics, remains empirically on antibiotics, his pro-calcitonin level 0.5, and his BNP level is over 15,000. Echocardiogram yesterday showed preserved LV function with ejection fraction of 50-55% it also showed moderate pulmonary hypertension. WBC count today is 9.7 hemoglobin 11.8 INR is 1.5 electrolytes are relatively normal BUN is down to 56 creatinine is down to 1.96 in spite of diuretics 11/20/2021, I'm seeing the patient for a follow-up. The patient is being treated for a combination of pneumonia and CHF. He is currently on oxygen at 3 L per minute nasal cannula with a pulse ox of 92%. He is afebrile. He is hemodynamically stable. On blood work from today shows a white cell count 9.5 with a hemoglobin of 11.4 and a platelet count of 345. Sodium is at 1:30, potassium is at 4.2, BUN is a 51 with a creatinine of 1.7 and a potassium level of 4.2. The patient is being diuresed and the patient is a negative fluid balance of at least 1.9 L over the past 24 hours. He remains on Lasix 40 mg imelda ry 12 hours. He is also on IV Rocephin. Dr. Mccray are wanted to consider broadening of antibiotic coverage to Zosyn considering aspiration. Nevertheless, I compared the series of chest exit and I believe that the right lung consolidations improving and the patient's clinically stable and I stated the course with the IV Rocephin. His pro-calcitonin level was 0.51 at time of admission on 11/17/2021. Objective - Vital Signs Vital signs: Vital Signs Temp 98.0 F 11/20/21 08:00 Pulse 90 11/20/21 08:00 Resp 20 11/20/21 08:00 BP 126/62 11/20/21 08:00 Pulse Ox 92 L 11/20/21 08:00 FiO2 Intake & Output 11/19/21 11/20/21 11/20/21 18:59 06:59 18:59 Intake Total 180 480 120 Output Total 2650 Balance 180 -2170 120 Weight 97.5 kg Intake: Oral 180 480 120 Output: Urine 2650 Other: Voiding Method Indwelling Catheter Indwelling Catheter Indwelling Catheter # Bowel Movements 1 - Exam GENERAL EXAM: revealed 86-year-old white male, on 3 L nasal cannula, in no distress. HEAD: Normocephalic/atraumatic. HEENT: PERRLA, EOMI, anicteric, no neck masses, no JVD, no stridor. CHEST: No chest wall deformity. Symmetrical expansion. LUNGS: fine crackles at the bases. No rhonchi and no wheezes CVS: Irregular rate and rhythm, normal S1 and S2, no gallops, no murmurs, no rubs ABDOMEN: obese,Soft, nontender. No hepatosplenomegaly, no rebound, no guarding. EXTREMITIES: No clubbing, chronic swelling in bilateral lower extremities, no cyanosis, 2+ pulses and upper and lower extremities.both lower extremities are wrapped with sterile dressings. Chronic venous stasis changes noted bilaterally. SKIN: No rashes, however the patient does have chronic venous stasis changes in both lower extremities CENTRAL NERVOUS SYSTEM: alert and oriented 3 no gross focal deficits. PSYCHIATRIC: nnormal mood, affect and normal mental status examination. - Labs CBC & Chem 7: 11/20/21 07:22 11/20/21 07:22 Labs: Abnormal Lab Results - Last 24 Hours (Table) 11/20/21 11/20/21 Range/Units 07: 07:22 Hgb 11.4 L (13.0-17.5) gm/dL Hct 38.6 L (39.0-53.0) % MCHC 29.5 L (31.0-37.0) g/dL RDW 17.9 H (11.5-15.5) % Sodium 130 L (137-145) mmol/L Chloride 96 L (98-107) mmol/L BUN 51 H (9-20) mg/dL Creatinine 1.72 H (0.66-1.25) mg/dL Glucose 109 H (74-99) mg/dL Calcium 7.9 L (8.4-10.2) mg/dL Microbiology - Last 24 Hours (Table) 11/17/21 15:53 Blood Culture - Preliminary Blood No Growth after 48 hours 11/17/21 15:53 Blood Culture - Preliminary Blood No Growth after 48 hours Assessment and Plan Assessment: as Plan: Acute hypoxic respiratory failure secondary to bilateral pneumonia, could be aspiration pneumonia since the patient had a syncopal episode. This could also be healthcare related pneumonia, However, I also suspect some component of acute diastolic congestive heart failure especially with his elevated BNP of over 13,000. The CXR showed cardiomegaly and CHF and bilateral consolidation R>L and the FU CXR from 11/19/21 showed some improvement in the right lung co nsolidation. Patient remains on Lasix and IV Rocephin acute diastolic congestive heart failure. Syncopal episode, likely cardiac in nature unless for otherwise. The patient is going to have an event monitor the time of discharge. Acute kidney injury. The creatinine is improving and the creatinine is down to 1.72 Chronic atrial fibrillation, on Coumadin. Chronic cellulitis of lower extremities. History of MRSA infection/cellulitis. Nonsmoker. Chronic liver disease possibly secondary to alcohol. Type 2 diabetes. recommendation: Clinically improving on 3 L of oxygen by nasal cannula Continue oxygen and titrate accordingly. Continue IV Rocephin as long as the patient's chest x-rays been improving and clinically stable Sputum cultures are pending. Blood cultures are pending. The cultures of been negative thus far and the pro-calcitonin level was at 0.51 Continue diuretics and monitor renal profile. The patient has been negative fluid balance we will continue to follow. All his medications were reviewed. Overall long-term prognosis is relatively guarded. Current pulse ox is 97%. We'll wean down the FiO2. Repeat chest x-ray in the morning. We'll continue to follow. Repeat chest x-ray in the morning The patient will need an event monitor at time of discharge. He comes from [facility].
[2021-11-20] MEDS: IPRATROPIUM-ALBUTEROL 3 ML NEB INHALATION PRN ×2 (11:42→20:03)
--- NOTE | 2021-11-20 11:58 | P.CONS ---
History of Present Illness - Reason for Consult Consult date: 11/20/21 wound care - History of Present Illness Is an 86-year-old patient known to the wound care center with a nonhealing ulceration to the right lateral ankle. We've been utilizing Santyl to the site. Patient is currently on IV antibiotics. Original cause of wound was Not Known. The date acquired was: 10/16/2021. The wound has been in treatment 3 weeks. The wound is currently classified as a Full Thickness Without Exposed Support Structures wound with etiology of To be determined and is located on the Right,Lateral Ankle. The wound measures 2.3cm length x 3.3cm width x 0.3cm depth; 5.961cm^2 area and 1.788cm^3 volume. There is Fat Layer (Subcutaneous Tissue) exposed. There is no tunneling or undermining noted. There is a medium amount of serosanguineous drainage noted. The wound margin is well defined and not attached to the wound base. There is small (1-33%) red granulation within the wound bed. There is a large (67-100%) amount of necrotic tissue within the wound bed including Adherent Slough. The periwound skin appearance exhibited: Scarring, Dry/Scaly, Maceration, Erythema. The periwound skin appearance did not exhibit: Callus, Crepitus, Excoriation, Induration, Rash, Atrophie [place], Cyanosis, Ecchymosis, Hemosiderin Staining, Mottled, Pallor, Rubor. The surrounding wound skin color is noted with erythema which is circumferential. Periwound temperature was noted as Cool/Cold. Review Of Systems: Constitutional: No fever, no chills, no night sweats. No weight change. No weakness, fatigue or lethargy. No daytime sleepiness. Integumentary:reports wounds, no lesions. No rash or pruritus. No unusual bruising. No change in hair or nails. Physical exam: General Appearance: Alert, cooperative, no distress, appears stated age. Skin: See HPI all other Skin color, texture, tugor normal, no rashes or lesions. Neurologic: Alert oriented x3 Assessment: 1. 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 Chronic venous hypertension with inflammation of bilateral lower extremities plan: 1. Apply Santyl, saline moistened gauze, dry gauze, rolled gauze and secure with paper tape. Change daily. Nonweightbearing to the right heel. Patient has a wound care appointment on 11/21 at 2:00. Thank you for the consultation any questions to contact the wound care center DNP note has been reviewed and discussed with Dr. Ambrose and the impression and plan of care has been directed as dictated. Past Medical History Past Medical History: Atrial Fibrillation, CVA/TIA, Hypertension Additional Past Medical History / Comment(s): "RETINA ISSUES" History of Any Multi-Drug Resistant Organisms: MRSA Year Discovered:: 10/25/21 MDRO Source:: MRSA FOOT AND ANKLE Past Surgical History: Orthopedic Surgery Additional Past Surgical History / Comment(s): CATARACT SURGERY, RIGHT KNEE SURGERY, CARODID ARTERY SURGERY Past Anesthesia/Blood Transfusion Reactions: No Reported Reaction Past Psychological History: No Psychological Hx Reported Smoking Status: Never smoker Past Alcohol Use History: None Reported Past Drug Use History: None Reported Medications and Allergies Home Medications Medication Instructions Recorded Confirmed Type Metoprolol Tartrate [Lopressor] 50 mg PO Q12H 09/19/14 11/17/21 History Piroxicam [Feldene] 20 mg PO DAILY 09/19/14 11/17/21 History Aspirin EC [Ecotrin Low Dose] 81 mg PO DAILY 10/25/21 11/17/21 History Escitalopram [Lexapro] 20 mg PO HS 10/25/21 11/17/21 History Furosemide [Lasix] 40 mg PO BID@0600,1400 10/25/21 11/17/21 History Ketorolac 0.5% Ophth Soln [Acular 1 drop LEFT EYE Q12H 10/25/21 11/17/21 History 0.5%] Timolol 0.5% Ophth Soln [Timoptic 1 drop BOTH EYES Q12H 10/25/21 11/17/21 History 0.5% Ophth Soln] Acetaminophen-Codeine 300-30mg 1 tab PO Q4H PRN 11/17/21 11/17/21 History [Tylenol w/codeine #3] Collagenase [Santyl Ointment] 1 applic TOPICAL HS 11/17/21 11/17/21 History Pantoprazole [Protonix] 40 mg PO DAILY@0600 11/17/21 11/17/21 History Phytonadione [Vitamin K] 2.5 mg PO ONCE 11/17/21 11/17/21 History SILVER sulfADIAZINE CREAM 1 applic TOPICAL HS 11/17/21 11/17/21 History [Silvadene Cream] Vancomycin HCl 1,250 mg IV HS@2100 11/17/21 11/17/21 History Warfarin [Coumadin] 5 mg PO HS 11/17/21 11/17/21 History busPIRone HCl [Buspar] 5 mg PO BID 11/17/21 11/17/21 History Allergies Allergy/AdvReac Type Severity Reaction Status Date / Time chocolate flavor Allergy Per [facility] Verified 11/17/21 14:38 peanut Allergy Per [facility] Verified 11/17/21 14:38 Physical Exam Vitals: Vital Signs Temp Pulse Pulse Resp BP Pulse Ox 11/20/21 11:51 89 11/20/21 11:42 80 11/20/21 08:00 98.0 F 90 20 126/62 92 L 11/20/21 04:00 97.9 F 92 20 122/70 91 L 11/19/21 23:45 97.5 F L 78 18 127/66 92 L 11/19/21 20:00 97.5 F L 92 20 132/84 94 L 11/19/21 16:59 67 20 121/74 96 11/19/21 16:21 95 11/19/21 13:00 98.0 F 82 22 100/57 91 L Intake and Output 11/19/21 11/20/21 11/20/21 22:59 06:59 14:59 Intake Total 240 240 660 Output Total 1200 1450 850 Balance -960 -1210 -190 Intake: Oral 240 240 660 Output: Urine 1200 1450 850 Other: Voiding Method Indwelling Catheter Indwelling Catheter Indwelling Catheter Weight 97.5 kg Results CBC & Chem 7: 11/20/21 07:22 11/20/21 07:22 Labs: Abnormal Lab Results - Last 24 Hours (Table) 11/20/21 11/20/21 Range/Units 07:22 07:22 Hgb 11.4 L (13.0-17.5) gm/dL Hct 38.6 L (39.0-53.0) % MCHC 29.5 L (31.0-37.0) g/dL RDW 17.9 H (11.5-15.5) % Sodium 130 L (137-145) mmol/L Chloride 96 L (98-107) mmol/L BUN 51 H (9-20) mg/dL Creatinine 1.72 H (0.66-1.25) mg/dL Glucose 109 H (74-99) mg/dL Calcium 7.9 L (8.4-10.2) mg/dL Microbiology - Last 24 Hours (Table) 11/17/21 15:53 Blood Culture - Preliminary Blood No Growth after 48 hours 11/17/21 15:53 Blood Culture - Preliminary Blood No Growth after 48 hours Assessment and Plan (1) Non-pressure chronic ulcer of other part of right foot with fat layer exposed Current Visit: Yes Status: Acute Code(s): L97.512 - NON-PRS CHRONIC ULCER OTH PRT RIGHT FOOT W FAT LAYER EXPOSED SNOMED Code(s): 742095443 (2) Chronic venous hypertension (idiopathic) with inflammation of bilateral lower extremity Current Visit: Yes Status: Acute Code(s): I87.323 - CHRONIC VENOUS HTN W INFLAMMATION OF BILATERAL LOW EXTRM SNOMED Code(s): 013914334
[2021-11-20] MEDS: COLLAGENASE 250 UNIT/GM OINTMENT 30 GM TUBE TOPICAL SCH ×2 (14:03→19:44)
[2021-11-20] MEDS: Acetaminophen-Codeine 300-30mg TAB PO PRN ×2 (14:03→23:05)
--- NOTE | 2021-11-20 15:21 | P.PN ---
Subjective Progress Note Date: 11/20/21 11/20/2021 diuresing on Lasix IV push, 24-hour I&O reflecting a negative fluid balance. Renal function trending down with creatinine 1.72. Maintaining O2 sats in the 90s on 3 L nasal cannula, with accessory muscle use. Pro-calcitonin elevated 0.34. Sodium 1:30, afebrile, normal WBC. Maintained on Rocephin as per infectious disease. Denies pain of right lower extremity. Evaluated by wound care services with recommendations noted pertaining to chronic right foot ulcer with nonweightbearing of right heel. Hematuria secondary to traumatic insertion. Objective - Vital Signs Vital signs: Vital Signs Temp 98.1 F 11/20/21 12:00 Pulse 82 11/20/21 12:00 Resp 20 11/20/21 12:00 BP 131/66 11/20/21 12:00 Pulse Ox 91 L 11/20/21 12:00 FiO2 Intake & Output 11/19/21 11/20/21 11/20/21 18:59 06:59 18:59 Intake Total 180 480 900 Output Total 2650 850 Balance 180 -2170 50 Weight 97.5 kg Intake: Oral 180 480 900 Output: Urine 2650 850 Other: Voiding Method Indwelling Catheter Indwelling Catheter Indwelling Catheter # Bowel Movements 1 - Exam - Exam PHYSICAL EXAM: VITAL SIGNS: [As above] GENERAL: Sitting up in bed, no acute distress HEENT: Conjunctivae normal. eyes normal. MMM. Left forehead scattered, well approximated. NECK: Supple, No JVD. CARDIOVASCULAR: S1, S2 regular. No murmur RESPIRATION: Labored, accessory muscle use ,Breath sounds diminished in the bases. Bibasilar crackles. ABDOMEN: Soft, nontender . No guarding. no masses palpable. No ascites, No hepatosplenomegaly.Bowel sounds heard. LEGS: Bilateral lower extremity chronic venous stasis with right heel dressing clean dry and intact PSYCHIATRY: Alert and oriented X3, mood and affect normal. NERVOUS SYSTEM: Cranial N 2-12 grossly normal. Moves all 4 limbs. No focal deficits. Strength and sensation grossly intact. Skin: no rash - Labs CBC & Chem 7: 11/20/21 07:22 11/20/21 07:22 Labs: Abnormal Lab Results - Last 24 Hours (Table) 11/20/21 11/20/21 11/20/21 Range/Units 07:22 07:22 07:22 Hgb 11.4 L (13.0-17.5) gm/dL Hct 38.6 L (39.0-53.0) % MCHC 29.5 L (31.0-37.0) g/dL RDW 17.9 H (11.5-15.5) % Sodium 130 L (137-145) mmol/L Chloride 96 L (98-107) mmol/L BUN 51 H (9-20) mg/dL Creatinine 1.72 H (0.66-1.25) mg/dL Glucose 109 H (74-99) mg/dL Calcium 7.9 L (8.4-10.2) mg/dL Procalcitonin 0.34 H (0.02-0.09) ng/mL Microbiology - Last 24 Hours (Table) 11/17/21 15:53 Blood Culture - Preliminary Blood No Growth after 48 hours 11/17/21 15:53 Blood Culture - Preliminary Blood No Growth after 48 hours Assessment and Plan Assessment: Acute hypoxic respiratory failure secondary to acute CHF exacerbation, diastolic dysfunction, possible healthcare acquired bilateral pneumonia. Chronic right heel abscess in a patient with diabetes, recent I&D on last admission with wound culture 10/24 reporting MRSA Chronic liver disease Chronic venous stasis Diabetes mellitus II, hemoglobin A1c 6.8 Chronic atrial fibrillation, on Coumadin History of CVA, TIA Hypertension History of MRSA in foot wound History of nicotine dependence Plan: Continue on current medication regime, monitoring and symptomatic treatment. Continue on diuretics, fluid restrictions-1500. PT OT. maintain antibiotics /Wound care. Event monitor recommended at discharge per cardiology. Further recommendations to follow. The impression and plan of care has been dictated as directed. : I performed a history and examination of this patient, discussed the same with the dictator. I agree with the dictator's note ,documented as a scribe. Any additional findings or plans will be noted.
[2021-11-20] MEDS: ESCITALOPRAM 20 MG TAB PO SCH (19:57)
[2021-11-21] MEDS: PANTOPRAZOLE 40 MG TABLET PO SCH (06:39)
[2021-11-21] MEDS: MIDODRINE 5 MG TAB PO SCH ×3 (06:53→16:07)
--- NOTE | 2021-11-21 06:54 | P.PN ---
Subjective Progress Note Date: 11/20/21 Principal diagnosis: Right lower extremity wound and cellulitis Patient is 86 year old male who was recently admitted at this facility and was treated for right heel wound with secondary selected as culture positive for MRSA patient subsequently was discharged to the detention on IV vancomycin concern for deep infection now presenting back to the hospital with worsening respiratory status and worsening of his kidney function. On today's evaluation that is 11/20/2021, the patient continues to be afebrile , the patient is breathing comfortably on nasal cannula oxygen, the patient denies chest pain , the patient did have occasional cough no sputum production n o abdominal pain and the patient denies pain to the right heel area Objective - Vital Signs Vital signs: Vital Signs Temp 98.0 F 11/20/21 08:00 Pulse 89 11/20/21 11:51 Resp 20 11/20/21 08:00 BP 126/62 11/20/21 08:00 Pulse Ox 92 L 11/20/21 08:00 FiO2 Intake & Output 11/19/21 11/20/21 11/20/21 18:59 06:59 18:59 Intake Total 180 480 660 Output Total 2650 850 Balance 180 -2170 -190 Weight 97.5 kg Intake: Oral 180 480 660 Output: Urine 2650 850 Other: Voiding Method Indwelling Catheter Indwelling Catheter Indwelling Catheter # Bowel Movements 1 - Exam GENERAL DESCRIPTION: An elderly male lying in bed in no distress RESPIRATORY SYSTEM: Unlabored breathing , decreased breath sounds at bases HEART: S1 S2 regular rate and rhythm , ABDOMEN: Soft , no tenderness EXTREMITIES: Right heel wound is currently dressed no drainage on the dressing right leg redness has decreased - Labs CBC & Chem 7: 11/20/21 07:22 11/20/21 07:22 Labs: Abnormal Lab Results - Last 24 Hours (Table) 11/20/21 11/20/21 Range/Units 07: 07:22 Hgb 11.4 L (13.0-17.5) gm/dL Hct 38.6 L (39.0-53.0) % MCHC 29.5 L (31.0-37.0) g/dL RDW 17.9 H (11.5-15.5) % Sodium 130 L (137-145) mmol/L Chloride 96 L (98-107) mmol/L BUN 51 H (9-20) mg/dL Creatinine 1.72 H (0.66-1.25) mg/dL Glucose 109 H (74-99) mg/dL Calcium 7.9 L (8.4-10.2) mg/dL Microbiology - Last 24 Hours (Table) 11/17/21 15:53 Blood Culture - Preliminary Blood No Growth after 48 hours 11/17/21 15:53 Blood Culture - Preliminary Blood No Growth after 48 hours Assessment and Plan (1) Leukocytosis Current Visit: No Status: Acute Code(s): D72.829 - ELEVATED WHITE BLOOD CELL COUNT, UNSPECIFIED SNOMED Code(s): 133884365 Plan: 1patient presented to hospital with increasing shortness of breath which is likely multifactorial and more likely from the fluid overload from his kidney failure clinically not behaving as pneumonia as patient did not have any fever or elevated white count or any cough. 2 patient with elevated liver enzymes ultrasound of his liver and gallbladder area no evidence of cholecystitis 3patient with right heel wound to continue local wound care to the right heel wound with the Santyl followed by moist dressing and keep the area off the pressure, patient to continue with the Rocephin and will transition to oral antibiotics on discharge Time with Patient: Less than 30
--- NOTE | 2021-11-21 08:28 | XR ---
EXAMINATION TYPE: XR chest 1V portable DATE OF EXAM: 11/21/2021 Comparison: 11/19/2021 Clinical History: 86-year-old male shortness of breath Findings: Heart mildly enlarged. Bilateral patchy and confluent airspace opacities, right greater than left. Ch anges are similar to slightly progressed from prior exam. Moderate to advanced degenerative change in both shoulders. Left PICC tip not clearly seen beyond the expected region of the brachiocephalic vei n confluence. Impression: Mild cardiomegaly with right greater than left airspace disease. This is similar to slightly progress ed from prior.
[2021-11-21] MEDS: ASPIRIN 81 MG PO SCH (08:32)
[2021-11-21] MEDS: FUROSEMIDE 10 MG/ML 4 ML VIAL IV SCH ×2 (08:32→20:28)
[2021-11-21] MEDS: METOPROLOL TARTRATE 50 MG TAB PO SCH ×2 (08:32→20:27)
[2021-11-21] MEDS: busPIRone HCl 5 MG TAB PO SCH ×2 (08:32→20:26)
[2021-11-21] MEDS: TIMOLOL 0.5% OPHTH DROPS 5 ML BTL BOTH EYES SCH ×2 (08:33→20:27)
[2021-11-21] MEDS: KETOROLAC 0.5% OPHTH DROPS 5 ML BTL LEFT EYE SCH ×2 (08:33→20:28)
[2021-11-21] MEDS: COLLAGENASE 250 UNIT/GM OINTMENT 30 GM TUBE TOPICAL SCH (08:33)
[2021-11-21] MEDS: IPRATROPIUM-ALBUTEROL 3 ML NEB INHALATION PRN ×4 (08:35→19:45)
[2021-11-21 09:17] LABS: Anisocytosis Slight; Basophils # (A) 0.1 k/uL (0-0.2); Basophils % (A) 0 %; Eosinophils # (A) 0.3 k/uL (0-0.7); Eosinophils % (A) 3 %; HCT 39.2 % (39.0-53.0); HGB 11.7 gm/dL (13.0-17.5); Hypochromasia Moderate; Lymphocytes # (A) 1.2 k/uL (1.0-4.8); Lymphocytes % (A) 12 %; MCH 25.9 pg (25.0-35.0); MCHC 29.9 g/dL (31.0-37.0); MCV 86.7 fL (80.0-100.0); Mean Platelet Volume 7.2; Monocytes # (A) 0.6 k/uL (0-1.0); Monocytes % (A) 6 %; Neutrophils # (A) 7.9 k/uL (1.3-7.7); Neutrophils % (A) 78 %; Platelet Count 358 k/uL (150-450); RBC 4.52 m/uL (4.30-5.90); WBC 10.2 k/uL (3.8-10.6)
[2021-11-21 09:31] LABS: Magnesium 2.4 mg/dL (1.6-2.3); Potassium 4.4 mmol/L (3.5-5.1)
--- NOTE | 2021-11-21 10:30 | P.PN ---
Subjective Progress Note Date: 11/21/21 acute hypoxic respiratory failure secondary to healthcare acquired pneumonia, possible aspiration considering the patient had syncopal episode. possible underlying acute diastolic congestive heart failure 86-year-old white male patient with recent medical history of lower extremity cellulitis with abscess related to MRSA infection for which the patient was hospitalized recently and [facility] with the left upper extremity PICC line in place and vancomycin for evidence of MRSA in his right lower extremity. His past medical history is significant for chronic A. fib on Coumadin, previous history of CVA, hypertension, morbid obesity. Patient was [facility] to the [facility] 10/[facility]21. On 11/17/2021 patient had a syncopal episode at the [facility] while getting up out of bed, patient denied hitting his head or suffering any trauma. The facility noted that over the course of the day patient was having increased shortness of breath, weakness, increased oxygen needs. Patient reports a dry cough, no fevers, he has chronic swelling in his lower extremities not any worse. He states he is more comfortable sleeping sitting upright than lying down he is not normally oxygen dependent. He is on 2 L of oxygen with a pulse ox of 92-94%, he is afebrile. Chest x-ray in emergency department showing coarse infiltrates throughout both lungs much greater on the right the possibility of underlying pneumonia. Lab evaluation showed a white count of 10.3, hemoglobin of 11.4, INR 1.5, sodium is 126, potassium is 4.9, chloride is 97, CO2 is 19, BUN is 59, creatinine is 2.24, bilirubin is 1.7, AST was 121, ALT was 100, alk phos was 201, troponin was 0.034, proBNP was 13,004 100, urinalysis showed large amount of blood, normal white blood cells, no clear evidence of urinary tract infection, Vanco trough from 11/15/2021 was 26, random vancomycin level is 29.6. COVID-19 PCR was negative. Patient was started on antibiotics with azithromycin and Rocephin, breathing treatments, patient was on Lasix 40 mg twice daily at the [facility], clinically he appears to be dehydrated with dry oral mucous membranes. Denies any nausea vomiting or diarrhea. Cultures have been sent, ID service, nephrology, and pulmonary consultations have been requested. reevaluated today on 11/18/21,patient is resting in bed, he is on 4 L nasal cannula, and his O2 saturation is 96%, blood pressure is 125/72, patient is relatively asymptomatic, denies shortness of breath denies any cough denies any wheezing, he tells me that he feels fine. No fever overnight. Patient is on antibiotics empirically for his cellulitis, chest x-ray showed interstitial edema, underlying infiltrate is not entirely ruled out. Apparently the patient had previous history of MRSA infection was fully treated by infectious disease on the case, and now he is on Rocephin and Zithromax. Reevaluated today on 11/19/21, patient is basically about the same, remains on 3 L nasal cannula, O2 sats 91%, chest x-ray continues to show interstitial edema, possible infiltrates bilaterally right more so than left. Patient remains on diuretics, remains empirically on antibiotics, his pro-calcitonin level 0.5, and his BNP level is over 15,000. Echocardiogram yesterday showed preserved LV function with ejection fraction of 50-55% it also showed moderate pulmonary hypertension. WBC count today is 9.7 hemoglobin 11.8 INR is 1.5 electrolytes are relatively normal BUN is down to 56 creatinine is down to 1.96 in spite of diuretics 11/20/2021, I'm seeing the patient for a follow-up. The patient is being treated for a combination of pneumonia and CHF. He is currently on oxygen at 3 L per minute nasal cannula with a pulse ox of 92%. He is afebrile. He is hemodynamically stable. On blood work from today shows a white cell count 9.5 with a hemoglobin of 11.4 and a platelet count of 345. Sodium is at 1:30, potassium is at 4.2, BUN is a 51 with a creatinine of 1.7 and a potassium level of 4.2. The patient is being diuresed and the patient is a negative fluid balance of at least 1.9 L over the past 24 hours. He remains on Lasix 40 mg ev krishna 12 hours. He is also on IV Rocephin. Dr. Mccray are wanted to consider broadening of antibiotic coverage to Zosyn considering aspiration. Nevertheless, I compared the series of chest exit and I believe that the right lung consolidations improving and the patient's clinically stable and I stated the course with the IV Rocephin. His pro-calcitonin level was 0.51 at time of admission on 11/17/2021. 11/21/2021, the patient has been brought up to 4 L of O2 nasal cannula and the current pulse ox is around 88%. This is slightly worse compared to yesterday. The chest x-ray findings from today is still showing a right lung consolidation along with cardiomegaly and pulmonary vascular congestion/CHF. Comparing this chest x-ray with the earlier chest x-rays, there is no major interval change. There could be some slight progression from prior study. Note that the patient also has cardiomegaly. The patient remains on IV Rocephin. The patient also on IV diuretics. The white cell count at 10.2 with a hemoglobin of 11.7 and BUN is at 46 with a creatinine of 1.7. The fluid balance over the past 24 hours has been -1.6 L. As such, the patient is diuresing adequately. He continues to have edema in lower extremities. He is awake and alert and communicating. No chest pain. The pro-calcitonin level was at 0.51 at the time of admission. Repeat pro-calcitonin level is down to 0.34. Objective - Vital Signs Vital signs: Vital Signs Temp 98.2 F 11/21/21 08:00 Pulse 110 H 11/21/21 08:48 Resp 22 11/21/21 08:00 BP 132/79 11/21/21 08:00 Pulse Ox 88 L 11/21/21 08:38 FiO2 Intake & Output 11/20/21 11/21/21 11/21/21 18:59 06:59 18:59 Intake Total 900 540 Output Total 1300 1825 Balance -400 -1285 Weight 94 kg Intake: Oral 900 540 Output: Urine 1300 1825 Other: Voiding Method Indwelling Catheter Indwelling Catheter Indwelling Catheter - Exam GENERAL EXAM: revealed 86-year-old white male, on 4 L nasal cannula, in no distress. HEAD: Normocephalic/atraumatic. HEENT: PERRLA, EOMI, anicteric, no neck masses, no JVD, no stridor. CHEST: No chest wall deformity. Symmetrical expansion. LUNGS: fine crackles at the bases. No rhonchi and no wheezes CVS: Irregular rate and rhythm, normal S1 and S2, no gallops, no murmurs, no rubs ABDOMEN: obese,Soft, nontender. No hepatosplenomegaly, no rebound, no guarding. EXTREMITIES: No clubbing, chronic swelling in bilateral lower extremities, no cyanosis, 2+ pulses and upper and lower extremities.both lower extremities are wrapped with sterile dressings. Chronic venous stasis changes noted bilaterally. SKIN: No rashes, however the patient does have chronic venous stasis changes in both lower extremities CENTRAL NERVOUS SYSTEM: alert and oriented 3 no gross focal deficits. PSYCHIATRIC: nnormal mood, affect and normal mental status examination. - Labs CBC & Chem 7: 11/21/21 08:32 11/21/21 08:32 Labs: Abnormal Lab Results - Last 24 Hours (Table) 11/20/21 11/21/21 11/21/21 Range/Units 07:22 08:32 08:32 Hgb 11.7 L (13.0-17.5) gm/dL MCHC 29.9 L (31.0-37.0) g/dL RDW 18.0 H (11.5-15.5) % Neutrophils # 7.9 H (1.3-7.7) k/uL Sodium 132 L (137-145) mmol/L Chloride 95 L (98-107) mmol/L BUN 46 H (9-20) mg/dL Creatinine 1.77 H (0.66-1.25) mg/dL Glucose 121 H (74-99) mg/dL Calcium 8.0 L (8.4-10.2) mg/dL Magnesium 2.4 H (1.6-2.3) mg/dL Procalcitonin 0.34 H (0.02-0.09) ng/mL Microbiology - Last 24 Hours (Table) 11/17/21 15:53 Blood Culture - Preliminary Blood No Growth after 72 hours 11/17/21 15:53 Blood Culture - Preliminary Blood No Growth after 72 hours Assessment and Plan Assessment: Acute hypoxic respiratory failure secondary to bilateral pneumonia, could be aspiration pneumonia since the patient had a syncopal episode. This could also be healthcare related pneumonia, However, I also suspect some component of acute diastolic congestive heart failure especially with his elevated BNP of over 13,000. The CXR showed cardiomegaly and CHF and bilateral consolidation R>L and the FU CXR from 11/19/21 showed some improvement in the right lung consolidation. Patient remains on Lasix and IV Rocephin acute diastolic congestive heart failure. Syncopal episode, likely cardiac in nature unless for otherwise. The patient is going to have an event monitor the time of discharge. Acute kidney injury. The creatinine is improving and the creatinine is down to 1.7, stable Chronic atrial fibrillation, on Coumadin. Chronic cellulitis of lower extremities. History of MRSA infection/cellulitis. Nonsmoker. Chronic liver disease possibly secondary to alcohol. Type 2 diabetes. recommendation: Chest on oxygen at 4 L of oxygen by nasal cannula Continue oxygen and titrate accordingly. The patient had a repeat chest x-ray today and I reviewed the chest x-ray d the chest x-ray is still unchanged Sputum cultures are pending. Blood cultures are pending. The cultures of been negative thus far and the pro-calcitonin level is improving and the patient remains was on IV Rocephin and put the patient on oral Augmentin for now Continue diuretics and monitor renal profile. The patient has been negative fluid balance and the patient has been negative fluid balance of around 1.6 L over the past 24 hours we will continue to follow. Repeat chest x-ray in the morning Overall long-term prognosis is relatively guarded. Current pulse ox is 97%. We'll wean down the FiO2. Repeat chest x-ray in the morning. We'll continue to follow. Cardiology regarding his syncope and the plan is to put an event monitor The patient will need an event monitor at time of discharge. [facility].
[2021-11-21] MEDS: AMOXIC-POT CLAV 875-125MG 1 EACH TAB PO SCH ×2 (11:10→20:26)
--- NOTE | 2021-11-21 11:10 | P.PN ---
Subjective Patient is seen in follow-up for acute kidney injury. Renal function stable. On IV Lasix. Nonoliguric. Denies chest pain or shortness breath. Oral intake fair. No vomiting or diarrhea. On 4 L nasal cannula. Vital signs are stable. General: Awake and alert. No acute distress. HEENT: Head exam is unremarkable. On nasal cannula. LUNGS: Breath sounds decreased. HEART: Rate and Rhythm are regular. ABDOMEN: Soft, no distention. EXTREMITITES: 1+ edema. Chronic changes noted. Right foot wrapped. Objective - Vital Signs Vital signs: Vital Signs Temp 98.2 F 11/21/21 08:00 Pulse 110 H 11/21/21 08:48 Resp 22 11/21/21 08:00 BP 132/79 11/21/21 08:00 Pulse Ox 88 L 11/21/21 08:38 FiO2 Intake & Output 11/20/21 11/21/21 11/21/21 18:59 06:59 18:59 Intake Total 900 540 Output Total 1300 1825 Balance -400 -1285 Weight 94 kg Intake: Oral 900 540 Output: Urine 1300 1825 Other: Voiding Method Indwelling Catheter Indwelling Catheter Indwelling Catheter - Labs CBC & Chem 7: 11/21/21 08:32 11/21/21 08:32 Labs: Abnormal Lab Results - Last 24 Hours (Table) 11/20/21 11/21/21 11/21/21 Range/Units 07:22 08:32 08:32 Hgb 11.7 L (13.0-17.5) gm/dL MCHC 29.9 L (31.0-37.0) g/dL RDW 18.0 H (11.5-15.5) % Neutrophils # 7.9 H (1.3-7.7) k/uL Sodium 132 L (137-145) mmol/L Chloride 95 L (98-107) mmol/L BUN 46 H (9-20) mg/dL Creatinine 1.77 H (0.66-1.25) mg/dL Glucose 121 H (74-99) mg/dL Calcium 8.0 L (8.4-10.2) mg/dL Magnesium 2.4 H (1.6-2.3) mg/dL Procalcitonin 0.34 H (0.02-0.09) ng/mL Microbiology - Last 24 Hours (Table) 11/17/21 15:53 Blood Culture - Preliminary Blood No Growth after 72 hours 11/17/21 15:53 Blood Culture - Preliminary Blood No Growth after 72 hours Assessment and Plan Plan: Assessment: 1. Acute kidney injury secondary to ATN secondary to cardiorenal syndrome and vancomycin toxicity. Baseline creatinine near 1 from earlier this month. Creatinine was 2.24 on admission and is stable at 1.77 today. 2. Volume overload. Improving with diuresis. 3. Acute on chronic diastolic CHF with moderate aortic/tricuspid regurgitation and moderate pulmonary hypertension. 4. Right foot wound being followed by ID. 5. Hypervolemic hyponatremia. Better. Plan: Maintain IV Lasix - decrease dose starting tomorrow. 1500 mL fluid restriction. Encouraged oral intake. Avoid nephrotoxins. Continue to monitor renal function and urine output. Okay to DC Reyna catheter from nephrology standpoint.
--- NOTE | 2021-11-21 14:15 | P.PN ---
Subjective Progress Note Date: 11/21/21 11/20/2021 diuresing on Lasix IV push, 24-hour I&O reflecting a negative fluid balance. Renal function trending down with creatinine 1.72. Maintaining O2 sats in the 90s on 3 L nasal cannula, with accessory muscle use. Pro-calcitonin elevated 0.34. Sodium 1:30, afebrile, normal WBC. Maintained on Rocephin as per infectious disease. Denies pain of right lower extremity. Evaluated by wound care services with recommendations noted pertaining to chronic right foot ulcer with nonweightbearing of right heel. Hematuria secondary to traumatic insertion. 11/21/2021 Feels better, maintaining O2 sats of 90% on 3 L nasal cannula. Diuresing on IV Lasix well with 24-hour I&O reflecting a negative fluid balance. Sodium 132, BUN 46, creatinine 1.77. Chest x-ray pending. Denies chest pain, palpitations. Occasional nonproductive cough. Objective - Vital Signs Vital signs: Vital Signs Temp 98.2 F 11/21/21 08:00 Pulse 110 H 11/21/21 12:27 Resp 18 11/21/21 11:07 BP 116/75 11/21/21 11:07 Pulse Ox 90 L 11/21/21 11:07 FiO2 Intake & Output 11/20/21 11/21/21 11/21/21 18:59 06:59 18:59 Intake Total 900 540 Output Total 1300 1825 Balance -400 -1285 Weight 94 kg 94 kg Intake: Oral 900 540 Output: Urine 1300 1825 Other: Voiding Method Indwelling Catheter Indwelling Catheter Indwelling Catheter - Exam - Exam PHYSICAL EXAM: VITAL SIGNS: [As above] GENERAL: Sitting up in bed, no acute distress HEENT: Conjunctivae normal. eyes normal. MMM. Left forehead scabbed, well approximated with mild ecchymosis. NECK: Supple, No JVD. CARDIOVASCULAR: S1, S2 regular. No murmur RESPIRATION: Unlabored, Breath sounds diminished in the bases. Fine Bibasilar crackles. ABDOMEN: Soft, nontender . No guarding. no masses palpable. Positive Bowel sounds. LEGS: Bilateral lower extremity chronic venous stasis with right heel dressing clean dry and intact,less tender PSYCHIATRY: Alert and oriented X3, mood and affect normal. NERVOUS SYSTEM: Cranial N 2-12 grossly normal. Moves all 4 limbs. No focal deficits. Strength and sensation grossly intact. Skin: warm, dry, no rash - Labs CBC & Chem 7: 11/21/21 08:32 11/21/21 08:32 Labs: Abnormal Lab Results - Last 24 Hours (Table) 11/20/21 11/21/21 11/21/21 Range/Units 07:22 08:32 08:32 Hgb 11.7 L (13.0-17.5) gm/dL MCHC 29.9 L (31.0-37.0) g/dL RDW 18.0 H (11.5-15.5) % Neutrophils # 7.9 H (1.3-7.7) k/uL Sodium 132 L (137-145) mmol/L Chloride 95 L (98-107) mmol/L BUN 46 H (9-20) mg/dL Creatinine 1.77 H (0.66-1.25) mg/dL Glucose 121 H (74-99) mg/dL Calcium 8.0 L (8.4-10.2) mg/dL Magnesium 2.4 H (1.6-2.3) mg/dL Procalcitonin 0.34 H (0.02-0.09) ng/mL Microbiology - Last 24 Hours (Table) 11/17/21 15:53 Blood Culture - Preliminary Blood No Growth after 72 hours 11/17/21 15:53 Blood Culture - Preliminary Blood No Growth after 72 hours Assessment and Plan Assessment: Acute hypoxic respiratory failure secondary to acute CHF exacerbation, diastolic dysfunction, possible healthcare acquired bilateral pneumonia. 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 Maintain diuretics, fluid restrictions-1500. PT OT, aggressive pulmonary toileting with incentive spirometer reinforced. Chest x-ray pending .Continue antibiotics /Wound care. Close monitoring of renal function with repeat labs ordered for a.m. The impression and plan of care has been dictated as directed. : I performed a history and examination of this patient, discussed the same with the dictator. I agree with the dictator's note ,documented as a scribe. Any additional findings or plans will be noted.
[2021-11-21 15:32] LABS: INR 1.3 (<1.2)
[2021-11-21] MEDS ORDERED: WARFARIN 5 MG TAB PO ONE (18:00)
[2021-11-21] MEDS: ESCITALOPRAM 20 MG TAB PO SCH (20:26)
[2021-11-21] MEDS: Acetaminophen-Codeine 300-30mg TAB PO PRN (21:58)
[2021-11-22] MEDS: Acetaminophen-Codeine 300-30mg TAB PO PRN ×2 (04:58→20:34)
[2021-11-22] MEDS: PANTOPRAZOLE 40 MG TABLET PO SCH (06:26)
[2021-11-22] MEDS: MIDODRINE 5 MG TAB PO SCH ×3 (06:26→17:38)
[2021-11-22 07:18] LABS: Anisocytosis Slight; Basophils # (A) 0.1 k/uL (0-0.2); Basophils % (A) 1 %; Eosinophils # (A) 0.4 k/uL (0-0.7); Eosinophils % (A) 4 %; HCT 40.7 % (39.0-53.0); HGB 11.9 gm/dL (13.0-17.5); Hypochromasia Marked; Lymphocytes # (A) 1.1 k/uL (1.0-4.8); Lymphocytes % (A) 10 %; MCH 25.8 pg (25.0-35.0); MCHC 29.3 g/dL (31.0-37.0); MCV 88.1 fL (80.0-100.0); Mean Platelet Volume 6.8; Monocytes # (A) 0.5 k/uL (0-1.0); Monocytes % (A) 5 %; Neutrophils # (A) 8.9 k/uL (1.3-7.7); Neutrophils % (A) 80 %; Platelet Count 316 k/uL (150-450); RBC 4.62 m/uL (4.30-5.90); RDW 17.6 % (11.5-15.5); WBC 11.1 k/uL (3.8-10.6)
--- NOTE | 2021-11-22 07:23 | XR ---
EXAMINATION TYPE: XR chest 1V portable DATE OF EXAM: 11/22/2021 COMPARISON: 11/21/2021 INDICATION: Short of breath TECHNIQUE: Single frontal view of the chest is obtained. FINDINGS: The heart size is normal. The pulmonary vasculature is normal. Mild diffuse increased lung markings are present bilaterally. Findings appear stable from comparison. IMPRESSION: 1. Diffuse scattered bilateral lung infiltrates appear stable, continued follow-up is recommended.
[2021-11-22 07:40] LABS: INR 1.4 (<1.2); Prothrombin Time 14.1 sec (9.0-12.0)
[2021-11-22 07:50] LABS: Magnesium 2.4 mg/dL (1.6-2.3); Potassium 4.5 mmol/L (3.5-5.1)
[2021-11-22] MEDS: IPRATROPIUM-ALBUTEROL 3 ML NEB INHALATION PRN ×3 (08:53→16:02)
[2021-11-22] MEDS: FUROSEMIDE 10 MG/ML 4 ML VIAL IV SCH (09:12)
[2021-11-22] MEDS: ASPIRIN 81 MG PO SCH (09:12)
[2021-11-22] MEDS: busPIRone HCl 5 MG TAB PO SCH ×2 (09:12→20:33)
[2021-11-22] MEDS: METOPROLOL TARTRATE 50 MG TAB PO SCH ×2 (09:12→20:33)
[2021-11-22] MEDS: AMOXIC-POT CLAV 875-125MG 1 EACH TAB PO SCH ×2 (09:12→20:33)
[2021-11-22] MEDS: COLLAGENASE 250 UNIT/GM OINTMENT 30 GM TUBE TOPICAL SCH (09:13)
[2021-11-22] MEDS: TIMOLOL 0.5% OPHTH DROPS 5 ML BTL BOTH EYES SCH ×2 (09:13→20:32)
[2021-11-22] MEDS: KETOROLAC 0.5% OPHTH DROPS 5 ML BTL LEFT EYE SCH ×2 (09:14→20:32)
--- NOTE | 2021-11-22 10:01 | P.PN ---
Subjective Patient is seen in follow-up for acute kidney injury. Renal function stable. On IV Lasix. Nonoliguric. Denies chest pain or shortness breath. Oral intake fair. No vomiting or diarrhea. On 5 L nasal cannula. Vital signs are stable. General: Awake and alert. No acute distress. HEENT: Head exam is unremarkable. On nasal cannula. LUNGS: Breath sounds decreased. HEART: Rate and Rhythm are regular. ABDOMEN: Soft, no distention. EXTREMITITES: 1+ edema. Chronic changes noted. Objective - Vital Signs Vital signs: Vital Signs Temp 97.8 F 11/22/21 09:04 Pulse 99 11/22/21 09:09 Resp 18 11/22/21 09:04 BP 121/64 11/22/21 09:04 Pulse Ox 92 L 11/22/21 09:04 FiO2 Intake & Output 11/21/21 11/22/21 11/22/21 18:59 06:59 18:59 Intake Total 240 Output Total 900 400 Balance -660 -400 Weight 94 kg 131.8 kg Intake: Oral 240 Output: Urine 900 400 Other: Voiding Method Indwelling Catheter Indwelling Catheter - Labs CBC & Chem 7: 11/22/21 06:41 11/22/21 06:41 Labs: Abnormal Lab Results - Last 24 Hours (Table) 11/21/21 11/22/21 11/22/21 Range/Units 14:47 06:41 06:41 WBC (3.8-10.6) k/uL Hgb (13.0-17.5) gm/dL MCHC (31.0-37.0) g/dL RDW (11.5-15.5) % Neutrophils # (1.3-7.7) k/uL PT 14.0 H 14.1 H (9.0-12.0) sec INR 1.3 H 1.4 H (<1.2) Sodium 131 L (137-145) mmol/L Chloride 95 L (98-107) mmol/L BUN 43 H (9-20) mg/dL Creatinine 1.74 H (0.66-1.25) mg/dL Glucose 142 H (74-99) mg/dL Calcium 8.0 L (8.4-10.2) mg/dL Magnesium 2.4 H (1.6-2.3) mg/dL 11/22/21 Range/Units 06:41 WBC 11.1 H (3.8-10.6) k/uL Hgb 11.9 L (13.0-17.5) gm/dL MCHC 29.3 L (31.0-37.0) g/dL RDW 17.6 H (11.5-15.5) % Neutrophils # 8.9 H (1.3-7.7) k/uL PT (9.0-12.0) sec INR (<1.2) Sodium (137-145) mmol/L Chloride (98-107) mmol/L BUN (9-20) mg/dL Creatinine (0.66-1.25) mg/dL Glucose (74-99) mg/dL Calcium (8.4-10.2) mg/dL Magnesium (1.6-2.3) mg/dL Microbiology - Last 24 Hours (Table) 11/17/21 15:53 Blood Culture - Preliminary Blood No Growth after 96 hours 11/17/21 15:53 Blood Culture - Preliminary Blood No Growth after 96 hours Assessment and Plan Plan: Assessment: 1. Acute kidney injury secondary to ATN secondary to cardiorenal syndrome and vancomycin toxicity. Baseline creatinine near 1 from earlier this month. Creatinine was 2.24 on admission and is stable at 1.74 today. 2. Volume overload. Improving with diuresis. 3. Acute on chronic diastolic CHF with moderate aortic/tricuspid regurgitation and moderate pulmonary hypertension. 4. Right foot wound being followed by ID. 5. Hypervolemic hyponatremia. Stable. Plan: Stop IV Lasix. Add torsemide 20 mg daily. 1500 mL fluid restriction. Encouraged oral intake. Avoid nephrotoxins. Continue to monitor renal function and urine output. Reyna catheter discontinued 11/21/2021.
--- NOTE | 2021-11-22 10:21 | P.PN ---
Subjective Progress Note Date: 11/22/21 acute hypoxic respiratory failure secondary to healthcare acquired pneumonia, possible aspiration considering the patient had syncopal episode. possible underlying acute diastolic congestive heart failure 86-year-old white male patient with recent medical history of lower extremity cellulitis with abscess related to MRSA infection for which the patient was hospitalized recently and discharged to [facility] with the left upper extremity PICC line in place and vancomycin for evidence of MRSA in his right lower extremity. His past medical history is significant for chronic A. fib on Coumadin, previous history of CVA, hypertension, morbid obesity. Patient was discharged to the [facility] on 10/30/2021. On 11/17/2021 patient had a syncopal episode at the [facility] while getting up out of bed, patient denied hitting his head or suffering any trauma. The facility noted that over the course of the day patient was having increased shortness of breath, weakness, increased oxygen needs. Patient reports a dry cough, no fevers, he has chronic swelling in his lower extremities not any worse. He states he is more comfortable sleeping sitting upright than lying down he is not normally oxygen dependent. He is on 2 L of oxygen with a pulse ox of 92-94%, he is afebrile. Chest x-ray in emergency department showing coarse infiltrates throughout both lungs much greater on the right the possibility of underlying pneumonia. Lab evaluation showed a white count of 10.3, hemoglobin of 11.4, INR 1.5, sodium is 126, potassium is 4.9, chloride is 97, CO2 is 19, BUN is 59, creatinine is 2.24, bilirubin is 1.7, AST was 121, ALT was 100, alk phos was 201, troponin was 0.034, proBNP was 13,004 100, urinalysis showed large amount of blood, normal white blood cells, no clear evidence of urinary tract infection, Vanco trough from 11/15/2021 was 26, random vancomycin level is 29.6. COVID-19 PCR was negative. Patient was started on antibiotics with azithromycin and Rocephin, breathing treatments, patient was on Lasix 40 mg twice daily at the [facility], clinically he appears to be dehydrated with dry oral mucous membranes. Denies any nausea vomiting or diarrhea. Cultures have been sent, ID service, nephrology, and pulmonary consultations have been requested. reevaluated today on 11/18/21,patient is resting in bed, he is on 4 L nasal cannula, and his O2 saturation is 96%, blood pressure is 125/72, patient is relatively asymptomatic, denies shortness of breath denies any cough denies any wheezing, he tells me that he feels fine. No fever overnight. Patient is on antibiotics empirically for his cellulitis, chest x-ray showed interstitial edema, underlying infiltrate is not entirely ruled out. Apparently the patient had previous history of MRSA infection was fully treated by infectious disease on the case, and now he is on Rocephin and Zithromax. Reevaluated today on 11/19/21, patient is basically about the same, remains on 3 L nasal cannula, O2 sats 91%, chest x-ray continues to show interstitial edema, possible infiltrates bilaterally right more so than left. Patient remains on diuretics, remains empirically on antibiotics, his pro-calcitonin level 0.5, and his BNP level is over 15,000. Echocardiogram yesterday showed preserved LV function with ejection fraction of 50-55% it also showed moderate pulmonary hypertension. WBC count today is 9.7 hemoglobin 11.8 INR is 1.5 electrolytes are relatively normal BUN is down to 56 creatinine is down to 1.96 in spite of diuretics 11/20/2021, I'm seeing the patient for a follow-up. The patient is being treated for a combination of pneumonia and CHF. He is currently on oxygen at 3 L per minute nasal cannula with a pulse ox of 92%. He is afebrile. He is hemodynamically stable. On blood work from today shows a white cell count 9.5 with a hemoglobin of 11.4 and a platelet count of 345. Sodium is at 1:30, potassium is at 4.2, BUN is a 51 with a creatinine of 1.7 and a potassium level of 4.2. The patient is being diuresed and the patient is a negative fluid balance of at least 1.9 L over the past 24 hours. He remains on Lasix 40 mg ev krishna 12 hours. He is also on IV Rocephin. Dr. Mccray are wanted to consider broadening of antibiotic coverage to Zosyn considering aspiration. Nevertheless, I compared the series of chest exit and I believe that the right lung consolidations improving and the patient's clinically stable and I stated the course with the IV Rocephin. His pro-calcitonin level was 0.51 at time of admission on 11/17/2021. 11/21/2021, the patient has been brought up to 4 L of O2 nasal cannula and the current pulse ox is around 88%. This is slightly worse compared to yesterday. The chest x-ray findings from today is still showing a right lung consolidation along with cardiomegaly and pulmonary vascular congestion/CHF. Comparing this chest x-ray with the earlier chest x-rays, there is no major interval change. There could be some slight progression from prior study. Note that the patient also has cardiomegaly. The patient remains on IV Rocephin. The patient also on IV diuretics. The white cell count at 10.2 with a hemoglobin of 11.7 and BUN is at 46 with a creatinine of 1.7. The fluid balance over the past 24 hours has been -1.6 L. As such, the patient is diuresing adequately. He continues to have edema in lower extremities. He is awake and alert and communicating. No chest pain. The pro-calcitonin level was at 0.51 at the time of admission. Repeat pro-calcitonin level is down to 0.34. 11/22/2021 the patient remains on 5 L of O2 nasal cannula to bring his pulse ox above 90%. I'm seeing him today in follow-up. The chest x-ray findings and essentially unchanged and there is cardiomegaly and bilateral pulmonary infiltrates most on the lower lobes and some in the right upper lobe. The patient remains on Lasix 40 mg IV every 12 hours and the patient remains on IV Zosyn. The patient remains on anticoagulants with warfarin 4 mg on a daily basis. On his blood work from today, his white cell count is 11 with a hemoglobin 11.9 and a and her renal function is currently stable at 1.7 creatinine and a BUN of 43 and sodium level of 131. INR is subtherapeutic at 1.4. Pro-calcitonin level was improving and the level was down to 0.34. The fluid balance over the past 24 hours has been -1 L and the patient continues to make good urine output. Objective - Vital Signs Vital signs: Vital Signs Temp 97.8 F 11/22/21 09:04 Pulse 99 11/22/21 09:09 Resp 18 11/22/21 09:04 BP 121/64 11/22/21 09:04 Pulse Ox 92 L 11/22/21 09:04 FiO2 Intake & Output 11/21/21 11/22/21 11/22/21 18:59 06:59 18:59 Intake Total 240 Output Total 900 400 Balance -660 -400 Weight 94 kg 131.8 kg Intake: Oral 240 Output: Urine 900 400 Other: Voiding Method Indwelling Catheter Indwelling Catheter - Exam GENERAL EXAM: revealed 86-year-old white male, on 5 L nasal cannula, in no distress. HEAD: Normocephalic/atraumatic. HEENT: PERRLA, EOMI, anicteric, no neck masses, no JVD, no stridor. CHEST: No chest wall deformity. Symmetrical expansion. LUNGS: fine crackles at the bases. No rhonchi and no wheezes CVS: Irregular rate and rhythm, normal S1 and S2, no gallops, no murmurs, no rubs ABDOMEN: obese,Soft, nontender. No hepatosplenomegaly, no rebound, no guarding. EXTREMITIES: No clubbing, chronic swelling in bilateral lower extremities, no cyanosis, 2+ pulses and upper and lower extremities.both lower extremities are wrapped with sterile dressings. Chronic venous stasis changes noted bilaterally. SKIN: No rashes, however the patient does have chronic venous stasis changes in both lower extremities CENTRAL NERVOUS SYSTEM: alert and oriented 3 no gross focal deficits. PSYCHIATRIC: nnormal mood, affect and normal mental status examination. - Labs CBC & Chem 7: 11/22/21 06:41 11/22/21 06:41 Labs: Abnormal Lab Results - Last 24 Hours (Table) 11/21/21 11/22/21 11/22/21 Range/Units 14:47 06:41 06:41 WBC (3.8-10.6) k/uL Hgb (13.0-17.5) gm/dL MCHC (31.0-37.0) g/dL RDW (11.5-15.5) % Neutrophils # (1.3-7.7) k/uL PT 14.0 H 14.1 H (9.0-12.0) sec INR 1.3 H 1.4 H (<1.2) Sodium 131 L (137-145) mmol/L Chloride 95 L (98-107) mmol/L BUN 43 H (9-20) mg/dL Creatinine 1.74 H (0.66-1.25) mg/dL Glucose 142 H (74-99) mg/dL Calcium 8.0 L (8.4-10.2) mg/dL Magnesium 2.4 H (1.6-2.3) mg/dL 11/22/21 Range/Units 06:41 WBC 11.1 H (3.8-10.6) k/uL Hgb 11.9 L (13.0-17.5) gm/dL MCHC 29.3 L (31.0-37.0) g/dL RDW 17.6 H (11.5-15.5) % Neutrophils # 8.9 H (1.3-7.7) k/uL PT (9.0-12.0) sec INR (<1.2) Sodium (137-145) mmol/L Chloride (98-107) mmol/L BUN (9-20) mg/dL Creatinine (0.66-1.25) mg/dL Glucose (74-99) mg/dL Calcium (8.4-10.2) mg/dL Magnesium (1.6-2.3) mg/dL Microbiology - Last 24 Hours (Table) 11/17/21 15:53 Blood Culture - Preliminary Blood No Growth after 96 hours 11/17/21 15:53 Blood Culture - Preliminary Blood No Growth after 96 hours Assessment and Plan Assessment: Acute hypoxic respiratory failure secondary to bilateral pneumonia, could be aspiration pneumonia since the patient had a syncopal episode. This could also be healthcare related pneumonia, However, I also suspect some component of acute diastolic congestive heart failure especially with his elevated BNP of over 13,000. The CXR showed cardiomegaly and CHF and bilateral consolidation R>L and the FU CXR from 11/19/21 showed some improvement in the right lung consolidation. Patient remains on Lasix and oral Augmentin. The chest x-ray from today on 11/22/2021 remains unchanged and the patient continues to require oxygen at 5 L. acute diastolic congestive heart failure. Syncopal episode, likely cardiac in nature unless for otherwise. The patient is going to have an event monitor the time of discharge. Acute kidney injury. The creatinine is improving and the creatinine is down to 1.7, stable Chronic atrial fibrillation, on Coumadin. Chronic cellulitis of lower extremities. History of MRSA infection/cellulitis. Nonsmoker. Chronic liver disease possibly secondary to alcohol. Type 2 diabetes. recommendation: Chest on oxygen at 5 L of oxygen by nasal cannula Continue oxygen and titrate accordingly. The patient had a repeat chest x-ray in am Sputum cultures are pending. Blood cultures are pending. The cultures of been negative thus far and the pro-calcitonin level is improving and the patient remains on oral Augmentin for now Continue diuretics and monitor renal profile. The patient has been negative fluid balance and the patient has been negative fluid balance of around 1.0 L over the past 24 hours we will continue to follow. Repeat chest x-ray in the morning Overall long-term prognosis is relatively guarded. We'll wean down the FiO2. Repeat chest x-ray in the morning. We'll continue to follow. Cardiology regarding his syncope and the plan is to put an event monitor The patient will need an event monitor at time of discharge. He comes from [facility].
[2021-11-22] MEDS ORDERED: TORSEMIDE 20 MG TAB ONE (11:40)
[2021-11-22] MEDS ORDERED: METOPROLOL TARTRATE 50 MG TAB ONE (11:40)
[2021-11-22] MEDS ORDERED: ASPIRIN 81 MG ONE (11:40)
[2021-11-22] MEDS ORDERED: busPIRone HCl 5 MG TAB ONE (11:40)
[2021-11-22] MEDS ORDERED: AMOXIC-POT CLAV 875-125MG 1 EACH TAB ONE (11:40)
[2021-11-22] MEDS ORDERED: IPRATROPIUM-ALBUTEROL 3 ML NEB ONE (11:40)
[2021-11-22] MEDS ORDERED: WARFARIN 2 MG TAB PO ONE (18:00)
[2021-11-22] MEDS: ESCITALOPRAM 20 MG TAB PO SCH (20:33)
[2021-11-23] MEDS: MIDODRINE 5 MG TAB PO SCH ×3 (06:25→17:02)
[2021-11-23] MEDS: PANTOPRAZOLE 40 MG TABLET PO SCH (06:25)
--- NOTE | 2021-11-23 07:39 | P.PN ---
Subjective Progress Note Date: 11/21/21 Principal diagnosis: Right lower extremity wound and cellulitis Patient is 86 year old male who was recently admitted at this facility and was treated for right heel wound with secondary selected as culture positive for MRSA patient subsequently [facility] on [facility] vancomycin concern for deep infection now presenting back to the hospital with worsening respiratory status and worsening of his kidney function. On today's evaluation that is 11/21/2021, the patient is afebrile , the patient is breathing comfortably on nasal cannula oxygen, the patient denies chest pain , the patient did have occasional cough however no sputum production, the p atient denies abdominal pain and the patient denies pain to the right heel area Objective - Vital Signs Vital signs: Vital Signs Temp 98.2 F 11/21/21 08:00 Pulse 110 H 11/21/21 08:48 Resp 22 11/21/21 08:00 BP 132/79 11/21/21 08:00 Pulse Ox 88 L 11/21/21 08:38 FiO2 Intake & Output 11/20/21 11/21/21 11/21/21 18:59 06:59 18:59 Intake Total 900 540 Output Total 1300 1825 Balance -400 -1285 Weight 94 kg Intake: Oral 900 540 Output: Urine 1300 1825 Other: Voiding Method Indwelling Catheter Indwelling Catheter Indwelling Catheter - Exam GENERAL DESCRIPTION: An elderly male lying in bed in no distress RESPIRATORY SYSTEM: Unlabored breathing , decreased breath sounds at bases HEART: S1 S2 regular rate and rhythm , ABDOMEN: Soft , no tenderness EXTREMITIES: Right heel wound is currently dressed no drainage on the dressing right leg redness has decreased - Labs CBC & Chem 7: 11/22/21 06:41 11/22/21 06:41 Labs: Abnormal Lab Results - Last 24 Hours (Table) 11/20/21 11/21/21 11/21/21 Range/Units 07:22 08:32 08:32 Hgb 11.7 L (13.0-17.5) gm/dL MCHC 29.9 L (31.0-37.0) g/dL RDW 18.0 H (11.5-15.5) % Neutrophils # 7.9 H (1.3-7.7) k/uL Sodium 132 L (137-145) mmol/L Chloride 95 L (98-107) mmol/L BUN 46 H (9-20) mg/dL Creatinine 1.77 H (0.66-1.25) mg/dL Glucose 121 H (74-99) mg/dL Calcium 8.0 L (8.4-10.2) mg/dL Magnesium 2.4 H (1.6-2.3) mg/dL Procalcitonin 0.34 H (0.02-0.09) ng/mL Microbiology - Last 24 Hours (Table) 11/17/21 15:53 Blood Culture - Preliminary Blood No Growth after 72 hours 11/17/21 15:53 Blood Culture - Preliminary Blood No Growth after 72 hours Assessment and Plan (1) Leukocytosis Current Visit: No Status: Acute Code(s): D72.829 - ELEVATED WHITE BLOOD CELL COUNT, UNSPECIFIED SNOMED Code(s): 467372320 Plan: 1patient presented to hospital with increasing shortness of breath which is likely multifactorial and more likely from the fluid overload from his kidney failure plus minus a component of pneumonia 2 patient with elevated liver enzymes ultrasound of his liver and gallbladder area no evidence of cholecystitis 3patient with right heel wound to continue local wound care to the right heel wound with the Santyl followed by moist dressing and keep the area off the pressure. 4 patient antibiotic has been switched over to oral Augmentin to continue Time with Patient: Less than 30
--- NOTE | 2021-11-23 07:40 | P.PN ---
Subjective Progress Note Date: 11/22/21 Principal diagnosis: Right lower extremity wound and cellulitis Patient is 86 year old male who was recently admitted at this facility and was treated for right heel wound with secondary selected as culture positive for MRSA patient subsequently was discharged to the long term on IV vancomycin concern for deep infection now presenting back to the hospital with worsening respiratory status and worsening of his kidney function. On today's evaluation that is 11/22/2021, the patient remains to be afebrile , the patient is breathing comfortably on nasal cannula oxygen, the patient denies chest pain , the patient did have occasional cough and is bringing up some yellow sputum, the patient denies abdominal pain and no diarrhea no pain to the right heel Objective - Vital Signs Vital signs: Vital Signs Temp 97.8 F 11/22/21 09:04 Pulse 99 11/22/21 09:09 Resp 18 11/22/21 09:04 BP 121/64 11/22/21 09:04 Pulse Ox 92 L 11/22/21 09:04 FiO2 Intake & Output 11/21/21 11/22/21 11/22/21 18:59 06:59 18:59 Intake Total 240 540 Output Total 900 400 500 Balance -660 -400 40 Weight 94 kg 131.8 kg Intake: Oral 240 540 Output: Urine 900 400 500 Other: Voiding Method Indwelling Catheter Indwelling Catheter External Catheter - Exam GENERAL DESCRIPTION: An elderly male lying in bed in no distress RESPIRATORY SYSTEM: Unlabored breathing , decreased breath sounds at bases HEART: S1 S2 regular rate and rhythm , ABDOMEN: Soft , no tenderness EXTREMITIES: Right heel wound is currently dressed no drainage on the dressing right leg redness has decreased - Labs CBC & Chem 7: 11/22/21 06:41 11/22/21 06:41 Labs: Abnormal Lab Results - Last 24 Hours (Table) 11/21/21 11/22/21 11/22/21 Range/Units 14:47 06:41 06:41 WBC (3.8-10.6) k/uL Hgb (13.0-17.5) gm/dL MCHC (31.0-37.0) g/dL RDW (11.5-15.5) % Neutrophils # (1.3-7.7) k/uL PT 14.0 H 14.1 H (9.0-12.0) sec INR 1.3 H 1.4 H (<1.2) Sodium 131 L (137-145) mmol/L Chloride 95 L (98-107) mmol/L BUN 43 H (9-20) mg/dL Creatinine 1.74 H (0.66-1.25) mg/dL Glucose 142 H (74-99) mg/dL Calcium 8.0 L (8.4-10.2) mg/dL Magnesium 2.4 H (1.6-2.3) mg/dL 11/22/21 Range/Units 06:41 WBC 11.1 H (3.8-10.6) k/uL Hgb 11.9 L (13.0-17.5) gm/dL MCHC 29.3 L (31.0-37.0) g/dL RDW 17.6 H (11.5-15.5) % Neutrophils # 8.9 H (1.3-7.7) k/uL PT (9.0-12.0) sec INR (<1.2) Sodium (137-145) mmol/L Chloride (98-107) mmol/L BUN (9-20) mg/dL Creatinine (0.66-1.25) mg/dL Glucose (74-99) mg/dL Calcium (8.4-10.2) mg/dL Magnesium (1.6-2.3) mg/dL Microbiology - Last 24 Hours (Table) 11/17/21 15:53 Blood Culture - Preliminary Blood No Growth after 96 hours 11/17/21 15:53 Blood Culture - Preliminary Blood No Growth after 96 hours Assessment and Plan (1) Leukocytosis Current Visit: No Status: Acute Code(s): D72.829 - ELEVATED WHITE BLOOD CELL COUNT, UNSPECIFIED SNOMED Code(s): 830966525 Plan: 1patient presented to hospital with increasing shortness of breath which is likely multifactorial and more likely from the fluid overload from his kidney failure plus minus a component of pneumonia 2 patient with elevated liver enzymes ultrasound of his liver and gallbladder area no evidence of cholecystitis 3patient with right heel wound to continue local wound care to the right heel wound with the Santyl followed by moist dressing and keep the area off the pressure. 4 patient has shown some clinical improvement, sputum cultures have been requested, continue with Augmentin Time with Patient: Less than 30
[2021-11-23] MEDS: IPRATROPIUM-ALBUTEROL 3 ML NEB INHALATION PRN ×2 (08:03→16:37)
[2021-11-23] MEDS ORDERED: TORSEMIDE 20 MG TAB PO SCH (09:00)
--- NOTE | 2021-11-23 09:41 | XR ---
EXAMINATION TYPE: XR chest 1V portable DATE OF EXAM: 11/23/2021 COMPARISON: 11/22/2021 INDICATION: Short of breath TECHNIQUE: Single frontal view of the chest is obtained. FINDINGS: The heart size is normal. The pulmonary vasculature is normal. Patchy infiltrates are present bilaterally. Pattern appears stable. Continued follow-up is recommende d IMPRESSION: 1. Stable bilateral lung infiltrates, continued follow-up is recommended.
--- NOTE | 2021-11-23 09:55 | P.PN ---
Subjective Patient is seen in follow-up for acute kidney injury. Renal function stable. On oral diuretics. Nonoliguric. Denies chest pain or shortness breath. Oral intake fair. No vomiting or diarrhea. On 6 L nasal cannula. Vital signs are stable. General: Awake and alert. No acute distress. HEENT: Head exam is unremarkable. On nasal cannula. LUNGS: Breath sounds decreased. HEART: Rate and Rhythm are regular. ABDOMEN: Soft, no distention. EXTREMITITES: Trace edema. Chronic changes noted. Objective - Vital Signs Vital signs: Vital Signs Temp 97.9 F 11/23/21 03:44 Pulse 81 11/23/21 08:14 Resp 21 11/23/21 03:44 BP 131/59 11/23/21 03:44 Pulse Ox 95 11/23/21 08:14 FiO2 Intake & Output 11/22/21 11/23/21 11/23/21 18:59 06:59 18:59 Intake Total 1200 600 Output Total 1100 500 Balance 100 600 -500 Intake: Oral 1200 600 Output: Urine 1100 500 Other: Voiding Method External Catheter External Catheter # Voids 3 # Bowel Movements 0 - Labs CBC & Chem 7: 11/22/21 06:41 11/22/21 06:41 Labs: Abnormal Lab Results - Last 24 Hours (Table) 11/22/21 Range/Units 06:41 Procalcitonin 0.30 H (0.02-0.09) ng/mL Microbiology - Last 24 Hours (Table) 11/17/21 15:53 Blood Culture - Preliminary Blood No Growth after 120 hours 11/17/21 15:53 Blood Culture - Preliminary Blood No Growth after 120 hours Assessment and Plan Plan: Assessment: 1. Acute kidney injury secondary to ATN secondary to cardiorenal syndrome and vancomycin toxicity. Baseline creatinine near 1 from earlier this month. Creatinine was 2.24 on admission and stable at 1.74 yesterday. 2. Volume overload. Improved with diuresis. 3. Acute on chronic diastolic CHF with moderate aortic/tricuspid regurgitation and moderate pulmonary hypertension. 4. Right foot wound being followed by ID. 5. Hypervolemic hyponatremia. Stable. Plan: Maintain torsemide 20 mg daily. 1500 mL fluid restriction. Encouraged oral intake. Avoid nephrotoxins. Continue to monitor renal function and urine output. Reyna catheter discontinued 11/21/2021. AM labs pending.
--- NOTE | 2021-11-23 10:31 | P.PN ---
Subjective Progress Note Date: 11/23/21 acute hypoxic respiratory failure secondary to healthcare acquired pneumonia, possible aspiration considering the patient had syncopal episode. possible underlying acute diastolic congestive heart failure 86-year-old white male patient with recent medical history of lower extremity cellulitis with abscess related to MRSA infection for which the patient was hospitalized recently and discharged to [facility] with the left upper extremity PICC line in place and vancomycin for evidence of MRSA in his right lower extremity. His past medical history is significant for chronic A. fib on Coumadin, previous history of CVA, hypertension, morbid obesity. Patient was discharged to the [facility] on 10/30/2021. On 11/17/2021 patient had a syncopal episode at the [facility] while getting up out of bed, patient denied hitting his head or suffering any trauma. The facility noted that over the course of the day patient was having increased shortness of breath, weakness, increased oxygen needs. Patient reports a dry cough, no fevers, he has chronic swelling in his lower extremities not any worse. He states he is more comfortable sleeping sitting upright than lying down he is not normally oxygen dependent. He is on 2 L of oxygen with a pulse ox of 92-94%, he is afebrile. Chest x-ray in emergency department showing coarse infiltrates throughout both lungs much greater on the right the possibility of underlying pneumonia. Lab evaluation showed a white count of 10.3, hemoglobin of 11.4, INR 1.5, sodium is 126, potassium is 4.9, chloride is 97, CO2 is 19, BUN is 59, creatinine is 2.24, bilirubin is 1.7, AST was 121, ALT was 100, alk phos was 201, troponin was 0.034, proBNP was 13,004 100, urinalysis showed large amount of blood, normal white blood cells, no clear evidence of urinary tract infection, Vanco trough from 11/15/2021 was 26, random vancomycin level is 29.6. COVID-19 PCR was negative. Patient was started on antibiotics with azithromycin and Rocephin, breathing treatments, patient was on Lasix 40 mg twice daily at the [facility], clinically he appears to be dehydrated with dry oral mucous membranes. Denies any nausea vomiting or diarrhea. Cultures have been sent, ID service, nephrology, and pulmonary consultations have been requested. reevaluated today on 11/18/21,patient is resting in bed, he is on 4 L nasal cannula, and his O2 saturation is 96%, blood pressure is 125/72, patient is relatively asymptomatic, denies shortness of breath denies any cough denies any wheezing, he tells me that he feels fine. No fever overnight. Patient is on antibiotics empirically for his cellulitis, chest x-ray showed interstitial edema, underlying infiltrate is not entirely ruled out. Apparently the patient had previous history of MRSA infection was fully treated by infectious disease on the case, and now he is on Rocephin and Zithromax. Reevaluated today on 11/19/21, patient is basically about the same, remains on 3 L nasal cannula, O2 sats 91%, chest x-ray continues to show interstitial edema, possible infiltrates bilaterally right more so than left. Patient remains on diuretics, remains empirically on antibiotics, his pro-calcitonin level 0.5, and his BNP level is over 15,000. Echocardiogram yesterday showed preserved LV function with ejection fraction of 50-55% it also showed moderate pulmonary hypertension. WBC count today is 9.7 hemoglobin 11.8 INR is 1.5 electrolytes are relatively normal BUN is down to 56 creatinine is down to 1.96 in spite of diuretics 11/20/2021, I'm seeing the patient for a follow-up. The patient is being treated for a combination of pneumonia and CHF. He is currently on oxygen at 3 L per minute nasal cannula with a pulse ox of 92%. He is afebrile. He is hemodynamically stable. On blood work from today shows a white cell count 9.5 with a hemoglobin of 11.4 and a platelet count of 345. Sodium is at 1:30, potassium is at 4.2, BUN is a 51 with a creatinine of 1.7 and a potassium level of 4.2. The patient is being diuresed and the patient is a negative fluid balance of at least 1.9 L over the past 24 hours. He remains on Lasix 40 mg ev krishna 12 hours. He is also on IV Rocephin. Dr. Mccray are wanted to consider broadening of antibiotic coverage to Zosyn considering aspiration. Nevertheless, I compared the series of chest exit and I believe that the right lung consolidations improving and the patient's clinically stable and I stated the course with the IV Rocephin. His pro-calcitonin level was 0.51 at time of admission on 11/17/2021. 11/21/2021, the patient has been brought up to 4 L of O2 nasal cannula and the current pulse ox is around 88%. This is slightly worse compared to yesterday. The chest x-ray findings from today is still showing a right lung consolidation along with cardiomegaly and pulmonary vascular congestion/CHF. Comparing this chest x-ray with the earlier chest x-rays, there is no major interval change. There could be some slight progression from prior study. Note that the patient also has cardiomegaly. The patient remains on IV Rocephin. The patient also on IV diuretics. The white cell count at 10.2 with a hemoglobin of 11.7 and BUN is at 46 with a creatinine of 1.7. The fluid balance over the past 24 hours has been -1.6 L. As such, the patient is diuresing adequately. He continues to have edema in lower extremities. He is awake and alert and communicating. No chest pain. The pro-calcitonin level was at 0.51 at the time of admission. Repeat pro-calcitonin level is down to 0.34. 11/22/2021 the patient remains on 5 L of O2 nasal cannula to bring his pulse ox above 90%. I'm seeing him today in follow-up. The chest x-ray findings and essentially unchanged and there is cardiomegaly and bilateral pulmonary infiltrates most on the lower lobes and some in the right upper lobe. The patient remains on Lasix 40 mg IV every 12 hours and the patient remains on IV Zosyn. The patient remains on anticoagulants with warfarin 4 mg on a daily basis. On his blood work from today, his white cell count is 11 with a hemoglobin 11.9 and a and her renal function is currently stable at 1.7 creatinine and a BUN of 43 and sodium level of 131. INR is subtherapeutic at 1.4. Pro-calcitonin level was improving and the level was down to 0.34. The fluid balance over the past 24 hours has been -1 L and the patient continues to make good urine output. 11/23/2021 the patient is on 6 L O2 nasal cannula. The patient's is on IV Zosyn. The patient was taken off the IV Lasix and the patient was placed on torsemide by nephrology. He is using incentive spirometer. A repeat chest x-ra y was done today and this was compared to the earlier chest x-ray. Findings are essentially unchanged and the patient has ongoing consolidation of the right lung with cardiomegaly and possibly some small bilateral pleural effusions. I think the presentation is more consistent with a combination of CHF and pneumonia. The patient is afebrile. White cell count is 11.1. INR is at one point for what the patient being on Coumadin. Creatinine stable at 1.7 and his sodium level is at 141. All of the microbial cultures of been negative and the patient remains on by mouth Augmentin. Using incentive spirometer. Continues to have swelling in lower extremities bilaterally. Fluid balance is -1 L over the past 24 hours. Objective - Vital Signs Vital signs: Vital Signs Temp 97.9 F 11/23/21 03:44 Pulse 81 11/23/21 08:14 Resp 21 11/23/21 03:44 BP 131/59 11/23/21 03:44 Pulse Ox 95 11/23/21 08:14 FiO2 Intake & Output 11/22/21 11/23/21 11/23/21 18:59 06:59 18:59 Intake Total 1200 600 Output Total 1100 500 Balance 100 600 -500 Intake: Oral 1200 600 Output: Urine 1100 500 Other: Voiding Method External Catheter External Catheter # Voids 3 # Bowel Movements 0 - Exam GENERAL EXAM: revealed 86-year-old white male, on 6 L nasal cannula, in no distress. HEAD: Normocephalic/atraumatic. HEENT: PERRLA, EOMI, anicteric, no neck masses, no JVD, no stridor. CHEST: No chest wall deformity. Symmetrical expansion. LUNGS: fine crackles at the bases. No rhonchi and no wheezes CVS: Irregular rate and rhythm, normal S1 and S2, no gallops, no murmurs, no rubs ABDOMEN: obese,Soft, nontender. No hepatosplenomegaly, no rebound, no guarding. EXTREMITIES: No clubbing, chronic swelling in bilateral lower extremities, no cyanosis, 2+ pulses and upper and lower extremities.both lower extremities are wrapped with sterile dressings. Chronic venous stasis changes noted bilaterally. SKIN: No rashes, however the patient does have chronic venous stasis changes in both lower extremities CENTRAL NERVOUS SYSTEM: alert and oriented 3 no gross focal deficits. PSYCHIATRIC: nnormal mood, affect and normal mental status examination. - Labs CBC & Chem 7: 11/22/21 06:41 11/22/21 06:41 Labs: Abnormal Lab Results - Last 24 Hours (Table) 11/22/21 Range/Units 06:41 Procalcitonin 0.30 H (0.02-0.09) ng/mL Microbiology - Last 24 Hours (Table) 11/17/21 15:53 Blood Culture - Preliminary Blood No Growth after 120 hours 11/17/21 15:53 Blood Culture - Preliminary Blood No Growth after 120 hours Assessment and Plan Assessment: Acute hypoxic respiratory failure secondary to bilateral pneumonia, could be aspiration pneumonia since the patient had a syncopal episode. This could also be healthcare related pneumonia, However, I also suspect some component of acute diastolic congestive heart failure especially with his elevated BNP of over 13,000. The CXR showed cardiomegaly and CHF and bilateral consolidation R>L and the FU CXR from 11/23/2021 showed essentially no interval change. I think it's is essentially mixed picture of pneumonia and CHF. The patient will need to be further investigated with a CAT scan of the chest. The patient is currently on by mouth Augmentin. The patient is on torsemide at a dose of 20 mg by mouth daily. He is in a negative fluid balance. He is currently on 6 L about 2 by nasal cannula. The white cell count today is 11.1. acute diastolic congestive heart failure. Syncopal episode, likely cardiac in nature unless for otherwise. The patient is going to have an event monitor the time of discharge. Acute kidney injury. The creatinine is improving and the creatinine is down to 1.7, stable Chronic atrial fibrillation, on Coumadin. Chronic cellulitis of lower extremities. History of MRSA infection/cellulitis. Nonsmoker. Chronic liver disease possibly secondary to alcohol. Type 2 diabetes. recommendation: With a CAT scan of the chest, noncontrast film oxygen at 6 L of oxygen by nasal cannula Continue oxygen and titrate accordingly. Continue torsemide 20 mg by mouth daily Continue by mouth Augmentin we will continue to follow. Repeat chest x-ray in the morning was noted from today and we'll going to proceed with a CAT scan of the chest Overall long-term prognosis is relatively guarded.
[2021-11-23 10:41] LABS: INR 1.5 (<1.2)
[2021-11-23 14:43] LABS: Calcium 8.1 mg/dL (8.4-10.2); Magnesium 2.4 mg/dL (1.6-2.3); Potassium 4.6 mmol/L (3.5-5.1)
[2021-11-23 14:54] VITALS: BMI 44.1
--- NOTE | 2021-11-23 15:46 | CT ---
EXAMINATION TYPE: CT chest wo con DATE OF EXAM: 11/23/2021 INDICATION: CHF, pneumonia CT DLP: 914.2 mGy.cm Automated Exposure Control for Dose Reduction was Utilized. TECHNIQUE AND CONTRAST: CT scan of the chest without IV contrast administration. COMPARISON: No previous CT scan is available for comparison FINDINGS: Extensive bilateral pulmonary infiltration, areas of consolidation and groundglass opacities demonstr ating air bronchogram within. This could be acute or chronic, please correlate clinically. The left l nicolle apex is relatively spared. Moderate right pleural effusion. Minimal left-sided pleural effusion. Patent trachea and main bronchi. Cardiomegaly, please correlate with echocardiographic results. Coron pankaj and arterial atherosclerotic calcifications. Left-sided PICC line with the tip is seen within the superior aspect of the SVC. No sizable pericardial effusion. The pulmonary trunk measures 3.8 cm suggestive of pulmonary hypertension. Suspected left upper pole r enal cyst, suboptimally assessed by this CT scan. Slightly prominent subcarinal and right paratrachea l lymph nodes. Marked degenerative changes of the glenohumeral articulations. IMPRESSION: Extensive bilateral pulmonary infiltration as described above. This could be related to acute infecti on (including Covid 19 infection or other atypical infection) however sequela of chronic infection, e madelyn fibrosis or underlying pulmonary edema can't be excluded. Recommend clinical correlation and fur ther workup. Follow-up to complete resolution is advised. Other findings as described above.
[2021-11-23] MEDS: TIMOLOL 0.5% OPHTH DROPS 5 ML BTL BOTH EYES SCH ×2 (16:24→21:09)
[2021-11-23] MEDS: COLLAGENASE 250 UNIT/GM OINTMENT 30 GM TUBE TOPICAL SCH (16:24)
[2021-11-23] MEDS: ASPIRIN 81 MG PO SCH (16:24)
[2021-11-23] MEDS: AMOXIC-POT CLAV 875-125MG 1 EACH TAB PO SCH (16:24)
[2021-11-23] MEDS: busPIRone HCl 5 MG TAB PO SCH ×2 (16:24→21:09)
[2021-11-23] MEDS: KETOROLAC 0.5% OPHTH DROPS 5 ML BTL LEFT EYE SCH ×2 (16:25→21:09)
[2021-11-23] MEDS: METOPROLOL TARTRATE 50 MG TAB PO SCH ×2 (16:25→21:09)
[2021-11-23] MEDS: Acetaminophen-Codeine 300-30mg TAB PO PRN (17:01)
[2021-11-23] MEDS ORDERED: WARFARIN 5 MG TAB PO ONE (18:00)
[2021-11-23] MEDS: FUROSEMIDE 10 MG/ML 4 ML VIAL IV SCH (18:22)
[2021-11-23] MEDS: CEFEPIME 2 GM in SODIUM CHLORIDE 0.9% 100 ML IVPB SCH (21:08)
[2021-11-23] MEDS: ESCITALOPRAM 20 MG TAB PO SCH (21:09)
[2021-11-23 21:35] LABS: Sodium 129 mmol/L (137-145)
[2021-11-24] MEDS: FUROSEMIDE 10 MG/ML 4 ML VIAL IV SCH ×2 (01:01→08:53)
--- NOTE | 2021-11-24 02:05 | P.PN ---
Subjective Progress Note Date: 11/23/21 11/20/2021 diuresing on Lasix IV push, 24-hour I&O reflecting a negative fluid balance. Renal function trending down with creatinine 1.72. Maintaining O2 sats in the 90s on 3 L nasal cannula, with accessory muscle use. Pro-calcitonin elevated 0.34. Sodium 1:30, afebrile, normal WBC. Maintained on Rocephin as per infectious disease. Denies pain of right lower extremity. Evaluated by wound care services with recommendations noted pertaining to chronic right foot ulcer with nonweightbearing of right heel. Hematuria secondary to traumatic insertion. 11/21/2021 Feels better, maintaining O2 sats of 90% on 3 L nasal cannula. Diuresing on IV Lasix well with 24-hour I&O reflecting a negative fluid balance. Sodium 132, BUN 46, creatinine 1.77. Chest x-ray pending. Denies chest pain, palpitations. Occasional nonproductive cough. 11/23/2021 This is an 86-year-old male who was recently admitted with CHF with hypoxia and is being closely monitored. Multiple medical consultations following including cardiology, pulmonary, and nephrology. Patient continues on 6 L via nasal cannula and was recently started on torsemide today and continues with volume overload. Case management and nursing home social worker also following as patient will be going to [facility] once stabilized and discharged. chest xray continues to show pleural effusions and possible infectious process such as pneumonia. CT chest is ordered and pending per pulmonary. Patient denies chest pain or palpitations. Patient is afebrile. Patient is continued on oral augmentin and breathing treatments. Review of systems: Constitutional: No reports of fatigue, fever, or chills Cardiovascular: No reports of chest pain or palpitations Respiratory: reports of shortness of breath GI: reports of nausea, no reports of of vomiting : No reports of dysuria or retention Neurovascular: reports of generalized weakness All medications have been reviewed Active Medications Acetaminophen (Acetaminophen Tab 325 Mg Tab) 650 mg PO Q6HR PRN PRN Reason: Mild Pain or Fever > 100.5 Acetaminophen/Codeine Phosphate (Acetaminophen-Codeine 300-30mg Tab) 1 each PO Q4H PRN PRN Reason: Pain Last Admin: 11/22/21 20:34 Dose: 1 each Albuterol/Ipratropium (Ipratropium-Albuterol 3 Ml Neb) 3 ml INHALATION RT-Q4H PRN PRN Reason: shortness of breath Last Admin: 11/23/21 08:03 Dose: 3 ml Amoxicillin/Clavulanate Potassium (Amoxic-Pot Clav 875-125mg 1 Each Tab) 1 each PO Q12HR [facility]; Protocol Last Admin: 11/22/21 20:33 Dose: 1 each Aspirin (Aspirin 81 Mg) 81 mg PO DAILY [facility] Last Admin: 11/22/21 09:12 Dose: 81 mg Buspirone HCl (Buspirone Hcl 5 Mg Tab) 5 mg PO BID [facility] Last Admin: 11/22/21 20:33 Dose: 5 mg Collagenase (Collagenase 250 Unit/Gm Ointment 30 Gm Tube) 1 applic TOPICAL DAILY [facility]; Protocol Last Admin: 11/22/21 09:13 Dose: 1 applic Escitalopram Oxalate (Escitalopram 20 Mg Tab) 20 mg PO HS [facility] Last Admin: 11/22/21 20:33 Dose: 20 mg Ketorolac Tromethamine (Ketorolac 0.5% Ophth Drops 5 Ml Btl) 1 drops LEFT EYE Q12H [facility] Last Admin: 11/22/21 20:32 Dose: 1 drops Metoprolol Tartrate (Metoprolol Tartrate 50 Mg Tab) 50 mg PO Q12H [facility] Last Admin: 11/22/21 20:33 Dose: 50 mg Midodrine (Midodrine 5 Mg Tab) 5 mg PO AC-TID [facility] Last Admin: 11/23/21 06:25 Dose: Not Given Miscellaneous Information (Pneumonia Protocol Utilized 1 Each Misc) 1 each PO ONCE PRN PRN Reason: Per Protocol Miscellaneous Information (Warfarin Per Pharmacy) 1 each MISCELLANE DIRECTED PRN; Protocol PRN Reason: Per Protocol Naloxone HCl (Naloxone 0.4 Mg/Ml 1 Ml Vial) 0.2 mg IV Q2M PRN PRN Reason: Opioid Reversal Pantoprazole Sodium (Pantoprazole 40 Mg Tablet) 40 mg PO DAILY@0600 [facility] Last Admin: 11/23/21 06:25 Dose: 40 mg Sodium Chloride (Sodium Chloride 0.65% Nasal [place] 44 Ml Btl) 2 spray NASAL QID PRN PRN Reason: Congestion Last Admin: 11/19/21 17:05 Dose: 2 spray Timolol Maleate (Timolol 0.5% Ophth Drops 5 Ml Btl) 1 drops BOTH EYES Q12HR [facility] Last Admin: 11/22/21 20:32 Dose: 1 drops Torsemide (Torsemide 20 Mg Tab) 20 mg PO DAILY [facility] PHYSICAL EXAMINATION: GENERAL: The patient is alert and oriented x4, morbidly obese Well developed, well nourished. HEENT: Pupils are round and equally reacting to light. EOMI. no scleral icterus. No conjunctival pallor. Normocephalic, atraumatic. No pharyngeal erythema. No thyromegaly. CARDIOVASCULAR: S1 and S2 muffled PULMONARY: diminished breath sounds bilaterally with scattered rhonchi and crackles noted. ABDOMEN: soft. Nontender on exam. obese. non-distended, normoactive bowel sounds. No palpable organomegaly. MUSCULOSKELETAL: No joint swelling or deformity. EXTREMITIES: No cyanosis, clubbing, bilateral pedal edema noted. Generalized edema noted NEUROLOGICAL: Gross neurological examination did not reveal any focal deficits. Diffuse weakness SKIN: No rashes. Assessment: Acute hypoxic respiratory failure secondary to acute CHF exacerbation, diastolic dysfunction, possible healthcare acquired bilateral pneumonia. 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 Patient recently started on torsemide with nephrology following closely. Kidney functions elevated and patient continues with overload. Patient also continues on 6 L via nasal cannula with shortness o f breath chronically wears 4-5 L and continues to have shortness of breath. PT OT following as patient also continues with weakness and will be going to [facility] on the [facility] when stabilized discharge. Memorado is unavailable at this time and will follow-up with labs when available. Due to multiple complex medical issues, prognosis is guarded. The impression and plan of care has been dictated by Lyndsey Vera, nurse practitioner as directed. MD Moses I have performed a history and examination and MDM of this patient, discussed the same with the dictator, and agree with the dictator's assessment and plan as written ,documented as a scribe. Based on total visit time, I have performed more than 50% of the visit. Any additional findings or plans will be noted. Objective - Vital Signs Vital signs: Vital Signs Temp 97.9 F 11/23/21 03:44 Pulse 104 H 11/23/21 11:46 Resp 18 11/23/21 08:00 BP 131/72 11/23/21 08:00 Pulse Ox 95 11/23/21 08:14 FiO2 Intake & Output 11/22/21 11/23/21 11/23/21 18:59 06:59 18:59 Intake Total 1200 600 540 Output Total 1100 500 Balance 100 600 40 Weight 131.8 kg Intake: Oral 1200 600 540 Output: Urine 1100 500 Other: Voiding Method External Catheter External Catheter External Catheter # Voids 3 # Bowel Movements 0 - Labs CBC & Chem 7: 11/22/21 06:41 11/23/21 20:28 Labs: Abnormal Lab Results - Last 24 Hours (Table) 11/22/21 11/23/21 Range/Units 06:41 09:26 PT 15.0 H (9.0-12.0) sec INR 1.5 H (<1.2) Procalcitonin 0.30 H (0.02-0.09) ng/mL Microbiology - Last 24 Hours (Table) 11/17/21 15:53 Blood Culture - Preliminary Blood No Growth after 120 hours 11/17/21 15:53 Blood Culture - Preliminary Blood No Growth after 120 hours
[2021-11-24] MEDS: PANTOPRAZOLE 40 MG TABLET PO SCH (05:16)
[2021-11-24] MEDS: METOPROLOL TARTRATE 50 MG TAB PO SCH ×2 (06:13→21:26)
[2021-11-24] MEDS: MIDODRINE 5 MG TAB PO SCH ×3 (07:18→16:19)
[2021-11-24] MEDS: IPRATROPIUM-ALBUTEROL 3 ML NEB INHALATION PRN ×4 (08:14→21:06)
[2021-11-24] MEDS: busPIRone HCl 5 MG TAB PO SCH ×2 (08:52→21:26)
[2021-11-24] MEDS: CEFEPIME 2 GM in SODIUM CHLORIDE 0.9% 100 ML IVPB SCH ×2 (08:52→21:26)
[2021-11-24] MEDS: ASPIRIN 81 MG PO SCH (08:52)
[2021-11-24] MEDS: TIMOLOL 0.5% OPHTH DROPS 5 ML BTL BOTH EYES SCH ×2 (08:53→21:26)
[2021-11-24] MEDS: KETOROLAC 0.5% OPHTH DROPS 5 ML BTL LEFT EYE SCH ×2 (08:59→21:27)
[2021-11-24 09:57] LABS: Calcium 8.2 mg/dL (8.4-10.2); Magnesium 2.2 mg/dL (1.6-2.3); Potassium 4.8 mmol/L (3.5-5.1)
--- NOTE | 2021-11-24 10:09 | P.PN ---
Subjective Patient is seen in follow-up for acute kidney injury. Renal function stable. Started on IV diuretics yesterday per pulmonology. Nonoliguric. Denies chest pain but does admit to dyspnea at times. Oral intake fair. No vomiting or diarrhea. On 6 L nasal cannula. Vital signs are stable. General: Awake and alert. No acute distress. HEENT: Head exam is unremarkable. On nasal cannula. LUNGS: Breath sounds decreased. HEART: Rate and Rhythm are regular. ABDOMEN: Soft, no distention. EXTREMITITES: Trace edema. Chronic changes noted. Objective - Vital Signs Vital signs: Vital Signs Temp 98 F 11/24/21 03:59 Pulse 99 11/24/21 08:32 Resp 20 11/24/21 03:59 BP 105/62 11/24/21 03:59 Pulse Ox 88 L 11/24/21 08:14 FiO2 Intake & Output 11/23/21 11/24/21 11/24/21 18:59 06:59 18:59 Intake Total 540 Output Total 1000 550 Balance -460 -550 Weight 131.8 kg Intake: Oral 540 Output: Urine 1000 550 Other: Voiding Method External Catheter External Catheter - Labs CBC & Chem 7: 11/22/21 06:41 11/24/21 09:11 Labs: Abnormal Lab Results - Last 24 Hours (Table) 11/23/21 11/23/21 11/23/21 Range/Units 09:26 09:26 20:28 PT 15.0 H (9.0-12.0) sec INR 1.5 H (<1.2) Sodium 130 L 129 L (137-145) mmol/L Chloride 93 L (98-107) mmol/L Carbon Dioxide 33 H (22-30) mmol/L BUN 44 H (9-20) mg/dL Creatinine 1.79 H (0.66-1.25) mg/dL Glucose 108 H (74-99) mg/dL Calcium 8.1 L (8.4-10.2) mg/dL Magnesium 2.4 H (1.6-2.3) mg/dL 11/24/21 Range/Units 09:11 PT (9.0-12.0) sec INR (<1.2) Sodium 129 L (137-145) mmol/L Chloride 92 L (98-107) mmol/L Carbon Dioxide (22-30) mmol/L BUN 49 H (9-20) mg/dL Creatinine 1.88 H (0.66-1.25) mg/dL Glucose 128 H (74-99) mg/dL Calcium 8.2 L (8.4-10.2) mg/dL Magnesium (1.6-2.3) mg/dL Microbiology - Last 24 Hours (Table) 11/23/21 08:43 Gram Stain - Preliminary Sputum Sputum Culture - Preliminary 11/17/21 15:53 Blood Culture - Final Blood No Growth after 144 hours 11/17/21 15:53 Blood Culture - Final Blood No Growth after 144 hours Assessment and Plan Plan: Assessment: 1. Acute kidney injury secondary to ATN secondary to cardiorenal syndrome and vancomycin toxicity. Baseline creatinine near 1 from earlier this month. Creatinine was 2.24 on admission- 1.88 today. 2. Volume overload. Improved with diuresis. 3. Acute on chronic diastolic CHF with moderate aortic/tricuspid regurgitation and moderate pulmonary hypertension. 4. Right foot wound being followed by ID. 5. Hypervolemic hyponatremia. 6. Acute hypoxic respiratory failure secondary to pneumonia and CHF. Plan: Maintain IV Lasix for now. Will give Samsca if no improvement in sodium level tomorrow. 1500 mL fluid restriction. Encouraged oral intake. Avoid nephrotoxins. Continue to monitor renal function and urine output. Reyna catheter discontinued 11/21/2021. Follow up urine studies.
[2021-11-24 10:17] LABS: INR 1.8 (<1.2); Prothrombin Time 17.9 sec (9.0-12.0)
--- NOTE | 2021-11-24 11:50 | P.PN ---
Subjective Progress Note Date: 11/24/21 acute hypoxic respiratory failure secondary to healthcare acquired pneumonia, possible aspiration considering the patient had syncopal episode. possible underlying acute diastolic congestive heart failure 86-year-old white male patient with recent medical history of lower extremity cellulitis with abscess related to MRSA infection for which the patient was hospitalized recently and discharged to [facility] with the left upper extremity PICC line in place and vancomycin for evidence of MRSA in his right lower extremity. His past medical history is significant for chronic A. fib on Coumadin, previous history of CVA, hypertension, morbid obesity. Patient was discharged to the [facility] on 10/30/2021. On 11/17/2021 patient had a syncopal episode at the [facility] while getting up out of bed, patient denied hitting his head or suffering any trauma. The facility noted that over the course of the day patient was having increased shortness of breath, weakness, increased oxygen needs. Patient reports a dry cough, no fevers, he has chronic swelling in his lower extremities not any worse. He states he is more comfortable sleeping sitting upright than lying down he is not normally oxygen dependent. He is on 2 L of oxygen with a pulse ox of 92-94%, he is afebrile. Chest x-ray in emergency department showing coarse infiltrates throughout both lungs much greater on the right the possibility of underlying pneumonia. Lab evaluation showed a white count of 10.3, hemoglobin of 11.4, INR 1.5, sodium is 126, potassium is 4.9, chloride is 97, CO2 is 19, BUN is 59, creatinine is 2.24, bilirubin is 1.7, AST was 121, ALT was 100, alk phos was 201, troponin was 0.034, proBNP was 13,004 100, urinalysis showed large amount of blood, normal white blood cells, no clear evidence of urinary tract infection, Vanco trough from 11/15/2021 was 26, random vancomycin level is 29.6. COVID-19 PCR was negative. Patient was started on antibiotics with azithromycin and Rocephin, breathing treatments, patient was on Lasix 40 mg twice daily at the [facility], clinically he appears to be dehydrated with dry oral mucous membranes. Denies any nausea vomiting or diarrhea. Cultures have been sent, ID service, nephrology, and pulmonary consultations have been requested. reevaluated today on 11/18/21,patient is resting in bed, he is on 4 L nasal cannula, and his O2 saturation is 96%, blood pressure is 125/72, patient is relatively asymptomatic, denies shortness of breath denies any cough denies any wheezing, he tells me that he feels fine. No fever overnight. Patient is on antibiotics empirically for his cellulitis, chest x-ray showed interstitial edema, underlying infiltrate is not entirely ruled out. Apparently the patient had previous history of MRSA infection was fully treated by infectious disease on the case, and now he is on Rocephin and Zithromax. Reevaluated today on 11/19/21, patient is basically about the same, remains on 3 L nasal cannula, O2 sats 91%, chest x-ray continues to show interstitial edema, possible infiltrates bilaterally right more so than left. Patient remains on diuretics, remains empirically on antibiotics, his pro-calcitonin level 0.5, and his BNP level is over 15,000. Echocardiogram yesterday showed preserved LV function with ejection fraction of 50-55% it also showed moderate pulmonary hypertension. WBC count today is 9.7 hemoglobin 11.8 INR is 1.5 electrolytes are relatively normal BUN is down to 56 creatinine is down to 1.96 in spite of diuretics 11/20/2021, I'm seeing the patient for a follow-up. The patient is being treated for a combination of pneumonia and CHF. He is currently on oxygen at 3 L per minute nasal cannula with a pulse ox of 92%. He is afebrile. He is hemodynamically stable. On blood work from today shows a white cell count 9.5 with a hemoglobin of 11.4 and a platelet count of 345. Sodium is at 1:30, potassium is at 4.2, BUN is a 51 with a creatinine of 1.7 and a potassium level of 4.2. The patient is being diuresed and the patient is a negative fluid balance of at least 1.9 L over the past 24 hours. He remains on Lasix 40 mg ev krishna 12 hours. He is also on IV Rocephin. Dr. Mccray are wanted to consider broadening of antibiotic coverage to Zosyn considering aspiration. Nevertheless, I compared the series of chest exit and I believe that the right lung consolidations improving and the patient's clinically stable and I stated the course with the IV Rocephin. His pro-calcitonin level was 0.51 at time of admission on 11/17/2021. 11/21/2021, the patient has been brought up to 4 L of O2 nasal cannula and the current pulse ox is around 88%. This is slightly worse compared to yesterday. The chest x-ray findings from today is still showing a right lung consolidation along with cardiomegaly and pulmonary vascular congestion/CHF. Comparing this chest x-ray with the earlier chest x-rays, there is no major interval change. There could be some slight progression from prior study. Note that the patient also has cardiomegaly. The patient remains on IV Rocephin. The patient also on IV diuretics. The white cell count at 10.2 with a hemoglobin of 11.7 and BUN is at 46 with a creatinine of 1.7. The fluid balance over the past 24 hours has been -1.6 L. As such, the patient is diuresing adequately. He continues to have edema in lower extremities. He is awake and alert and communicating. No chest pain. The pro-calcitonin level was at 0.51 at the time of admission. Repeat pro-calcitonin level is down to 0.34. 11/22/2021 the patient remains on 5 L of O2 nasal cannula to bring his pulse ox above 90%. I'm seeing him today in follow-up. The chest x-ray findings and essentially unchanged and there is cardiomegaly and bilateral pulmonary infiltrates most on the lower lobes and some in the right upper lobe. The patient remains on Lasix 40 mg IV every 12 hours and the patient remains on IV Zosyn. The patient remains on anticoagulants with warfarin 4 mg on a daily basis. On his blood work from today, his white cell count is 11 with a hemoglobin 11.9 and a and her renal function is currently stable at 1.7 creatinine and a BUN of 43 and sodium level of 131. INR is subtherapeutic at 1.4. Pro-calcitonin level was improving and the level was down to 0.34. The fluid balance over the past 24 hours has been -1 L and the patient continues to make good urine output. 11/23/2021 the patient is on 6 L O2 nasal cannula. The patient's is on IV Zosyn. The patient was taken off the IV Lasix and the patient was placed on torsemide by nephrology. He is using incentive spirometer. A repeat chest x-ra y was done today and this was compared to the earlier chest x-ray. Findings are essentially unchanged and the patient has ongoing consolidation of the right lung with cardiomegaly and possibly some small bilateral pleural effusions. I think the presentation is more consistent with a combination of CHF and pneumonia. The patient is afebrile. White cell count is 11.1. INR is at one point for what the patient being on Coumadin. Creatinine stable at 1.7 and his sodium level is at 141. All of the microbial cultures of been negative and the patient remains on by mouth Augmentin. Using incentive spirometer. Continues to have swelling in lower extremities bilaterally. Fluid balance is -1 L over the past 24 hours. 7 2021, I'm seeing the patient for a follow-up. He remains on 6 L of oxygen by nasal cannula. Due to his underlying ongoing hypoxemia, I performed a CAT scan of the chest that showed extensive bilateral pulmonary infiltrates. The exact etiology remains unclear. This could be infectious. There may be also a component of interstitial edema and the patient had a small right-sided pleural effusion. Based on those results, I started the patient IV cefepime 2 g every 12 hours and also I kept the patient on diuretics and the patient is receiving Lasix 40 mg 8 hours. Repeat blood work from today shows a INR of 1.8 as the patient is on long-term and incontinence with warfarin. Sodium is at 129, BUN is a 49 with a creatinine of 1.88. The fluid balance is negative in the lower extremity edema is also improving. Note that his pro-calcitonin level was only a 0.34. Objective - Vital Signs Vital signs: Vital Signs Temp 97.9 F 11/24/21 08:00 Pulse 98 11/24/21 11:31 Resp 20 11/24/21 08:00 BP 106/75 11/24/21 08:00 Pulse Ox 88 L 11/24/21 08:14 FiO2 Intake & Output 11/23/21 11/24/21 11/24/21 18:59 06:59 18:59 Intake Total 540 100 Output Total 1000 550 Balance -460 -550 100 Weight 131.8 kg Intake: Intake, IV Titration 100 Amount Cefepime 2 gm In Sodium 100 Chloride 0.9% 100 ml @ 25 mls/hr IVPB Q12HR [facility] Rx #:[id number] Oral 540 Output: Urine 1000 550 Other: Voiding Method External Catheter External Catheter External Catheter - Exam GENERAL EXAM: revealed 86-year-old white male, on 6 L nasal cannula, in no distress. HEAD: Normocephalic/atraumatic. HEENT: PERRLA, EOMI, anicteric, no neck masses, no JVD, no stridor. CHEST: No chest wall deformity. Symmetrical expansion. LUNGS: fine crackles at the bases. No rhonchi and no wheezes CVS: Irregular rate and rhythm, normal S1 and S2, no gallops, no murmurs, no rubs ABDOMEN: obese,Soft, nontender. No hepatosplenomegaly, no rebound, no guarding. EXTREMITIES: No clubbing, chronic swelling in bilateral lower extremities, no cyanosis, 2+ pulses and upper and lower extremities.both lower extremities are wrapped with sterile dressings. Chronic venous stasis changes noted bilateral ly. SKIN: No rashes, however the patient does have chronic venous stasis changes in both lower extremities CENTRAL NERVOUS SYSTEM: alert and oriented 3 no gross focal deficits. PSYCHIATRIC: nnormal mood, affect and normal mental status examination. - Labs CBC & Chem 7: 11/22/21 06:41 11/24/21 09:11 Labs: Abnormal Lab Results - Last 24 Hours (Table) 11/23/21 11/23/21 11/24/21 Range/Units 09: 20:28 09:11 PT (9.0-12.0) sec INR (<1.2) Sodium 130 L 129 L 129 L (137-145) mmol/L Chloride 93 L 92 L (98-107) mmol/L Carbon Dioxide 33 H (22-30) mmol/L BUN 44 H 49 H (9-20) mg/dL Creatinine 1.79 H 1.88 H (0.66-1.25) mg/dL Glucose 108 H 128 H (74-99) mg/dL Calcium 8.1 L 8.2 L (8.4-10.2) mg/dL Magnesium 2.4 H (1.6-2.3) mg/dL 11/24/21 Range/Units 09:11 PT 17.9 H (9.0-12.0) sec INR 1.8 H (<1.2) Sodium (137-145) mmol/L Chloride (98-107) mmol/L Carbon Dioxide (22-30) mmol/L BUN (9-20) mg/dL Creatinine (0.66-1.25) mg/dL Glucose (74-99) mg/dL Calcium (8.4-10.2) mg/dL Magnesium (1.6-2.3) mg/dL Microbiology - Last 24 Hours (Table) 11/23/21 08:43 Gram Stain - Preliminary Sputum Sputum Culture - Preliminary 11/17/21 15:53 Blood Culture - Final Blood No Growth after 144 hours 11/17/21 15:53 Blood Culture - Final Blood No Growth after 144 hours Assessment and Plan Assessment: Acute hypoxic respiratory failure secondary to bilateral pneumonia, could be aspiration pneumonia since the patient had a syncopal episode. This could also be healthcare related pneumonia, However, I also suspect some component of acute diastolic congestive heart failure especially with his elevated BNP of over 13,000. The CXR showed cardiomegaly and CHF and bilateral consolidation R>L and the FU CXR from 11/23/2021 showed essentially no interval change. I think it's is essentially mixed picture of pneumonia and CHF. Computed tomography scan of the chest was done that showed bilateral pulmonary infiltrates, could be related to atypical pneumonia. There may be also a component of CHF as the patient had a right-sided pleural effusion, small. The patient is currently on IV cefepime and IV Lasix. Remains on O2 at 6 L nasal cannula. Hyponatremia with a sodium level of 129 acute diastolic congestive heart failure. Syncopal episode, likely cardiac in nature unless for otherwise. The patient is going to have an event monitor the time of discharge. Acute kidney injury. The creatinine is stable for now at 1.7 Chronic atrial fibrillation, on Coumadin., INR is being monitored on a daily basis and currently is still subtherapeutic Chronic cellulitis of lower extremities. History of MRSA infection/cellulitis. Nonsmoker. Chronic liver disease possibly secondary to alcohol. Type 2 diabetes. recommendation: With a CAT scan of the chest, noncontrast film, performed yesterday and the results were noted and can be a combination of pneumonia and CHF oxygen at 6 L of oxygen by nasal cannula Continue oxygen and titrate accordingly. Continue IV cefepime Continued IV Lasix for another 24 hours Monitor the oxygenation try to wean it off as tolerated Repeat chest x-ray in the morning Repeat electrolytes in the morning including renal function test Continue by mouth Augmentin we will continue to follow. Repeat chest x-ray in the morning was noted from today and we'll going to proceed with a CAT scan of the chest Overall long-term prognosis is relatively guarded.
--- NOTE | 2021-11-24 15:41 | P.PN ---
Subjective Progress Note Date: 11/23/21 Principal diagnosis: Right lower extremity wound and cellulitis Patient is 86 year old male who was recently admitted at this facility and was treated for right heel wound with secondary selected as culture positive for MRSA patient subsequently was discharged to the detention on IV vancomycin concern for deep infection now presenting back to the hospital with worsening respiratory status and worsening of his kidney function. On today's evaluation that is 11/23/2021, the patient continues to be afebrile , the patient is breathing comfortably on nasal cannula oxygen, the patient denies chest pain , the patient did have occasional cough and is bringing up curt e yellow sputum which has been sent for culture, the patient denies abdominal pain and no diarrhea no pain to the right heel Objective - Vital Signs Vital signs: Vital Signs Temp 97.9 F 11/23/21 03:44 Pulse 81 11/23/21 08:14 Resp 21 11/23/21 03:44 BP 131/59 11/23/21 03:44 Pulse Ox 95 11/23/21 08:14 FiO2 Intake & Output 11/22/21 11/23/21 11/23/21 18:59 06:59 18:59 Intake Total 1200 600 Output Total 1100 500 Balance 100 600 -500 Intake: Oral 1200 600 Output: Urine 1100 500 Other: Voiding Method External Catheter External Catheter # Voids 3 # Bowel Movements 0 - Exam GENERAL DESCRIPTION: An elderly male lying in bed in no distress RESPIRATORY SYSTEM: Unlabored breathing , decreased breath sounds at bases HEART: S1 S2 regular rate and rhythm , ABDOMEN: Soft , no tenderness EXTREMITIES: Right heel wound is currently dressed no drainage on the dressing right leg redness has decreased - Labs CBC & Chem 7: 11/22/21 06:41 11/24/21 09:11 Labs: Abnormal Lab Results - Last 24 Hours (Table) 11/22/21 Range/Units 06:41 Procalcitonin 0.30 H (0.02-0.09) ng/mL Microbiology - Last 24 Hours (Table) 11/17/21 15:53 Blood Culture - Preliminary Blood No Growth after 120 hours 11/17/21 15:53 Blood Culture - Preliminary Blood No Growth after 120 hours Assessment and Plan (1) Leukocytosis Current Visit: No Status: Acute Code(s): D72.829 - ELEVATED WHITE BLOOD CELL COUNT, UNSPECIFIED SNOMED Code(s): 522648194 Plan: 1patient presented to hospital with increasing shortness of breath which is likely multifactorial and more likely from the fluid overload from his kidney failure plus minus a component of pneumonia 2 patient with elevated liver enzymes ultrasound of his liver and gallbladder area no evidence of cholecystitis 3patient with right heel wound to continue local wound care to the right heel wound with the Santyl followed by moist dressing and keep the area off the pressure. 4 patient did have minimal clinical improvement, sputum cultures are currently pending patient to continue with Augmentin Time with Patient: Less than 30
--- NOTE | 2021-11-24 15:42 | P.PN ---
Subjective Progress Note Date: 11/24/21 Principal diagnosis: Right lower extremity wound and cellulitis Patient is 86 year old male who was recently admitted at this facility and was treated for right heel wound with secondary selected as culture positive for MRSA patient subsequently was discharged to the senior care on IV vancomycin concern for deep infection now presenting back to the hospital with worsening respiratory status and worsening of his kidney function. On today's evaluation that is 11/24/2021, the patient denies any fever or chills , the patient is complaining of some shortness of breath today but no chest pain , the patient did have occasional cough , the patient denies abdominal pain and no diarrhea no pain to the right heel Objective - Vital Signs Vital signs: Vital Signs Temp 97.9 F 11/24/21 08:00 Pulse 105 H 11/24/21 11:45 Resp 20 11/24/21 08:00 BP 106/75 11/24/21 08:00 Pulse Ox 88 L 11/24/21 08:14 FiO2 Intake & Output 11/23/21 11/24/21 11/24/21 18:59 06:59 18:59 Intake Total 540 100 Output Total 1000 550 Balance -460 -550 100 Weight 131.8 kg Intake: Intake, IV Titration 100 Amount Cefepime 2 gm In Sodium 100 Chloride 0.9% 100 ml @ 25 mls/hr IVPB Q12HR [facility] Rx #:[id number] Oral 540 Output: Urine 1000 550 Other: Voiding Method External Catheter External Catheter External Catheter - Exam GENERAL DESCRIPTION: An elderly male lying in bed in no distress RESPIRATORY SYSTEM: Unlabored breathing , decreased breath sounds at bases HEART: S1 S2 regular rate and rhythm , ABDOMEN: Soft , no tenderness EXTREMITIES: Right heel wound is currently dressed no drainage on the dressing right leg redness has decreased - Labs CBC & Chem 7: 11/22/21 06:41 11/24/21 09:11 Labs: Abnormal Lab Results - Last 24 Hours (Table) 11/23/21 11/23/21 11/24/21 Range/Units 09:26 20:28 09:11 PT (9.0-12.0) sec INR (<1.2) Sodium 130 L 129 L 129 L (137-145) mmol/L Chloride 93 L 92 L (98-107) mmol/L Carbon Dioxide 33 H (22-30) mmol/L BUN 44 H 49 H (9-20) mg/dL Creatinine 1.79 H 1.88 H (0.66-1.25) mg/dL Glucose 108 H 128 H (74-99) mg/dL Calcium 8.1 L 8.2 L (8.4-10.2) mg/dL Magnesium 2.4 H (1.6-2.3) mg/dL 11/24/21 Range/Units 09:11 PT 17.9 H (9.0-12.0) sec INR 1.8 H (<1.2) Sodium (137-145) mmol/L Chloride (98-107) mmol/L Carbon Dioxide (22-30) mmol/L BUN (9-20) mg/dL Creatinine (0.66-1.25) mg/dL Glucose (74-99) mg/dL Calcium (8.4-10.2) mg/dL Magnesium (1.6-2.3) mg/dL Microbiology - Last 24 Hours (Table) 11/23/21 08:43 Gram Stain - Preliminary Sputum Sputum Culture - Preliminary 11/17/21 15:53 Blood Culture - Final Blood No Growth after 144 hours 11/17/21 15:53 Blood Culture - Final Blood No Growth after 144 hours Assessment and Plan (1) Leukocytosis Current Visit: No Status: Acute Code(s): D72.829 - ELEVATED WHITE BLOOD CELL COUNT, UNSPECIFIED SNOMED Code(s): 348495218 Plan: 1patient presented to hospital with increasing shortness of breath which is likely multifactorial and more likely from the fluid overload from his kidney failure plus minus a component of pneumonia 2 patient with elevated liver enzymes ultrasound of his liver and gallbladder area no evidence of cholecystitis 3patient with right heel wound to continue local wound care to the right heel wound with the Santyl followed by moist dressing and keep the area off the pressure. [address] of the chest with evidence of extensive infiltrate, procalcitonin is elevated sputum cultures pending, antibiotic switched to cefepime to continue while waiting for the sputum culture to be finalize Time with Patient: Less than 30
[2021-11-24] MEDS ORDERED: FUROSEMIDE 10 MG/ML 4 ML VIAL IV SCH (17:18)
[2021-11-24] MEDS: COLLAGENASE 250 UNIT/GM OINTMENT 30 GM TUBE TOPICAL SCH (17:26)
[2021-11-24] MEDS ORDERED: METOPROLOL TARTRATE 5 MG/5 ML VIAL IVP ONE (17:30)
[2021-11-24 17:36] LABS: Glucose,Whole Blood 161 mg/dL (75-99)
[2021-11-24] MEDS ORDERED: WARFARIN 5 MG TAB PO ONE (18:00)
[2021-11-24] MEDS: Acetaminophen-Codeine 300-30mg TAB PO PRN (21:25)
[2021-11-24] MEDS: ESCITALOPRAM 20 MG TAB PO SCH (21:26)
--- NOTE | 2021-11-25 04:08 | P.PN ---
Subjective Progress Note Date: 11/24/21 11/20/2021 diuresing on Lasix IV push, 24-hour I&O reflecting a negative fluid balance. Renal function trending down with creatinine 1.72. Maintaining O2 sats in the 90s on 3 L nasal cannula, with accessory muscle use. Pro-calcitonin elevated 0.34. Sodium 1:30, afebrile, normal WBC. Maintained on Rocephin as per infectious disease. Denies pain of right lower extremity. Evaluated by wound care services with recommendations noted pertaining to chronic right foot ulcer with nonweightbearing of right heel. Hematuria secondary to traumatic insertion. 11/21/2021 Feels better, maintaining O2 sats of 90% on 3 L nasal cannula. Diuresing on IV Lasix well with 24-hour I&O reflecting a negative fluid balance. Sodium 132, BUN 46, creatinine 1.77. Chest x-ray pending. Denies chest pain, palpitations. Occasional nonproductive cough. 11/23/2021 This is an 86-year-old male who was recently admitted with CHF with hypoxia and is being closely monitored. Multiple medical consultations following including cardiology, pulmonary, and nephrology. Patient continues on 6 L via nasal cannula and was recently started on torsemide today and continues with volume overload. Case management and social insurance administrator also following as patient will be going to [facility] once stabilized and discharged. chest xray continues to show pleural effusions and possible infectious process such as pneumonia. CT chest is ordered and pending per pulmonary. Patient denies chest pain or palpitations. Patient is afebrile. Patient is continued on oral augmentin and breathing treatments. 11/24/2021 Patient is seen this am and having increasing shortness of breath and heart rate is elevated and will reconsult cardiology and appreciate input and recommendations. Patient is being followed by multiple medical consultations including ID and patient is on cefepime. Patient transitioned to IV lasix bid and nephrology is following. Patient being followed by pulm and continued on breathing inhalational treatments and will continue. Continue wound care. Patient is afebrile. Patient denies chest pain. Review of systems: Constitutional: No reports of fatigue, fever, or chills Cardiovascular: No reports of chest pain or palpitations Respiratory: reports of increasing shortness of breath today GI: no reports of nausea, no reports of of vomiting, decreased appetite today : No reports of dysuria or retention Neurovascular: reports of generalized weakness All medications have been reviewed Active Medications Acetaminophen (Acetaminophen Tab 325 Mg Tab) 650 mg PO Q6HR PRN PRN Reason: Mild Pain or Fever > 100.5 Acetaminophen/Codeine Phosphate (Acetaminophen-Codeine 300-30mg Tab) 1 each PO Q4H PRN PRN Reason: Pain Last Admin: 11/24/21 21:25 Dose: 1 each Albuterol/Ipratropium (Ipratropium-Albuterol 3 Ml Neb) 3 ml INHALATION RT-Q4H PRN PRN Reason: shortness of breath Last Admin: 11/24/21 21:06 Dose: 3 ml Aspirin (Aspirin 81 Mg) 81 mg PO DAILY [facility] Last Admin: 11/24/21 08:52 Dose: 81 mg Buspirone HCl (Buspirone Hcl 5 Mg Tab) 5 mg PO BID [facility] Last Admin: 11/24/21 21:26 Dose: 5 mg Collagenase (Collagenase 250 Unit/Gm Ointment 30 Gm Tube) 1 applic TOPICAL FARAZ Y [facility]; Protocol Last Admin: 11/24/21 17:26 Dose: 1 applic Escitalopram Oxalate (Escitalopram 20 Mg Tab) 20 mg PO HS [facility] Last Admin: 11/24/21 21:26 Dose: 20 mg Furosemide (Furosemide 10 Mg/Ml 4 Ml Vial) 40 mg IV DAILY [facility] Cefepime HCl 2 gm/ Sodium (Chloride) 100 mls @ 25 mls/hr IVPB Q12HR [facility]; Protocol Last Admin: 11/24/21 21:26 Dose: 25 mls/hr Ketorolac Tromethamine (Ketorolac 0.5% Ophth Drops 5 Ml Btl) 1 drops LEFT EYE Q12H [facility] Last Admin: 11/24/21 21:27 Dose: 1 drops Metoprolol Tartrate (Metoprolol Tartrate 50 Mg Tab) 50 mg PO Q12H [facility] Last Admin: 11/24/21 21:26 Dose: 50 mg Midodrine (Midodrine 5 Mg Tab) 5 mg PO AC-TID [facility] Last Admin: 11/24/21 16:19 Dose: Not Given Miscellaneous Information (Pneumonia Protocol Utilized 1 Each Misc) 1 each PO ONCE PRN PRN Reason: Per Protocol Miscellaneous Information (Warfarin Per Pharmacy) 1 each MISCELLANE DIRECTED PRN; Protocol PRN Reason: Per Protocol Naloxone HCl (Naloxone 0.4 Mg/Ml 1 Ml Vial) 0.2 mg IV Q2M PRN PRN Reason: Opioid Reversal Pantoprazole Sodium (Pantoprazole 40 Mg Tablet) 40 mg PO DAILY@0600 [facility] Last Admin: 11/24/21 05:16 Dose: 40 mg Sodium Chloride (Sodium Chloride 0.65% Nasal [place] 44 Ml Btl) 2 spray NASAL QID PRN PRN Reason: Congestion Last Admin: 11/19/21 17:05 Dose: 2 spray Timolol Maleate (Timolol 0.5% Ophth Drops 5 Ml Btl) 1 drops BOTH EYES Q12HR [facility] Last Admin: 11/24/21 21:26 Dose: 1 drops PHYSICAL EXAMINATION: GENERAL: The patient is alert and oriented x4, morbidly obese Well developed, well nourished. HEENT: Pupils are round and equally reacting to light. EOMI. no scleral icterus. No conjunctival pallor. Normocephalic, atraumatic. No pharyngeal erythema. No thyromegaly. CARDIOVASCULAR: S1 and S2 muffled PULMONARY: diminished breath sounds bilaterally with scattered rhonchi and crackles noted. ABDOMEN: soft. Nontender on exam. obese. non-distended, normoactive bowel sounds. No palpable organomegaly. MUSCULOSKELETAL: No joint swelling or deformity. EXTREMITIES: No cyanosis, clubbing, bilateral pedal edema noted. Generalized edema noted NEUROLOGICAL: Gross neurological examination did not reveal any focal deficits. Diffuse weakness SKIN: No rashes. Assessment: Acute hypoxic respiratory failure secondary to acute CHF exacerbation, diastolic dysfunction, possible healthcare acquired bilateral pneumonia. 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 Patient recently started on torsemide with nephrology following closely. Kidney functions elevated and patient continues with overload. Patient with increasing shortness of breath and will transition back to IV lasix bid and recommend closely following labs. Patient also continues on 6 L via nasal cannula with shortness of breath chronically wears 4- 5 L and continues to have shortness of breath. PT OT following as patient also continues with weakness and will be going to [facility] on the [place] when stabilized discharge. Will reconsult cardiology for elevated heart rate. Due to multiple complex medical issues, prognosis is guarded. The impression and plan of care has been dictated by Lyndsey Vera, nurse practitioner as directed. Dr. Hector MD I have performed a history and examination and MDM of this patient, discussed the same with the dictator, and agree with the dictator's assessment and plan as written ,documented as a scribe. Based on total visit time, I have performed more than 50% of the visit. Any additional findings or plans will be noted. Objective - Vital Signs Vital signs: Vital Signs Temp 97.9 F 11/24/21 08:00 Pulse 141 H 11/24/21 14:00 Resp 20 11/24/21 14:00 BP 143/90 11/24/21 12:00 Pulse Ox 86 L 11/24/21 12:00 FiO2 Intake & Output 11/23/21 11/24/21 11/24/21 18:59 06:59 18:59 Intake Total 540 100 Output Total 1000 550 Balance -460 -550 100 Weight 131.8 kg Intake: Intake, IV Titration 100 Amount Cefepime 2 gm In Sodium 100 Chloride 0.9% 100 ml @ 25 mls/hr IVPB Q12HR [facility] Rx #:[id number] Oral 540 Output: Urine 1000 550 Other: Voiding Method External Catheter External Catheter External Catheter - Labs CBC & Chem 7: 11/22/21 06:41 11/24/21 09:11 Labs: Abnormal Lab Results - Last 24 Hours (Table) 11/23/21 11/24/21 11/24/21 Range/Units 20:28 09:11 09:11 PT 17.9 H (9.0-12.0) sec INR 1.8 H (<1.2) Sodium 129 L 129 L (137-145) mmol/L Chloride 92 L (98-107) mmol/L BUN 49 H (9-20) mg/dL Creatinine 1.88 H (0.66-1.25) mg/dL Glucose 128 H (74-99) mg/dL Calcium 8.2 L (8.4-10.2) mg/dL Microbiology - Last 24 Hours (Table) 11/23/21 08:43 Gram Stain - Preliminary Sputum Sputum Culture - Preliminary 11/17/21 15:53 Blood Culture - Final Blood No Growth after 144 hours 11/17/21 15:53 Blood Culture - Final Blood No Growth after 144 hours
[2021-11-25] MEDS: PANTOPRAZOLE 40 MG TABLET PO SCH (05:17)
[2021-11-25] MEDS: MIDODRINE 5 MG TAB PO SCH ×3 (06:45→17:50)
--- NOTE | 2021-11-25 08:32 | XR ---
EXAMINATION TYPE: XR chest 1V portable DATE OF EXAM: 11/25/2021 COMPARISON: 11/23/2021 INDICATION: CHF TECHNIQUE: Single frontal view of the chest is obtained. FINDINGS: The heart size is moderately prominent. The pulmonary vasculature is normal. Diffuse increased lung markings are through the right lung. Mild left lower lobe infiltrate is presen t. IMPRESSION: 1. Worsening bilateral lung infiltrates.
[2021-11-25] MEDS: IPRATROPIUM-ALBUTEROL 3 ML NEB INHALATION PRN ×3 (08:45→16:27)
--- NOTE | 2021-11-25 08:56 | P.PN ---
Subjective Patient is seen for follow-up for acute kidney injury. He is currently being diuresed. He is sitting up on a bedside chair. He states he is mildly short of breath. He is maintained on 6 L nasal cannula Patient has an external catheter. 24-hour urine output at 1.5 L. Serum creatinine 1.8 as of yesterday. Objective - Vital Signs Vital signs: Vital Signs Temp 97.8 F 11/25/21 04:00 Pulse 122 H 11/25/21 08:48 Resp 19 11/25/21 04:00 BP 115/81 11/25/21 04:00 Pulse Ox 89 L 11/25/21 08:48 FiO2 Intake & Output 11/24/21 11/25/21 11/25/21 18:59 06:59 18:59 Intake Total 200 540 Output Total 150 Balance 200 390 Intake: Intake, IV Titration 100 Amount Cefepime 2 gm In Sodium 100 Chloride 0.9% 100 ml @ 25 mls/hr IVPB Q12HR [facility] Rx #:[id number] Oral 100 540 Output: Urine 150 Other: Voiding Method External Catheter External Catheter - Exam Patient is awake, comfortable, mildly short of breath No acute distress Examination of the heart S1 and S2 Examination of lungs bilateral breath sounds are heard, Scattered wheezes bilaterally Examination of the abdomen reveals it to be soft morbidly obese Examination of lower extremities shows chronic skin changes with chronic edema bilaterally. 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 Acute kidney injury associated with ATN from cardiorenal syndrome and element of vancomycin toxicity. Serum creatinine down from 2.2-1.8 yesterday. Labs pending from today. Previous creatinine 1.0 from earlier this month 2. Volume overload currently maintained on diuretics and improving 3. Acute on chronic diastolic CHF with moderate aortic and tricuspid regurgitation and moderate pulmonary hypertension 4. Right foot wound being followed by ID 5. Hypervolemic hyponatremia 6. Acute hypoxic respiratory failure secondary to pneumonia and CHF Plan: Continue with IV Lasix Follow-up on labs from today including sodium Maintain fluid restriction Repeat labs in a.m. Avoid nephrotoxic agents Accurate I's and O's
[2021-11-25 09:03] LABS: Anisocytosis Slight; Basophils # (A) 0.1 k/uL (0-0.2); Basophils % (A) 0 %; Eosinophils # (A) 0.3 k/uL (0-0.7); Eosinophils % (A) 2 %; HCT 39.3 % (39.0-53.0); Hypochromasia Marked; Lymphocytes # (A) 1.8 k/uL (1.0-4.8); Lymphocytes % (A) 13 %; MCH 26.7 pg (25.0-35.0); MCHC 30.5 g/dL (31.0-37.0); MCV 87.5 fL (80.0-100.0); Mean Platelet Volume 7.5; Monocytes # (A) 0.6 k/uL (0-1.0); Monocytes % (A) 4 %; Neutrophils # (A) 11.2 k/uL (1.3-7.7); Neutrophils % (A) 79 %; Platelet Count 360 k/uL (150-450); RBC 4.49 m/uL (4.30-5.90); RDW 17.9 % (11.5-15.5); WBC 14.2 k/uL (3.8-10.6)
[2021-11-25] MEDS: KETOROLAC 0.5% OPHTH DROPS 5 ML BTL LEFT EYE SCH ×2 (09:08→21:16)
[2021-11-25] MEDS: busPIRone HCl 5 MG TAB PO SCH ×2 (09:09→21:15)
[2021-11-25] MEDS: FUROSEMIDE 10 MG/ML 4 ML VIAL IV SCH (09:09)
[2021-11-25] MEDS: METOPROLOL TARTRATE 50 MG TAB PO SCH ×2 (09:09→21:15)
[2021-11-25] MEDS: CEFEPIME 2 GM in SODIUM CHLORIDE 0.9% 100 ML IVPB SCH (09:09)
[2021-11-25] MEDS: TIMOLOL 0.5% OPHTH DROPS 5 ML BTL BOTH EYES SCH ×2 (09:09→21:15)
[2021-11-25] MEDS: ASPIRIN 81 MG PO SCH (09:09)
[2021-11-25 09:15] LABS: Calcium 8.3 mg/dL (8.4-10.2); Magnesium 2.3 mg/dL (1.6-2.3); Potassium 5.1 mmol/L (3.5-5.1)
[2021-11-25 09:21] LABS: INR 2.7 (<1.2); Prothrombin Time 27.4 sec (9.0-12.0)
[2021-11-25] MEDS ORDERED: VANCOMYCIN IV PER PHARMACY 1 EACH MISC MISCELLANE PRN (09:23)
[2021-11-25] MEDS ORDERED: DIGOXIN 250 MCG/ML 2 ML AMP IVP STA (09:31)
[2021-11-25] MEDS ORDERED: METOPROLOL TARTRATE 25 MG TAB PO STA (09:32)
--- NOTE | 2021-11-25 09:39 | P.PN ---
Subjective HISTORY OF PRESENTING ILLNESS This is a pleasant 86-year-old male past medical history significant for chronic persistent atrial fibrillation on warfarin, history of CVA, hypertension and peripheral vascular disease status post carotid intervention. He also has chronic lower extremity wounds. He follows in the office with Dr. Mccarty. We have been asked to see in consultation for syncope. He presented to the hospital after suffering a syncopal episode at [facility] where he was receiving IV antibiotics. According to the patient he doesn't necessarily recall what happened he just woke up on the floor. Then again while he was in the hospital he got up from bed to use the restroom he remembers walking in the bathroom feeling lightheaded and woke up again on the floor. He does endorse positive loss of consciousness. He denies feeling palpitations and chest pain shortness of breath prior to this episode. There is nothing on telemetry to suggest a significant bradycardia arrhythmia. He is in persistent atrial fibrillation wit h controlled ventricular rates. EKGs reveal atrial fibrillation with controlled ventricular rate. Echocardiogram obtained reveals preserved LV systolic function with ejection fraction 50-55%, moderate aortic regurgitation and moderate tricuspid regurgitation with an RVSP of 49 mmHg. 11/25 Patient seen and examined. Patient remains in A. fib with elevated heart rates in the 110 to 130s over last few days. Currently this morning up to 140s. He has felt worse since yesterday with increased oxygen demand. He denies any chest pain or pressure. Oxygen was increased from 6-8. He has been receiving IV diuretics with creatinine mildly increased 1.8 up to 2.[address] had shown extensive bilateral infiltrates however possibility of some pulmonary edema as well. He has been on the Lasix 40 mg IV daily with some 1500 mL output. Chest x-ray this morning shows worsening right pulmonary infiltrate. White blood cell count noted to be increased up to 14 PHYSICAL EXAMINATION Vitals reviewed CONSTITUTIONAL: No apparent distress. HEENT: Head is normocephalic. Pupils are equal, round. Sclerae anicteric. Mucous membranes of the mouth are moist. No JVD. No carotid bruit. CHEST EXAMINATION: Lungs are clear to auscultation. No chest wall tenderness is noted on palpation or with deep breathing. HEART EXAMINATION: Irregular rate and rhythm. S1, S2 heard. No murmurs, gallops or rub. ABDOMEN: Soft, nontender. EXTREMITIES: 2+ peripheral pulses, trace bilateral lower extremity edema with multiple areas of oozing bilateral Marcus wraps in place and no calf tenderness. NEUROLOGIC EXAMINATION: Patient is awake, alert and oriented x3. ASSESSMENT Syncopal episode 2 Acute kidney injury Chronic persistent atrial fibrillation on long-term anticoagulation with RVR Hypertension Peripheral vascular disease Acute on chronic diastolic heart failure Bilateral infiltrates concerning for pneumonia PLAN Previous discussions regarding possible discontinuation of Coumadin given increased fall risk. Continue with current regimen. Heart rates have been significantly elevated for last few days. We will add digoxin as well as increase metoprolol from 50-75. Heart rates likely somewhat exacerbated by respiratory status however appears to also be affecting heart failure. Some ambiguity regarding component of pneumonia versus heart failure and we will continue with current diuretics however monitor creatinine closely. Prognosis guarded. Objective - Vital Signs Vital signs: Vital Signs Temp 97.8 F 11/25/21 04:00 Pulse 130 H 11/25/21 09:00 Resp 19 11/25/21 04:00 BP 115/81 11/25/21 04:00 Pulse Ox 89 L 11/25/21 08:48 FiO2 Intake & Output 11/24/21 11/25/21 11/25/21 18:59 06:59 18:59 Intake Total 200 540 Output Total 150 Balance 200 390 Intake: Intake, IV Titration 100 Amount Cefepime 2 gm In Sodium 100 Chloride 0.9% 100 ml @ 25 mls/hr IVPB Q12HR [facility] Rx #:[id number] Oral 100 540 Output: Urine 150 Other: Voiding Method External Catheter External Catheter - Labs CBC & Chem 7: 11/25/21 08:31 11/25/21 08:31 Labs: Abnormal Lab Results - Last 24 Hours (Table) 11/24/21 11/24/21 11/24/21 Range/Units 09:11 09:11 17:25 WBC (3.8-10.6) k/uL Hgb (13.0-17.5) gm/dL MCHC (31.0-37.0) g/dL RDW (11.5-15.5) % Neutrophils # (1.3-7.7) k/uL PT 17.9 H (9.0-12.0) sec INR 1.8 H (<1.2) Sodium 129 L (137-145) mmol/L Chloride 92 L (98-107) mmol/L BUN 49 H (9-20) mg/dL Creatinine 1.88 H (0.66-1.25) mg/dL Glucose 128 H (74-99) mg/dL POC Glucose (mg/dL) 161 H (75-99) mg/dL Calcium 8.2 L (8.4-10.2) mg/dL 11/25/21 11/25/21 11/25/21 Range/Units 08:31 08:31 08:31 WBC 14.2 H (3.8-10.6) k/uL Hgb 12.0 L (13.0-17.5) gm/dL MCHC 30.5 L (31.0-37.0) g/dL RDW 17.9 H (11.5-15.5) % Neutrophils # 11.2 H (1.3-7.7) k/uL PT 27.4 H (9.0-12.0) sec INR 2.7 H (<1.2) Sodium 129 L (137-145) mmol/L Chloride 93 L (98-107) mmol/L BUN 54 H (9-20) mg/dL Creatinine 2.08 H (0.66-1.25) mg/dL Glucose 128 H (74-99) mg/dL POC Glucose (mg/dL) (75-99) mg/dL Calcium 8.3 L (8.4-10.2) mg/dL Microbiology - Last 24 Hours (Table) 11/23/21 08:43 Gram Stain - Preliminary Sputum Sputum Culture - Preliminary
[2021-11-25] MEDS ORDERED: VANCOMYCIN 2,000 MG in SODIUM CHLORIDE 0.9% 500 ML 500 ML IVPB ONE (10:00)
[2021-11-25] MEDS: methylPREDNISolone SOD SUCCI 40 MG/ML 1 ML VIAL IV SCH ×2 (10:00→17:49)
[2021-11-25 11:48] LABS: Glucose,Whole Blood 129 mg/dL (75-99)
--- NOTE | 2021-11-25 12:08 | P.PN ---
Subjective Progress Note Date: 11/25/21 acute hypoxic respiratory failure secondary to healthcare acquired pneumonia, possible aspiration considering the patient had syncopal episode. possible underlying acute diastolic congestive heart failure 86-year-old white male patient with recent medical history of lower extremity cellulitis with abscess related to MRSA infection for which the patient was hospitalized recently and [facility] with the left upper extremity PICC line in place and vancomycin for evidence of MRSA in his right lower extremity. His past medical history is significant for chronic A. fib on Coumadin, previous history of CVA, hypertension, morbid obesity. Patient was [facility] to the [facility] 10/[facility]21. On 11/17/2021 patient had a syncopal episode at the [facility] while getting up out of bed, patient denied hitting his head or suffering any trauma. The facility noted that over the course of the day patient was having increased shortness of breath, weakness, increased oxygen needs. Patient reports a dry cough, no fevers, he has chronic swelling in his lower extremities not any worse. He states he is more comfortable sleeping sitting upright than lying down he is not normally oxygen dependent. He is on 2 L of oxygen with a pulse ox of 92-94%, he is afebrile. Chest x-ray in emergency department showing coarse infiltrates throughout both lungs much greater on the right the possibility of underlying pneumonia. Lab evaluation showed a white count of 10.3, hemoglobin of 11.4, INR 1.5, sodium is 126, potassium is 4.9, chloride is 97, CO2 is 19, BUN is 59, creatinine is 2.24, bilirubin is 1.7, AST was 121, ALT was 100, alk phos was 201, troponin was 0.034, proBNP was 13,004 100, urinalysis showed large amount of blood, normal white blood cells, no clear evidence of urinary tract infection, Vanco trough from 11/15/2021 was 26, random vancomycin level is 29.6. COVID-19 PCR was negative. Patient was started on antibiotics with azithromycin and Rocephin, breathing treatments, patient was on Lasix 40 mg twice daily at the [facility], clinically he appears to be dehydrated with dry oral mucous membranes. Denies any nausea vomiting or diarrhea. Cultures have been sent, ID service, nephrology, and pulmonary consultations have been requested. reevaluated today on 11/18/21,patient is resting in bed, he is on 4 L nasal cannula, and his O2 saturation is 96%, blood pressure is 125/72, patient is relatively asymptomatic, denies shortness of breath denies any cough denies any wheezing, he tells me that he feels fine. No fever overnight. Patient is on antibiotics empirically for his cellulitis, chest x-ray showed interstitial edema, underlying infiltrate is not entirely ruled out. Apparently the patient had previous history of MRSA infection was fully treated by infectious disease on the case, and now he is on Rocephin and Zithromax. Reevaluated today on 11/19/21, patient is basically about the same, remains on 3 L nasal cannula, O2 sats 91%, chest x-ray continues to show interstitial edema, possible infiltrates bilaterally right more so than left. Patient remains on diuretics, remains empirically on antibiotics, his pro-calcitonin level 0.5, and his BNP level is over 15,000. Echocardiogram yesterday showed preserved LV function with ejection fraction of 50-55% it also showed moderate pulmonary hypertension. WBC count today is 9.7 hemoglobin 11.8 INR is 1.5 electrolytes are relatively normal BUN is down to 56 creatinine is down to 1.96 in spite of diuretics 11/20/2021, I'm seeing the patient for a follow-up. The patient is being treated for a combination of pneumonia and CHF. He is currently on oxygen at 3 L per minute nasal cannula with a pulse ox of 92%. He is afebrile. He is hemodynamically stable. On blood work from today shows a white cell count 9.5 with a hemoglobin of 11.4 and a platelet count of 345. Sodium is at 1:30, potassium is at 4.2, BUN is a 51 with a creatinine of 1.7 and a potassium level of 4.2. The patient is being diuresed and the patient is a negative fluid balance of at least 1.9 L over the past 24 hours. He remains on Lasix 40 mg ev krishna 12 hours. He is also on IV Rocephin. Dr. Mccray are wanted to consider broadening of antibiotic coverage to Zosyn considering aspiration. Nevertheless, I compared the series of chest exit and I believe that the right lung consolidations improving and the patient's clinically stable and I stated the course with the IV Rocephin. His pro-calcitonin level was 0.51 at time of admission on 11/17/2021. 11/21/2021, the patient has been brought up to 4 L of O2 nasal cannula and the current pulse ox is around 88%. This is slightly worse compared to yesterday. The chest x-ray findings from today is still showing a right lung consolidation along with cardiomegaly and pulmonary vascular congestion/CHF. Comparing this chest x-ray with the earlier chest x-rays, there is no major interval change. There could be some slight progression from prior study. Note that the patient also has cardiomegaly. The patient remains on IV Rocephin. The patient also on IV diuretics. The white cell count at 10.2 with a hemoglobin of 11.7 and BUN is at 46 with a creatinine of 1.7. The fluid balance over the past 24 hours has been -1.6 L. As such, the patient is diuresing adequately. He continues to have edema in lower extremities. He is awake and alert and communicating. No chest pain. The pro-calcitonin level was at 0.51 at the time of admission. Repeat pro-calcitonin level is down to 0.34. 11/22/2021 the patient remains on 5 L of O2 nasal cannula to bring his pulse ox above 90%. I'm seeing him today in follow-up. The chest x-ray findings and essentially unchanged and there is cardiomegaly and bilateral pulmonary infiltrates most on the lower lobes and some in the right upper lobe. The patient remains on Lasix 40 mg IV every 12 hours and the patient remains on IV Zosyn. The patient remains on anticoagulants with warfarin 4 mg on a daily basis. On his blood work from today, his white cell count is 11 with a hemoglobin 11.9 and a and her renal function is currently stable at 1.7 creatinine and a BUN of 43 and sodium level of 131. INR is subtherapeutic at 1.4. Pro-calcitonin level was improving and the level was down to 0.34. The fluid balance over the past 24 hours has been -1 L and the patient continues to make good urine output. 11/23/2021 the patient is on 6 L O2 nasal cannula. The patient's is on IV Zosyn. The patient was taken off the IV Lasix and the patient was placed on torsemide by nephrology. He is using incentive spirometer. A repeat chest x-ra y was done today and this was compared to the earlier chest x-ray. Findings are essentially unchanged and the patient has ongoing consolidation of the right lung with cardiomegaly and possibly some small bilateral pleural effusions. I think the presentation is more consistent with a combination of CHF and pneumonia. The patient is afebrile. White cell count is 11.1. INR is at one point for what the patient being on Coumadin. Creatinine stable at 1.7 and his sodium level is at 141. All of the microbial cultures of been negative and the patient remains on by mouth Augmentin. Using incentive spirometer. Continues to have swelling in lower extremities bilaterally. Fluid balance is -1 L over the past 24 hours. 7 2021, I'm seeing the patient for a follow-up. He remains on 6 L of oxygen by nasal cannula. Due to his underlying ongoing hypoxemia, I performed a CAT scan of the chest that showed extensive bilateral pulmonary infiltrates. The exact etiology remains unclear. This could be infectious. There may be also a component of interstitial edema and the patient had a small right-sided pleural effusion. Based on those results, I started the patient IV cefepime 2 g every 12 hours and also I kept the patient on diuretics and the patient is receiving Lasix 40 mg 8 hours. Repeat blood work from today shows a INR of 1.8 as the patient is on long-term and incontinence with warfarin. Sodium is at 129, BUN is a 49 with a creatinine of 1.88. The fluid balance is negative in the lower extremity edema is also improving. Note that his pro-calcitonin level was only a 0.34. 11/25/2021, the patient is doing poorly. The patient is reporting worsening shortness of breath. He remains on 6 L of oxygen by nasal cannula. His breathing is labored. Repeat chest x-ray was done and showed worsening of the consolidation bilaterally. He was on IV cefepime. I added vancomycin. Meanwhile, he still having issues with atrial fibrillation with RVR. Cardiology is seeing the patient in this regard. No syncopal episodes. INR is at 2.7 which is therapeutic for now. On today's blood work, creatinine is at 2.08 with a BUN of 54 and the patient remains on Lasix 40 g every 24 hours. The patient sodium level is at 129. The patient's white cell count is at 14.2 with a hemogl obin of 12.0. Sputum culture and blood cultures all negative. Objective - Vital Signs Vital signs: Vital Signs Temp 97.8 F 11/25/21 04:00 Pulse 130 H 11/25/21 09:00 Resp 20 11/25/21 08:00 BP 118/74 11/25/21 08:00 Pulse Ox 89 L 11/25/21 08:48 FiO2 Intake & Output 11/24/21 11/25/21 11/25/21 18:59 06:59 18:59 Intake Total 200 540 200 Output Total 150 Balance 200 390 200 Intake: Intake, IV Titration 100 100 Amount Cefepime 2 gm In Sodium 100 100 Chloride 0.9% 100 ml @ 25 mls/hr IVPB Q12HR [facility] Rx #:[id number] Oral 100 540 100 Output: Urine 150 Other: Voiding Method External Catheter External Catheter External Catheter - Exam GENERAL EXAM: revealed 86-year-old white male, on 6 L nasal cannula, in no distress. HEAD: Normocephalic/atraumatic. HEENT: PERRLA, EOMI, anicteric, no neck masses, no JVD, no stridor. CHEST: No chest wall deformity. Symmetrical expansion. LUNGS: fine crackles at the bases. No rhonchi and no wheezes CVS: Irregular rate and rhythm, normal S1 and S2, no gallops, no murmurs, no rubs ABDOMEN: obese,Soft, nontender. No hepatosplenomegaly, no rebound, no guarding. EXTREMITIES: No clubbing, chronic swelling in bilateral lower extremities, no cyanosis, 2+ pulses and upper and lower extremities.both lower extremities are wrapped with sterile dressings. Chronic venous stasis changes noted bilaterally. SKIN: No rashes, however the patient does have chronic venous stasis changes in both lower extremities CENTRAL NERVOUS SYSTEM: alert and oriented 3 no gross focal deficits. PSYCHIATRIC: nnormal mood, affect and normal mental status examination. - Labs CBC & Chem 7: 11/25/21 08:31 11/25/21 08:31 Labs: Abnormal Lab Results - Last 24 Hours (Table) 11/24/21 11/25/21 11/25/21 Range/Units 17:25 08:31 08:31 WBC (3.8-10.6) k/uL Hgb (13.0-17.5) gm/dL MCHC (31.0-37.0) g/dL RDW (11.5-15.5) % Neutrophils # (1.3-7.7) k/uL PT 27.4 H (9.0-12.0) sec INR 2.7 H (<1.2) Sodium 129 L (137-145) mmol/L Chloride 93 L (98-107) mmol/L BUN 54 H (9-20) mg/dL Creatinine 2.08 H (0.66-1.25) mg/dL Glucose 128 H (74-99) mg/dL POC Glucose (mg/dL) 161 H (75-99) mg/dL Calcium 8.3 L (8.4-10.2) mg/dL 11/25/21 11/25/21 Range/Units 08:31 11:47 WBC 14.2 H (3.8-10.6) k/uL Hgb 12.0 L (13.0-17.5) gm/dL MCHC 30.5 L (31.0-37.0) g/dL RDW 17.9 H (11.5-15.5) % Neutrophils # 11.2 H (1.3-7.7) k/uL PT (9.0-12.0) sec INR (<1.2) Sodium (137-145) mmol/L Chloride (98-107) mmol/L BUN (9-20) mg/dL Creatinine (0.66-1.25) mg/dL Glucose (74-99) mg/dL POC Glucose (mg/dL) 129 H (75-99) mg/dL Calcium (8.4-10.2) mg/dL Microbiology - Last 24 Hours (Table) 11/23/21 08:43 Gram Stain - Preliminary Sputum Sputum Culture - Preliminary Assessment and Plan Assessment: Acute hypoxic respiratory failure secondary to bilateral pneumonia, could be aspiration pneumonia since the patient had a syncopal episode. This could also be healthcare related pneumonia, However, I also suspect some component of acute diastolic congestive heart failure especially with his elevated BNP of over 13,000. The CXR showed cardiomegaly and CHF and bilateral consolidation R>L and the FU CXR from 11/23/2021 showed essentially no interval change. I think i t's is essentially mixed picture of pneumonia and CHF. Computed tomography scan of the chest was done that showed bilateral pulmonary infiltrates, could be related to atypical pneumonia. There may be also a component of CHF as the patient had a right-sided pleural effusion, small. The patient is currently on IV cefepime and IV Lasix. Remains on O2 at 6 L nasal cannula. Clinically, on today's evaluation, the patient is having more shortness of breath. He remains on the same treatment and I'm going to add vancomycin. The chest x-ray showing worsening in the bilateral pulmonary consolidations. Hyponatremia with a sodium level of 129 acute diastolic congestive heart failure. Syncopal episode, likely cardiac in nature unless for otherwise. The patient is going to have an event monitor the time of discharge. Acute kidney injury. The creatinine today is at 2.08 Chronic atrial fibrillation, on Coumadin., INR is therapeutic for today Chronic cellulitis of lower extremities. History of MRSA infection/cellulitis. Nonsmoker. Chronic liver disease possibly secondary to alcohol. Type 2 diabetes. recommendation: Continue IV cefepime and vancomycin Continue diuretic with Lasix 40 mg every 24 hours oxygen at 6 L of oxygen by nasal cannula Continue oxygen and titrate accordingly. Digoxin was added by cardiology Monitor renal function Monitor the oxygenation try to wean it off as tolerated Repeat chest x-ray in the morning Repeat electrolytes in the morning including renal function test DNR/DNI CODE STATUS Overall long-term prognosis is relatively guarded.
[2021-11-25] MEDS: Acetaminophen-Codeine 300-30mg TAB PO PRN (13:41)
[2021-11-25] MEDS ORDERED: ALPRAZolam 0.25 MG TAB PO STA (14:54)
--- NOTE | 2021-11-25 15:08 | P.PN ---
Subjective Progress Note Date: 11/25/21 11/20/2021 diuresing on Lasix IV push, 24-hour I&O reflecting a negative fluid balance. Renal function trending down with creatinine 1.72. Maintaining O2 sats in the 90s on 3 L nasal cannula, with accessory muscle use. Pro-calcitonin elevated 0.34. Sodium 1:30, afebrile, normal WBC. Maintained on Rocephin as per infectious disease. Denies pain of right lower extremity. Evaluated by wound care services with recommendations noted pertaining to chronic right foot ulcer with nonweightbearing of right heel. Hematuria secondary to traumatic insertion. 11/21/2021 Feels better, maintaining O2 sats of 90% on 3 L nasal cannula. Diuresing on IV Lasix well with 24-hour I&O reflecting a negative fluid balance. Sodium 132, BUN 46, creatinine 1.77. Chest x-ray pending. Denies chest pain, palpitations. Occasional nonproductive cough. 11/23/2021 This is an 86-year-old male who was recently admitted with CHF with hypoxia and is being closely monitored. Multiple medical consultations following including cardiology, pulmonary, and nephrology. Patient continues on 6 L via nasal cannula and was recently started on torsemide today and continues with volume overload. Case management and certified social workers in health care also following as patient will be going to [facility] once stabilized and discharged. chest xray continues to show pleural effusions and possible infectious process such as pneumonia. CT chest is ordered and pending per pulmonary. Patient denies chest pain or palpitations. Patient is afebrile. Patient is continued on oral augmentin and breathing treatments. 11/24/2021 Patient is seen this am and having increasing shortness of breath and heart rate is elevated and will reconsult cardiology and appreciate input and recommendations. Patient is being followed by multiple medical consultations including ID and patient is on cefepime. Patient transitioned to IV lasix bid and nephrology is following. Patient being followed by pulm and continued on breathing inhalational treatments and will continue. Continue wound care. Patient is afebrile. Patient denies chest pain. 11/25/2021 Patient is seen today and is having continued shortness of breath and also some anxiousness. Pulmonary and cardiology along with ID following and patient continues on IV abx and adjustments being made. sputum preliminary showing junito albicans and will add diflucan and awaiting finalized cultures. Patient is on 6L via NC with a pulse ox of 89%. Patient denies chest pains. Patient is afebrile. WBC is up and kidney functions worse and is on IV lasix. Nephrology following. CXR appears worse bilaterally with infiltrates. Patient is being started on IV digoxin and metoprolol. Review of systems: Constitutional: No reports of fatigue, fever, or chills, reports anxiety Cardiovascular: No reports of chest pain or palpitations Respiratory: reports of increasing shortness of breath today GI: no reports of nausea, no reports of of vomiting, reports fair appetite today : No reports of dysuria or retention Neurovascular: reports of generalized weakness All medications have been reviewed Active Medications Acetaminophen (Acetaminophen Tab 325 Mg Tab) 650 mg PO Q6HR PRN PRN Reason: Mild Pain or Fever > 100.5 Acetaminophen/Codeine Phosphate (Acetaminophen-Codeine 300-30mg Tab) 1 each PO Q4H PRN PRN Reason: Pain Last Admin: 11/25/21 13:41 Dose: 1 each Albuterol/Ipratropium (Ipratropium-Albuterol 3 Ml Neb) 3 ml INHALATION RT-Q4H PRN PRN Reason: shortness of breath Last Admin: 11/25/21 12:02 Dose: 3 ml Alprazolam (Alprazolam 0.25 Mg Tab) 0.125 mg PO ONCE STA Stop: 11/25/21 14:55 Aspirin (Aspirin 81 Mg) 81 mg PO DAILY [facility] Last Admin: 11/25/21 09:09 Dose: 81 mg Buspirone HCl (Buspirone Hcl 5 Mg Tab) 5 mg PO BID [facility] Last Admin: 11/25/21 09:09 Dose: 5 mg Collagenase (Collagenase 250 Unit/Gm Ointment 30 Gm Tube) 1 applic TOPICAL DAILY [facility]; Protocol Last Admin: 11/24/21 17:26 Dose: 1 applic Digoxin (Digoxin 250 Mcg/Ml 2 Ml Amp) 250 mcg IVP Q6H [facility] Stop: 11/26/21 04:01 Escitalopram Oxalate (Escitalopram 20 Mg Tab) 20 mg PO HS [facility] Last Admin: 11/24/21 21:26 Dose: 20 mg Furosemide (Furosemide 10 Mg/Ml 4 Ml Vial) 40 mg IV DAILY [facility] Last Admin: 11/25/21 09:09 Dose: 40 mg Cefepime HCl 2 gm/ Sodium (Chloride) 100 mls @ 25 mls/hr IVPB Q12HR [facility]; Protocol Last Admin: 11/25/21 09:09 Dose: 25 mls/hr Vancomycin HCl 2,000 mg/ (Sodium Chloride) 500 mls @ 167 mls/hr IVPB ONCE ONE Stop: 11/26/21 11:59 Ketorolac Tromethamine (Ketorolac 0.5% Ophth Drops 5 Ml Btl) 1 drops LEFT EYE Q12H [facility] Last Admin: 11/25/21 09:08 Dose: 1 drops Methylprednisolone Sodium Succinate (Methylprednisolone Sod Succi 40 Mg/Ml 1 Ml Vial) 40 mg IV Q8HR [facility] Last Admin: 11/25/21 10:00 Dose: 40 mg Metoprolol Tartrate (Metoprolol Tartrate 50 Mg Tab) 75 mg PO Q12H [facility] Midodrine (Midodrine 5 Mg Tab) 5 mg PO AC-TID [facility] Last Admin: 11/25/21 13:40 Dose: Not Given Miscellaneous Information (Pneumonia Protocol Utilized 1 Each Mis) 1 each PO ONCE PRN PRN Reason: Per Protocol Miscellaneous Information (Warfarin Per Pharmacy) 1 each MISCELLANE DIRECTED PRN; Protocol PRN Reason: Per Protocol Miscellaneous Information ([facility] 1 each MISCELLANE DIRECTED PRN; Protocol PRN Reason: Per Protocol Naloxone HCl (Naloxone 0.4 Mg/Ml 1 Ml Vial) 0.2 mg IV Q2M PRN PRN Reason: Opioid Reversal Pantoprazole Sodium (Pantoprazole 40 Mg Tablet) 40 mg PO DAILY@0600 [facility] Last Admin: 11/25/21 05:17 Dose: 40 mg Sodium Chloride (Sodium Chloride 0.65% Nasal [place] 44 Ml Btl) 2 spray NASAL QID PRN PRN Reason: Congestion Last Admin: 11/19/21 17:05 Dose: 2 spray Timolol Maleate (Timolol 0.5% Ophth Drops 5 Ml Btl) 1 drops BOTH EYES Q12HR [facility] Last Admin: 11/25/21 09:09 Dose: 1 drops Warfarin Sodium (Warfarin 1 Mg Tab) 1 mg PO ONCE ONE Stop: 11/25/21 18:01 PHYSICAL EXAMINATION: GENERAL: The patient is alert and oriented x4, morbidly obese Well developed, well nourished. HEENT: Pupils are round and equally reacting to light. EOMI. no scleral icterus. No conjunctival pallor. Normocephalic, atraumatic. No pharyngeal erythema. No thyromegaly. CARDIOVASCULAR: S1 and S2 muffled PULMONARY: diminished breath sounds bilaterally with scattered rhonchi and crackles noted. ABDOMEN: soft. Nontender on exam. obese. non-distended, normoactive bowel sounds. No palpable organomegaly. MUSCULOSKELETAL: No joint swelling or deformity. EXTREMITIES: No cyanosis, clubbing, bilateral pedal edema noted. Generalized edema noted NEUROLOGICAL: Gross neurological examination did not reveal any focal deficits. Diffuse weakness SKIN: No rashes. Assessment: Acute hypoxic respiratory failure secondary to acute CHF exacerbation, diastolic dysfunction, possible healthcare acquired bilateral pneumonia. 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 Kidney functions elevated and patient continues with overload. Patient with increasing shortness of breath and have transition back to IV lasix daily and recommend closely following labs. Patient also continues on 6 L via nasal cannula with shortness of breath. Patient with some anxiety today. PT OT following as patient also continues with weakness and will be going to [facility] on the lead when stabilized discharge. WBC up and sputum growing bacteria and junito and ID following. Patient is on IV abx and will add diflucan. cardiology following and starting patient on IVP digoxin and changing dose of metoprolol. Due to multiple complex medical issues, prognosis is extremely guarded. The impression and plan of care has been dictated by Lyndsey Vera, nurse practitioner as directed. Dr. Hector MD I have performed a history and examination and MDM of this patient, discussed the same with the dictator, and agree with the dictator's assessment and plan as written ,documented as a scribe. Based on total visit time, I have performed more than 50% of the visit. Any additional findings or plans will be noted. Objective - Vital Signs Vital signs: Vital Signs Temp 97.8 F 11/25/21 04:00 Pulse 130 H 11/25/21 09:00 Resp 19 11/25/21 04:00 BP 115/81 11/25/21 04:00 Pulse Ox 89 L 11/25/21 08:48 FiO2 Intake & Output 11/24/21 11/25/21 11/25/21 18:59 06:59 18:59 Intake Total 200 540 Output Total 150 Balance 200 390 Intake: Intake, IV Titration 100 Amount Cefepime 2 gm In Sodium 100 Chloride 0.9% 100 ml @ 25 mls/hr IVPB Q12HR [facility] Rx #:[id number] Oral 100 540 Output: Urine 150 Other: Voiding Method External Catheter External Catheter - Labs CBC & Chem 7: 11/25/21 08:31 11/25/21 08:31 Labs: Abnormal Lab Results - Last 24 Hours (Table) 11/24/21 11/25/21 11/25/21 Range/Units 17:25 08:31 08:31 WBC (3.8-10.6) k/uL Hgb (13.0-17.5) gm/dL MCHC (31.0-37.0) g/dL RDW (11.5-15.5) % Neutrophils # (1.3-7.7) k/uL PT 27.4 H (9.0-12.0) sec INR 2.7 H (<1.2) Sodium 129 L (137-145) mmol/L Chloride 93 L (98-107) mmol/L BUN 54 H (9-20) mg/dL Creatinine 2.08 H (0.66-1.25) mg/dL Glucose 128 H (74-99) mg/dL POC Glucose (mg/dL) 161 H (75-99) mg/dL Calcium 8.3 L (8.4-10.2) mg/dL 11/25/21 Range/Units 08:31 WBC 14.2 H (3.8-10.6) k/uL Hgb 12.0 L (13.0-17.5) gm/dL MCHC 30.5 L (31.0-37.0) g/dL RDW 17.9 H (11.5-15.5) % Neutrophils # 11.2 H (1.3-7.7) k/uL PT (9.0-12.0) sec INR (<1.2) Sodium (137-145) mmol/L Chloride (98-107) mmol/L BUN (9-20) mg/dL Creatinine (0.66-1.25) mg/dL Glucose (74-99) mg/dL POC Glucose (mg/dL) (75-99) mg/dL Calcium (8.4-10.2) mg/dL Microbiology - Last 24 Hours (Table) 11/23/21 08:43 Gram Stain - Preliminary Sputum Sputum Culture - Preliminary
[2021-11-25] MEDS: ALPRAZolam 0.25 MG TAB PO PRN (15:42)
[2021-11-25 16:20] LABS: Glucose,Whole Blood 151 mg/dL (75-99)
[2021-11-25] MEDS: DIGOXIN 250 MCG/ML 2 ML AMP IVP SCH ×2 (17:50→21:20)
[2021-11-25] MEDS ORDERED: WARFARIN 1 MG TAB PO ONE (18:00)
[2021-11-25 20:00] LABS: Glucose,Whole Blood 160 mg/dL (75-99)
[2021-11-25] MEDS: ESCITALOPRAM 20 MG TAB PO SCH (21:15)
[2021-11-25] MEDS: CEFEPIME 1 GM in SODIUM CHLORIDE 0.9% 50 ML IVPB SCH (21:20)
[2021-11-25] MEDS: COLLAGENASE 250 UNIT/GM OINTMENT 30 GM TUBE TOPICAL SCH (21:21)
--- NOTE | 2021-11-25 22:40 | P.PN ---
Subjective Progress Note Date: 11/25/21 Principal diagnosis: Right lower extremity wound and cellulitis Patient is 86 year old male who was recently admitted at this facility and was treated for right heel wound with secondary selected as culture positive for MRSA patient subsequently was discharged to the group home on IV vancomycin concern for deep infection now presenting back to the hospital with worsening respiratory status and worsening of his kidney function. On today's evaluation that is 11/25/2021, the patient remains to be afebrile , the patient was complaining of more shortness of breath this morning but no chest pain , the patient did have occasional cough , the patient denies abdominal pain and no diarrhea no pain to the right heel Objective - Vital Signs Vital signs: Vital Signs Temp 97.8 F 11/25/21 04:00 Pulse 120 H 11/25/21 16:42 Resp 20 11/25/21 14:00 BP 115/70 11/25/21 16:00 Pulse Ox 93 L 11/25/21 16:30 FiO2 Intake & Output 11/25/21 11/25/21 11/26/21 06:59 18:59 06:59 Intake Total 540 1090 Output Total 150 450 Balance 390 640 Intake: Intake, IV Titration 650 Amount Cefepime 1 gm In Sodium 50 Chloride 0.9% 50 ml @ 12. 5 mls/hr IVPB Q12HR [facility] Rx#:[id number] Cefepime 2 gm In Sodium 100 Chloride 0.9% 100 ml @ 25 mls/hr IVPB Q12HR [facility] Rx #:[id number] Vancomycin 2,000 mg In 500 Sodium Chloride 0.9% 500 ml 500 ml @ 167 mls/hr IVPB ONCE ONE Rx#: [id number] Oral 540 440 Output: Urine 150 450 Other: Voiding Method External Catheter External Catheter - Exam GENERAL DESCRIPTION: An elderly male lying in bed in no distress RESPIRATORY SYSTEM: Unlabored breathing , decreased breath sounds at bases HEART: S1 S2 regular rate and rhythm , ABDOMEN: Soft , no tenderness EXTREMITIES: Right heel wound is currently dressed no drainage on the dressing right leg redness has decreased - Labs CBC & Chem 7: 11/25/21 08:31 11/25/21 08:31 Labs: Abnormal Lab Results - Last 24 Hours (Table) 11/25/21 11/25/21 11/25/21 Range/Units 08:31 08:31 08:31 WBC 14.2 H (3.8-10.6) k/uL Hgb 12.0 L (13.0-17.5) gm/dL MCHC 30.5 L (31.0-37.0) g/dL RDW 17.9 H (11.5-15.5) % Neutrophils # 11.2 H (1.3-7.7) k/uL PT 27.4 H (9.0-12.0) sec INR 2.7 H (<1.2) Sodium 129 L (137-145) mmol/L Chloride 93 L (98-107) mmol/L BUN 54 H (9-20) mg/dL Creatinine 2.08 H (0.66-1.25) mg/dL Glucose 128 H (74-99) mg/dL POC Glucose (mg/dL) (75-99) mg/dL Calcium 8.3 L (8.4-10.2) mg/dL 11/25/21 11/25/21 Range/Units 11:47 16:19 WBC (3.8-10.6) k/uL Hgb (13.0-17.5) gm/dL MCHC (31.0-37.0) g/dL RDW (11.5-15.5) % Neutrophils # (1.3-7.7) k/uL PT (9.0-12.0) sec INR (<1.2) Sodium (137-145) mmol/L Chloride (98-107) mmol/L BUN (9-20) mg/dL Creatinine (0.66-1.25) mg/dL Glucose (74-99) mg/dL POC Glucose (mg/dL) 129 H 151 H (75-99) mg/dL Calcium (8.4-10.2) mg/dL Microbiology - Last 24 Hours (Table) 11/23/21 08:43 Gram Stain - Preliminary Sputum Sputum Culture - Preliminary Presumptive Staph aureus Cherise albicans Assessment and Plan (1) Leukocytosis Current Visit: No Status: Acute Code(s): D72.829 - ELEVATED WHITE BLOOD CELL COUNT, UNSPECIFIED SNOMED Code(s): 783336492 Plan: 1patient presented to hospital with increasing shortness of breath which is likely multifactorial and more likely from the fluid overload from his kidney failure plus minus a component of pneumonia 2 patient with elevated liver enzymes ultrasound of his liver and gallbladder area no evidence of cholecystitis 3patient with right heel wound to continue local wound care to the right heel wound with the Santyl followed by moist dressing and keep the area off the pres sure. [address] a [address] of the chest with evidence of extensive infiltrate, procalcitonin is elevated sputum cultures with presumptive staphylococcus aureus, vancomycin has been admitted cultures will be followed and antibiotic adjusted further If needed Time with Patient: Less than 30
[2021-11-26] MEDS: methylPREDNISolone SOD SUCCI 40 MG/ML 1 ML VIAL IV SCH ×4 (00:21→23:40)
[2021-11-26] MEDS: DIGOXIN 250 MCG/ML 2 ML AMP IVP SCH (04:04)
[2021-11-26 05:40] LABS: Glucose,Whole Blood 168 mg/dL (75-99)
[2021-11-26] MEDS: MIDODRINE 5 MG TAB PO SCH ×3 (06:21→16:43)
[2021-11-26] MEDS: INSULIN ASPART (NovoLOG) 100 UNIT/ML VIAL SQ SCH ×4 (06:21→20:28)
[2021-11-26] MEDS: PANTOPRAZOLE 40 MG TABLET PO SCH (06:21)
[2021-11-26] MEDS: COLLAGENASE 250 UNIT/GM OINTMENT 30 GM TUBE TOPICAL SCH (08:00)
[2021-11-26] MEDS: ASPIRIN 81 MG PO SCH (08:00)
[2021-11-26] MEDS: METOPROLOL TARTRATE 50 MG TAB PO SCH ×2 (08:00→20:27)
[2021-11-26] MEDS: busPIRone HCl 5 MG TAB PO SCH ×2 (08:00→20:27)
[2021-11-26] MEDS: FUROSEMIDE 10 MG/ML 4 ML VIAL IV SCH (08:00)
[2021-11-26] MEDS: CEFEPIME 1 GM in SODIUM CHLORIDE 0.9% 50 ML IVPB SCH ×2 (08:00→20:26)
[2021-11-26] MEDS: TIMOLOL 0.5% OPHTH DROPS 5 ML BTL BOTH EYES SCH ×2 (08:01→20:28)
[2021-11-26] MEDS: KETOROLAC 0.5% OPHTH DROPS 5 ML BTL LEFT EYE SCH ×2 (08:02→20:28)
--- NOTE | 2021-11-26 08:09 | XR ---
EXAMINATION TYPE: XR chest 1V DATE OF EXAM: 11/26/2021 COMPARISON: 11/25/2021 INDICATION: Pneumonia TECHNIQUE: Single frontal view of the chest is obtained. FINDINGS: The heart size is normal. The pulmonary vasculature is normal. Increased lung markings are present bilaterally. Electronic device overlies the left chest. PICC line enters on the left with the tip in the superior vena cava region. IMPRESSION: 1. Stable diffuse increased lung markings with improved inspiration. Correlate for pneumonia. Continu ed follow-up is recommended.
--- NOTE | 2021-11-26 08:58 | P.PN ---
Subjective HISTORY OF PRESENTING ILLNESS This is a pleasant 86-year-old male past medical history significant for chronic persistent atrial fibrillation on warfarin, history of CVA, hypertension and peripheral vascular disease status post carotid intervention. He also has chronic lower extremity wounds. He follows in the office with Dr. Mccarty. We have been asked to see in consultation for syncope. He presented to the hospital after suffering a syncopal episode at [facility] where he was receiving IV antibiotics. According to the patient he doesn't necessarily recall what happened he just woke up on the floor. Then again while he was in the hospital he got up from bed to use the restroom he remembers walking in the bathroom feeling lightheaded and woke up again on the floor. He does endorse positive loss of consciousness. He denies feeling palpitations and chest pain shortness of breath prior to this episode. There is nothing on telemetry to suggest a significant bradycardia arrhythmia. He is in persistent atrial fibrillation wit h controlled ventricular rates. EKGs reveal atrial fibrillation with controlled ventricular rate. Echocardiogram obtained reveals preserved LV systolic function with ejection fraction 50-55%, moderate aortic regurgitation and moderate tricuspid regurgitation with an RVSP of 49 mmHg. 11/25 Patient seen and examined. Patient remains in A. fib with elevated heart rates in the 110 to 130s over last few days. Currently this morning up to 140s. He has felt worse since yesterday with increased oxygen demand. He denies any chest pain or pressure. Oxygen was increased from 6-8. He has been receiving IV diuretics with creatinine mildly increased 1.8 up to 2.[address] had shown extensive bilateral infiltrates however possibility of some pulmonary edema as well. He has been on the Lasix 40 mg IV daily with some 1500 mL output. Chest x-ray this morning shows worsening right pulmonary infiltrate. White blood cell count noted to be increased up to 14 11/26 Patient seen and examined. Patient was placed on nonrebreather and admits he feels much better today. Chest x-ray repeated today which shows stable diffuse increased lung markings, correlate for pneumonia. Blood work from this morning pending. Patient was placed on digoxin and metoprolol was increased with improvement in heart rates currently heart rates in the 70s to 90s. PHYSICAL EXAMINATION Vitals reviewed CONSTITUTIONAL: No apparent distress. HEENT: Head is normocephalic. Pupils are equal, round. Sclerae anicteric. Mucous membranes of the mouth are moist. No JVD. No carotid bruit. CHEST EXAMINATION: Lungs are clear to auscultation. No chest wall tenderness is noted on palpation or with deep breathing. HEART EXAMINATION: Irregular rate and rhythm. S1, S2 heard. No murmurs, gallops or rub. ABDOMEN: Soft, nontender. EXTREMITIES: 2+ peripheral pulses, trace bilateral lower extremity edema with multiple areas of oozing bilateral Marcus wraps in place and no calf tenderness. NEUROLOGIC EXAMINATION: Patient is awake, alert and oriented x3. ASSESSMENT Syncopal episode 2 Acute kidney injury Chronic persistent atrial fibrillation on long-term anticoagulation with RVR Hypertension Peripheral vascular disease Acute on chronic diastolic heart failure Bilateral infiltrates concerning for pneumonia PLAN Previous discussions regarding possible discontinuation of Coumadin given increased fall risk. Continue with current regimen. Heart rates appear better controlled with increased dose of metoprolol and addition of digoxin. Continue with the low-dose digoxin and monitor closely with patient's age and kidney function. Continue with diuretics and monitor creatinine closely. Prognosis guarded. Objective - Vital Signs Vital signs: Vital Signs Temp 98.4 F 11/26/21 08:00 Pulse 85 11/26/21 08:00 Resp 20 11/26/21 08:00 BP 158/74 11/26/21 08:00 Pulse Ox 87 L 11/26/21 08:00 FiO2 Intake & Output 11/25/21 11/26/21 11/26/21 18:59 06:59 18:59 Intake Total 1090 Output Total 450 50 Balance 640 -50 Intake: Intake, IV Titration 650 Amount Cefepime 1 gm In Sodium 50 Chloride 0.9% 50 ml @ 12. 5 mls/hr IVPB Q12HR [facility] Rx#:[id number] Cefepime 2 gm In Sodium 100 Chloride 0.9% 100 ml @ 25 mls/hr IVPB Q12HR [facility] Rx #:[id number] Vancomycin 2,000 mg In 500 Sodium Chloride 0.9% 500 ml 500 ml @ 167 mls/hr IVPB ONCE ONE Rx#: [id number] Oral 440 Output: Urine 450 50 Other: Voiding Method External Catheter External Catheter - Labs CBC & Chem 7: 11/25/21 08:31 11/25/21 08:31 Labs: Abnormal Lab Results - Last 24 Hours (Table) 11/25/21 11/25/21 11/25/21 Range/Units 08:31 08:31 08:31 WBC 14.2 H (3.8-10.6) k/uL Hgb 12.0 L (13.0-17.5) gm/dL MCHC 30.5 L (31.0-37.0) g/dL RDW 17.9 H (11.5-15.5) % Neutrophils # 11.2 H (1.3-7.7) k/uL PT 27.4 H (9.0-12.0) sec INR 2.7 H (<1.2) Sodium 129 L (137-145) mmol/L Chloride 93 L (98-107) mmol/L BUN 54 H (9-20) mg/dL Creatinine 2.08 H (0.66-1.25) mg/dL Glucose 128 H (74-99) mg/dL POC Glucose (mg/dL) (75-99) mg/dL Calcium 8.3 L (8.4-10.2) mg/dL 11/25/21 11/25/21 11/25/21 Range/Units 11:47 16:19 19:57 WBC (3.8-10.6) k/uL Hgb (13.0-17.5) gm/dL MCHC (31.0-37.0) g/dL RDW (11.5-15.5) % Neutrophils # (1.3-7.7) k/uL PT (9.0-12.0) sec INR (<1.2) Sodium (137-145) mmol/L Chloride (98-107) mmol/L BUN (9-20) mg/dL Creatinine (0.66-1.25) mg/dL Glucose (74-99) mg/dL POC Glucose (mg/dL) 129 H 151 H 160 H (75-99) mg/dL Calcium (8.4-10.2) mg/dL 11/26/21 Range/Units 05:34 WBC (3.8-10.6) k/uL Hgb (13.0-17.5) gm/dL MCHC (31.0-37.0) g/dL RDW (11.5-15.5) % Neutrophils # (1.3-7.7) k/uL PT (9.0-12.0) sec INR (<1.2) Sodium (137-145) mmol/L Chloride (98-107) mmol/L BUN (9-20) mg/dL Creatinine (0.66-1.25) mg/dL Glucose (74-99) mg/dL POC Glucose (mg/dL) 168 H (75-99) mg/dL Calcium (8.4-10.2) mg/dL Microbiology - Last 24 Hours (Table) 11/23/21 08:43 Gram Stain - Preliminary Sputum Sputum Culture - Preliminary Presumptive Staph aureus Cherise albicans
[2021-11-26] MEDS ORDERED: VANCOMYCIN 2,000 MG in SODIUM CHLORIDE 0.9% 500 ML 500 ML IVPB ONE ×4 (09:00)
[2021-11-26] MEDS: IPRATROPIUM-ALBUTEROL 3 ML NEB INHALATION PRN ×3 (09:21→16:01)
[2021-11-26 09:45] LABS: INR 3.6 (<1.2); Prothrombin Time 35.4 sec (9.0-12.0)
[2021-11-26] MEDS ORDERED: SODIUM CHLORIDE 0.9% 1,000 ML IV SCH (09:45)
--- NOTE | 2021-11-26 10:24 | P.PN ---
Subjective Patient is seen for follow-up for acute kidney injury. He is currently being diuresed. He is sitting up on a bedside chair. He states he is mildly short of breath. He is maintained on 6 L nasal cannula Patient has an external catheter. 24-hour urine output at 150 mL, I do not believe this is accurate.. Serum creatinine is increased to 2.4 mg/dL today Objective - Vital Signs Vital signs: Vital Signs Temp 98.4 F 11/26/21 08:00 Pulse 105 H 11/26/21 09:35 Resp 20 11/26/21 08:00 BP 158/74 11/26/21 08:00 Pulse Ox 87 L 11/26/21 08:00 FiO2 Intake & Output 11/25/21 11/26/21 11/26/21 18:59 06:59 18:59 Intake Total 1090 Output Total 450 50 Balance 640 -50 Intake: Intake, IV Titration 650 Amount Cefepime 1 gm In Sodium 50 Chloride 0.9% 50 ml @ 12. 5 mls/hr IVPB Q12HR [facility] Rx#:[id number] Cefepime 2 gm In Sodium 100 Chloride 0.9% 100 ml @ 25 mls/hr IVPB Q12HR [facility] Rx #:[id number] Vancomycin 2,000 mg In 500 Sodium Chloride 0.9% 500 ml 500 ml @ 167 mls/hr IVPB ONCE ONE Rx#: [id number] Oral 440 Output: Urine 450 50 Other: Voiding Method External Catheter External Catheter External Catheter - Exam Patient is awake, comfortable, mildly short of breath No acute distress Examination of the heart S1 and S2 Examination of lungs bilateral breath sounds are heard, Scattered wheezes bilaterally Examination of the abdomen reveals it to be soft morbidly obese Examination of lower extremities shows chronic skin changes with chronic edema bilaterally. CANVAS BASTER exam grossly intact - Labs CBC & Chem 7: 11/25/21 08:31 11/26/21 08:03 Labs: Abnormal Lab Results - Last 24 Hours (Table) 11/25/21 11/25/21 11/25/21 Range/Units 11:47 16:19 19:57 PT (9.0-12.0) sec INR (<1.2) Creatinine (0.66-1.25) mg/dL POC Glucose (mg/dL) 129 H 151 H 160 H (75-99) mg/dL 05/11/26/21 11/26/21 Range/Units 05:34 08:03 08:03 PT 35.4 H (9.0-12.0) sec INR 3.6 H (<1.2) Creatinine 2.44 H (0.66-1.25) mg/dL POC Glucose (mg/dL) 168 H (75-99) mg/dL Microbiology - Last 24 Hours (Table) 11/23/21 08:43 Gram Stain - Preliminary Sputum Sputum Culture - Preliminary Presumptive Staph aureus Cherise albicans Assessment and Plan Assessment: 1. Acute kidney injury associated with ATN from cardiorenal syndrome and element of vancomycin toxicity. Serum creatinine is up to 2.4 today. Urine output was low last night. This morning patient has been started on saline at 50 mL an hour and Lasix was held. Patient remains quite short of breath needing nonrebreather with O2 sats at 87-90%. Rule out urine retention. Patient currently has an external catheter. Blood pressure is not low Previous creatinine 1.0 from earlier this month 2. Volume overload currently maintained on diuretics and improving 3. Acute on chronic diastolic CHF with moderate aortic and tricuspid regurgitation and moderate pulmonary hypertension 4. Right foot wound being followed by ID 5. Hypervolemic hyponatremia 6. Acute hypoxic respiratory failure secondary to pneumonia and CHF Plan: Okay to challenge with fluids however patient still appears to be volume overloaded. Monitor urine output and if patient remains oliguric I will give him a high dose of Lasix. Check bladder scan and rule out urine retention Recommend to discontinue vancomycin if possible.
--- NOTE | 2021-11-26 11:18 | P.PN ---
Subjective Progress Note Date: 11/26/21 acute hypoxic respiratory failure secondary to healthcare acquired pneumonia, possible aspiration considering the patient had syncopal episode. possible underlying acute diastolic congestive heart failure 86-year-old white male patient with recent medical history of lower extremity cellulitis with abscess related to MRSA infection for which the patient was hospitalized recently and discharged to [facility] with the left upper extremity PICC line in place and vancomycin for evidence of MRSA in his right lower extremity. His past medical history is significant for chronic A. fib on Coumadin, previous history of CVA, hypertension, morbid obesity. Patient was discharged to the [facility] on 10/30/2021. On 11/17/2021 patient had a syncopal episode at the [facility] while getting up out of bed, patient denied hitting his head or suffering any trauma. The facility noted that over the course of the day patient was having increased shortness of breath, weakness, increased oxygen needs. Patient reports a dry cough, no fevers, he has chronic swelling in his lower extremities not any worse. He states he is more comfortable sleeping sitting upright than lying down he is not normally oxygen dependent. He is on 2 L of oxygen with a pulse ox of 92-94%, he is afebrile. Chest x-ray in emergency department showing coarse infiltrates throughout both lungs much greater on the right the possibility of underlying pneumonia. Lab evaluation showed a white count of 10.3, hemoglobin of 11.4, INR 1.5, sodium is 126, potassium is 4.9, chloride is 97, CO2 is 19, BUN is 59, creatinine is 2.24, bilirubin is 1.7, AST was 121, ALT was 100, alk phos was 201, troponin was 0.034, proBNP was 13,004 100, urinalysis showed large amount of blood, normal white blood cells, no clear evidence of urinary tract infection, Vanco trough from 11/15/2021 was 26, random vancomycin level is 29.6. COVID-19 PCR was negative. Patient was started on antibiotics with azithromycin and Rocephin, breathing treatments, patient was on Lasix 40 mg twice daily at the [facility], clinically he appears to be dehydrated with dry oral mucous membranes. Denies any nausea vomiting or diarrhea. Cultures have been sent, ID service, nephrology, and pulmonary consultations have been requested. reevaluated today on 11/18/21,patient is resting in bed, he is on 4 L nasal cannula, and his O2 saturation is 96%, blood pressure is 125/72, patient is relatively asymptomatic, denies shortness of breath denies any cough denies any wheezing, he tells me that he feels fine. No fever overnight. Patient is on antibiotics empirically for his cellulitis, chest x-ray showed interstitial edema, underlying infiltrate is not entirely ruled out. Apparently the patient had previous history of MRSA infection was fully treated by infectious disease on the case, and now he is on Rocephin and Zithromax. Reevaluated today on 11/19/21, patient is basically about the same, remains on 3 L nasal cannula, O2 sats 91%, chest x-ray continues to show interstitial edema, possible infiltrates bilaterally right more so than left. Patient remains on diuretics, remains empirically on antibiotics, his pro-calcitonin level 0.5, and his BNP level is over 15,000. Echocardiogram yesterday showed preserved LV function with ejection fraction of 50-55% it also showed moderate pulmonary hypertension. WBC count today is 9.7 hemoglobin 11.8 INR is 1.5 electrolytes are relatively normal BUN is down to 56 creatinine is down to 1.96 in spite of diuretics 11/20/2021, I'm seeing the patient for a follow-up. The patient is being treated for a combination of pneumonia and CHF. He is currently on oxygen at 3 L per minute nasal cannula with a pulse ox of 92%. He is afebrile. He is hemodynamically stable. On blood work from today shows a white cell count 9.5 with a hemoglobin of 11.4 and a platelet count of 345. Sodium is at 1:30, potassium is at 4.2, BUN is a 51 with a creatinine of 1.7 and a potassium level of 4.2. The patient is being diuresed and the patient is a negative fluid balance of at least 1.9 L over the past 24 hours. He remains on Lasix 40 mg ev krishna 12 hours. He is also on IV Rocephin. Dr. Mccray are wanted to consider broadening of antibiotic coverage to Zosyn considering aspiration. Nevertheless, I compared the series of chest exit and I believe that the right lung consolidations improving and the patient's clinically stable and I stated the course with the IV Rocephin. His pro-calcitonin level was 0.51 at time of admission on 11/17/2021. 11/21/2021, the patient has been brought up to 4 L of O2 nasal cannula and the current pulse ox is around 88%. This is slightly worse compared to yesterday. The chest x-ray findings from today is still showing a right lung consolidation along with cardiomegaly and pulmonary vascular congestion/CHF. Comparing this chest x-ray with the earlier chest x-rays, there is no major interval change. There could be some slight progression from prior study. Note that the patient also has cardiomegaly. The patient remains on IV Rocephin. The patient also on IV diuretics. The white cell count at 10.2 with a hemoglobin of 11.7 and BUN is at 46 with a creatinine of 1.7. The fluid balance over the past 24 hours has been -1.6 L. As such, the patient is diuresing adequately. He continues to have edema in lower extremities. He is awake and alert and communicating. No chest pain. The pro-calcitonin level was at 0.51 at the time of admission. Repeat pro-calcitonin level is down to 0.34. 11/22/2021 the patient remains on 5 L of O2 nasal cannula to bring his pulse ox above 90%. I'm seeing him today in follow-up. The chest x-ray findings and essentially unchanged and there is cardiomegaly and bilateral pulmonary infiltrates most on the lower lobes and some in the right upper lobe. The patient remains on Lasix 40 mg IV every 12 hours and the patient remains on IV Zosyn. The patient remains on anticoagulants with warfarin 4 mg on a daily basis. On his blood work from today, his white cell count is 11 with a hemoglobin 11.9 and a and her renal function is currently stable at 1.7 creatinine and a BUN of 43 and sodium level of 131. INR is subtherapeutic at 1.4. Pro-calcitonin level was improving and the level was down to 0.34. The fluid balance over the past 24 hours has been -1 L and the patient continues to make good urine output. 11/23/2021 the patient is on 6 L O2 nasal cannula. The patient's is on IV Zosyn. The patient was taken off the IV Lasix and the patient was placed on torsemide by nephrology. He is using incentive spirometer. A repeat chest x-ra y was done today and this was compared to the earlier chest x-ray. Findings are essentially unchanged and the patient has ongoing consolidation of the right lung with cardiomegaly and possibly some small bilateral pleural effusions. I think the presentation is more consistent with a combination of CHF and pneumonia. The patient is afebrile. White cell count is 11.1. INR is at one point for what the patient being on Coumadin. Creatinine stable at 1.7 and his sodium level is at 141. All of the microbial cultures of been negative and the patient remains on by mouth Augmentin. Using incentive spirometer. Continues to have swelling in lower extremities bilaterally. Fluid balance is -1 L over the past 24 hours. 7 2021, I'm seeing the patient for a follow-up. He remains on 6 L of oxygen by nasal cannula. Due to his underlying ongoing hypoxemia, I performed a CAT scan of the chest that showed extensive bilateral pulmonary infiltrates. The exact etiology remains unclear. This could be infectious. There may be also a component of interstitial edema and the patient had a small right-sided pleural effusion. Based on those results, I started the patient IV cefepime 2 g every 12 hours and also I kept the patient on diuretics and the patient is receiving Lasix 40 mg 8 hours. Repeat blood work from today shows a INR of 1.8 as the patient is on long-term and incontinence with warfarin. Sodium is at 129, BUN is a 49 with a creatinine of 1.88. The fluid balance is negative in the lower extremity edema is also improving. Note that his pro-calcitonin level was only a 0.34. 11/25/2021, the patient is doing poorly. The patient is reporting worsening shortness of breath. He remains on 6 L of oxygen by nasal cannula. His breathing is labored. Repeat chest x-ray was done and showed worsening of the consolidation bilaterally. He was on IV cefepime. I added vancomycin. Meanwhile, he still having issues with atrial fibrillation with RVR. Cardiology is seeing the patient in this regard. No syncopal episodes. INR is at 2.7 which is therapeutic for now. On today's blood work, creatinine is at 2.08 with a BUN of 54 and the patient remains on Lasix 40 g every 24 hours. The patient sodium level is at 129. The patient's white cell count is at 14.2 with a hemogl obin of 12.0. Sputum culture and blood cultures all negative. 11/26/2021, the patient is on a nonrebreather facemask. The patient was switched to a 15 L high flow nonrebreather facemask yesterday at around midnight. He seems to be however more comfortable. Breathing easier. He has a congested cough. Sputum culture done earlier showed staph aureus and this was a MRSA and the patient is currently on vancomycin. Patient is also on IV cefepime. Despite having increased oxygen requirements, the patient reports that his breathing easier today. His renal function is worse on today's evaluat ion the patient's creatinine is up to 2.44 and the patient will be taken off the Lasix. The PT/INR is therapeutic for now. Note that he is a 86-year-old male patient with multiple medical problems and comorbidities and the patient is a DNR/DNI CODE STATUS. Nevertheless, he is still being aggressive and she is regarding his bilateral pneumonia. CAT scan of the chest was noted. Repeat chest x-ray was noted and the patient continues to have extensive consolidation bilaterally Objective - Vital Signs Vital signs: Vital Signs Temp 98.4 F 11/26/21 08:00 Pulse 85 11/26/21 11:00 Resp 20 11/26/21 11:00 BP 158/74 11/26/21 08:00 Pulse Ox 87 L 11/26/21 08:00 FiO2 Intake & Output 11/25/21 11/26/21 11/26/21 18:59 06:59 18:59 Intake Total 1090 Output Total 450 50 550 Balance 640 -50 -550 Intake: Intake, IV Titration 650 Amount Cefepime 1 gm In Sodium 50 Chloride 0.9% 50 ml @ 12. 5 mls/hr IVPB Q12HR [facility] Rx#:[id number] Cefepime 2 gm In Sodium 100 Chloride 0.9% 100 ml @ 25 mls/hr IVPB Q12HR [facility] Rx #:[id number] Vancomycin 2,000 mg In 500 Sodium Chloride 0.9% 500 ml 500 ml @ 167 mls/hr IVPB ONCE ONE Rx#: [id number] Oral 440 Output: Urine 450 50 550 Male - External 550 Other: Voiding Method External Catheter External Catheter External Catheter - Exam GENERAL EXAM: revealed 86-year-old white male, on 100% nonrebreather facemask HEAD: Normocephalic/atraumatic. HEENT: PERRLA, EOMI, anicteric, no neck masses, no JVD, no stridor. CHEST: No chest wall deformity. Symmetrical expansion. LUNGS: fine crackles at the bases. No rhonchi and no wheezes CVS: Irregular rate and rhythm, normal S1 and S2, no gallops, no murmurs, no rubs ABDOMEN: obese,Soft, nontender. No hepatosplenomegaly, no rebound, no guarding. EXTREMITIES: No clubbing, chronic swelling in bilateral lower extremities, no cyanosis, 2+ pulses and upper and lower extremities.both lower extremities are wrapped with sterile dressings. Chronic venous stasis changes noted bilaterally. SKIN: No rashes, however the patient does have chronic venous stasis changes in both lower extremities CENTRAL NERVOUS SYSTEM: alert and oriented 3 no gross focal deficits. PSYCHIATRIC: nnormal mood, affect and normal mental status examination. - Labs CBC & Chem 7: 11/25/21 08:31 11/26/21 08:03 Labs: Abnormal Lab Results - Last 24 Hours (Table) 11/25/21 11/25/21 11/25/21 Range/Units 11:47 16:19 19:57 PT (9.0-12.0) sec INR (<1.2) Creatinine (0.66-1.25) mg/dL POC Glucose (mg/dL) 129 H 151 H 160 H (75-99) mg/dL 11/26/21 11/26/21 11/26/21 Range/Units 05:34 08:03 08:03 PT 35.4 H (9.0-12.0) sec INR 3.6 H (<1.2) Creatinine 2.44 H (0.66-1.25) mg/dL POC Glucose (mg/dL) 168 H (75-99) mg/dL Microbiology - Last 24 Hours (Table) 11/23/21 08:43 Gram Stain - Final Sputum Sputum Culture - Final Staphylococcus haemolyticus Cherise albicans Assessment and Plan Assessment: Acute hypoxic respiratory failure secondary to bilateral pneumonia, could be aspiration pneumonia since the patient had a syncopal episode. This could also be healthcare related pneumonia, subsequent sputum analysis showed that the patient had MRSA and the patient was started on vancomycin yesterday. Meanwhile, the patient oxygenation got more impaired and the patient is currently on 100% on a beta facemask. He is feeling better compared to yesterday. Chest x-ray still showing extensive bilateral consolidations/respiratory disease. He is a DNR/DNI CODE STATUS. Hyponatremia with a sodium level of 129, awaiting electrolytes from today, however the renal function is worse on today's evaluation the creatinine is up to 2.44 acute diastolic congestive heart failure. Syncopal episode, likely cardiac in nature unless for otherwise. The patient is going to have an event monitor the time of discharge. Acute kidney injury. The creatinine is worse at 2.44 Chronic atrial fibrillation, on Coumadin., INR is therapeutic for today Chronic cellulitis of lower extremities. History of MRSA infection/cellulitis. Nonsmoker. Chronic liver disease possibly secondary to alcohol. Type 2 diabetes. recommendation: Continue IV cefepime and vancomycin, the patient has staph aureus in his sputum, MRSA possibly healthcare associated discontinue the Lasix Keep the patient on 100% on a beta facemask The patient's x-ray in the morning Awaiting electrodes from today Start the patient hydrating again gently with a 50 mL of normal saline DNR/DNI CODE STATUS Overall long-term prognosis is relatively guarded.
[2021-11-26 11:53] LABS: Glucose,Whole Blood 144 mg/dL (75-99)
--- NOTE | 2021-11-26 15:35 | P.PN ---
Subjective Progress Note Date: 11/26/21 11/20/2021 diuresing on Lasix IV push, 24-hour I&O reflecting a negative fluid balance. Renal function trending down with creatinine 1.72. Maintaining O2 sats in the 90s on 3 L nasal cannula, with accessory muscle use. Pro-calcitonin elevated 0.34. Sodium 1:30, afebrile, normal WBC. Maintained on Rocephin as per infectious disease. Denies pain of right lower extremity. Evaluated by wound care services with recommendations noted pertaining to chronic right foot ulcer with nonweightbearing of right heel. Hematuria secondary to traumatic insertion. 11/21/2021 Feels better, maintaining O2 sats of 90% on 3 L nasal cannula. Diuresing on IV Lasix well with 24-hour I&O reflecting a negative fluid balance. Sodium 132, BUN 46, creatinine 1.77. Chest x-ray pending. Denies chest pain, palpitations. Occasional nonproductive cough. 11/23/2021 This is an 86-year-old male who was recently admitted with CHF with hypoxia and is being closely monitored. Multiple medical consultations following including cardiology, pulmonary, and nephrology. Patient continues on 6 L via nasal cannula and was recently started on torsemide today and continues with volume overload. Case management and social services designee also following as patient will be going to [facility] once stabilized and discharged. chest xray continues to show pleural effusions and possible infectious process such as pneumonia. CT chest is ordered and pending per pulmonary. Patient denies chest pain or palpitations. Patient is afebrile. Patient is continued on oral augmentin and breathing treatments. 11/24/2021 Patient is seen this am and having increasing shortness of breath and heart rate is elevated and will reconsult cardiology and appreciate input and recommendations. Patient is being followed by multiple medical consultations including ID and patient is on cefepime. Patient transitioned to IV lasix bid and nephrology is following. Patient being followed by pulm and continued on breathing inhalational treatments and will continue. Continue wound care. Patient is afebrile. Patient denies chest pain. 11/25/2021 Patient is seen today and is having continued shortness of breath and also some anxiousness. Pulmonary and cardiology along with ID following and patient continues on IV abx and adjustments being made. sputum preliminary showing junito albicans and will add diflucan and awaiting finalized cultures. Patient is on 6L via NC with a pulse ox of 89%. Patient denies chest pains. Patient is afebrile. WBC is up and kidney functions worse and is on IV lasix. Nephrology following. CXR appears worse bilaterally with infiltrates. Patient is being started on IV digoxin and metoprolol. 11/26/2021 Patient is seen in follow up and continues with shortness of breath and currently maintained on 15L Non-rebreather with pulmonary and cardiology following. Nephrology following as well. Patient with worsening renal functions and IV lasix has been discontinued. Urinary retention and recommend to continue with indwelling grande catheter. Maintained on IV cefepime with ID following. Oral digoxin per cardiology and coumadin. Patient is afebrile. Review of systems: Constitutional: No reports of fatigue, fever, or chills Cardiovascular: No reports of chest pain or palpitations Respiratory: reports of increasing shortness of breath GI: no reports of nausea, no reports of of vomiting : No reports of dysuria, some retention, has indwelling catheter now Neurovascular: reports of generalized weakness All medications have been reviewed Active Medications Acetaminophen (Acetaminophen Tab 325 Mg Tab) 650 mg PO Q6HR PRN PRN Reason: Mild Pain or Fever > 100.5 Acetaminophen/Codeine Phosphate (Acetaminophen-Codeine 300-30mg Tab) 1 each PO Q4H PRN PRN Reason: Pain Last Admin: 11/25/21 13:41 Dose: 1 each Albuterol/Ipratropium (Ipratropium-Albuterol 3 Ml Neb) 3 ml INHALATION RT-Q4H PRN PRN Reason: shortness of breath Last Admin: 11/26/21 12:11 Dose: 3 ml Alprazolam (Alprazolam 0.25 Mg Tab) 0.25 mg PO BID PRN PRN Reason: Anxiety Last Admin: 11/25/21 15:42 Dose: 0.25 mg Aspirin (Aspirin 81 Mg) 81 mg PO DAILY [facility] Last Admin: 11/26/21 08:00 Dose: 81 mg Buspirone HCl (Buspirone Hcl 5 Mg Tab) 5 mg PO BID [facility] Last Admin: 11/26/21 08:00 Dose: 5 mg Collagenase (Collagenase 250 Unit/Gm Ointment 30 Gm Tube) 1 applic TOPICAL DAILY [facility]; Protocol Last Admin: 11/26/21 08:00 Dose: 1 applic Digoxin (Digoxin 62.5 Mcg Tab) 62.5 mcg PO DAILY [facility] Escitalopram Oxalate (Escitalopram 20 Mg Tab) 20 mg PO HS [facility] Last Admin: 11/25/21 21:15 Dose: 20 mg Cefepime HCl 1 gm/ Sodium (Chloride) 50 mls @ 12.5 mls/hr IVPB Q12HR [facility] Last Admin: 11/26/21 08:00 Dose: 12.5 mls/hr Insulin Aspart (Insulin Aspart (Novolog) 100 Unit/Ml Vial) 0 unit SQ ACHS [facility]; Protocol Last Admin: 11/26/21 12:00 Dose: Not Given Ketorolac Tromethamine (Ketorolac 0.5% Ophth Drops 5 Ml Btl) 1 drops LEFT EYE Q12H [facility] Last Admin: 11/26/21 08:02 Dose: 1 drops Methylprednisolone Sodium Succinate (Methylprednisolone Sod Succi 40 Mg/Ml 1 Ml Vial) 40 mg IV Q8HR [facility] Last Admin: 11/26/21 08:31 Dose: 40 mg Metoprolol Tartrate (Metoprolol Tartrate 50 Mg Tab) 75 mg PO Q12H [facility] Last Admin: 11/26/21 08:00 Dose: 75 mg Midodrine (Midodrine 5 Mg Tab) 5 mg PO AC-TID [facility] Last Admin: 11/26/21 12:03 Dose: Not Given Miscellaneous Information (Pneumonia Protocol Utilized 1 Each [facility]) 1 each PO ONCE PRN PRN Reason: Per Protocol Miscellaneous Information (Warfarin Per Pharmacy) 1 each MISCELLANE DIRECTED PRN; Protocol PRN Reason: Per Protocol Miscellaneous Information (Vancomycin Iv Per Pharmacy 1 Each [facility]) 1 each MISCELLANE DIRECTED PRN; Protocol PRN Reason: Per Protocol Naloxone HCl (Naloxone 0.4 Mg/Ml 1 Ml Vial) 0.2 mg IV Q2M PRN PRN Reason: Opioid Reversal Pantoprazole Sodium (Pantoprazole 40 Mg Tablet) 40 mg PO DAILY@0600 [facility] Last Admin: 11/26/21 06:21 Dose: 40 mg Sodium Chloride (Sodium Chloride 0.65% Nasal [place] 44 Ml Btl) 2 spray NASAL QID PRN PRN Reason: Congestion Last Admin: 11/19/21 17:05 Dose: 2 spray Timolol Maleate (Timolol 0.5% Ophth Drops 5 Ml Btl) 1 drops BOTH EYES Q12HR [facility] Last Admin: 11/26/21 08:01 Dose: 1 drops Warfarin Sodium (Warfarin 0.5 Mg Tab) 0 mg PO ONCE ONE Stop: 11/26/21 18:01 PHYSICAL EXAMINATION: GENERAL: The patient is alert and oriented x3, morbidly obese Well developed, well nourished. HEENT: Pupils are round and equally reacting to light. EOMI. no scleral icterus. No conjunctival pallor. Normocephalic, atraumatic. No pharyngeal erythema. No thyromegaly. CARDIOVASCULAR: S1 and S2 muffled PULMONARY: diminished breath sounds bilaterally with scattered rhonchi and crack les noted. ABDOMEN: soft. Nontender on exam. obese. non-distended, normoactive bowel sounds. No palpable organomegaly. MUSCULOSKELETAL: No joint swelling or deformity. EXTREMITIES: No cyanosis, clubbing, bilateral pedal edema noted. Generalized edema noted NEUROLOGICAL: Gross neurological examination did not reveal any focal deficits. Diffuse weakness SKIN: No rashes. Assessment: Acute hypoxic respiratory failure secondary to acute CHF exacerbation, diastolic dysfunction, possible healthcare acquired bilateral pneumonia. 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 Kidney functions worsening and patient continues with overload. Patient with increasing shortness of breath and currently on 15 L Non-rebreather. recommend closely following labs. Patient started on oral digoxin with cardio following closely. Nephrology following and IV lasix discontinued. WBC up and sputum growing staph hemo with resistance and junito and ID following. Patient is on IV abx in the form of cefepime and ID following. Patient is no code. Due to multiple complex medical issues, prognosis is extremely guarded. The impression and plan of care has been dictated by Lyndsey Vera, nurse practitioner as directed. Dr. Hector MD I have performed a history and examination and MDM of this patient, discussed the same with the dictator, and agree with the dictator's assessment and plan as written ,documented as a scribe. Based on total visit time, I have performed more than 50% of the visit. Any additional findings or plans will be noted. Objective - Vital Signs Vital signs: Vital Signs Temp 98.4 F 11/26/21 08:00 Pulse 105 H 11/26/21 09:35 Resp 20 11/26/21 08:00 BP 158/74 11/26/21 08:00 Pulse Ox 87 L 11/26/21 08:00 FiO2 Intake & Output 11/25/21 11/26/21 11/26/21 18:59 06:59 18:59 Intake Total 1090 Output Total 450 50 Balance 640 -50 Intake: Intake, IV Titration 650 Amount Cefepime 1 gm In Sodium 50 Chloride 0.9% 50 ml @ 12. 5 mls/hr IVPB Q12HR [facility] Rx#:[id number] Cefepime 2 gm In Sodium 100 Chloride 0.9% 100 ml @ 25 mls/hr IVPB Q12HR [facility] Rx #:[id number] Vancomycin 2,000 mg In 500 Sodium Chloride 0.9% 500 ml 500 ml @ 167 mls/hr IVPB ONCE ONE Rx#: [id number] Oral 440 Output: Urine 450 50 Other: Voiding Method External Catheter External Catheter External Catheter - Labs CBC & Chem 7: 11/25/21 08:31 11/26/21 08:03 Labs: Abnormal Lab Results - Last 24 Hours (Table) 11/25/21 11/25/21 11/25/21 Range/Units 11:47 16:19 19:57 PT (9.0-12.0) sec INR (<1.2) Creatinine (0.66-1.25) mg/dL POC Glucose (mg/dL) 129 H 151 H 160 H (75-99) mg/dL 11/26/21 11/26/21 11/26/21 Range/Units 05:34 08:03 08:03 PT 35.4 H (9.0-12.0) sec INR 3.6 H (<1.2) Creatinine 2.44 H (0.66-1.25) mg/dL POC Glucose (mg/dL) 168 H (75-99) mg/dL Microbiology - Last 24 Hours (Table) 11/23/21 08:43 Gram Stain - Final Sputum Sputum Culture - Final Staphylococcus haemolyticus Junito albicans
[2021-11-26 16:46] LABS: Glucose,Whole Blood 145 mg/dL (75-99)
[2021-11-26] MEDS: DIGOXIN 62.5 MCG TAB PO SCH (16:51)
[2021-11-26] MEDS ORDERED: WARFARIN 0.5 MG TAB PO ONE (18:00)
[2021-11-26 20:23] LABS: Glucose,Whole Blood 164 mg/dL (75-99)
[2021-11-26] MEDS: ESCITALOPRAM 20 MG TAB PO SCH (20:28)
[2021-11-27 06:20] LABS: Glucose,Whole Blood 201 mg/dL (75-99)
[2021-11-27] MEDS: MIDODRINE 5 MG TAB PO SCH ×3 (06:38→17:31)
[2021-11-27] MEDS: INSULIN ASPART (NovoLOG) 100 UNIT/ML VIAL SQ SCH ×4 (06:40→21:32)
[2021-11-27] MEDS: PANTOPRAZOLE 40 MG TABLET PO SCH (06:40)
[2021-11-27] MEDS: ALPRAZolam 0.25 MG TAB PO PRN ×2 (07:58→22:21)
[2021-11-27] MEDS: CEFEPIME 1 GM in SODIUM CHLORIDE 0.9% 50 ML IVPB SCH ×2 (07:58→21:38)
[2021-11-27] MEDS: busPIRone HCl 5 MG TAB PO SCH ×2 (07:59→21:38)
[2021-11-27] MEDS: METOPROLOL TARTRATE 50 MG TAB PO SCH ×2 (07:59→21:37)
[2021-11-27] MEDS: methylPREDNISolone SOD SUCCI 40 MG/ML 1 ML VIAL IV SCH ×3 (07:59→23:42)
[2021-11-27] MEDS: Acetaminophen-Codeine 300-30mg TAB PO PRN (07:59)
[2021-11-27] MEDS: DIGOXIN 62.5 MCG TAB PO SCH (07:59)
[2021-11-27] MEDS: ASPIRIN 81 MG PO SCH (07:59)
[2021-11-27] MEDS: COLLAGENASE 250 UNIT/GM OINTMENT 30 GM TUBE TOPICAL SCH (08:00)
[2021-11-27] MEDS: KETOROLAC 0.5% OPHTH DROPS 5 ML BTL LEFT EYE SCH ×2 (08:00→21:39)
[2021-11-27] MEDS: TIMOLOL 0.5% OPHTH DROPS 5 ML BTL BOTH EYES SCH ×2 (08:00→21:39)
--- NOTE | 2021-11-27 08:12 | P.PN ---
Subjective HISTORY OF PRESENTING ILLNESS This is a pleasant 86-year-old male past medical history significant for chronic persistent atrial fibrillation on warfarin, history of CVA, hypertension and peripheral vascular disease status post carotid intervention. He also has chronic lower extremity wounds. He follows in the office with Dr. Mccarty. We have been asked to see in consultation for syncope. He presented to the hospital after suffering a syncopal episode at [facility] where he was receiving IV antibiotics. According to the patient he doesn't necessarily recall what happened he just woke up on the floor. Then again while he was in the hospital he got up from bed to use the restroom he remembers walking in the bathroom feeling lightheaded and woke up again on the floor. He does endorse positive loss of consciousness. He denies feeling palpitations and chest pain shortness of breath prior to this episode. There is nothing on telemetry to suggest a significant bradycardia arrhythmia. He is in persistent atrial fibrillation wit h controlled ventricular rates. EKGs reveal atrial fibrillation with controlled ventricular rate. Echocardiogram obtained reveals preserved LV systolic function with ejection fraction 50-55%, moderate aortic regurgitation and moderate tricuspid regurgitation with an RVSP of 49 mmHg. 11/25 Patient seen and examined. Patient remains in A. fib with elevated heart rates in the 110 to 130s over last few days. Currently this morning up to 140s. He has felt worse since yesterday with increased oxygen demand. He denies any chest pain or pressure. Oxygen was increased from 6-8. He has been receiving IV diuretics with creatinine mildly increased 1.8 up to 2.[address] had shown extensive bilateral infiltrates however possibility of some pulmonary edema as well. He has been on the Lasix 40 mg IV daily with some 1500 mL output. Chest x-ray this morning shows worsening right pulmonary infiltrate. White blood cell count noted to be increased up to 14 11/26 Patient seen and examined. Patient was placed on nonrebreather and admits he feels much better today. Chest x-ray repeated today which shows stable diffuse increased lung markings, correlate for pneumonia. Blood work from this morning pending. Patient was placed on digoxin and metoprolol was increased with improvement in heart rates currently heart rates in the 70s to 90s. 11/27 Patient seen and examined. Patient admits to still feeling "crummy". Continue shortness breath however fairly stable compared to yesterday. Creatinine mildly increased at 2.4. INR increased to 3.6. No hematochezia or melena. PHYSICAL EXAMINATION Vitals reviewed CONSTITUTIONAL: No apparent distress. HEENT: Head is normocephalic. Pupils are equal, round. Sclerae anicteric. Mucous membranes of the mouth are moist. No JVD. No carotid bruit. CHEST EXAMINATION: Lungs are clear to auscultation. No chest wall tenderness is noted on palpation or with deep breathing. HEART EXAMINATION: Irregular rate and rhythm. S1, S2 heard. No murmurs, gallops or rub. ABDOMEN: Soft, nontender. EXTREMITIES: 2+ peripheral pulses, trace bilateral lower extremity edema with multiple areas of oozing bilateral Marcus wraps in place and no calf tenderness. NEUROLOGIC EXAMINATION: Patient is awake, alert and oriented x3. ASSESSMENT Syncopal episode 2 Acute kidney injury Chronic persistent atrial fibrillation on long-term anticoagulation with RVR Hypertension Peripheral vascular disease Acute on chronic diastolic heart failure Bilateral infiltrates concerning for pneumonia PLAN Previous discussions regarding possible discontinuation of Coumadin given increased fall risk however fall may be related to sepsis. Continue with Coumadin for now. Heart rates appear better controlled with increased dose of metoprolol and addition of digoxin. Continue with the low-dose digoxin and monitor closely with patient's age and kidney function. Continue with diuretics and monitor creatinine closely. Most of respiratory issues appear pulmonary. Prognosis guarded. Objective - Vital Signs Vital signs: Vital Signs Temp 97.1 F L 11/27/21 04:00 Pulse 97 11/27/21 04:00 Resp 20 11/27/21 02:00 BP 125/90 11/27/21 04:00 Pulse Ox 88 L 11/27/21 04:00 FiO2 Intake & Output 11/26/21 11/27/21 11/27/21 18:59 06:59 18:59 Output Total 1850 300 Balance -1850 -300 Output: Urine 1850 300 Male - External 550 250 Other: Voiding Method External Catheter Indwelling Catheter - Labs CBC & Chem 7: 11/25/21 08:31 11/26/21 08:03 Labs: Abnormal Lab Results - Last 24 Hours (Table) 11/25/21 11/26/21 11/26/21 Range/Units 09:20 08:03 08:03 PT 35.4 H (9.0-12.0) sec INR 3.6 H (<1.2) Creatinine 2.44 H (0.66-1.25) mg/dL POC Glucose (mg/dL) (75-99) mg/dL Ur Random Sodium <20 L (40-220) mmol/L 11/26/21 11/26/21 11/26/21 Range/Units 11:52 16:44 20:02 PT (9.0-12.0) sec INR (<1.2) Creatinine (0.66-1.25) mg/dL POC Glucose (mg/dL) 144 H 145 H 164 H (75-99) mg/dL Ur Random Sodium (40-220) mmol/L 11/27/21 Range/Units 06:03 PT (9.0-12.0) sec INR (<1.2) Creatinine (0.66-1.25) mg/dL POC Glucose (mg/dL) 201 H (75-99) mg/dL Ur Random Sodium (40-220) mmol/L Microbiology - Last 24 Hours (Table) 11/23/21 08:43 Gram Stain - Final Sputum Sputum Culture - Final Staphylococcus haemolyticus Cherise albicans
[2021-11-27] MEDS: IPRATROPIUM-ALBUTEROL 3 ML NEB INHALATION PRN ×3 (08:20→16:24)
[2021-11-27 08:32] LABS: INR 4.6 (<1.2); Prothrombin Time 45.5 sec (9.0-12.0)
[2021-11-27 08:39] LABS: Vancomycin,Random 14.6 ug/mL
--- NOTE | 2021-11-27 10:09 | P.PN ---
Subjective Patient is seen for follow-up for acute kidney injury. He is currently being diuresed. He is sitting up on a bedside chair. He states he is mildly short of breath. He is maintained on 6 L nasal cannula Patient was noted to have urine retention yesterday when urine output had dropped significantly over 24 hours. Reyna catheter was placed yesterday and urine output now noted to be 2.1 L. Serum creatinine had increased to 2.4 yesterday and it is down to 2.26 today Objective - Vital Signs Vital signs: Vital Signs Temp 97.0 F L 11/27/21 07:53 Pulse 100 11/27/21 08:37 Resp 24 11/27/21 07:53 BP 124/77 11/27/21 07:53 Pulse Ox 80 L 11/27/21 07:53 FiO2 Intake & Output 11/26/21 11/27/21 11/27/21 18:59 06:59 18:59 Output Total 1850 300 Balance -1850 -300 Output: Urine 1850 300 Male - External 550 250 Other: Voiding Method External Catheter Indwelling Catheter Indwelling Catheter - Exam Patient is awake, comfortable, mildly short of breath No acute distress Examination of the heart S1 and S2 Examination of lungs bilateral breath sounds are heard, Scattered wheezes bila terally Examination of the abdomen reveals it to be soft morbidly obese Examination of lower extremities shows chronic skin changes with chronic edema bilaterally. 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 - Labs CBC & Chem 7: 11/25/21 08:31 11/27/21 08:05 Labs: Abnormal Lab Results - Last 24 Hours (Table) 11/25/21 11/26/21 11/26/21 Range/Units 09:20 11:52 16:44 PT (9.0-12.0) sec INR (<1.2) Creatinine (0.66-1.25) mg/dL POC Glucose (mg/dL) 144 H 145 H (75-99) mg/dL Ur Random Sodium <20 L (40-220) mmol/L 11/26/21 11/27/21 11/27/21 Range/Units 20:02 06:03 08:05 PT (9.0-12.0) sec INR (<1.2) Creatinine 2.26 H (0.66-1.25) mg/dL POC Glucose (mg/dL) 164 H 201 H (75-99) mg/dL Ur Random Sodium (40-220) mmol/L 11/27/21 Range/Units 08:05 PT 45.5 H (9.0-12.0) sec INR 4.6 H (<1.2) Creatinine (0.66-1.25) mg/dL POC Glucose (mg/dL) (75-99) mg/dL Ur Random Sodium (40-220) mmol/L Microbiology - Last 24 Hours (Table) 11/23/21 08:43 Gram Stain - Final Sputum Sputum Culture - Final Staphylococcus haemolyticus Cherise albicans Assessment and Plan Assessment: 1. Acute kidney injury associated with ATN from cardiorenal syndrome and elemen t of vancomycin toxicity. Renal function was worse yesterday secondary to urine retention. Reyna catheter was placed and patient has had more than 2 L of urine output over 24 hours. I will resume Lasix 2. Volume overload currently maintained on diuretics and improving 3. Acute on chronic diastolic CHF with moderate aortic and tricuspid regurgitation and moderate pulmonary hypertension 4. Right foot wound being followed by ID 5. Hypervolemic hyponatremia 6. Acute hypoxic respiratory failure secondary to pneumonia and CHF 7. Urine retention currently with indwelling Reyna catheter with improving renal function and good urine output Plan: Continue off of IV fluids Resume IV Lasix Continue with Reyna catheter
--- NOTE | 2021-11-27 10:53 | XR ---
EXAMINATION TYPE: XR chest 1V DATE OF EXAM: 11/27/2021 COMPARISON: 11/26/2021 INDICATION: Pneumonia TECHNIQUE: Single frontal view of the chest is obtained. FINDINGS: The heart size is upper limits of normal. The pulmonary vasculature is normal. Diffuse increased lung markings are present. Findings are stable. Annual follow-up is recommended. IMPRESSION: 1. Diffuse bilateral lung infiltrates greater on the right, stable from comparison. Continued follow- up is recommended.
--- NOTE | 2021-11-27 11:19 | P.PN ---
Subjective Progress Note Date: 11/27/21 acute hypoxic respiratory failure secondary to healthcare acquired pneumonia, possible aspiration considering the patient had syncopal episode. possible underlying acute diastolic congestive heart failure 86-year-old white male patient with recent medical history of lower extremity cellulitis with abscess related to MRSA infection for which the patient was hospitalized recently and discharged to [facility] with the left upper extremity PICC line in place and vancomycin for evidence of MRSA in his right lower extremity. His past medical history is significant for chronic A. fib on Coumadin, previous history of CVA, hypertension, morbid obesity. Patient was discharged to the [facility] on 10/30/2021. On 11/17/2021 patient had a syncopal episode at the [facility] while getting up out of bed, patient denied hitting his head or suffering any trauma. The facility noted that over the course of the day patient was having increased shortness of breath, weakness, increased oxygen needs. Patient reports a dry cough, no fevers, he has chronic swelling in his lower extremities not any worse. He states he is more comfortable sleeping sitting upright than lying down he is not normally oxygen dependent. He is on 2 L of oxygen with a pulse ox of 92-94%, he is afebrile. Chest x-ray in emergency department showing coarse infiltrates throughout both lungs much greater on the right the possibility of underlying pneumonia. Lab evaluation showed a white count of 10.3, hemoglobin of 11.4, INR 1.5, sodium is 126, potassium is 4.9, chloride is 97, CO2 is 19, BUN is 59, creatinine is 2.24, bilirubin is 1.7, AST was 121, ALT was 100, alk phos was 201, troponin was 0.034, proBNP was 13,004 100, urinalysis showed large amount of blood, normal white blood cells, no clear evidence of urinary tract infection, Vanco trough from 11/15/2021 was 26, random vancomycin level is 29.6. COVID-19 PCR was negative. Patient was started on antibiotics with azithromycin and Rocephin, breathing treatments, patient was on Lasix 40 mg twice daily at the [facility], clinically he appears to be dehydrated with dry oral mucous membranes. Denies any nausea vomiting or diarrhea. Cultures have been sent, ID service, nephrology, and pulmonary consultations have been requested. reevaluated today on 11/18/21,patient is resting in bed, he is on 4 L nasal cannula, and his O2 saturation is 96%, blood pressure is 125/72, patient is relatively asymptomatic, denies shortness of breath denies any cough denies any wheezing, he tells me that he feels fine. No fever overnight. Patient is on antibiotics empirically for his cellulitis, chest x-ray showed interstitial edema, underlying infiltrate is not entirely ruled out. Apparently the patient had previous history of MRSA infection was fully treated by infectious disease on the case, and now he is on Rocephin and Zithromax. Reevaluated today on 11/19/21, patient is basically about the same, remains on 3 L nasal cannula, O2 sats 91%, chest x-ray continues to show interstitial edema, possible infiltrates bilaterally right more so than left. Patient remains on diuretics, remains empirically on antibiotics, his pro-calcitonin level 0.5, and his BNP level is over 15,000. Echocardiogram yesterday showed preserved LV function with ejection fraction of 50-55% it also showed moderate pulmonary hypertension. WBC count today is 9.7 hemoglobin 11.8 INR is 1.5 electrolytes are relatively normal BUN is down to 56 creatinine is down to 1.96 in spite of diuretics 11/20/2021, I'm seeing the patient for a follow-up. The patient is being treated for a combination of pneumonia and CHF. He is currently on oxygen at 3 L per minute nasal cannula with a pulse ox of 92%. He is afebrile. He is hemodynamically stable. On blood work from today shows a white cell count 9.5 with a hemoglobin of 11.4 and a platelet count of 345. Sodium is at 1:30, potassium is at 4.2, BUN is a 51 with a creatinine of 1.7 and a potassium level of 4.2. The patient is being diuresed and the patient is a negative fluid balance of at least 1.9 L over the past 24 hours. He remains on Lasix 40 mg ev krishna 12 hours. He is also on IV Rocephin. Dr. Mccray are wanted to consider broadening of antibiotic coverage to Zosyn considering aspiration. Nevertheless, I compared the series of chest exit and I believe that the right lung consolidations improving and the patient's clinically stable and I stated the course with the IV Rocephin. His pro-calcitonin level was 0.51 at time of admission on 11/17/2021. 11/21/2021, the patient has been brought up to 4 L of O2 nasal cannula and the current pulse ox is around 88%. This is slightly worse compared to yesterday. The chest x-ray findings from today is still showing a right lung consolidation along with cardiomegaly and pulmonary vascular congestion/CHF. Comparing this chest x-ray with the earlier chest x-rays, there is no major interval change. There could be some slight progression from prior study. Note that the patient also has cardiomegaly. The patient remains on IV Rocephin. The patient also on IV diuretics. The white cell count at 10.2 with a hemoglobin of 11.7 and BUN is at 46 with a creatinine of 1.7. The fluid balance over the past 24 hours has been -1.6 L. As such, the patient is diuresing adequately. He continues to have edema in lower extremities. He is awake and alert and communicating. No chest pain. The pro-calcitonin level was at 0.51 at the time of admission. Repeat pro-calcitonin level is down to 0.34. 11/22/2021 the patient remains on 5 L of O2 nasal cannula to bring his pulse ox above 90%. I'm seeing him today in follow-up. The chest x-ray findings and essentially unchanged and there is cardiomegaly and bilateral pulmonary infiltrates most on the lower lobes and some in the right upper lobe. The patient remains on Lasix 40 mg IV every 12 hours and the patient remains on IV Zosyn. The patient remains on anticoagulants with warfarin 4 mg on a daily basis. On his blood work from today, his white cell count is 11 with a hemoglobin 11.9 and a and her renal function is currently stable at 1.7 creatinine and a BUN of 43 and sodium level of 131. INR is subtherapeutic at 1.4. Pro-calcitonin level was improving and the level was down to 0.34. The fluid balance over the past 24 hours has been -1 L and the patient continues to make good urine output. 11/23/2021 the patient is on 6 L O2 nasal cannula. The patient's is on IV Zosyn. The patient was taken off the IV Lasix and the patient was placed on torsemide by nephrology. He is using incentive spirometer. A repeat chest x-ra y was done today and this was compared to the earlier chest x-ray. Findings are essentially unchanged and the patient has ongoing consolidation of the right lung with cardiomegaly and possibly some small bilateral pleural effusions. I think the presentation is more consistent with a combination of CHF and pneumonia. The patient is afebrile. White cell count is 11.1. INR is at one point for what the patient being on Coumadin. Creatinine stable at 1.7 and his sodium level is at 141. All of the microbial cultures of been negative and the patient remains on by mouth Augmentin. Using incentive spirometer. Continues to have swelling in lower extremities bilaterally. Fluid balance is -1 L over the past 24 hours. 7 2021, I'm seeing the patient for a follow-up. He remains on 6 L of oxygen by nasal cannula. Due to his underlying ongoing hypoxemia, I performed a CAT scan of the chest that showed extensive bilateral pulmonary infiltrates. The exact etiology remains unclear. This could be infectious. There may be also a component of interstitial edema and the patient had a small right-sided pleural effusion. Based on those results, I started the patient IV cefepime 2 g every 12 hours and also I kept the patient on diuretics and the patient is receiving Lasix 40 mg 8 hours. Repeat blood work from today shows a INR of 1.8 as the patient is on long-term and incontinence with warfarin. Sodium is at 129, BUN is a 49 with a creatinine of 1.88. The fluid balance is negative in the lower extremity edema is also improving. Note that his pro-calcitonin level was only a 0.34. 11/25/2021, the patient is doing poorly. The patient is reporting worsening shortness of breath. He remains on 6 L of oxygen by nasal cannula. His breathing is labored. Repeat chest x-ray was done and showed worsening of the consolidation bilaterally. He was on IV cefepime. I added vancomycin. Meanwhile, he still having issues with atrial fibrillation with RVR. Cardiology is seeing the patient in this regard. No syncopal episodes. INR is at 2.7 which is therapeutic for now. On today's blood work, creatinine is at 2.08 with a BUN of 54 and the patient remains on Lasix 40 g every 24 hours. The patient sodium level is at 129. The patient's white cell count is at 14.2 with a hemogl obin of 12.0. Sputum culture and blood cultures all negative. 11/26/2021, the patient is on a nonrebreather facemask. The patient was switched to a 15 L high flow nonrebreather facemask yesterday at around midnight. He seems to be however more comfortable. Breathing easier. He has a congested cough. Sputum culture done earlier showed staph aureus and this was a MRSA and the patient is currently on vancomycin. Patient is also on IV cefepime. Despite having increased oxygen requirements, the patient reports that his breathing easier today. His renal function is worse on today's evaluat ion the patient's creatinine is up to 2.44 and the patient will be taken off the Lasix. The PT/INR is therapeutic for now. Note that he is a 86-year-old male patient with multiple medical problems and comorbidities and the patient is a DNR/DNI CODE STATUS. Nevertheless, he is still being aggressive and she is regarding his bilateral pneumonia. CAT scan of the chest was noted. Repeat chest x-ray was noted and the patient continues to have extensive consolidation bilaterally 11/27/2021, the patient is doing actually poor. He remains in the 100% on a beta facemask. Short of breath. Congested cough. Unable to bring up much sputum. Chest x-ray was repeated this morning is still showing diffuse bilateral pulmonary infiltrates secondary to staph infection which turned out to be a staph saprophyticus. In any rate, the patient is on vancomycin. He is lethargic. He is weak. INR today is at 4.6. Based on development of an acute on top of chronic kidney disease and a creatinine was as high as 2.4, stop the diuretics yesterday and the repeat creatinine today is at 2.2. Family is arrived and then the bedside. There is a son who came also from [place]. Based on overall condition, based on my discussion with the family, I think is either recovery is extremely low and the patient needs to be considered for hospice care. I consulted hospice after consulting with the family. The family was agreeable to that. Objective - Vital Signs Vital signs: Vital Signs Temp 97.0 F L 11/27/21 07:53 Pulse 100 11/27/21 08:37 Resp 24 11/27/21 07:53 BP 124/77 11/27/21 07:53 Pulse Ox 80 L 11/27/21 07:53 FiO2 Intake & Output 11/26/21 11/27/21 11/27/21 18:59 06:59 18:59 Output Total 1850 300 Balance -1850 -300 Output: Urine 1850 300 Male - External 550 250 Other: Voiding Method External Catheter Indwelling Catheter Indwelling Catheter - Exam GENERAL EXAM: revealed 86-year-old white male, on 100% nonrebreather facemask HEAD: Normocephalic/atraumatic. HEENT: PERRLA, EOMI, anicteric, no neck masses, no JVD, no stridor. CHEST: No chest wall deformity. Symmetrical expansion. LUNGS: fine crackles at the bases. No rhonchi and no wheezes CVS: Irregular rate and rhythm, normal S1 and S2, no gallops, no murmurs, no rubs ABDOMEN: obese,Soft, nontender. No hepatosplenomegaly, no rebound, no guarding. EXTREMITIES: No clubbing, chronic swelling in bilateral lower extremities, no cyanosis, 2+ pulses and upper and lower extremities.both lower extremities are wrapped with sterile dressings. Chronic venous stasis changes noted bilaterally. SKIN: No rashes, however the patient does have chronic venous stasis changes in both lower extremities CENTRAL NERVOUS SYSTEM: alert and oriented 3 no gross focal deficits. PSYCHIATRIC: nnormal mood, affect and normal mental status examination. - Labs CBC & Chem 7: 11/25/21 08:31 11/27/21 08:05 Labs: Abnormal Lab Results - Last 24 Hours (Table) 11/25/21 11/26/21 11/26/21 Range/Units 09:20 08:03 11:52 PT 35.4 H (9.0-12.0) sec INR 3.6 H (<1.2) Creatinine (0.66-1.25) mg/dL POC Glucose (mg/dL) 144 H (75-99) mg/dL Ur Random Sodium <20 L (40-220) mmol/L 11/26/21 11/26/21 11/27/21 Range/Units 16:44 20:02 06:03 PT (9.0-12.0) sec INR (<1.2) Creatinine (0.66-1.25) mg/dL POC Glucose (mg/dL) 145 H 164 H 201 H (75-99) mg/dL Ur Random Sodium (40-220) mmol/L 11/27/21 11/27/21 Range/Units 08:05 08:05 PT 45.5 H (9.0-12.0) sec INR 4.6 H (<1.2) Creatinine 2.26 H (0.66-1.25) mg/dL POC Glucose (mg/dL) (75-99) mg/dL Ur Random Sodium (40-220) mmol/L Microbiology - Last 24 Hours (Table) 11/23/21 08:43 Gram Stain - Final Sputum Sputum Culture - Final Staphylococcus haemolyticus Cherise albicans Assessment and Plan Assessment: Acute hypoxic respiratory failure secondary to bilateral pneumonia, could be aspiration pneumonia since the patient had a syncopal episode. This could also be healthcare related pneumonia, subsequent sputum analysis showed that the patient had MRSA and the patient was started on vancomycin yesterday. Meanwhile, the patient oxygenation got more impaired and the patient is currently on 100% on a beta facemask. He is feeling better compared to yesterda y. Chest x-ray still showing extensive bilateral consolidations/respiratory disease. He is a DNR/DNI CODE STATUS. No change in his condition since yesterday. The patient remains on 100% nonrebreather facemask. Chest x-ray official records and pneumonia/consolidation which is quite extensive and the patient is quite lethargic and debilitated. Hyponatremia with a sodium level of 129, awaiting electrolytes from today, however the renal function is worse on today's evaluation the creatinine is up to 2.44 acute diastolic congestive heart failure. Syncopal episode, likely cardiac in nature unless for otherwise. The patient is going to have an event monitor the time of discharge. Acute kidney injury. The creatinine is worse at 2.44 Chronic atrial fibrillation, on Coumadin., INR is therapeutic for today Chronic cellulitis of lower extremities. History of MRSA infection/cellulitis. Nonsmoker. Chronic liver disease possibly secondary to alcohol. Type 2 diabetes. recommendation: Very poor performance and functional status with advanced age and multiple comorbidities in addition to extensive bilateral pneumonia with a DNR/DNI CODE STATUS. Family is interested in hospice care. Hospice services was consulted. Meanwhile, I will suggest continuing the IV cefepime and vancomycin, the patient has staph in the sputum possibly healthcare associated discontinue the Lasix Keep the patient on 100% on 100% nonrebreather facemask Start the patient hydrating again gently with a 50 mL of normal saline DNR/DNI CODE STATUS Overall long-term prognosis is very poor
[2021-11-27 12:00] LABS: Glucose,Whole Blood 156 mg/dL (75-99)
[2021-11-27] MEDS ORDERED: VANCOMYCIN 2,000 MG in SODIUM CHLORIDE 0.9% 500 ML 500 ML IVPB ONE (12:00)
[2021-11-27] MEDS: FUROSEMIDE 10 MG/ML 4 ML VIAL IV SCH (12:22)
--- NOTE | 2021-11-27 14:31 | P.PN ---
Subjective Progress Note Date: 11/27/21 11/20/2021 diuresing on Lasix IV push, 24-hour I&O reflecting a negative fluid balance. Renal function trending down with creatinine 1.72. Maintaining O2 sats in the 90s on 3 L nasal cannula, with accessory muscle use. Pro-calcitonin elevated 0.34. Sodium 1:30, afebrile, normal WBC. Maintained on Rocephin as per infectious disease. Denies pain of right lower extremity. Evaluated by wound care services with recommendations noted pertaining to chronic right foot ulcer with nonweightbearing of right heel. Hematuria secondary to traumatic insertion. 11/21/2021 Feels better, maintaining O2 sats of 90% on 3 L nasal cannula. Diuresing on IV Lasix well with 24-hour I&O reflecting a negative fluid balance. Sodium 132, BUN 46, creatinine 1.77. Chest x-ray pending. Denies chest pain, palpitations. Occasional nonproductive cough. 11/23/2021 This is an 86-year-old male who was recently admitted with CHF with hypoxia and is being closely monitored. Multiple medical consultations following including cardiology, pulmonary, and nephrology. Patient continues on 6 L via nasal cannula and was recently started on torsemide today and continues with volume overload. Case management and director of social media marketing also following as patient will be going to [facility] once stabilized and discharged. chest xray continues to show pleural effusions and possible infectious process such as pneumonia. CT chest is ordered and pending per pulmonary. Patient denies chest pain or palpitations. Patient is afebrile. Patient is continued on oral augmentin and breathing treatments. 11/24/2021 Patient is seen this am and having increasing shortness of breath and heart rate is elevated and will reconsult cardiology and appreciate input and recommendations. Patient is being followed by multiple medical consultations including ID and patient is on cefepime. Patient transitioned to IV lasix bid and nephrology is following. Patient being followed by pulm and continued on breathing inhalational treatments and will continue. Continue wound care. Patient is afebrile. Patient denies chest pain. 11/25/2021 Patient is seen today and is having continued shortness of breath and also some anxiousness. Pulmonary and cardiology along with ID following and patient continues on IV abx and adjustments being made. sputum preliminary showing junito albicans and will add diflucan and awaiting finalized cultures. Patient is on 6L via NC with a pulse ox of 89%. Patient denies chest pains. Patient is afebrile. WBC is up and kidney functions worse and is on IV lasix. Nephrology following. CXR appears worse bilaterally with infiltrates. Patient is being started on IV digoxin and metoprolol. 11/26/2021 Patient is seen in follow up and continues with shortness of breath and currently maintained on 15L Non-rebreather with pulmonary and cardiology following. Nephrology following as well. Patient with worsening renal functions and IV lasix has been discontinued. Urinary retention and recommend to continue with indwelling grande catheter. Maintained on IV cefepime with ID following. Oral digoxin per cardiology and coumadin. Patient is afebrile. 11/27/2021 Patient is seen in follow-up this morning continues to have shortness of breath and maintained on 15 L nonrebreather. Pulmonary and cardiology along with ne phrology following and kidney functions continue to worsen. Patient and family are agreeable and will be meeting with hospice and awaiting to decide on inpatient or if patient is stable enough to be hospice in the outpatient setting. Patient denies any chest pain or worsening shortness of breath. Patient is anxious and doing better on Xanax and will continue as needed. Overall prognosis is extremely poor and guarded with possible hospice later today or tomorrow. Review of systems: Constitutional: No reports of fatigue, fever, or chills Cardiovascular: No reports of chest pain or palpitations Respiratory: reports of increasing shortness of breath GI: no reports of nausea, no reports of of vomiting : No reports of dysuria, some retention, has indwelling catheter now Neurovascular: reports of generalized weakness All medications have been reviewed Active Medications Acetaminophen (Acetaminophen Tab 325 Mg Tab) 650 mg PO Q6HR PRN PRN Reason: Mild Pain or Fever > 100.5 Acetaminophen/Codeine Phosphate (Acetaminophen-Codeine 300-30mg Tab) 1 each PO Q4H PRN PRN Reason: Pain Last Admin: 11/27/21 07:59 Dose: 1 each Albuterol/Ipratropium (Ipratropium-Albuterol 3 Ml Neb) 3 ml INHALATION RT-Q4H PRN PRN Reason: shortness of breath Last Admin: 11/27/21 11:34 Dose: 3 ml Alprazolam (Alprazolam 0.25 Mg Tab) 0.25 mg PO BID PRN PRN Reason: Anxiety Last Admin: 11/27/21 07:58 Dose: 0.25 mg Aspirin (Aspirin 81 Mg) 81 mg PO DAILY [facility] Last Admin: 11/27/21 07:59 Dose: 81 mg Buspirone HCl (Buspirone Hcl 5 Mg Tab) 5 mg PO BID [facility] Last Admin: 11/27/21 07:59 Dose: 5 mg Collagenase (Collagenase 250 Unit/Gm Ointment 30 Gm Tube) 1 applic TOPICAL DAILY [facility]; Protocol Last Admin: 11/27/21 08:00 Dose: 1 applic Digoxin (Digoxin 62.5 Mcg Tab) 62.5 mcg PO DAILY [facility] Last Admin: 11/27/21 07:59 Dose: 62.5 mcg Escitalopram Oxalate (Escitalopram 20 Mg Tab) 20 mg PO HS [facility] Last Admin: 11/26/21 20:28 Dose: 20 mg Furosemide (Furosemide 10 Mg/Ml 4 Ml Vial) 40 mg IV DAILY [facility] Last Admin: 11/27/21 12:22 Dose: 40 mg Cefepime HCl 1 gm/ Sodium (Chloride) 50 mls @ 12.5 mls/hr IVPB Q12HR [facility] Last Admin: 11/27/21 07:58 Dose: 12.5 mls/hr Vancomycin HCl 2,000 mg/ (Sodium Chloride) 500 mls @ 167 mls/hr IVPB ONCE ONE Stop: 11/27/21 14:59 Last Admin: 11/27/21 14:14 Dose: 167 mls/hr Insulin Aspart (Insulin Aspart (Novolog) 100 Unit/Ml Vial) 0 unit SQ ACHS [facility]; Protocol Last Admin: 11/27/21 12:28 Dose: Not Given Ketorolac Tromethamine (Ketorolac 0.5% Ophth Drops 5 Ml Btl) 1 drops LEFT EYE Q12H [facility] Last Admin: 11/27/21 08:00 Dose: 1 drops Methylprednisolone Sodium Succinate (Methylprednisolone Sod Succi 40 Mg/Ml 1 Ml Vial) 40 mg IV Q8HR [facility] Last Admin: 11/27/21 07:59 Dose: 40 mg Metoprolol Tartrate (Metoprolol Tartrate 50 Mg Tab) 75 mg PO Q12H [facility] Last Admin: 11/27/21 07:59 Dose: 75 mg Midodrine (Midodrine 5 Mg Tab) 5 mg PO AC-TID [facility] Last Admin: 11/27/21 12:31 Dose: 5 mg Miscellaneous Information (Pneumonia Protocol Utilized 1 Each [facility]) 1 each PO ONCE PRN PRN Reason: Per Protocol Miscellaneous Information (Warfarin Per Pharmacy) 1 each MISCELLANE DIRECTED PRN; Protocol PRN Reason: Per Protocol Miscellaneous Information (Vancomycin Iv Per Pharmacy 1 Each [facility]) 1 each MISCELLANE DIRECTED PRN; Protocol PRN Reason: Per Protocol Naloxone HCl (Naloxone 0.4 Mg/Ml 1 Ml Vial) 0.2 mg IV Q2M PRN PRN Reason: Opioid Reversal Pantoprazole Sodium (Pantoprazole 40 Mg Tablet) 40 mg PO DAILY@0600 [facility] Last Admin: 11/27/21 06:40 Dose: 40 mg Sodium Chloride (Sodium Chloride 0.65% Nasal Pinch 44 Ml Btl) 2 spray NASAL QID PRN PRN Reason: Congestion Last Admin: 11/19/21 17:05 Dose: 2 spray Timolol Maleate (Timolol 0.5% Ophth Drops 5 Ml Btl) 1 drops BOTH EYES Q12HR [facility] Last Admin: 11/27/21 08:00 Dose: 1 drops Warfarin Sodium (Warfarin 0.5 Mg Tab) 0 mg PO ONCE@1800 ONE Stop: 11/27/21 18:01 PHYSICAL EXAMINATION: GENERAL: The patient is alert and oriented x3, morbidly obese Well developed, well nourished. HEENT: Pupils are round and equally reacting to light. EOMI. no scleral icterus. No conjunctival pallor. Normocephalic, atraumatic. No pharyngeal erythema. No thyromegaly. CARDIOVASCULAR: S1 and S2 muffled PULMONARY: diminished breath sounds bilaterally with scattered rhonchi and crackles noted. ABDOMEN: soft. Nontender on exam. obese. non-distended, normoactive bowel sounds. No palpable organomegaly. MUSCULOSKELETAL: No joint swelling or deformity. EXTREMITIES: No cyanosis, clubbing, bilateral pedal edema noted. Generalized edema noted NEUROLOGICAL: Gross neurological examination did not reveal any focal deficits. Diffuse weakness SKIN: No rashes. Assessment: Acute hypoxic respiratory failure secondary to acute CHF exacerbation, diastolic dysfunction, possible healthcare acquired bilateral pneumonia. 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 Patient and family at the bedside have agreed and would like to meet with hospice and will await their final decision as they are possibly meeting with hospice today or early tomorrow morning. Prognosis is extremely poor and guarded given multiple complex medical issues and will continue to follow closely. Patient is no code. Due to multiple complex medical issues, prognosis is extremely guarded. The impression and plan of care has been dictated by Lyndsey Vera, nurse practitioner as directed. Dr. jason MD I have performed a history and examination and MDM of this patient, discussed the same with the dictator, and agree with the dictator's assessment and plan as written ,documented as a scribe. Based on total visit time, I have performed more than 50% of the visit. Any additional findings or plans will be noted. Objective - Vital Signs Vital signs: Vital Signs Temp 97.0 F L 11/27/21 07:53 Pulse 100 11/27/21 08:37 Resp 24 11/27/21 07:53 BP 124/77 11/27/21 07:53 Pulse Ox 80 L 11/27/21 07:53 FiO2 Intake & Output 11/26/21 11/27/21 11/27/21 18:59 06:59 18:59 Output Total 1850 300 Balance -1850 -300 Output: Urine 1850 300 Male - External 550 250 Other: Voiding Method External Catheter Indwelling Catheter Indwelling Catheter - Labs CBC & Chem 7: 11/25/21 08:31 11/27/21 08:05 Labs: Abnormal Lab Results - Last 24 Hours (Table) 11/25/21 11/26/21 11/26/21 Range/Units 09:20 08:03 11:52 PT 35.4 H (9.0-12.0) sec INR 3.6 H (<1.2) Creatinine (0.66-1.25) mg/dL POC Glucose (mg/dL) 144 H (75-99) mg/dL Ur Random Sodium <20 L (40-220) mmol/L 11/26/21 11/26/21 11/27/21 Range/Units 16:44 20:02 06:03 PT (9.0-12.0) sec INR (<1.2) Creatinine (0.66-1.25) mg/dL POC Glucose (mg/dL) 145 H 164 H 201 H (75-99) mg/dL Ur Random Sodium (40-220) mmol/L 11/27/21 11/27/21 Range/Units 08:05 08:05 PT 45.5 H (9.0-12.0) sec INR 4.6 H (<1.2) Creatinine 2.26 H (0.66-1.25) mg/dL POC Glucose (mg/dL) (75-99) mg/dL Ur Random Sodium (40-220) mmol/L Microbiology - Last 24 Hours (Table) 11/23/21 08:43 Gram Stain - Final Sputum Sputum Culture - Final Staphylococcus haemolyticus Junito albicans
[2021-11-27 16:41] LABS: Glucose,Whole Blood 141 mg/dL (75-99)
[2021-11-27] MEDS ORDERED: WARFARIN 0.5 MG TAB PO ONE (18:00)
[2021-11-27 20:45] LABS: Glucose,Whole Blood 143 mg/dL (75-99)
[2021-11-27] MEDS: ESCITALOPRAM 20 MG TAB PO SCH (21:38)
[2021-11-28 04:15] VITALS: TEMP 97.4
[2021-11-28] MEDS: INSULIN ASPART (NovoLOG) 100 UNIT/ML VIAL SQ SCH ×2 (06:14→11:42)
[2021-11-28] MEDS: PANTOPRAZOLE 40 MG TABLET PO SCH (06:14)
[2021-11-28 06:16] LABS: Glucose,Whole Blood 167 mg/dL (75-99)
[2021-11-28 06:17] VITALS: BP 153/85
[2021-11-28] MEDS: MIDODRINE 5 MG TAB PO SCH ×2 (06:17→11:42)
[2021-11-28] MEDS: CEFEPIME 1 GM in SODIUM CHLORIDE 0.9% 50 ML IVPB SCH (08:15)
[2021-11-28] MEDS: FUROSEMIDE 10 MG/ML 4 ML VIAL IV SCH (08:15)
[2021-11-28] MEDS: methylPREDNISolone SOD SUCCI 40 MG/ML 1 ML VIAL IV SCH (08:15)
[2021-11-28] MEDS: COLLAGENASE 250 UNIT/GM OINTMENT 30 GM TUBE TOPICAL SCH (08:16)
[2021-11-28] MEDS: TIMOLOL 0.5% OPHTH DROPS 5 ML BTL BOTH EYES SCH (10:43)
[2021-11-28] MEDS: KETOROLAC 0.5% OPHTH DROPS 5 ML BTL LEFT EYE SCH (10:43)
[2021-11-28] MEDS: ASPIRIN 81 MG PO SCH (10:43)
[2021-11-28] MEDS: DIGOXIN 62.5 MCG TAB PO SCH (10:43)
[2021-11-28] MEDS: METOPROLOL TARTRATE 50 MG TAB PO SCH (10:43)
[2021-11-28] MEDS: busPIRone HCl 5 MG TAB PO SCH (10:43)
[2021-11-28 10:56] LABS: Prothrombin Time 54.6 sec (9.0-12.0)
[2021-11-28 11:09] LABS: INR 5.4 (<1.2)
[2021-11-28 11:23] LABS: Vancomycin,Random 24.5 ug/mL
--- NOTE | 2021-11-28 11:30 | P.PN ---
Subjective Patient is seen for follow-up for acute kidney injury. He is currently being diuresed. He is sitting up on a bedside chair. He states he is mildly short of breath. He is maintained on 6 L nasal cannula Patient was noted to have urine retention yesterday when urine output had dropped significantly over 24 hours. Reyna catheter was placed and urine output now noted to be 2.1 L. Serum creatinine had increased to 2.4 and it is down to 2.1 today Family is present at bedside. It appears that they have decided to proceed with hospice care. Patient is sitting on a bedside chair. He is more weak today. He remains hypoxic with O2 sats at 83% on 100% nonrebreather. Objective - Vital Signs Vital signs: Vital Signs Temp 97.4 F L 11/28/21 04:14 Pulse 85 11/28/21 07:44 Resp 17 11/28/21 07:44 BP 153/85 11/28/21 06:16 Pulse Ox 86 L 11/28/21 08:06 FiO2 100 11/27/21 22:39 Intake & Output 11/27/21 11/28/21 11/28/21 18:59 06:59 18:59 Intake Total 300 Output Total 2100 780 175 Balance -1800 -780 -175 Weight 131.8 kg Intake: Oral 300 Output: Urine 2100 780 175 Male - External 2100 175 Other: Voiding Method Indwelling Catheter Indwelling Catheter Indwelling Catheter - Exam Patient is awake, lethargic, mildly short of breath Patient is maintained on 100% nonrebreather. O2 sats at 83% Chronic bilateral edema - Labs CBC & Chem 7: 11/25/21 08:31 11/28/21 10:17 Labs: Abnormal Lab Results - Last 24 Hours (Table) 11/27/21 11/27/21 11/27/21 Range/Units 11:58 16:39 20:36 PT (9.0-12.0) sec INR (<1.2) Creatinine (0.66-1.25) mg/dL POC Glucose (mg/dL) 156 H 141 H 143 H (75-99) mg/dL 11/28/21 11/28/21 11/28/21 Range/Units 06:10 10:17 10:17 PT 54.6 H (9.0-12.0) sec INR 5.4 H* (<1.2) Creatinine 2.18 H (0.66-1.25) mg/dL POC Glucose (mg/dL) 167 H (75-99) mg/dL Assessment and Plan Assessment: 1. Acute kidney injury associated with ATN from cardiorenal syndrome and element of vancomycin toxicity. Renal function was worse secondary to urine retention. Reyna catheter was placed and patient has had more than 2 L of urine output over 24 hours. Lasix has been resumed. 2. Volume overload currently maintained on diuretics and improving 3. Acute on chronic diastolic CHF with moderate aortic and tricuspid regurgitation and moderate pulmonary hypertension 4. Right foot wound being followed by ID 5. Hypervolemic hyponatremia 6. Acute hypoxic respiratory failure secondary to pneumonia and CHF 7. Urine retention currently with indwelling Reyna catheter with improving renal function and good urine output Plan: Agree with plans for hospice given overall generalized condition and poor respiratory health
[2021-11-28 12:01] VITALS: PULSE 96; RESP 22
[2021-11-28 12:02] LABS: Glucose,Whole Blood 177 mg/dL (75-99)
--- NOTE | 2021-11-28 12:36 | P.PN ---
Subjective HISTORY OF PRESENTING ILLNESS This is a pleasant 86-year-old male past medical history significant for permanent atrial fibrillation on warfarin, history of CVA, hypertension and peripheral vascular disease status post carotid intervention. He also has chronic lower extremity wounds. He follows in the office with Dr. Mccarty. We have been asked to see in consultation for syncope. He presented to the hospital after suffering a syncopal episode at [facility] where he was receiving IV antibiotics. He was in persistent atrial fibrillation with controlled ventricular rates. EKGs revealed atrial fibrillation with controlled ventricular rate. Echocardiogram obtained revealed preserved LV systolic function with ejection fraction 50-55%, moderate aortic regurgitation and moderate tricuspid regurgitation with an RVSP of 49 mmHg. Patient seen at bedside this morning. Family present at bedside, they have decided to proceed with hospice care. PHYSICAL EXAMINATION Vitals reviewed Patient was not examined secondary to request, hospice and comfort care. ASSESSMENT Syncopal episode 2 Bilateral infiltrates concerning for pneumonia Hyponatremia Acute kidney injury Permanent atrial fibrillation on long-term anticoagulation with RVR Hypertension Peripheral vascular disease Acute on chronic diastolic heart failure PLAN Family and patient have decided to proceed with hospice care. We will follow the patient as needed. Please call with questions. Nurse Practitioner note has been reviewed, I agree with a documented findings and plan of care. Patient was seen and examined. Objective - Vital Signs Vital signs: Vital Signs Temp 97.4 F L 11/28/21 04:14 Pulse 96 11/28/21 12:02 Resp 22 11/28/21 12:02 BP 153/85 11/28/21 06:16 Pulse Ox 86 L 11/28/21 12:00 FiO2 100 11/27/21 22:39 Intake & Output 11/27/21 11/28/21 11/28/21 18:59 06:59 18:59 Intake Total 300 290 Output Total 2100 780 175 Balance -1800 -780 115 Weight 131.8 kg Intake: IV 240 .9@20 240 Intake, IV Titration 50 Amount Cefepime 1 gm In Sodium 50 Chloride 0.9% 50 ml @ 12. 5 mls/hr IVPB Q12HR [facility] Rx#:[id number] Oral 300 Output: Urine 2100 780 175 Male - External 2100 175 Other: Voiding Method Indwelling Catheter Indwelling Catheter Indwelling Catheter - Labs CBC & Chem 7: 11/25/21 08:31 11/28/21 10:17 Labs: Abnormal Lab Results - Last 24 Hours (Table) 11/27/21 11/27/21 11/28/21 Range/Units 16:39 20:36 06:10 PT (9.0-12.0) sec INR (<1.2) Creatinine (0.66-1.25) mg/dL POC Glucose (mg/dL) 141 H 143 H 167 H (75-99) mg/dL 11/28/21 11/28/21 11/28/21 Range/Units 10:17 10:17 11:59 PT 54.6 H (9.0-12.0) sec INR 5.4 H* (<1.2) Creatinine 2.18 H (0.66-1.25) mg/dL POC Glucose (mg/dL) 177 H (75-99) mg/dL
--- NOTE | 2021-11-28 13:25 | P.PN ---
Subjective Progress Note Date: 11/28/21 11/20/2021 diuresing on Lasix IV push, 24-hour I&O reflecting a negative fluid balance. Renal function trending down with creatinine 1.72. Maintaining O2 sats in the 90s on 3 L nasal cannula, with accessory muscle use. Pro-calcitonin elevated 0.34. Sodium 1:30, afebrile, normal WBC. Maintained on Rocephin as per infectious disease. Denies pain of right lower extremity. Evaluated by wound care services with recommendations noted pertaining to chronic right foot ulcer with nonweightbearing of right heel. Hematuria secondary to traumatic insertion. 11/21/2021 Feels better, maintaining O2 sats of 90% on 3 L nasal cannula. Diuresing on IV Lasix well with 24-hour I&O reflecting a negative fluid balance. Sodium 132, BUN 46, creatinine 1.77. Chest x-ray pending. Denies chest pain, palpitations. Occasional nonproductive cough. 11/23/2021 This is an 86-year-old male who was recently admitted with CHF with hypoxia and is being closely monitored. Multiple medical consultations following including cardiology, pulmonary, and nephrology. Patient continues on 6 L via nasal cannula and was recently started on torsemide today and continues with volume overload. Case management and social media community manager also following as patient will be going to [facility] once stabilized and discharged. chest xray continues to show pleural effusions and possible infectious process such as pneumonia. CT chest is ordered and pending per pulmonary. Patient denies chest pain or palpitations. Patient is afebrile. Patient is continued on oral augmentin and breathing treatments. 11/24/2021 Patient is seen this am and having increasing shortness of breath and heart rate is elevated and will reconsult cardiology and appreciate input and recommendations. Patient is being followed by multiple medical consultations including ID and patient is on cefepime. Patient transitioned to IV lasix bid and nephrology is following. Patient being followed by pulm and continued on breathing inhalational treatments and will continue. Continue wound care. Patient is afebrile. Patient denies chest pain. 11/25/2021 Patient is seen today and is having continued shortness of breath and also some anxiousness. Pulmonary and cardiology along with ID following and patient continues on IV abx and adjustments being made. sputum preliminary showing junito albicans and will add diflucan and awaiting finalized cultures. Patient is on 6L via NC with a pulse ox of 89%. Patient denies chest pains. Patient is afebrile. WBC is up and kidney functions worse and is on IV lasix. Nephrology following. CXR appears worse bilaterally with infiltrates. Patient is being started on IV digoxin and metoprolol. 11/26/2021 Patient is seen in follow up and continues with shortness of breath and currently maintained on 15L Non-rebreather with pulmonary and cardiology following. Nephrology following as well. Patient with worsening renal functions and IV lasix has been discontinued. Urinary retention and recommend to continue with indwelling grande catheter. Maintained on IV cefepime with ID following. Oral digoxin per cardiology and coumadin. Patient is afebrile. 11/27/2021 Patient is seen in follow-up this morning continues to have shortness of breath and maintained on 15 L nonrebreather. Pulmonary and cardiology along with ne phrology following and kidney functions continue to worsen. Patient and family are agreeable and will be meeting with hospice and awaiting to decide on inpatient or if patient is stable enough to be hospice in the outpatient setting. Patient denies any chest pain or worsening shortness of breath. Patient is anxious and doing better on Xanax and will continue as needed. Overall prognosis is extremely poor and guarded with possible hospice later today or tomorrow. 11/28/2021 Patient is seen this morning with multiple family members at the bedside and awaiting to meet with [facility] sometime around noon and have agreed to sign the patient on inpatient as his respiratory status continues to decline and is currently maintained on 15 L high flow via nasal cannula along with 15 L n onrebreather. Patient's INR is 5.4 and there is increased hematuria noted in the Grande and patient had been maintained on Coumadin which is being discontinued. Creatinine 2.18 today. Patient denies chest pain and continues with shortness of breath. Patient is afebrile. Patient is lethargic but arousable. Family at the bedside with questions and concerns answered. Review of systems: Constitutional: reports of fatigue, fever, or chills Cardiovascular: No reports of chest pain or palpitations Respiratory: reports of increasing shortness of breath GI: no reports of nausea, no reports of of vomiting, no appetite : No reports of dysuria, some retention, has indwelling catheter now some blood noted Neurovascular: reports of generalized weakness All medications have been reviewed PHYSICAL EXAMINATION: GENERAL: The patient is alert and oriented x3, morbidly obese Well developed, well nourished. Extremely lethargic although arousable HEENT: Pupils are round and equally reacting to light. EOMI. no scleral icterus. No conjunctival pallor. Normocephalic, atraumatic. No pharyngeal erythema. No thyromegaly. CARDIOVASCULAR: S1 and S2 muffled PULMONARY: diminished breath sounds bilaterally with scattered rhonchi and crackles noted. ABDOMEN: soft. Nontender on exam. obese. non-distended, normoactive bowel sounds. No palpable organomegaly. MUSCULOSKELETAL: No joint swelling or deformity. EXTREMITIES: No cyanosis, clubbing, bilateral pedal edema noted. Generalized e magalis noted NEUROLOGICAL: Gross neurological examination did not reveal any focal deficits. Diffuse weakness SKIN: No rashes. Assessment: Acute hypoxic respiratory failure secondary to acute CHF exacerbation, diastolic dysfunction, possible healthcare acquired bilateral pneumonia. 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 Patient and family meeting with [facility] today at bedside as patient's respiratory status continues to deteriorate and patient has taken a turn for the worst and now maintained on 15 L high flow via nasal cannula in addition to 15 L nonrebreather. [facility] hospice to be in around noon today per family members at the bedside. Questions and concerns were answered to the best of our ability. Will continue to follow and initiate comfort measures per hospice. Prognosis is extremely poor and guarded given multiple complex medical issues and will continue to follow closely. The impression and plan of care has been dictated by Lyndsey Vera, nurse practitioner as directed. Dr. jason MD I have performed a history and examination and MDM of this patient, discussed the same with the dictator, and agree with the dictator's assessment and plan as written ,documented as a scribe. Based on total visit time, I have performed more than 50% of the visit. Any additional findings or plans will be noted. Objective - Vital Signs Vital signs: Vital Signs Temp 97.4 F L 11/28/21 04:14 Pulse 85 11/28/21 07:44 Resp 17 11/28/21 07:44 BP 153/85 11/28/21 06:16 Pulse Ox 86 L 11/28/21 08:06 FiO2 100 11/27/21 22:39 Intake & Output 11/27/21 11/28/21 11/28/21 18:59 06:59 18:59 Intake Total 300 Output Total 2100 780 175 Balance -1800 -780 -175 Intake: Oral 300 Output: Urine 2100 780 175 Male - External 2100 175 Other: Voiding Method Indwelling Catheter Indwelling Catheter Indwelling Catheter - Labs CBC & Chem 7: 11/25/21 08:31 11/28/21 10:17 Labs: Abnormal Lab Results - Last 24 Hours (Table) 11/27/21 11/27/21 11/27/21 Range/Units 11:58 16:39 20:36 POC Glucose (mg/dL) 156 H 141 H 143 H (75-99) mg/dL 11/28/21 Range/Units 06:10 POC Glucose (mg/dL) 167 H (75-99) mg/dL
[2021-11-28] MEDS ORDERED: WARFARIN 0.5 MG TAB PO ONE (18:00)
== END 2021-11-28 13:58 | disposition hospice, inpatient (51) | DRG 193 ==
LOC: EC 13:04 → 3SCARD 15:17
PROVIDERS: ADMIT Family Medicine; ATTEND Family Medicine
DX: J18.9 Pneumonia, unspecified organism (principal); N17.0 Acute kidney failure with tubular necrosis; I50.33 Acute on chronic diastolic (congestive) heart failure; J96.01 Acute respiratory failure with hypoxia; E87.1 Hypo-osmolality and hyponatremia; I13.0 Hypertensive heart and chronic kidney disease with heart failure and stage 1 through stage 4 chronic kidney disease, or unspecified chronic kidney disease; I48.21 Permanent atrial fibrillation; Z68.42 Body mass index [BMI] 45.0-49.9, adult; D68.9 Coagulation defect, unspecified; L02.415 Cutaneous abscess of right lower limb; L02.611 Cutaneous abscess of right foot; L03.115 Cellulitis of right lower limb; L03.116 Cellulitis of left lower limb; Z51.5 Encounter for palliative care; T36.8X5A Adverse effect of other systemic antibiotics, initial encounter; Z66 Do not resuscitate; Z20.822 Contact with and (suspected) exposure to COVID-19; E11.22 Type 2 diabetes mellitus with diabetic chronic kidney disease; E11.51 Type 2 diabetes mellitus with diabetic peripheral angiopathy without gangrene; E11.621 Type 2 diabetes mellitus with foot ulcer; E66.01 Morbid (severe) obesity due to excess calories; E86.0 Dehydration; S01.81XA Laceration without foreign body of other part of head, initial encounter; W18.30XA Fall on same level, unspecified, initial encounter; Y92.230 Patient room in hospital as the place of occurrence of the external cause; B95.62 Methicillin resistant Staphylococcus aureus infection as the cause of diseases classified elsewhere; I07.1 Rheumatic tricuspid insufficiency; I27.20 Pulmonary hypertension, unspecified; R55 Syncope and collapse; I87.323 Chronic venous hypertension (idiopathic) with inflammation of bilateral lower extremity; K76.9 Liver disease, unspecified; I87.8 Other specified disorders of veins; L97.512 Non-pressure chronic ulcer of other part of right foot with fat layer exposed; R32 Unspecified urinary incontinence; Y95 Nosocomial condition; I35.1 Nonrheumatic aortic (valve) insufficiency; N18.9 Chronic kidney disease, unspecified; Y93.9 Activity, unspecified; Z95.9 Presence of cardiac and vascular implant and graft, unspecified; Z87.891 Personal history of nicotine dependence; Z86.14 Personal history of Methicillin resistant Staphylococcus aureus infection; Z86.73 Personal history of transient ischemic attack (TIA), and cerebral infarction without residual deficits; Z79.899 Other long term (current) drug therapy; Z79.82 Long term (current) use of aspirin; Z79.01 Long term (current) use of anticoagulants; Z91.010 Allergy to peanuts; Z91.018 Allergy to other foods
CPT/HCPCS: 36415; 70450; 71045; 71046; 71250; 72125; 76705; 80048; 80053; 80202; 81001; 82565; 83519; 83605; 83735; 83880; 83930; 83935; 84145; 84295; 84300; 84484; 85025; 85610; 85730; 87040; 87070; 87077; 87186; 87205; 87449; 87635; 93005; 93270; 93306; 94640; 94760; 96361; 96365; 99285

== ENCOUNTER 2021-11-28 14:05 | Inpatient (IN) | payer MEDICAID, OTHER ==
[2021-11-28] MEDS ORDERED: MORPHINE SULFATE 4 MG/ML SYRINGE IV PRN (14:36)
[2021-11-28] MEDS ORDERED: ATROPINE OPHTH SOLN 1% 5ML BTL SUBLINGUAL PRN (14:36)
[2021-11-28] MEDS ORDERED: LORazepam 2 MG/ML INJ IV PRN (14:36)
[2021-11-28] MEDS ORDERED: ACETAMINOPHEN SUPPOSITORY 650 MG SUPP RECTAL PRN (14:36)
[2021-11-28] MEDS ORDERED: SCOPOLAMINE 1 MG/72 HR PATCH TRANSDERM SCH (15:00)
[2021-11-28] MEDS ORDERED: MORPHINE SULFATE (100 MG/2 ML) 100 MG in SODIUM CHLORIDE 0.9% 100 ML IV SCH (15:30)
[2021-11-28 15:44] VITALS: PULSE 94; RESP 24
[2021-11-28 16:34] LABS: Glucose,Whole Blood 199 mg/dL (75-99)
[2021-11-29] MEDS ORDERED: FUROSEMIDE 10 MG/ML 4 ML VIAL IV SCH (09:00)
--- NOTE | 2021-11-30 10:04 | P.DS ---
Providers Date of admission: 11/28/21 14:05 Expected date of discharge: 11/29/21 Attending physician: Sid Barbour Primary care physician: Sid Barbour [facility] Course: Preliminary cause of Congestive heart failure Final diagnoses Acute hypoxic respiratory failure secondary to acute CHF exacerbation, diastolic dysfunction, possible healthcare acquired bilateral pneumonia. 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 Please refer to previous documentation for further H&P. Family members were present at the bedside. Hospital course This is an 86-year-old male who was admitted with increasing shortness of breath and CHF exacerbation and being closely monitored. Multiple medical consultations were following including cardiology, pulmonary, and nephrology along with infectious disease. Patient was started on IV Lasix and also antibiotic therapy and continued to have severe shortness of breath. Patient remained on high flow oxygen and respiratory status continued to deteriorate requiring 15 L nonrebreather and 15 L high flow oxygen. Patient was no code and family discussed with the patient and patient wished to proceed with hospice. Initially attempted at home hospice although patient was continued respiratory distress requiring more oxygen and not stable for discharge home. Patient and family members met with [facility] and have signed the patient on. Patient with comfort measures only per family and patient and will continue to monitor closely. Patient was started on morphine drip for comfort measures and per nursing documentation time of was 1808. Again please refer to previous dictations for further HPI. The impression and plan of care has been dictated by Lyndsey Vera, nurse practitioner as directed. Dr. Rod MD I have performed a history and examination and MDM of this patient, discussed the same with the dictator, and agree with the dictator's assessment and plan as written ,documented as a scribe. Based on total visit time, I have performed more than 50% of the visit. Any additional findings or plans will be noted. Patient Condition at Discharge: Poor Plan - Discharge Summary New Discharge Prescriptions: No Action Piroxicam [Feldene] 20 mg PO DAILY Metoprolol Tartrate [Lopressor] 50 mg PO Q12H Aspirin EC [Ecotrin Low Dose] 81 mg PO DAILY Furosemide [Lasix] 40 mg PO BID@0600,1400 Escitalopram [Lexapro] 20 mg PO HS Vancomycin HCl 1,250 mg IV HS@2100 Acetaminophen-Codeine 300-30mg [Tylenol w/codeine #3] 1 tab PO Q4H PRN PRN Reason: Pain Timolol 0.5% Ophth Soln [Timoptic 0.5% Ophth Soln] 1 drop BOTH EYES Q12H Ketorolac 0.5% Ophth Soln [Acular 0.5%] 1 drop LEFT EYE Q12H SILVER sulfADIAZINE CREAM [Silvadene Cream] 1 applic TOPICAL HS Collagenase [Santyl Ointment] 1 applic TOPICAL HS Phytonadione [Vitamin K] 2.5 mg PO ONCE busPIRone HCl [Buspar] 5 mg PO BID Warfarin [Coumadin] 5 mg PO HS Pantoprazole [Protonix] 40 mg PO DAILY@0600 Discharge Medication List Metoprolol Tartrate [Lopressor] 50 mg PO Q12H 09/19/14 [History] Piroxicam [Feldene] 20 mg PO DAILY 09/19/14 [History] Aspirin EC [Ecotrin Low Dose] 81 mg PO DAILY 10/25/21 [History] Escitalopram [Lexapro] 20 mg PO HS 10/25/21 [History] Furosemide [Lasix] 40 mg PO BID@0600,1400 10/25/21 [History] Ketorolac 0.5% Ophth Soln [Acular 0.5%] 1 drop LEFT EYE Q12H 10/25/21 [History] Timolol 0.5% Ophth Soln [Timoptic 0.5% Ophth Soln] 1 drop BOTH EYES Q12H 10/25/21 [History] Acetaminophen-Codeine 300-30mg [Tylenol w/codeine #3] 1 tab PO Q4H PRN 11/17/21 [History] Collagenase [Santyl Ointment] 1 applic TOPICAL HS 11/17/21 [History] Pantoprazole [Protonix] 40 mg PO DAILY@0600 11/17/21 [History] Phytonadione [Vitamin K] 2.5 mg PO ONCE 11/17/21 [History] SILVER sulfADIAZINE CREAM [Silvadene Cream] 1 applic TOPICAL HS 11/17/21 [History] Vancomycin HCl 1,250 mg IV HS@2100 11/17/21 [History] Warfarin [Coumadin] 5 mg PO HS 11/17/21 [History] busPIRone HCl [Buspar] 5 mg PO BID 11/17/21 [History] Discharge Disposition: - Preliminary Cause of Preliminary Cause of : Congestive heart failure
== END 2021-11-28 19:32 | disposition expired | DRG 951 ==
LOC: 3SCARD 14:05
PROVIDERS: ADMIT Family Medicine; ATTEND Family Medicine
DX: Z51.5 Encounter for palliative care (principal); J18.9 Pneumonia, unspecified organism; I50.33 Acute on chronic diastolic (congestive) heart failure; J96.01 Acute respiratory failure with hypoxia; N17.0 Acute kidney failure with tubular necrosis; D68.9 Coagulation defect, unspecified; L02.611 Cutaneous abscess of right foot; Z68.42 Body mass index [BMI] 45.0-49.9, adult; I48.20 Chronic atrial fibrillation, unspecified; E87.1 Hypo-osmolality and hyponatremia; L03.115 Cellulitis of right lower limb; I11.0 Hypertensive heart disease with heart failure; E11.628 Type 2 diabetes mellitus with other skin complications; E66.01 Morbid (severe) obesity due to excess calories; I65.29 Occlusion and stenosis of unspecified carotid artery; B95.62 Methicillin resistant Staphylococcus aureus infection as the cause of diseases classified elsewhere; Z20.822 Contact with and (suspected) exposure to COVID-19; E86.1 Hypovolemia; R55 Syncope and collapse; I87.8 Other specified disorders of veins; K76.9 Liver disease, unspecified; Z79.01 Long term (current) use of anticoagulants; Z86.14 Personal history of Methicillin resistant Staphylococcus aureus infection; Z86.73 Personal history of transient ischemic attack (TIA), and cerebral infarction without residual deficits; Z87.891 Personal history of nicotine dependence; Z91.02 Food additives allergy status; Z91.010 Allergy to peanuts; Z98.42 Cataract extraction status, left eye; Z98.41 Cataract extraction status, right eye